=== PATIENT | female | born 1955 | race Two or more races ===

== ENCOUNTER 2020-07-12 11:08 | Outpatient (REF) | payer MEDICAID, SELFPAY ==
--- NOTE | 2020-07-12 11:12 | MM_ITS ---
EXAMINATION: MM SCREENING DIGITAL BREAST TOMOSYNTHESIS, BILATERAL CLINICAL INFORMATION: Screening. Asymptomatic. The lifetime risk of breast cancer based on the Tyrer-Cuzick Model is 3%. COMPARISON: Mammography: 02/14/2019, 06/29/2018, 05/25/2018 TECHNIQUE: Digital breast tomosynthesis is performed in both the craniocaudal and mediolateral oblique views along with computer-aided detection (CAD). Synthesized 2D images are generated from the tomosynthesis. FINDINGS: There are scattered areas of fibroglandular density (ACR BI-RADS breast composition Category b). There are no significant masses, abnormal calcifications, or other abnormalities. Parenchymal pattern is similar to prior studies. There is no developing density. There are scattered bilateral round and vascular calcifications again seen. No significant changes. MM/MM tomosynthesis screening BI IMPRESSION: No mammographic evidence of malignancy. ASSESSMENT: BI-RADS 2: Benign RECOMMENDATION: Routine annual mammography screening. This patient's information was entered into a reminder system with a target due date for their next mammogram.
== END 2020-07-12 11:09 | disposition home or self-care (01) ==
LOC: HO.MAMMO 11:08
PROVIDERS: PCP Internal Medicine Geriatric Medicine; Visit Provider Internal Medicine Geriatric Medicine
DX: Z12.31 Encounter for screening mammogram for malignant neoplasm of breast (principal)
CPT/HCPCS: 77063; 77067

== ENCOUNTER → 2020-09-30 12:59 | Outpatient (BNVA) | payer MEDICAID, SELFPAY | PROVIDERS: PCP Internal Medicine Geriatric Medicine; Visit Provider Internal Medicine Cardiovascular Disease | DX: G47.30 Sleep apnea, unspecified (principal); R06.01 Orthopnea; R06.00 Dyspnea, unspecified; I10 Essential (primary) hypertension | CPT/HCPCS: 99212 ==

== ENCOUNTER → 2020-10-21 14:11 | Outpatient (REF) | payer MEDICAID, SELFPAY | LOC: HO.SL 14:11 | PROVIDERS: PCP Internal Medicine Geriatric Medicine; Visit Provider Internal Medicine Cardiovascular Disease | DX: Z13.89 Encounter for screening for other disorder (principal) ==

== ENCOUNTER → 2020-10-23 13:35 | Outpatient (BNVA) | payer MEDICAID, SELFPAY | PROVIDERS: PCP Internal Medicine Geriatric Medicine; Visit Provider Internal Medicine Cardiovascular Disease | DX: I10 Essential (primary) hypertension (principal); R06.01 Orthopnea | CPT/HCPCS: 99212 ==

== ENCOUNTER → 2020-11-19 10:42 | Outpatient (BNVA) | payer MEDICAID, SELFPAY | PROVIDERS: PCP Internal Medicine Geriatric Medicine; Visit Provider Psychiatry & Neurology Neurology ==

== ENCOUNTER → 2021-02-03 12:55 | Outpatient (BNVA) | payer MEDICAID, SELFPAY | PROVIDERS: PCP Internal Medicine Geriatric Medicine; Referring Provider Internal Medicine Geriatric Medicine; Visit Provider Internal Medicine Cardiovascular Disease | DX: I10 Essential (primary) hypertension (principal); R60.9 Edema, unspecified | CPT/HCPCS: 93005; 99212 ==

== ENCOUNTER → 2021-03-25 13:02 | Outpatient (BNVA) | payer MEDICAID, SELFPAY | PROVIDERS: PCP Internal Medicine Geriatric Medicine; Referring Provider Internal Medicine Geriatric Medicine; Visit Provider Internal Medicine Gastroenterology | DX: R63.4 Abnormal weight loss (principal); F41.9 Anxiety disorder, unspecified | CPT/HCPCS: 99212 ==

== ENCOUNTER 2021-04-07 11:42 | Outpatient (REF) | payer MEDICAID, SELFPAY ==
--- NOTE | ~2021-04-07 | CT_ITS ---
EXAMINATION: CT ABDOMEN AND PELVIS WITH CONTRAST CLINICAL INFORMATION: Abnormal weight loss COMPARISON: Abdominal ultrasound March 2019 TECHNIQUE: Multidetector volumetric images were obtained from the superior aspect of the liver through the pubic symphysis following administration 85 mL of Omnipaque 350 intravenous contrast. Sagittal and coronal reformatted images were obtained on the technologist's workstation. Oral contrast: Yes This CT examination was performed using dose optimization techniques as appropriate, variously including the following: *Automated exposure control *Adjustment of mA and/or kV according to patient size (this includes techniques or standardized protocols for targeted exams where dose is matched to indication/reason for exam; i.e. extremities or head) *Use of iterative reconstruction technique DLP: 386 mGy-cm FINDINGS: LUNG BASES: There is a 4 mm calcified peripheral left lower lobe nodule. The lung bases are otherwise clear. LIVER, GALLBLADDER, AND BILIARY TREE: The liver is slightly low in attenuation questionable for mild fatty infiltration. The liver is otherwise unremarkable. The gallbladder is unremarkable with no evidence of radiopaque gallstones, gallbladder wall thickening, or obvious pericholecystic inflammatory changes. PANCREAS: Unremarkable. SPLEEN: Unremarkable. ADRENAL GLANDS: Unremarkable. KIDNEYS AND URETERS: There is a small 6 mm cyst exophytic to the upper pole of the right kidney. Kidneys are otherwise unremarkable. BLADDER: Unremarkable. GASTROINTESTINAL TRACT: The small and large bowel are unremarkable. The appendix is unremarkable. ABDOMINAL WALL: No significant hernia is appreciated. LYMPH NODES: Normal. VASCULAR: There is evidence of atherosclerotic disease. No aneurysm is seen. PELVIC VISCERA: The uterus appears to have been removed. No pelvic mass is seen. OSSEOUS STRUCTURES: There are degenerative changes of the spine. CT/CT abdomen pelvis w con IMPRESSION: Small 4 mm calcified left lower lobe pulmonary nodule probably representing a calcified granuloma. Question mild fatty infiltration of the liver. Small right renal cyst. Otherwise unremarkable exam.
[2021-04-07 12:54] LABS: MANUAL DIFF FLAG NO
[2021-04-07 13:02] LABS: Basophils Percent Auto 0.6 % (0-2); Eosinophils Absolute Auto 0.1 X10*3/uL (0.0-0.4); Eosinophils Percent Auto 0.8 % (0-4); Hematocrit 43.7 % (37-47); Hemoglobin 14.3 g/dl (12.0-16.0); Imm Gran Abs Auto 0.02 X10*3/uL (0.00-0.03); Imm Gran Pct Auto 0.3 % (0.0-0.4); Lymphocytes Absolute Auto 1.1 X10*3/uL (1.2-4.9); Lymphocytes Percent Auto 16.2 % (20-40); Mean Corpuscular HGB Conc 32.7 g/dl (31.0-35.0); Mean Corpuscular Hemoglobin 28.8 pg (27.0-33.0); Mean Corpuscular Volume 87.9 fL (80-98); Mean Platelet Volume 10.7 fL (9.4-12.3); Monocytes Absolute Auto 0.4 X10*3/uL (0.1-1.2); Monocytes Percent Auto 5.9 % (2-11); Neutrophils Percent Auto 76.2 % (45-73); Platelet Count 359 X10*3/uL (160-400); Red Blood Count 4.97 X10*6/uL (4.20-5.50); Red Cell Distribution Width 11.9 % (11.0-16.0); White Blood Count 6.6 X10*3/uL (4.8-10.8)
[2021-04-07 13:17] LABS: Alanine Aminotransferase 18 U/L (0-31); Albumin Level 4.6 g/dL (3.5-5.0); Alkaline Phosphatase 90 U/L (39-117); Anion Gap 16 (12-20); Aspartate Amino Transferase 13 U/L (5-31); Bilirubin Total 0.3 mg/dL (0.0-1.0); Blood Urea Nitrogen 17 mg/dL (9-16); Calcium 10.4 mg/dL (8.4-10.2); Carbon Dioxide 32 mmol/L (22-29); Chloride 99 mmol/L (96-108); Estimated Glomerular Filt Rate > 60; Glucose Random 287 mg/dL (60-115); Potassium 5.7 mmol/L (3.3-5.1); Sodium 141 mmol/L (135-145); Total Protein 7.3 g/dL (6.5-8.0)
[2021-04-07 13:40] LABS: Ferritin 122 ng/mL (10-250); TSH reflex Free T4 0.87 uIU/mL (0.32-4.0); Vitamin D 25-OH Total 14.4 ng/mL (>30)
[2021-04-07 13:53] LABS: Erythrocyte Sedimentation Rate 18 MM/HR (0-20)
[2021-04-07 14:39] LABS: Glucose Urine UA >=1000 MG/DL (NEG); Leukocyte Esterase Urine NEG (NEG); Nitrite Urine NEG (NEG); PH 6.5 (5.0-8.0); Urine Blood NEG (NEG); Urine Ketones 5 MG/DL (NEG); Urine Protein NEG (NEG-TRACE)
[2021-04-07 14:47] LABS: Appearance Urine CLEAR; Color Urine YELLOW
[2021-04-07] MEDS: iohexoL 350 MG/ML 100 ML INFUS..BTL 85 ML IV (15:22)
[2021-04-07 15:33] LABS: RBC Urine 0-2 /HPF (0); Squamous Epithelial Cell Urine 3+ /LPF; WBC Urine 0-2 /HPF (0-4)
[2021-04-10 06:21] LABS: Zinc 71 mcg/dL (60-130)
== END 2021-04-07 11:43 | disposition home or self-care (01) ==
LOC: HO.CT 11:42
PROVIDERS: PCP Internal Medicine Geriatric Medicine; Visit Provider Internal Medicine Gastroenterology
DX: R63.4 Abnormal weight loss (principal)
CPT/HCPCS: 36415; 74177; 80053; 81001; 81003; 82306; 82728; 84443; 84630; 85025; 85652; 86003; 86140; Q9967

== ENCOUNTER → 2021-05-29 14:54 | Outpatient (BNVA) | payer MEDICAID, SELFPAY | PROVIDERS: PCP Internal Medicine Geriatric Medicine; Referring Provider Internal Medicine Geriatric Medicine; Visit Provider Internal Medicine Cardiovascular Disease | DX: I10 Essential (primary) hypertension (principal) | CPT/HCPCS: 99212 ==

== ENCOUNTER 2021-07-01 13:22 | Outpatient (REF) | payer MEDICARE, MEDICAID, SELFPAY ==
--- NOTE | ~2021-07-01 | MM_ITS ---
EXAMINATION: MM DIAGNOSTIC DIGITAL BREAST TOMOSYNTHESIS, BILATERAL US DIAGNOSTIC ULTRASOUND BREAST, RIGHT CLINICAL INFORMATION: Diffuse right breast pain. No mass or discharge. Due for yearly. The lifetime risk of breast cancer based on the Tyrer-Cuzick Model is 3%. COMPARISON: Mammography: 07/12/2020, 02/14/2019, 05/25/2018, 04/26/2017 TECHNIQUE: Digital breast tomosynthesis is performed in both the craniocaudal and mediolateral oblique views along with computer-aided detection (CAD). Synthesized 2D images are generated from the tomosynthesis. Ultrasound right breast is performed with imaging of the 4 quadrants and retroareolar region. Grayscale imaging and color Doppler are performed without and with harmonics. FINDINGS: There are scattered areas of fibroglandular density (ACR BI-RADS breast composition Category b). Parenchymal pattern is similar to prior studies. There is no developing density or interval mass or architectural abnormality. There are scattered bilateral vascular and round calcifications again seen. The axilla and skin contours are unremarkable. There is no skin thickening or coarsening of the Hima's ligaments. No significant changes. Ultrasound right breast demonstrates no cystic or solid mass, architectural abnormality, or focal duct ectasia. There is no skin thickening or edema tracking in soft tissue planes. Results are discussed with the patient at time of visit, using an educational sign language interpreter. MM/MM tomosynthesis diagnostic BI IMPRESSION: No mammographic evidence of malignancy or inflammatory changes. Unremarkable right breast ultrasound. ASSESSMENT: BI-RADS 1: Negative RECOMMENDATION: 1. Patient's diffuse right breast pain should be managed based on the clinical impression. 2. Otherwise, routine annual screening mammography. This patient's information was entered into a reminder system with a target due date for their next mammogram.
== END 2021-07-01 13:23 | disposition home or self-care (01) ==
LOC: HO.MAMMO 13:22
PROVIDERS: PCP Internal Medicine Geriatric Medicine; Visit Provider Internal Medicine
DX: N64.4 Mastodynia (principal)
CPT/HCPCS: 76642; 77062; 77066

== ENCOUNTER 2021-07-18 17:09 | Emergency (ER) | payer MEDICARE, MEDICAID, SELFPAY ==
--- NOTE | ~2021-07-18 | CT_ITS ---
EXAMINATION: CT HEAD WITHOUT CONTRAST CLINICAL INFORMATION: Facial droop. COMPARISON: CT brain dated from 08/22/2018. TECHNIQUE: Contiguous axial imaging was performed from the skull base to vertex without intravenous administration of contrast. This CT examination was performed using dose optimization techniques as appropriate, variously including the following: *Automated exposure control *Adjustment of mA and/or kV according to patient size (this includes techniques or standardized protocols for targeted exams where dose is matched to indication/reason for exam; i.e. extremities or head) *Use of iterative reconstruction technique DLP: 649 mGy-cm FINDINGS: There is no evidence of acute intracranial hemorrhage or edematous territorial infarction. There is no abnormal attenuation within the brain parenchyma. Curry-white matter differentiation is preserved. The ventricles are normal in size and configuration. There is mild prominence of the extra-axial CSF spaces along the bifrontal convexities, similar to prior. No evidence for obstructive hydrocephalus. No abnormal mass effect or midline shift. No extra-axial fluid collections. Mild soft tissue thickening and scarring in the frontal scalp/forehead, unchanged. No acute osseous or soft tissue abnormalities. Mild mucosal thickening of the paranasal sinuses. The mastoids are clear. CT/CT head/brain wo con IMPRESSION: No evidence of acute intracranial hemorrhage or edematous territorial infarction.
--- NOTE | ~2021-07-18 | MR_ITS ---
EXAMINATION: MR BRAIN WITHOUT CONTRAST CLINICAL INFORMATION: Right facial droop. COMPARISON: Head CT 07/18/2021. TECHNIQUE: Multiplanar, multisequence imaging of the brain was performed without intravenous contrast. FINDINGS: There is no acute infarction, mass, hemorrhage, or extra-axial collection. The ventricles, sulci, and basilar cisterns are normal in size and configuration. The flow voids of the major intracranial arteries appear intact. The bones and extracranial soft tissues are unremarkable. MR/MR head/brain wo con IMPRESSION: No acute infarct, mass lesion, intracranial hemorrhage, or evidence of hydrocephalus.
[2021-07-18 17:16] VITALS: BP 126/52; PULSE 63; RESP 18; TEMP 36.9; O2SAT 100; BMI 29.8
[2021-07-18 17:53] VITALS: BP 157/64; PULSE 90; RESP 18; TEMP 36.7; O2SAT 98
--- NOTE | 2021-07-18 18:01 | ECG_ITS ---
Test Reason : NEURO Blood Pressure : / mmHG Vent. Rate : 088 BPM Atrial Rate : 088 BPM P-R Int : 134 ms QRS Dur : 082 ms QT Int : 354 ms P-R-T Axes : 037 011 066 degrees QTc Int : 428 ms Normal sinus rhythm Nonspecific T wave abnormality Abnormal ECG No significant changes seen Referred By: Nigel Rinaldi Electronically Signed By:ADINA MORALES MD
[2021-07-18 18:07] VITALS: BP 157/74; PULSE 89; RESP 18; O2SAT 98
--- NOTE | 2021-07-18 18:09 | PC.NURSE ---
describing three weeks of right ear pain radiating into right side of face and chin. since yesteray has had left mouth weakness. right facial droop noted. able to close both eyes. no palmar drift. no weakness noted. clear speech.
--- NOTE | 2021-07-18 18:10 | ED_ITS ---
HPI - Neuro Symptoms/Deficit General Chief Complaint: Neuro Symptoms/Deficit Stated Complaint: facial drooping,neck and ear pain Time Seen by Provider: 07/18/21 18:00 Source: patient, family (Daughter) and facility manager histology Mode of arrival: ambulatory Limitations: no limitations History of Present Illness HPI Narrative: 66-year-old female came in for evaluation of a right facial droop started since yesterday. Patient has been complaining of right ear pain and right-sided neck pain for the past 2 weeks, patient started to notice weakness in right facial with drooping since yesterday, patient declined any weakness or numbness in her body. Related Data Home Medications Medication Instructions Recorded Confirmed aspirin 81 mg tablet,delayed 81 mg PO DAILY 09/30/20 05/29/21 release insulin detemir U-100 100 unit/mL 10 unit SUBCUT BEDTIME 09/30/20 05/29/21 (3 mL) subcutaneous pen (Levemir FlexTouch U-100 Insulin) insulin lispro 100 unit/mL 1 sliding scale dose SUBCUT 09/30/20 05/29/21 subcutaneous cartridge (Humalog USEASDIRECTD U-100 Insulin) pravastatin 10 mg tablet 10 mg PO DAILY 09/30/20 05/29/21 hydrochlorothiazide 25 mg tablet 25 mg PO BID 05/29/21 05/29/21 Previous Rx's Medication Instructions Recorded lansoprazole 30 mg capsule,delayed 30 mg PO BID #60 cap 03/25/21 release linaclotide 290 mcg capsule 290 mcg PO DAILY #30 cap 03/25/21 losartan 25 mg tablet 25 mg PO DAILY #30 tab 05/29/21 prednisone 20 mg tablet 20 mg PO BID #10 tab 07/18/21 Allergies Allergy/AdvReac Type Severity Reaction Status Date / Time insulin glargine Allergy Mild RASH Verified 05/29/21 15:09 [From LANTUS] Amitryptiline Allergy Mild unknown Uncoded 03/25/21 13:07 Lantus Allergy Mild unknown Uncoded 03/25/21 13:07 Review of Systems Review of Systems: All other systems are reviewed and are negative Constitutional: Reports as per HPI and Reports no additional constitutional complaints Eyes: Reports as per HPI and Reports no additional eye complaints Reports system reviewed and no additional complaints, except as documented Cardiovascular: Reports as per HPI and Reports no additional cardiovascular complaints Respiratory: Reports as per HPI and Reports no additional respiratory complaints Gastrointestinal: Reports as per HPI and Reports no additional gastrointestinal complaints Genitourinary: Reports no additional female genitourinary complaints Musculoskeletal: Reports no additional musculoskeletal complaints Skin/Breast: Reports system reviewed and no additional complaints, except as docu Psychiatric: Reports no additional psychiatric complaints Endocrine: Reports no additional endocrine complaints Hematologic/Lymphatic: Reports no additional hematologic/lymphatic complaints Allergic/Immunologic: Reports no additional allergic/immunologic complaints Reports system reviewed and no additional complaints, except as documented and R eports Abnormal speech present [facility] Past Medical History Surgical History H/O colonoscopy History of esophagogastroduodenoscopy (EGD) S/P removal of left ovary S/P removal of right ovary Family History Family History Mother Diabetes Father Liver cancer Social History Social History Alcohol intake: never Patient Tobacco Use Status: Never used Tobacco Use of substances other than those prescribed or required for medical reasons: No Advance Directives: No Advance Directives Information Provided: Yes Physical Exam Vital Signs: Vital Signs: Last Vital Signs Temp 98.1 F 07/18/21 17:53 Pulse 89 07/18/21 18:07 Resp 18 07/18/21 18:07 BP 157/74 H 07/18/21 18:07 Pulse Ox 98 07/18/21 18:07 Body Mass Index 29.8 Vital signs have been reviewed as appeared to be correct. Blood pressure normal. Heart rate normal. Respiration rate normal. Temperature normal. Oxygen saturation normal. Appearance: Alert. Oriented X3. No acute distress. Head: Normal external exam. Normocephalic. Atraumatic. No Galvan signs noted. No raccoon eyes noted Eyes: PERRLA. EOMI. Conjunctiva and sclera normal. Eyelids normal. ENT: TM's Normal. Pharynx normal. Uvula midline. Moist mucous membranes. No trismus noted. No drooling noted. No muffled voice noted. Neck: Normal inspection. Neck supple. FROM. No adenopathy. Thyroid Normal. No meningeal signs. No neck mass noted. CVS: Normal heart rate and rhythm. Heart sound normal. No murmurs noted. Pulses normal throughout. Respiratory: No respiratory distress. Painless inspiration. Breath sounds normal. No wheezes/rales/rhonchi noted. Chest nontender. No accessory muscle usage noted or decreased air movement noted. Abdomen: Soft and nontender. Bowel sounds normal in all 4 quadrants. No distention noted. No organomegaly noted. No visible injury noted. Back: No CVA tenderness. Full range of motion noted. Skin: Skin warm and dry. Normal skin color. Normal skin turgor. No rashes/lesions/lacerations noted. Extremities: No lower extremity edema. Extremities exhibit normal range of motion. Extremities nontender. Neuro: Oriented X 3. Cranial nerve exam: Right facial droop with paralysis of the forehead muscle. No motor deficit. No sensory deficit. Reflexes normal. Course Course Course Narrative: Assessment and plan. Right facial Johnson's palsy, otherwise unremarkable neuro exam, CT head/MRI head showing no acute stroke. Patient was reassured and was given the option for steroid because patient is known history of hypertension and diabetes. Will discharge to follow up with Neuro/PCP. MDM - Neuro Symptoms/Deficit Medical Records Attestation: I reviewed the patient's medical records. Lab Data Attestation: I reviewed the patient's lab results. Result diagrams: 07/18/21 18:31 07/18/21 18:31 Labs: Lab Results 07/18/21 07/18/21 07/18/21 Range/Units 18:31 18:31 18:31 WBC 5.0 (4.8-10.8) X10*3/uL RBC 4.45 (4.20-5.50) X10*6/uL Hgb 13.0 (12.0-16.0) g/dl Hct 39.3 (37.0-47.0) % MCV 88.3 (80.0-98.0) fL MCH 29.2 (27.0-33.0) pg MCHC 33.1 (31.0-35.0) g/dl RDW 12.0 (11.0-16.0) % Plt Count 343 (160-400) X10*3/uL MPV 9.7 (9.4-12.3) fL Immature Gran % (Auto) 0.2 (0.0-0.4) % Neut % (Auto) 64.1 (45-73) % Lymph % (Auto) 24.5 (20-40) % [place] % (Auto) 9.4 (2-11) % Eos % (Auto) 1.2 (0-4) % Baso % (Auto) 0.6 (0-2) % Lymph # (Auto) 1.2 (1.2-4.9) X10*3/uL [place] # (Auto) 0.5 (0.1-1.2) X10*3/uL Eos # (Auto) 0.1 (0.0-0.4) X10*3/uL Baso # (Auto) 0.0 (0.0-0.2) X10*3/uL Abs Immat Gran (auto) 0.01 (0.00-0.03) X10*3/uL Absolute Neuts (auto) 3.2 (2.0-8.3) x10*3/uL Absolute Nucleated RBC 0.000 (0.0-0.012) X10*3/uL Nucleated RBC % (auto) 0.0 (0.0-0.2) /100WBC Sodium 142 (135-145) mmol/L Potassium 3.9 D (3.3-5.1) mmol/L Chloride 102 (96-108) mmol/L Carbon Dioxide 34 H (22-29) mmol/L Anion Gap 10 L (12-20) BUN 15 (9-16) mg/dL Creatinine 0.79 (0.5-1.4) mg/dL Estim Creat Clear Calc 66.8 Estimated GFR > 60 Random Glucose 156 H (60-115) mg/dL Calcium 9.1 D (8.4-10.2) mg/dL Total Bilirubin 0.2 (0.0-1.0) mg/dL Direct Bilirubin < 0.2 (0.0-0.5) mg/dL AST 13 (5-31) U/L ALT 17 (0-31) U/L Alkaline Phosphatase 73 (39-117) U/L Troponin I High Sens < 3.5 (<3.5-17.0) ng/L Total Protein 6.5 (6.5-8.0) g/dL Albumin 4.2 (3.5-5.0) g/dL Lipase 9 (8-78) U/L Urine Color Urine Appearance Urine pH (5.0-8.0) Ur Specific [place] (1.005-1.025) Urine Protein (NEG-TRACE) MG/DL Urine Glucose (UA) (NEG) MG/DL Urine Ketones (NEG) MG/DL Urine Blood (NEG) Urine Nitrite (NEG) Ur Leukocyte Esterase (NEG) Urine RBC (0) /HPF Urine WBC (0-4) /HPF Ur Squamous Epith Cells /LPF Urine Bacteria /LPF 07/18/21 Range/Units 18:31 WBC (4.8-10.8) X10*3/uL RBC (4.20-5.50) X10*6/uL Hgb (12.0-16.0) g/dl Hct (37.0-47.0) % MCV (80.0-98.0) fL MCH (27.0-33.0) pg MCHC (31.0-35.0) g/dl RDW (11.0-16.0) % Plt Count (160-400) X10*3/uL MPV (9.4-12.3) fL Immature Gran % (Auto) (0.0-0.4) % Neut % (Auto) (45-73) % Lymph % (Auto) (20-40) % [place] % (Auto) (2-11) % Eos % (Auto) (0-4) % Baso % (Auto) (0-2) % Lymph # (Auto) (1.2-4.9) X10*3/uL [place] # (Auto) (0.1-1.2) X10*3/uL Eos # (Auto) (0.0-0.4) X10*3/uL Baso # (Auto) (0.0-0.2) X10*3/uL Abs Immat Gran (auto) (0.00-0.03) X10*3/uL Absolute Neuts (auto) (2.0-8.3) x10*3/uL Absolute Nucleated RBC (0.0-0.012) X10*3/uL Nucleated RBC % (auto) (0.0-0.2) /100WBC Sodium (135-145) mmol/L Potassium (3.3-5.1) mmol/L Chloride (96-108) mmol/L Carbon Dioxide (22-29) mmol/L Anion Gap (12-20) BUN (9-16) mg/dL Creatinine (0.5-1.4) mg/dL Estim Creat Clear Calc Estimated GFR Random Glucose (60-115) mg/dL Calcium (8.4-10.2) mg/dL Total Bilirubin (0.0-1.0) mg/dL Direct Bilirubin (0.0-0.5) mg/dL AST (5-31) U/L ALT (0-31) U/L Alkaline Phosphatase (39-117) U/L Troponin I High Sens (<3.5-17.0) ng/L Total Protein (6.5-8.0) g/dL Albumin (3.5-5.0) g/dL Lipase (8-78) U/L Urine Color YELLOW Urine Appearance CLEAR Urine pH 6.0 (5.0-8.0) Ur Specific [place] 1.015 (1.005-1.025) Urine Protein NEG (NEG-TRACE) MG/DL Urine Glucose (UA) >=1000 H (NEG) MG/DL Urine Ketones NEG (NEG) MG/DL Urine Blood NEG (NEG) Urine Nitrite NEG (NEG) Ur Leukocyte Esterase NEG (NEG) Urine RBC 0 (0) /HPF Urine WBC 1-4 (0-4) /HPF Ur Squamous Epith Cells 1+ /LPF Urine Bacteria NONE /LPF Imaging Data Brain MRI: Radiologist's impression: No acute infarct, mass lesion, intracranial hemorrhage, or evidence of hydrocephalus. ? CT scan - head: Radiologist's impression: No evidence of acute intracranial hemorrhage or edematous territorial infarction. NIH Stroke Scale Level of Consciousness: Alert Level of Consciousness Questions: Answers both questions correctly Level of Consciousness Commands: Performs both tasks correctly Best Gaze: Normal Visual: No visual loss Facial Palsy: Partial paralysis Motor Arm (Right): No drift Motor Arm (Left): No drift Motor Leg (Right): No drift Motor Leg (Left): No drift Limb Ataxia: Absent Sensory: Normal Best Language: No aphasia Dysarthia: Normal Extinction and Inattention: No abnormality Score: 2 Discharge Plan Discharge Clinical Impression: Facial paralysis/Grubbs palsy Patient Disposition: Home, Self-Care Instructions: Johnson Palsy (ED) Prescriptions: New prednisone 20 mg tablet 20 mg PO BID Qty: 10 RF: 0 No Action lansoprazole 30 mg capsule,delayed release(DR/EC) 30 mg PO BID Qty: 60 RF: 3 linaclotide 290 mcg capsule 290 mcg PO DAILY Qty: 30 RF: 3 hydrochlorothiazide 25 mg tablet 25 mg PO BID RF: 0 losartan 25 mg tablet 25 mg PO DAILY Qty: 30 RF: 3 Humalog U-100 Insulin 100 unit/mL cartridge 1 sliding scale dose subcut USEASDIRECTD RF: 0 aspirin 81 mg tablet,delayed release (DR/EC) 81 mg PO DAILY RF: 0 Levemir FlexTouch U-100 Insuln 100 unit/mL (3 mL) insulin pen 10 unit subcut BEDTIME RF: 0 pravastatin 10 mg tablet 10 mg PO DAILY RF: 0 Referrals: Aamir Pierce MD [Primary Care Provider] - 2 days Preeti Campbell MD [Physician] - 2 days
[2021-07-18 18:39] LABS: MANUAL DIFF FLAG NO
[2021-07-18 18:40] LABS: Basophils Percent Auto 0.6 % (0-2); Eosinophils Absolute Auto 0.1 X10*3/uL (0.0-0.4); Eosinophils Percent Auto 1.2 % (0-4); Hematocrit 39.3 % (37.0-47.0); Imm Gran Abs Auto 0.01 X10*3/uL (0.00-0.03); Imm Gran Pct Auto 0.2 % (0.0-0.4); Lymphocytes Absolute Auto 1.2 X10*3/uL (1.2-4.9); Lymphocytes Percent Auto 24.5 % (20-40); Mean Corpuscular HGB Conc 33.1 g/dl (31.0-35.0); Mean Corpuscular Hemoglobin 29.2 pg (27.0-33.0); Mean Corpuscular Volume 88.3 fL (80.0-98.0); Mean Platelet Volume 9.7 fL (9.4-12.3); Monocytes Absolute Auto 0.5 X10*3/uL (0.1-1.2); Monocytes Percent Auto 9.4 % (2-11); Neutrophils Absolute Auto 3.2 x10*3/uL (2.0-8.3); Neutrophils Percent Auto 64.1 % (45-73); Platelet Count 343 X10*3/uL (160-400); Red Blood Count 4.45 X10*6/uL (4.20-5.50)
[2021-07-18 18:47] LABS: Appearance Urine CLEAR; Color Urine YELLOW; Glucose Urine UA >=1000 MG/DL (NEG); Leukocyte Esterase Urine NEG (NEG); Nitrite Urine NEG (NEG); Specific Gravity - Urine 1.015 (1.005-1.025); Urine Blood NEG (NEG); Urine Ketones NEG (NEG); Urine Protein NEG (NEG-TRACE)
[2021-07-18 18:56] LABS: Alanine Aminotransferase 17 U/L (0-31); Albumin Level 4.2 g/dL (3.5-5.0); Alkaline Phosphatase 73 U/L (39-117); Anion Gap 10 (12-20); Aspartate Amino Transferase 13 U/L (5-31); Bilirubin Direct < 0.2 mg/dL (0.0-0.5); Bilirubin Total 0.2 mg/dL (0.0-1.0); Blood Urea Nitrogen 15 mg/dL (9-16); Calcium 9.1 mg/dL (8.4-10.2); Carbon Dioxide 34 mmol/L (22-29); Chloride 102 mmol/L (96-108); Creatinine Clr Calc Pharmacy 66.8; Estimated Glomerular Filt Rate > 60; Glucose Random 156 mg/dL (60-115); Lipase 9 U/L (8-78); Potassium 3.9 mmol/L (3.3-5.1); Sodium 142 mmol/L (135-145); Total Protein 6.5 g/dL (6.5-8.0)
[2021-07-18 18:59] LABS: Troponin-I High Sensitivity < 3.5 ng/L (<3.5-17.0)
[2021-07-18 19:07] LABS: RBC Urine 0 /HPF (0); Squamous Epithelial Cell Urine 1+ /LPF
--- NOTE | 2021-07-18 19:11 | PC.NURSE ---
pt is going directly to MRI from Ct.
== END 2021-07-18 22:28 | disposition home or self-care (01) ==
PROVIDERS: Emergency Provider Emergency Medicine; PCP Internal Medicine Geriatric Medicine
DX: G51.0 Bell's palsy (principal)
CPT/HCPCS: 36415; 70450; 70551; 80048; 80076; 81001; 83690; 84484; 85025; 93005; 99284; 99285

== ENCOUNTER → 2021-08-01 08:40 | Outpatient (BNVA) | payer MEDICARE, MEDICAID, SELFPAY | PROVIDERS: PCP Internal Medicine Geriatric Medicine; Referring Provider Internal Medicine Geriatric Medicine; Visit Provider Internal Medicine Gastroenterology | DX: R10.13 Epigastric pain (principal); F41.9 Anxiety disorder, unspecified; R63.4 Abnormal weight loss | CPT/HCPCS: 99212 ==

== ENCOUNTER → 2021-10-31 08:44 | Outpatient (BNVA) | payer MEDICARE, SELFPAY | PROVIDERS: PCP Internal Medicine Geriatric Medicine; Referring Provider Internal Medicine Geriatric Medicine; Visit Provider Internal Medicine Gastroenterology | DX: K29.60 Other gastritis without bleeding (principal); K59.00 Constipation, unspecified | CPT/HCPCS: 99212 ==

== ENCOUNTER 2021-12-03 07:59 | Day surgery (SDC) | payer MEDICARE, SELFPAY ==
--- NOTE | 2021-12-02 08:22 | P.CONAN_ITS ---
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 [facility] Active Problems Active Problems: All Active Problems (Updated 11/28/21 @ 11:57 by Raquel Farias, JESENIA) Hypertension (Acute) GRIGSBY (dyspnea on exertion) (Acute) Orthopnea (Acute) Sleep disorder breathing (Acute) Snoring (Acute) Insomnia (Acute) Nocturnal leg movements (Acute) Excessive daytime sleepiness (Acute) Peripheral edema (Acute) Weight loss, abnormal (Acute) Epigastric abdominal pain (Acute) Anxiety (Acute) Past Medical History Medical History (Updated 12/03/21 @ 08:12 by Deb Owens RN) Anxiety Diabetes GERD (gastroesophageal reflux disease) HTN (hypertension) Sleep apnea Family History Family History Mother Diabetes Father Liver cancer Surgical History Surgical History H/O colonoscopy History of esophagogastroduodenoscopy (EGD) S/P removal of left ovary S/P removal of right ovary Social History Social History Alcohol intake: never Patient Tobacco Use Status: Never used Tobacco Use of substances other than those prescribed or required for medical reasons: No Are you DNR?: No Advance Directives: No Advance Directives Information Provided: Yes Meds Allergies Allergy/AdvReac Type Severity Reaction Status Date / Time insulin glargine Allergy Mild RASH Verified 11/28/21 11:59 [From LANTUS] Amitryptiline Allergy Mild unknown Uncoded 11/28/21 11:59 Home Medications Medication Instructions Recorded Confirmed Last Taken Type aspirin 81 mg tablet,delayed 81 mg PO DAILY 09/30/20 11/28/21 Unknown History release insulin detemir U-100 100 unit/mL 10 unit SUBCUT BEDTIME 09/30/20 11/28/21 Unknown History (3 mL) subcutaneous pen (Levemir FlexTouch U-100 Insulin) insulin lispro 100 unit/mL 1 sliding scale dose SUBCUT 09/30/20 11/28/21 Unknown History subcutaneous cartridge (Humalog USEASDIRECTD U-100 Insulin) pravastatin 10 mg tablet 10 mg PO DAILY 09/30/20 11/28/21 Unknown History hydrochlorothiazide 25 mg tablet 25 mg PO DAILY 05/29/21 11/28/21 Unknown History empagliflozin 10 mg tablet 10 mg PO QAM 08/01/21 11/28/21 Unknown History (Jardiance) fluticasone propionate 50 2 spray INTRANASAL DAILY 08/01/21 11/28/21 Unknown History mcg/actuation nasal spray,suspension loratadine 10 mg tablet 10 mg PO DAILY 08/01/21 11/28/21 Unknown History losartan 25 mg tablet 50 mg PO DAILY tab 08/01/21 11/28/21 Unknown History Exam Exam Date and Time: December 02, [id number] Pertinent Lab Results Pertinent Lab Results: Laboratory Tests 07/18/21 07/18/21 18:31 18:31 WBC 5.0 Hgb 13.0 Hct 39.3 Plt Count 343 Sodium 142 Potassium 3.9 D Chloride 102 Carbon Dioxide 34 H BUN 15 Creatinine 0.79 Narrative Narrative: EKG 07/2021 Vent. Rate : 088 BPM ? ? Atrial Rate : 088 BPM ?? P-R Int : 134 ms? QRS Dur : 082 ms ? ? QT Int : 354 ms ? ? ? P-R-T Axes : 037 011 066 degrees ?? QTc Int : 428 ms ? Normal sinus rhythm Nonspecific T wave abnormality Abnormal ECG ? No significant changes seen Assessment and Plan Assessment Anesthesia Assessment: Chart Reviewed Documented by User: Dana Maradiaga MD 12/03/21 08:37 [facility] Past Medical History Medical History (Updated 12/03/21 @ 08:12 by Deb Owens RN) Anxiety Diabetes GERD (gastroesophageal reflux disease) HTN (hypertension) Sleep apnea Family History Family History Mother Diabetes Father Liver cancer Family history of problems with anesthesia: No Surgical History Surgical History H/O colonoscopy History of esophagogastroduodenoscopy (EGD) S/P removal of left ovary S/P removal of right ovary History of Problems with Anesthesia: No Social History Social History Alcohol intake: never Patient Tobacco Use Status: Never used Tobacco Use of substances other than those prescribed or required for medical reasons: No Are you DNR?: No Advance Directives: No Advance Directives Information Provided: Yes Meds Allergies Allergy/AdvReac Type Severity Reaction Status Date / Time insulin glargine Allergy Mild RASH Verified 11/28/21 11:59 [From LANTUS] Amitryptiline Allergy Mild unknown Uncoded 11/28/21 11:59 Home Medications Medication Instructions Recorded Confirmed Last Taken Type aspirin 81 mg tablet,delayed 81 mg PO DAILY 09/30/20 11/28/21 Unknown History release insulin detemir U-100 100 unit/mL 10 unit SUBCUT BEDTIME 09/30/20 11/28/21 Unknown History (3 mL) subcutaneous pen (Levemir FlexTouch U-100 Insulin) insulin lispro 100 unit/mL 1 sliding scale dose SUBCUT 09/30/20 11/28/21 Unknown History subcutaneous cartridge (Humalog USEASDIRECTD U-100 Insulin) pravastatin 10 mg tablet 10 mg PO DAILY 09/30/20 11/28/21 Unknown History hydrochlorothiazide 25 mg tablet 25 mg PO DAILY 05/29/21 11/28/21 Unknown History empagliflozin 10 mg tablet 10 mg PO QAM 08/01/21 11/28/21 Unknown History (Jardiance) fluticasone propionate 50 2 spray INTRANASAL DAILY 08/01/21 11/28/21 Unknown History mcg/actuation nasal spray,suspension loratadine 10 mg tablet 10 mg PO DAILY 08/01/21 11/28/21 Unknown History losartan 25 mg tablet 50 mg PO DAILY tab 08/01/21 11/28/21 Unknown History Exam Airway Mallampati Class: III TM Dist: >3cm Neck ROM: Full Denture: Upper and Lower Heart: rrr Lungs: cta Assessment and Plan Assessment Anesthesia Assessment: Anesthesia Plan Discussed and Chart Reviewed Final Anesthetic Review Family History of Problems with Anesthesia: No History of Problems with Anesthesia: No NPO: Yes (BS 217) ASA Class: II Final Preanesthetic Review: No Changes in Pt Med Stat, Meds/Allgs Chart Reviewed and Consent Obtained/Reviewed Patient Risk: Intermediate Procedure Risk: Intermediate Anesthetic Plan Anesthetic Plan: MAC: Disposition: Standard PACU
[2021-12-03 08:07] VITALS: BMI 33.2
[2021-12-03 08:29] VITALS: BP 181/67; PULSE 90; RESP 16; TEMP 36.7; O2SAT 97
[2021-12-03 08:38] LABS: Glucose, Whole Blood 217 mg/dL (60-115)
[2021-12-03] MEDS: Lactated Ringers 1,000 ML 100 ML IVCONT (08:46)
--- NOTE | 2021-12-03 09:08 | MHC.SHP ---
Pre-Procedural Eval Section A Date of Service: 12/03/21 Section B Chief Complaint: Change in Bowel Habits, Epigastric abd pain Relevant Family History (Specify if Yes): No Relevant Social History: None Present Medications: see Short Stay Collaborative assessment Medical History: Significant History (Anxiety Diabetes GERD (gastroesophageal reflux disease) HTN (hypertension) Sleep apnea) History of Previous Operations: Relevant previous surgery/procedure and date(s) (H/O colonoscopy History of esophagogastroduodenoscopy (EGD) S/P removal of left ovary S/P removal of right ovary) Allergies: Allergies Allergy/AdvReac Type Severity Reaction Status Date / Time insulin glargine Allergy Mild RASH Verified 11/28/21 11:59 [From LANTUS] Amitryptiline Allergy Mild unknown Uncoded 11/28/21 11:59 Review of Systems Sugical H&P ROS: Negative: Constitution, Cardiovascular, Respiratory, Neurological, Psychiatric, Hem-Onc, Allergic/Immunologic, Gastrointestinal, Genitourinary, Musculoskeletal, Integumentary, Endocrine and Eyes/Ears/Nose/Throat Exam Surgical H&P Exam: Normal: HEENT, Normal: Heart, Normal: Lungs, Normal: Extremities, Normal: Abdomen, Normal: Skin and Normal: Neurological Plan Diagnosis/Plan: Unchanged I have reviewed the history and physical and performed a pertinent physical examination on my patient. No changes have occurred unless specified.
--- NOTE | 2021-12-03 09:33 | P.BOP_ITS ---
Brief Operative Note Date of Service: 12/03/21 Pre-op diagnosis: GERD, altered bowel habit Post-op diagnosis: same Procedure: see op note Surgeon: Roxanne Stock MD Anesthesia: MAC Was an [employer] Gin used for this Procedure?: No Estimated blood loss (mL): 0 Condition: stable Disposition: PACU
--- NOTE | 2021-12-03 09:34 | W.PM.OPN ---
Operative Note Operative Note Date of Service: 12/03/21 Narrative: Operative Information Procedure Description: EGD, Colonoscopy FLEXIBLE TRANSORAL UPPER GASTROINTESTINAL ENDOSCOPY AND COLONOSCOPY PROCEDURE NOTE UPPER ENDOSCOPY Consent: Indications for the procedure and potential complications of bleeding, perforation, reaction to medications and missed diagnosis were discussed with the patient and informed consent was obtained. Instrument: Olympus GIF H 190 J mid size upper endoscope Monitoring: Vital signs and clinical assessment, continuous EKG monitoring, Pulse oximetry, Carbon Dioxide monitoring and blood pressure monitoring were done throughout the procedure. Procedure: The patient was placed in the left lateral decubitis position and pre-procedure medications were administered and a bite block was placed. The endoscope was inserted into the mouth and advanced under direct vision to the third part of duodenum. A careful inspection was made as the upper endoscope was withdrawn including a retroflexed examination of the proximal stomach; Findings and interventions are described below. Findings: Larynx:normal Esophagus: GE junction at 38 cm, diaphragm hiatus at 38 cm, normal mucosa, 10 mm esophageal inlet patch seen which is a benign finding, random esophageal bx taken Stomach: Normal mucosa. Biopsies were obtained. Grade 2 flap valve on retroflexed examination of the cardia. Duodenum: Normal bulb and descending duodenum, bx taken Intervention: Biopsies as noted above COLONOSCOPY Instrument: Olympus variable stiffness pediatric scope 190L Colonoscopy Monitoring: Vital signs and clinical assessment, continuous EKG monitoring, Pulse oximetry, Carbon Dioxide monitoring and blood pressure monitoring were done throughout the procedure. Colon withdrawal time was 15 minutes. Procedure: The patient was placed in the left lateral decubitis position and pre-procedure medications were administered. After a digital rectal examination of the ano-rectum, the video colonoscope was inserted into the rectum and advanced through the colon to the cecum/TI. The colonoscope was slowly withdrawn in a retrograde panoramic fashion and the colon mucosa was carefully examined including a retroflexed view of the rectum. Findings and interventions are described below. Procedure Difficulty: easy Findings: Terminal Ileum-normal, bx taken random colon bx taken Cecum:normal Ascending Colon: normal Transverse Colon -normal Descending Colon:normal Sigmoid Colon: normal Rectum: Retroflexion with small internal hemorrhoids, grade I Anorectum - normal Colon preparation: [place] Bowel Preparation Scale Right colon; 1 Transverse colon: 2 Left colon; 1 (0 = Unprepared colon segment with mucosa not seen due to solid stool that cannot be cleared. 1 = Portion of mucosa of the colon segment seen, but other areas of the colon segment not well seen due to staining, residual stool and/or opaque liquid. 2 = Minor amount of residual staining, small fragments of stool and/or opaque liquid, but mucosa of colon segment seen well. 3 = Entire mucosa of colon segment seen well with no residual staining, small fragments of stool or opaque liquid) Impression and Post Procedure Diagnosis: Endoscopy Findings: esophageal inlet patch Colonoscopy Findings: internal hemorrhoids Plan: Await Pathology results, if bx neg then can consider further w/u with capsule endoscopy etc Repeat Colonoscopy in 1-2 years or earlier if clinically indicated High fiber diet leaflet avoid straining at stool, epsom salts and sitz bath, anusol supps or cream Above findings were reviewed with the patient and relevant handouts were provided if indicated.
[2021-12-03 10:12] VITALS: BP 114/52; PULSE 86; RESP 18; TEMP 36.2; O2SAT 99
[2021-12-03 10:16] LABS: Glucose, Whole Blood 226 mg/dL (60-115)
[2021-12-03 10:27] VITALS: BP 158/62; PULSE 84; RESP 18; TEMP 36.4; O2SAT 97
== END 2021-12-03 11:18 | disposition home or self-care (01) ==
PROVIDERS: PCP Internal Medicine; Visit Provider Internal Medicine Gastroenterology
PROC: (CPT 45380; principal; 2021-12-03 09:20)
DX: R19.4 Change in bowel habit (principal); K64.0 First degree hemorrhoids; K59.00 Constipation, unspecified; R10.13 Epigastric pain; K44.9 Diaphragmatic hernia without obstruction or gangrene; Q39.8 Other congenital malformations of esophagus; K21.9 Gastro-esophageal reflux disease without esophagitis; I10 Essential (primary) hypertension; E11.9 Type 2 diabetes mellitus without complications; Z88.8 Allergy status to other drugs, medicaments and biological substances; Z79.899 Other long term (current) drug therapy; Z79.4 Long term (current) use of insulin
CPT/HCPCS: 45380; 43239; 82947; 88305; 88342

== ENCOUNTER → 2022-04-03 11:44 | Outpatient (BNVA) | payer OTHER, SELFPAY | PROVIDERS: PCP Internal Medicine Geriatric Medicine; Visit Provider Internal Medicine Gastroenterology | DX: R68.81 Early satiety (principal); K59.00 Constipation, unspecified; K31.84 Gastroparesis; K29.60 Other gastritis without bleeding | CPT/HCPCS: 99212 ==

== ENCOUNTER 2022-07-09 13:12 | Outpatient (REF) | payer OTHER, SELFPAY ==
--- NOTE | ~2022-07-09 | MM_ITS ---
EXAMINATION: MM SCREENING DIGITAL BREAST TOMOSYNTHESIS, BILATERAL CLINICAL INFORMATION: Screening. Asymptomatic. The lifetime risk of breast cancer based on the Tyrer-Cuzick Model is 5%. COMPARISON: Mammography: July 01, 2021 and studies dating back to January 10, 2016 TECHNIQUE: Digital breast tomosynthesis is performed in both the craniocaudal and mediolateral oblique views along with computer-aided detection (CAD). Synthesized 2D images are generated from the tomosynthesis. FINDINGS: The breasts are heterogeneously dense, which may obscure small masses (ACR BI-RADS breast composition Category c). There are no significant masses, abnormal calcifications, or other abnormalities. MM/MM tomosynthesis screening BI IMPRESSION: No significant changes ASSESSMENT: BI-RADS 1: Negative RECOMMENDATION: Routine annual mammography screening. This patient's information was entered into a reminder system with a target due date for their next mammogram.
== END 2022-07-09 13:13 | disposition home or self-care (01) ==
LOC: HO.MAMMO 13:12
PROVIDERS: PCP Internal Medicine Geriatric Medicine; Visit Provider Internal Medicine Geriatric Medicine
DX: Z12.31 Encounter for screening mammogram for malignant neoplasm of breast (principal)
CPT/HCPCS: 77063; 77067

== ENCOUNTER → 2022-07-30 08:00 | Outpatient (REF) | payer OTHER, SELFPAY ==
--- NOTE | ~2022-07-30 | NM_ITS ---
EXAMINATION: NM RADIONUCLIDE SOLID FOOD GASTRIC EMPTYING 4-HOUR STUDY CLINICAL INFORMATION: Early satiety. COMPARISON: No previous gastric emptying study is available for comparison. EXAMINATION: TECHNIQUE: A standard meal consisting of 4 oz of Egg Beaters brand tagged with 1 mCi Tc-99m Sulfur Colloid, 8 oz water and 2 slices of toast with jelly was administered orally to the patient. Images were obtained using a dual head gamma camera in the anterior and posterior projections over of the stomach immediately post ingestion and at hourly intervals up to 3 hours post ingestion. Images were not obtained at 4 hours due to the minimal retention at 3 hours. The anterior and posterior counts at each time interval were averaged using the geometric mean and expressed as percentage of the immediate post ingestion counts. FINDINGS: There is good visualization of activity in the stomach immediately post ingestion. As the study progresses, there is good clearance of activity from the stomach and visualization of progressively increasing small bowel activity. By the end of the study, there is almost no retention noted in the stomach. Retention in the stomach at each time interval was: 1 hour 57% (normal 37%-90%) 2 hours 7% (normal 30%-60%) 3 hours 2% 4 hours (Not Obtained) (normal 0%-10%) NM/NM gastric emptying study IMPRESSION: Normal solid food gastric emptying study.
== END ==
LOC: HO.NUCMED 08:00
PROVIDERS: PCP Internal Medicine Geriatric Medicine; Visit Provider Internal Medicine Gastroenterology
DX: R68.81 Early satiety (principal)
CPT/HCPCS: 78264; A9541

== ENCOUNTER → 2022-08-17 09:51 | Outpatient (BNVA) | payer OTHER, SELFPAY | PROVIDERS: PCP Internal Medicine Geriatric Medicine; Visit Provider Internal Medicine Gastroenterology | DX: K29.60 Other gastritis without bleeding (principal); K59.00 Constipation, unspecified | CPT/HCPCS: 99212 ==

== ENCOUNTER → 2022-12-21 09:03 | Outpatient (BNVA) | payer OTHER, SELFPAY | PROVIDERS: PCP Internal Medicine Geriatric Medicine; Referring Provider Internal Medicine Geriatric Medicine; Visit Provider Internal Medicine Gastroenterology | DX: R10.9 Unspecified abdominal pain (principal); K59.00 Constipation, unspecified | CPT/HCPCS: 99212 ==

== ENCOUNTER 2023-03-24 14:46 | Outpatient (REF) | payer OTHER, SELFPAY ==
[2023-03-24 16:36] LABS: Estimated Average Glucose 232 mg/dL; Hemoglobin A1c % 9.7 %
== END 2023-03-24 14:47 | disposition home or self-care (01) ==
LOC: HO.HHCL 14:46
PROVIDERS: Visit Provider Internal Medicine Geriatric Medicine
DX: E11.9 Type 2 diabetes mellitus without complications (principal); Z79.4 Long term (current) use of insulin
CPT/HCPCS: 36415; 83036

== ENCOUNTER 2023-05-10 14:47 | Inpatient (IN) | payer OTHER, SELFPAY ==
--- NOTE | 2023-05-10 | ECG_ITS ---
Test Reason : CHEST PAIN Blood Pressure : / mmHG Vent. Rate : 048 BPM Atrial Rate : 048 BPM P-R Int : 186 ms QRS Dur : 088 ms QT Int : 462 ms P-R-T Axes : 069 036 066 degrees QTc Int : 412 ms Normal sinus rhythm with 2nd degree SA block (Mobitz II) Nonspecific ST and T wave abnormality Abnormal ECG When compared with ECG of 10-MAY-2023 14:58, Nonspecific T wave abnormality now evident in Lateral leads Referred By: Tommy Andrade Electronically Signed By:HECTOR PERRY
--- NOTE | ~2023-05-10 | XR_ITS ---
EXAMINATION: XR CHEST CLINICAL INFORMATION: Pacemaker COMPARISON: Previous chest x-ray from yesterday TECHNIQUE: 2 views of the chest were obtained. FINDINGS: There is a new left subclavian dual chamber pacemaker in satisfactory position. The cardiac silhouette is enlarged but stable. There may be pulmonary venous redistribution. The lungs are otherwise clear. No pleural effusion or pneumothorax. Degenerative changes of the spine and right shoulder. XR/XR chest 2V IMPRESSION: Satisfactory position of left subclavian dual chamber pacemaker. No pneumothorax.
--- NOTE | ~2023-05-10 | FL_ITS ---
EXAMINATION: XR FLUOROSCOPY WITH IMAGES CLINICAL INFORMATION: Pacemaker insertion. COMPARISON: Previous chest x-ray from yesterday TECHNIQUE: Fluoroscopy Supervised By: Kar Anaya MD. FT: 9.3 min. Images: 1 Dose: 74.2 mGy DAP: 20.2 Gy/cm2. FINDINGS: Single fluoroscopic image demonstrates left-sided pacemaker leads with tips projecting over the right atrium and right ventricle. FL/FL guidance in OR IMPRESSION: Fluoroscopy guidance for pacemaker.
--- NOTE | ~2023-05-10 | XR_ITS ---
EXAMINATION: XR CHEST CLINICAL INFORMATION: Chest pain. COMPARISON: 03/05/2020 chest radiograph. TECHNIQUE: Frontal view of the chest was obtained. FINDINGS: No significant abnormality is noted involving the heart, lungs, mediastinum, bony thorax or soft tissues. XR/XR chest 1V IMPRESSION: No acute cardiopulmonary process.
--- NOTE | 2023-05-10 14:51 | ECG_ITS ---
Test Reason : chest pain Blood Pressure : / mmHG Vent. Rate : 044 BPM Atrial Rate : 044 BPM P-R Int : 150 ms QRS Dur : 082 ms QT Int : 528 ms P-R-T Axes : 066 030 072 degrees QTc Int : 451 ms Normal sinus rhythm with 2nd degree SA block (Mobitz II) Possible Left atrial enlargement Abnormal ECG When compared with ECG of 18-JUL-2021 18:10, Vent. rate has decreased BY 44 BPM Normal sinus rhythm with 2nd degree SA block (Mobitz II) is now Present Referred By: Milton Forte Electronically Signed By:HECTOR PERRY
--- NOTE | 2023-05-10 15:07 | ED_ITS ---
HPI - General Adult General Stated complaint: chest pain/ dizziness/ HBP Related Data Home Medications Medication Instructions Recorded Confirmed aspirin 81 mg tablet,delayed 81 mg PO DAILY 09/30/20 11/28/21 release insulin detemir U-100 100 unit/mL 10 unit subcut BEDTIME 09/30/20 11/28/21 (3 mL) subcutaneous pen (Levemir FlexTouch U-100 Insulin) pravastatin 10 mg tablet 10 mg PO DAILY 09/30/20 11/28/21 hydrochlorothiazide 25 mg tablet 25 mg PO DAILY 05/29/21 11/28/21 fluticasone propionate 50 2 spray intranasal DAILY 08/01/21 11/28/21 mcg/actuation nasal spray,suspension loratadine 10 mg tablet 10 mg PO DAILY 08/01/21 11/28/21 amlodipine 10 mg tablet 10 mg PO DAILY 04/03/22 blood sugar diagnostic (OneTouch #10 ea 04/03/22 Ultra Test strips) diclofenac sodium 1 % topical gel g topical BID 04/03/22 gabapentin 100 mg capsule 100 mg PO DAILY 04/03/22 lancets 33 gauge (OneTouch Delica #100 ea 04/03/22 Plus Lancet) losartan 50 mg tablet 50 mg PO 04/03/22 pen needle, diabetic 32 gauge x #50 ea 08/17/22 (BD Ultra-Fine Becca Pen Needle) chlorthalidone 25 mg tablet 25 mg PO DAILY 12/21/22 insulin aspart U-100 100 unit/mL subcut 12/21/22 (3 mL) subcutaneous pen (Novolog FlexPen U-100 Insulin aspart) ipratropium bromide 42 mcg (0.06 1 spray intranasal TID 12/21/22 %) nasal spray metformin 1,000 mg tablet 1,000 mg PO BID 12/21/22 pantoprazole 40 mg tablet,delayed 40 mg PO BID 12/21/22 release valsartan 320 mg tablet 320 mg PO DAILY 12/21/22 Previous Rx's Medication Instructions Recorded ondansetron 4 mg disintegrating 4 mg PO Q6H #10 tabs 10/31/21 tablet furosemide 20 mg tablet 20 mg PO QAM #90 tabs 06/18/22 plecanatide 3 mg tablet (Trulance) 3 mg PO DAILY #90 tabs 12/21/22 trazodone 50 mg tablet 50 mg PO BEDTIME #30 tabs 04/01/23 Allergies Allergy/AdvReac Type Severity Reaction Status Date / Time insulin glargine Allergy Mild RASH Verified 12/21/22 09:15 [From LANTUS] Amitryptiline Allergy Mild unknown Uncoded 12/21/22 09:15 [facility] Past Medical History Medical History Anxiety Diabetes GERD (gastroesophageal reflux disease) HTN (hypertension) Sleep apnea Surgical History H/O colonoscopy History of esophagogastroduodenoscopy (EGD) S/P removal of left ovary S/P removal of right ovary Family History Family History Mother Diabetes Father Liver cancer Social History Social History Alcohol intake: never Patient Tobacco Use Status: Never used Tobacco Advance Directives: No Advance Directives Information Provided: Yes Course Course Course Narrative: This is an RME: Additional HPI, ROS, PE not included below will be deferred to primary provider. 67-year-old female history of hypertension, dyspnea on exertion, anxiety presents with high blood pressures at, palpitations, shortness of breath, substernal chest discomfort and lightheadedness all going on for the past few days, decided to come in today because symptoms were worsening. Noted to be in a third-degree heart block prior to being triaged, in the EKG HR patient be sent brought straight back placed on hospital monitor, Zol, pads Discharge Plan Discharge Prescriptions: No Action furosemide 20 mg tablet 20 mg PO QAM Qty: 90 1RF Rx Instructions: NEED TO SCHEDULE FOLLOW UP W DR. MERCADO @ [phone] FOR FUTURE REFILLS trazodone 50 mg tablet 50 mg PO BEDTIME Qty: 30 1RF loratadine 10 mg tablet 10 mg PO DAILY fluticasone propionate 50 mcg/actuation spray,suspension 2 spray intranasal DAILY hydrochlorothiazide 25 mg tablet 25 mg PO DAILY aspirin 81 mg tablet,delayed release (DR/EC) 81 mg PO DAILY Levemir FlexTouch U100 Insulin 100 unit/mL (3 mL) insulin pen 10 unit subcut BEDTIME pravastatin 10 mg tablet 10 mg PO DAILY insulin aspart U-100 [Novolog FlexPen U-100 Insulin] 100 unit/mL (3 mL) insulin pen subcut valsartan 320 mg tablet 320 mg PO DAILY metformin 1,000 mg tablet 1,000 mg PO BID chlorthalidone 25 mg tablet 25 mg PO DAILY ipratropium bromide 42 mcg (0.06 %) spray,non-aerosol 1 spray intranasal TID pantoprazole 40 mg tablet,delayed release (DR/EC) 40 mg PO BID Trulance 3 mg tablet 3 mg PO DAILY Qty: 90 1RF ondansetron 4 mg tablet,disintegrating 4 mg PO Q6H Qty: 10 0RF diclofenac sodium 1 % gel topical BID gabapentin 100 mg capsule 100 mg PO DAILY (DME) lancets [OneTouch Delica Plus Lancet] 33 gauge misc See Rx Instructions topical .MEDSUPPLY Qty: 100 Rx Instructions: As directed amlodipine 10 mg tablet 10 mg PO DAILY (DME) OneTouch Ultra Test Strip See Rx Instructions .ROUTE .MEDSUPPLY Qty: 10 Rx Instructions: As directed losartan 50 mg tablet 50 mg PO (DME) pen needle, diabetic [BD Ultra-Fine Becca Pen Needle] 32 gauge x 5/32 needle See Rx Instructions .ROUTE .MEDSUPPLY Qty: 50 Rx Instructions: As directed
[2023-05-10 15:12] LABS: MANUAL DIFF FLAG NO
[2023-05-10 15:16] LABS: Basophils Percent Auto 0.5 % (0-2); Eosinophils Absolute Auto 0.1 X10*3/uL (0.0-0.4); Hematocrit 38.2 % (37.0-47.0); Hemoglobin 12.7 g/dl (12.0-16.0); Imm Gran Abs Auto 0.02 X10*3/uL (0.00-0.03); Imm Gran Pct Auto 0.2 % (0.0-0.4); Lymphocytes Absolute Auto 1.7 X10*3/uL (1.2-4.9); Lymphocytes Percent Auto 20.6 % (20-40); Mean Corpuscular HGB Conc 33.2 g/dl (31.0-35.0); Mean Corpuscular Hemoglobin 29.1 pg (27.0-33.0); Mean Corpuscular Volume 87.6 fL (80.0-98.0); Mean Platelet Volume 10.1 fL (9.4-12.3); Monocytes Absolute Auto 0.8 X10*3/uL (0.1-1.2); Neutrophils Absolute Auto 5.8 x10*3/uL (2.0-8.3); Neutrophils Percent Auto 68.7 % (45-73); Platelet Count 363 X10*3/uL (160-400); Red Blood Count 4.36 X10*6/uL (4.20-5.50); Red Cell Distribution Width 12.1 % (11.0-16.0); White Blood Count 8.4 X10*3/uL (4.8-10.8)
--- NOTE | 2023-05-10 15:20 | ED_ITS ---
HPI - Dizziness General Chief Complaint: Chest Pain Stated Complaint: chest pain/ dizziness/ HBP Time Seen by Provider: 05/10/23 15:09 Source: patient Mode of arrival: ambulatory Limitations: no limitations History of Present Illness HPI Narrative: This is a 67 years old female with history of hypertension diabetes presented to the emergency department with 3 days history of dizziness lightheadedness and chest pain. Denies any fever any chills. He states that she gets so lightheaded the she almost passed out MD elicited complaint: dizziness Onset (ago): day(s) (3) Timing: gradual onset Severity: mild History of similar symptoms: No Exacerbating factors: nothing Relieving factors: nothing Associated symptoms: denies other symptoms Related Data Home Medications Medication Instructions Recorded Confirmed aspirin 81 mg tablet,delayed 81 mg PO DAILY 09/30/20 11/28/21 release insulin detemir U-100 100 unit/mL 10 unit subcut BEDTIME 09/30/20 11/28/21 (3 mL) subcutaneous pen (Levemir FlexTouch U-100 Insulin) pravastatin 10 mg tablet 10 mg PO DAILY 09/30/20 11/28/21 hydrochlorothiazide 25 mg tablet 25 mg PO DAILY 05/29/21 11/28/21 fluticasone propionate 50 2 spray intranasal DAILY 08/01/21 11/28/21 mcg/actuation nasal spray,suspension loratadine 10 mg tablet 10 mg PO DAILY 08/01/21 11/28/21 amlodipine 10 mg tablet 10 mg PO DAILY 04/03/22 blood sugar diagnostic (OneTouch #10 ea 04/03/22 Ultra Test strips) diclofenac sodium 1 % topical gel g topical BID 04/03/22 gabapentin 100 mg capsule 100 mg PO DAILY 04/03/22 lancets 33 gauge (OneTouch Delica #100 ea 04/03/22 Plus Lancet) losartan 50 mg tablet 50 mg PO 04/03/22 pen needle, diabetic 32 gauge x #50 ea 08/17/22 (BD Ultra-Fine Becca Pen Needle) chlorthalidone 25 mg tablet 25 mg PO DAILY 12/21/22 insulin aspart U-100 100 unit/mL subcut 12/21/22 (3 mL) subcutaneous pen (Novolog FlexPen U-100 Insulin aspart) ipratropium bromide 42 mcg (0.06 1 spray intranasal TID 12/21/22 %) nasal spray metformin 1,000 mg tablet 1,000 mg PO BID 12/21/22 pantoprazole 40 mg tablet,delayed 40 mg PO BID 12/21/22 release valsartan 320 mg tablet 320 mg PO DAILY 12/21/22 Previous Rx's Medication Instructions Recorded ondansetron 4 mg disintegrating 4 mg PO Q6H #10 tabs 10/31/21 tablet furosemide 20 mg tablet 20 mg PO QAM #90 tabs 06/18/22 plecanatide 3 mg tablet (Trulance) 3 mg PO DAILY #90 tabs 12/21/22 trazodone 50 mg tablet 50 mg PO BEDTIME #30 tabs 04/01/23 Allergies Allergy/AdvReac Type Severity Reaction Status Date / Time insulin glargine Allergy Mild RASH Verified 12/21/22 09:15 [From LANTUS] Amitryptiline Allergy Mild unknown Uncoded 12/21/22 09:15 Review of Systems Constitutional: Constitutional: Reports no additional constitutional complaints ENT: Reports system reviewed and no additional complaints, except as documented PMFSH Past Medical History Medical History Anxiety Diabetes GERD (gastroesophageal reflux disease) HTN (hypertension) Sleep apnea Surgical History H/O colonoscopy History of esophagogastroduodenoscopy (EGD) S/P removal of left ovary S/P removal of right ovary Family History Family History Mother Diabetes Father Liver cancer Social History Social History Alcohol intake: never Patient Tobacco Use Status: Never used Tobacco Advance Directives: No Advance Directives Information Provided: Yes Physical Exam Vital Signs: Vital Signs: Last Vital Signs Temp 98.7 F 05/10/23 15:24 Pulse 44 L 05/10/23 15:24 Resp 16 05/10/23 15:24 BP 140/43 H 05/10/23 15:24 Pulse Ox 98 05/10/23 15:24 O2 Del Method Room Air 05/10/23 15:24 BMI result Body Mass Index 32.3 HEENT: Head: Yes normal to inspection General nose exam: Normal external nose present Face and sinus: Yes normal facial exam Mouth: Normal oral and palatal mucosa present Throat: Yes posterior oropharynx normal Neck: Neck: Yes normal visual inspection Chest: Chest palpation & inspection: normal inspection of the chest Resp: Effort & Inspection: normal respiratory effort Cardio: Jugular venous distension: no JVD Rate: regular rate Rhythm: regular rhythm GI: Inspection: Yes normal to inspection Palpation (GI): Soft to palpation Auscultation: normal bowel sounds Skin: General skin exam: no rashes or lesions noted Lesions: no lesions Rashes: no rashes Extrem: General: Yes normal to inspection and Yes full ROM Course Reevaluation(s) Reevaluation #1: Seen by Dr Marin customer support executive in ED,reccomed admission possible pacemaker Time: 15:48 Medical Decision Making Medical Decision Making [facility] Narrative: Patient presented to the emergency department with a chief complaint of chest pain formalin abnormal electrocardiogram which showed a bradycardia with 2-1 heart block. @15:45 seen by customer support executive Dr Marin will admit for possible pacemaker as advised by customer support executive Differential Diagnosis Differential Diagnoses: The differential diagnosis associated with the presentation includes Acute coronary syndrome/heart block Admission/Observation Consideration of admission/observation: Escalation of care including admission/observation considered Consult Healthcare Provider Management of the patient was discussed with: Retail Aide Lab Data [facility] Lab Attestation statement: I reviewed the patient's lab results. 05/10/23 15:04 05/10/23 15:04 Labs: Lab Results 05/10/23 05/10/23 05/10/23 Range/Units 15:04 15:04 15:04 WBC 8.4 (4.8-10.8) X10*3/uL RBC 4.36 (4.20-5.50) X10*6/uL Hgb 12.7 (12.0-16.0) g/dl Hct 38.2 (37.0-47.0) % MCV 87.6 (80.0-98.0) fL MCH 29.1 (27.0-33.0) pg MCHC 33.2 (31.0-35.0) g/dl RDW 12.1 (11.0-16.0) % Plt Count 363 (160-400) X10*3/uL MPV 10.1 (9.4-12.3) fL Immature Gran % (Auto) 0.2 (0.0-0.4) % Neut % (Auto) 68.7 (45-73) % Lymph % (Auto) 20.6 (20-40) % Cottle % (Auto) 9.0 (2-11) % Eos % (Auto) 1.0 (0-4) % Baso % (Auto) 0.5 (0-2) % Lymph # (Auto) 1.7 (1.2-4.9) X10*3/uL Cottle # (Auto) 0.8 (0.1-1.2) X10*3/uL Eos # (Auto) 0.1 (0.0-0.4) X10*3/uL Baso # (Auto) 0.0 (0.0-0.2) X10*3/uL Abs Immat Gran (auto) 0.02 (0.00-0.03) X10*3/uL Absolute Neuts (auto) 5.8 (2.0-8.3) x10*3/uL Absolute Nucleated RBC 0.000 (0.0-0.012) X10*3/uL Nucleated RBC % (auto) 0.0 (0.0-0.2) /100WBC Sodium 138 (135-145) mmol/L Potassium 4.3 (3.3-5.1) mmol/L Chloride 100 (96-108) mmol/L Carbon Dioxide 29 (22-29) mmol/L Anion Gap 13 (12-20) BUN 40 H (9-16) mg/dL Creatinine 1.38 (0.5-1.4) mg/dL Estim Creat Clear Calc 39.3 Estimated GFR 38 Random Glucose 314 H (60-115) mg/dL Calcium 10.5 H D (8.4-10.2) mg/dL Magnesium 2.3 (1.6-2.6) mg/dL Total Bilirubin 0.2 (0.0-1.0) mg/dL AST 37 H (5-31) U/L ALT 53 H (0-31) U/L Alkaline Phosphatase 70 (39-117) U/L Troponin I High Sens 3.5 (<3.5-17.0) ng/L Total Protein 6.9 (6.5-8.0) g/dL Albumin 4.1 (3.5-5.0) g/dL Independent Interpretation I performed an independent interpretation of an: EKG (bradycardia rate 40 2:1 block) Critical Care Time Critical Care Time Critical Care Time: Yes Total Critical Care Time: 60 Attestation: staking care of the pt,speaking to sales enablement consultant customer support executive and hospitalist Discharge Plan Discharge Clinical Impression: Bradycardia, Heart block atrioventricular Patient Disposition: Admitted As Inpatient
[2023-05-10 15:24] VITALS: BP 140/43; PULSE 44; RESP 16; TEMP 37.1; O2SAT 98; BMI 32.3
[2023-05-10 15:26] VITALS: PULSE 44
[2023-05-10 15:27] LABS: Alanine Aminotransferase 53 U/L (0-31); Albumin Level 4.1 g/dL (3.5-5.0); Alkaline Phosphatase 70 U/L (39-117); Anion Gap 13 (12-20); Aspartate Amino Transferase 37 U/L (5-31); Bilirubin Total 0.2 mg/dL (0.0-1.0); Blood Urea Nitrogen 40 mg/dL (9-16); Calcium 10.5 mg/dL (8.4-10.2); Carbon Dioxide 29 mmol/L (22-29); Chloride 100 mmol/L (96-108); Creatinine Clr Calc Pharmacy 39.3; Estimated Glomerular Filt Rate 38; Glucose Random 314 mg/dL (60-115); Magnesium 2.3 mg/dL (1.6-2.6); Potassium 4.3 mmol/L (3.3-5.1); Sodium 138 mmol/L (135-145); Total Protein 6.9 g/dL (6.5-8.0)
[2023-05-10 15:33] LABS: Troponin-I High Sensitivity 3.5 ng/L (<3.5-17.0)
--- NOTE | 2023-05-10 15:49 | P.CONCA_ITS ---
History of Present Illness History of Present Illness Date of Service: 05/10/23 Requesting physician: Dion Quiles Chief complaint: 2:1 block Narrative: 67-year-old female who is presenting from home with chest pain, shortness of breath and dizziness. She said she has been experiencing dizziness for the last 3 days. No syncope. She has sharp left-sided chest pain which lasts for few seconds. The chest pain is non anginal. She also gets some shortness of breath with activities. She has noticed to be in 2-1 av block. She has no active symptoms right now. Her blood pressure is 140/43. Labs are normal and she does not have hyperkalemia. Clinically not in heart failure. [facility] Past Medical History Medical History Anxiety Diabetes GERD (gastroesophageal reflux disease) HTN (hypertension) Sleep apnea Family History Family History Mother Diabetes Father Liver cancer Surgical History Surgical History H/O colonoscopy History of esophagogastroduodenoscopy (EGD) S/P removal of left ovary S/P removal of right ovary Social History Social History Alcohol intake: never Patient Tobacco Use Status: Never used Tobacco Advance Directives: No Advance Directives Information Provided: Yes Meds Allergies Allergy/AdvReac Type Severity Reaction Status Date / Time insulin glargine Allergy Mild RASH Verified 12/21/22 09:15 [From LANTUS] Amitryptiline Allergy Mild unknown Uncoded 12/21/22 09:15 Home Medications Medication Instructions Recorded Confirmed Last Taken Type aspirin 81 mg tablet,delayed 81 mg PO DAILY 09/30/20 11/28/21 Unknown History release insulin detemir U-100 100 unit/mL 10 unit subcut BEDTIME 09/30/20 11/28/21 U nknown History (3 mL) subcutaneous pen (Levemir FlexTouch U-100 Insulin) pravastatin 10 mg tablet 10 mg PO DAILY 09/30/20 11/28/21 Unknown History hydrochlorothiazide 25 mg tablet 25 mg PO DAILY 05/29/21 11/28/21 Unknown History fluticasone propionate 50 2 spray intranasal DAILY 08/01/21 11/28/21 Unknown History mcg/actuation nasal spray,suspension loratadine 10 mg tablet 10 mg PO DAILY 08/01/21 11/28/21 Unknown History amlodipine 10 mg tablet 10 mg PO DAILY 04/03/22 Unknown History blood sugar diagnostic (OneTouch #10 ea 04/03/22 Unknown History Ultra Test strips) diclofenac sodium 1 % topical gel g topical BID 04/03/22 Unknown History gabapentin 100 mg capsule 100 mg PO DAILY 04/03/22 Unknown History lancets 33 gauge (OneTouch Delica #100 ea 04/03/22 Unknown History Plus Lancet) losartan 50 mg tablet 50 mg PO 04/03/22 Unknown History pen needle, diabetic 32 gauge x #50 ea 08/17/22 Unknown History (BD Ultra-Fine Becca Pen Needle) chlorthalidone 25 mg tablet 25 mg PO DAILY 12/21/22 Unknown History insulin aspart U-100 100 unit/mL subcut 12/21/22 Unknown History (3 mL) subcutaneous pen (Novolog FlexPen U-100 Insulin aspart) ipratropium bromide 42 mcg (0.06 1 spray intranasal TID 12/21/22 Unknown History %) nasal spray metformin 1,000 mg tablet 1,000 mg PO BID 12/21/22 Unknown History pantoprazole 40 mg tablet,delayed 40 mg PO BID 12/21/22 Unknown History release valsartan 320 mg tablet 320 mg PO DAILY 12/21/22 Unknown History Physical Exam Vital Signs: Vital Signs: Last Vital Signs Temp 98.7 F 05/10/23 15:24 Pulse 44 L 05/10/23 15:24 Resp 16 05/10/23 15:24 BP 140/43 H 05/10/23 15:24 Pulse Ox 98 05/10/23 15:24 O2 Del Method Room Air 05/10/23 15:24 BMI result Body Mass Index 32.3 GENERAL APPEARANCE: in no acute distress, pleasant. NECK: no carotid bruit, no jugular venous distention. SKIN: no suspicious lesions, warm and dry. HEART: no murmurs, regular rate and rhythm. Bradycardic. LUNGS: clear to auscultation bilaterally. ABDOMEN: soft, nontender. EXTREMITIES: no edema. PERIPHERAL PULSES: equal. NEUROLOGIC: No gross deficits, AAO X 3 Objective Labs and Meds 05/10/23 15:04 05/10/23 15:04 Lab results: Laboratory Results - last 24 hr 05/10/23 05/10/23 05/10/23 15:04 15:04 15:04 WBC 8.4 RBC 4.36 Hgb 12.7 Hct 38.2 MCV 87.6 MCH 29.1 MCHC 33.2 RDW 12.1 Plt Count 363 MPV 10.1 Immature Gran % (Auto) 0.2 Neut % (Auto) 68.7 Lymph % (Auto) 20.6 Wilkinson % (Auto) 9.0 Eos % (Auto) 1.0 Baso % (Auto) 0.5 Lymph # (Auto) 1.7 Wilkinson # (Auto) 0.8 Eos # (Auto) 0.1 Baso # (Auto) 0.0 Abs Immat Gran (auto) 0.02 Absolute Neuts (auto) 5.8 Absolute Nucleated RBC 0.000 Nucleated RBC % (auto) 0.0 Sodium 138 Potassium 4.3 Chloride 100 Carbon Dioxide 29 Anion Gap 13 BUN 40 H Creatinine 1.38 Estim Creat Clear Calc 39.3 Estimated GFR 38 Random Glucose 314 H Calcium 10.5 H D Magnesium 2.3 Total Bilirubin 0.2 AST 37 H ALT 53 H Alkaline Phosphatase 70 Troponin I High Sens 3.5 Total Protein 6.9 Albumin 4.1 Assessment and Plan (1) AV block, 2nd degree: Status: Acute Plan 67-year-old female who is presenting with dizziness and 2-1 av block. She is not hypotensive. No obvious electrolyte issues are noted on blood workup. Hold antihypertensive therapy for now. Keep NPO after midnight for potential dual-chamber pacemaker placement. Keep pacer pads on her and keep atropine at bedside. I think she has a narrow complex rhythm and is fairly stable. I would avoid ambulation currently. Thank you for allowing me to participate in the care of your patient. Please feel free to contact me if you have any questions. Time Spent With Patient Time: Total time managing care of this patient today ____ minutes. Procedures Date of Service Date of Service: 05/10/23
--- NOTE | 2023-05-10 16:00 | CA_ITS ---
Transthoracic Echocardiogram Patient (Last, First, Middle): Jennifer Patel, Gender: Female Date of : 1955 Age: 67 Procedure Date: 05/10/2023 Procedure Type: Transthoracic Echocardiogram Location: [facility] Height: 157.48 cm Weight: 77.11 kg BSA: 1.78 m2 Heart Rate: bpm BP: 135 / 38 mmHg Radiology Transporter: Referring MD: Lamin Marin MD Symptoms: 2:1 AV block Study Quality: Fair w Contrast ECG Rhythm: Sinus Conclusions: - Normal left ventricular cavity size. There is severely increased left ventricular wall thickness. The left ventricular systolic function is hyperdynamic. The visually estimated ejection fraction is >70%. - Elevated filling pressures. - Normal right ventricular cavity size and systolic function. - There is mild aortic valve stenosis. - Moderately elevated right atrial pressure. There is no evidence of pulmonary hypertension. Findings Left Ventricle Normal left ventricular cavity size. There is severely increased left ventricular wall thickness. The left ventricular systolic function is hyperdynamic. The visually estimated ejection fraction is >70%. There is no evidence of regional wall motion abnormalities. Abnormal diastolic function is noted. Elevated filling pressures. Right Ventricle Normal right ventricular cavity size and systolic function. Atria The left atrium is mildly dilated. Aortic Valve There is a normal trileaflet aortic valve. There is mild calcification of the aortic valve. There is mild aortic valve stenosis. The peak aortic velocity is 1.97 m/s. The mean gradient is 9 mmHg. There is no aortic valve regurgitation. Mitral Valve The mitral valve appears normal. There is no mitral valve regurgitation. There is no mitral valve stenosis. Pulmonic Valve The pulmonic valve is likely normal. Tricuspid Valve Normal tricuspid valve structure. There is trace tricuspid valve regurgitation. Moderately elevated right atrial pressure. There is no evidence of pulmonary hypertension. Great Vessels All visible segments of the aorta are normal in size. Venous The inferior vena cava is normal in size and collapses less than 50% with inspiration. Pericardium/Pleural There is no evidence of pericardial effusion. Measurements 2D Linear Measurements IVSd: 1.39 0.6-0.9/0.6-1.0 cm LVIDd: 4.31 3.9-5.3/4.2-5.9 cm LVIDd Index: 2.42 2.4-3.2/2.2-3.1 cm/m2 LVIDs: 2.94 2.0-3.6 cm LVPWd: 1.34 0.7-1.1 cm Ao Root: 2.60 2.1-3.5 cm LA Diam: 3.30 2.7-3.8/3.0-4.0 cm LAIDs Index: 1.85 1.5-2.3 cm/m2 LV Mass: 279.60 67-162/88-224 g LV Mass Index: 157.08 43-95/49-115 g/m2 LVOT Diam: 1.90 3.0+(-)1.3 cm Mitral Valve MV VTI: 0.44 MV Pk Nixon: 1.65 MV Mn Nixon: 0.97 MV Pk Grad: 11.00 MV Mn Grad: 5.00 MV Pk E: 1.34 MV PK A: 1.47 MV Decel Time: 143.00 E/A: 0.90 E'Lateral: 4.57 E'Medial: 4.90 E/E' Med: 27.30 E/E' Lat: 29.30 PHT: 42.00 MVA PHT: 5.24 MVA Continuity: 1.62 Decel Barnes: 9.38 Aortic Valve AoV Pk Nixon: 1.97 AoV Mn Nixon: 1.31 AoV VTI: 0.48 AoV Pk Grad: 16.00 Aov Mn Grad: 9.00 MIKE Cont.VTI: 1.51 LVOT LVOT Pk Nixon: 1.13 LVOT Mn Nixon: 0.75 LVOT VTI: 0.25 LVOT Pk Grad: 5.00 LVOT Mn Grad: 3.00 LVOT Diam: 1.90 LVOT Area: 2.84 Diastolic Function MV Pk E: 1.34 MV Pk A: 1.47 E/A: 0.90 E'Medial: 4.90 E/E' Med: 27.30 E' Laterial: 4.57 E/E' Lat: 29.30 Right Ventricle TAPSE (mm): 31.00 Tricuspid Valve TR Pk Nixon: 1.79 TR Pk Grad: 13.00 RA Press: 3.00 RVSP: 16.00 Great Vessels Aorta Ao Root-2D: 2.60 2.0-3.7 cm Ao Asc: 2.80 2.1-3.4 cm Pulmonary Valve PV Pk Nixon: 1.11 Peak PV Grad: 5.00 Updated in Other Vendor System with Status of Final Lamin Marin MD electronically signed on 05/10/2023 8:46:40 PM with status of Final
--- NOTE | 2023-05-10 16:06 | PC.NURSE ---
upon arrival iv placed. pt placed on pacer pads per md request. awaiting cardio consult and admission.
[2023-05-10 16:15] LABS: INTERNATIONAL NORM RATIO 0.9 (0.9-1.1)
[2023-05-10 16:28] LABS: B Type Natriuretic Peptide 71 pg/mL (<100)
--- NOTE | 2023-05-10 17:24 | PHA.MEDREC ---
Pharmacy Consult ? Medication Reconciliation Pharmacy has completed the medication reconciliation. Patient reported she gets medication in a box. I received a list from [facility]. Patient was able to confirm insulin dose. Patient did not have insulin today but had the rest of her medications this morning. Susan Castorena, PharmD
--- NOTE | 2023-05-10 18:47 | PM.IMHP ---
History of Present Illness Date of Service: 05/10/23 Attending physician on admission: Alina Carroll Chief Complaint: dizziness 67 years old female with history of hypertension diabetes presented to the emergency department with 3 days history of dizziness lightheadedness and chest pain.? She says that she very dizzy and also complaining some shortness of breath .?No syncope.? She has sharp left-sided chest pain which lasts briefly.? The chest pain is non anginal, says burning type .? She also gets some shortness of breath with activities.? She has noticed to be in 2-1 av block.? vitals : bp seems fine ,hr is 44 Denies any new complaint of abdominal pain or fever or chills or nausea or vomiting or cough Denies any weakness or numbness. Lab imaging reviewed: cxr-neg ek:1 block. cbc seems fine ,bmp seems fine except mild lft's . Review of Systems Review of Systems: as above. [facility] Medical History Anxiety Diabetes GERD (gastroesophageal reflux disease) HTN (hypertension) Sleep apnea Family History Mother Diabetes Father Liver cancer Surgical History H/O colonoscopy History of esophagogastroduodenoscopy (EGD) S/P removal of left ovary S/P removal of right ovary Social History Alcohol intake: never Patient Tobacco Use Status: Never used Tobacco Advance Directives: No Advance Directives Information Provided: Yes Meds Allergies Allergy/AdvReac Type Severity Reaction Status Date / Time insulin glargine Allergy Mild RASH Verified 12/21/22 09:15 [From LANTUS] Amitryptiline Allergy Mild unknown Uncoded 12/21/22 09:15 Active Medications: Current Medications Sodium Chloride (0.9 % Sodium Chloride Flush 3 Ml Syringe) 3 ml IVFLUSH [facility] Home Medications Medication Instructions Recorded Confirmed Last Taken Type aspirin 81 mg tablet,delayed 81 mg PO DAILY 09/30/20 05/10/23 05/10/23 History release insulin detemir U-100 100 unit/mL 50 unit subcut BID 09/30/20 05/10/23 05/09/23 History (3 mL) subcutaneous pen (Levemir FlexTouch U-100 Insulin) pravastatin 10 mg tablet 10 mg PO Q48H 09/30/20 05/10/23 05/09/23 21:00 History fluticasone propionate 50 2 spray intranasal DAILY PRN 08/01/21 05/10/23 Unknown History mcg/actuation nasal Allergy Symptoms spray,suspension loratadine 10 mg tablet 10 mg PO DAILY 08/01/21 05/10/23 05/10/23 History amlodipine 10 mg tablet 10 mg PO DAILY 04/03/22 05/10/23 05/10/23 History blood sugar diagnostic (OneTouch #10 ea 04/03/22 Unknown History Ultra Test strips) gabapentin 100 mg capsule 100 mg PO BEDTIME 04/03/22 05/10/23 05/10/23 History lancets 33 gauge (OneTouch Delica #100 ea 04/03/22 Unknown History Plus Lancet) pen needle, diabetic 32 gauge x #50 ea 08/17/22 Unknown History (BD Ultra-Fine Becca Pen Needle) chlorthalidone 25 mg tablet 25 mg PO DAILY 12/21/22 05/10/23 05/10/23 History insulin aspart U-100 100 unit/mL 0 sliding scale dose subcut QIDACHS 12/21/22 05/10/23 05/09/23 History (3 mL) subcutaneous pen (Novolog FlexPen U-100 Insulin aspart) metformin 1,000 mg tablet 1,000 mg PO BIDWM 12/21/22 05/10/23 05/10/23 History pantoprazole 40 mg tablet,delayed 40 mg PO BID 12/21/22 05/10/23 05/10/23 History release buspirone 5 mg tablet 5 mg PO BID 05/10/23 05/10/23 05/10/23 History olmesartan 40 mg tablet 40 mg PO QAM 05/10/23 05/10/23 05/10/23 History semaglutide 0.25 mg or 0.5 mg (2 0.5 mg subcut WE 05/10/23 05/10/23 05/05/23 History mg/3 mL) subcutaneous pen injector (Ozempic) Physical Exam Vital Signs and Narrative: Vital Signs: Last Vital Signs Temp 98.7 F 05/10/23 15:24 Pulse 44 L 05/10/23 15:24 Resp 16 05/10/23 15:24 BP 140/43 H 05/10/23 15:24 Pulse Ox 98 05/10/23 15:24 O2 Del Method Room Air 05/10/23 15:24 BMI result Body Mass Index 32.3 Appearance: Alert.? Oriented X3.? not in distress.? cvs: bradycardia, [id number] . res: clear to auscultation ,no rhonchii or wheezing abd: no rebound or guarding ,nt, bs present. ext pulses present , no cyanosis . neuro: axo3 , nonfocal. Results Labs 05/10/23 15:04 05/10/23 15:04 Labs: Laboratory Results - last 24 hr 05/10/23 05/10/23 05/10/23 15:04 15:04 16:02 MCV 87.6 MCH 29.1 MCHC 33.2 RDW 12.1 Plt Count 363 MPV 10.1 Immature Gran % (Auto) 0.2 Neut % (Auto) 68.7 Lymph % (Auto) 20.6 [place] % (Auto) 9.0 Eos % (Auto) 1.0 Baso % (Auto) 0.5 Lymph # (Auto) 1.7 [place] # (Auto) 0.8 Eos # (Auto) 0.1 Baso # (Auto) 0.0 Abs Immat Gran (auto) 0.02 Absolute Neuts (auto) 5.8 Absolute Nucleated RBC 0.000 Nucleated RBC % (auto) 0.0 PT 11.0 L INR 0.9 Anion Gap 13 Estim Creat Clear Calc 39.3 Estimated GFR 38 Random Glucose 314 H Calcium 10.5 H D Magnesium 2.3 Total Bilirubin 0.2 AST 37 H ALT 53 H Alkaline Phosphatase 70 B-Natriuretic Peptide Total Protein 6.9 Albumin 4.1 05/10/23 16:02 MCV MCH MCHC RDW Plt Count MPV Immature Gran % (Auto) Neut % (Auto) Lymph % (Auto) [place] % (Auto) Eos % (Auto) Baso % (Auto) Lymph # (Auto) [place] # (Auto) Eos # (Auto) Baso # (Auto) Abs Immat Gran (auto) Absolute Neuts (auto) Absolute Nucleated RBC Nucleated RBC % (auto) PT INR Anion Gap Estim Creat Clear Calc Estimated GFR Random Glucose Calcium Magnesium Total Bilirubin AST ALT Alkaline Phosphatase B-Natriuretic Peptide 71 Total Protein Albumin Imaging Radiologist's Impressions: Impressions Chest X-Ray 05/10/23 15:31 IMPRESSION: No acute cardiopulmonary process. Assessment and Plan (1) AV block, 2nd degree: Status: Acute (2) Hypertension: Qualifiers: Hypertension type: essential hypertension Qualified Code(s): I10 - Essential (primary) hypertension Status: Acute Plan 1. Symptomatic bradycardia: EKG shows 2-1 block added tsh level Troponin x1 flat, repeat troponin hold bp meds: And rate control meds Monitor on tele Cardio evaluation noted-Keep NPO after midnight for potential dual-chamber pacemaker placement.? Keep pacer pads on her and keep atropine. 2.dm: dm diet npo past midnight fs with sliding scale coverage. 3.Htn-BP acceptable Hold BP medications as well and rate control medication due to symptomatic bradycardia. 4. gerd: continue ppi [facility] Ongoing need: Symptomatic bradycardia-need tele moniterin ,need pacemaker placement. Time Spent With Patient Time: Total time managing care of this patient today ____ minutes. Quality Stroke Does the patient have a stroke diagnosis?: No VTE Prior VTE?: No VTE Risk Level:: Medical - moderate - high VTE Device Contraindication: Patient Refused VTE Drug Contraindication: N/A - Med Ordered
[2023-05-10] MEDS: LORazepam 2 MG/ML VIAL 0.5 MG IVPUSH (19:15)
[2023-05-10 19:22] VITALS: BP 139/56; PULSE 44; RESP 18; TEMP 36.7; O2SAT 97
[2023-05-10 19:40] LABS: Troponin-I High Sensitivity 3.4 ng/L (<3.5-17.0)
--- NOTE | 2023-05-10 19:49 | HE.PHANOTE ---
Re: atropine iv order Spoke to Dr. Carroll over the phone and he states cardiology wants to keep atropine 1 mg at bedside in case of symptomatic bradycardia for this patient. I told him I could put in an order for prn use in case of bradycardia but that I was unable to leave a syringe at the patient bedside. Enter ordered per provider phone request.
[2023-05-10 19:54] LABS: Thyroid Stimulating Hormone 0.98 uIU/mL (0.32-4.0)
--- NOTE | 2023-05-10 20:07 | PC.NURSE ---
Assumed care of pt at 1900. Patient alert and oriented. Reports no pain or SOB. Medications administered as per NOV. Discussed plan of care with Hospitalist. Call izquierdo within reach.
[2023-05-10 21:30] LABS: Glucose, Whole Blood 352 mg/dL (60-115)
[2023-05-10] MEDS: Insulin Lispro 100 UNIT/ML 3 ML VIAL SUBCUT (21:47)
[2023-05-10] MEDS: traZODone HCL 50 MG TABLET PO (21:47)
[2023-05-10] MEDS: busPIRone HCl 5 MG TABLET PO (21:47)
[2023-05-10] MEDS: Pravastatin Sodium 10 MG TABLET PO (21:47)
--- NOTE | 2023-05-10 21:54 | PC.NURSE ---
POC 352, bp 140/39 and hr 44 notified provider. administered medications as per MAR
[2023-05-10 22:01] VITALS: BP 140/42; PULSE 47; RESP 20; TEMP 36.9; O2SAT 96
[2023-05-10] MEDS: Atropine Sulfate 1 MG/ML VIAL IVPUSH (22:37)
[2023-05-10 22:59] VITALS: BP 127/38; PULSE 54; RESP 20; O2SAT 95
[2023-05-10 23:14] LABS: Troponin-I High Sensitivity 5.6 ng/L (<3.5-17.0)
[2023-05-10 23:15] LABS: Glucose, Whole Blood 395 mg/dL (60-115)
--- NOTE | 2023-05-10 23:15 | PC.NURSE ---
Patient reporting shortness of breath, chest pain and dizziness.EKG, and repeat trop completed. EKG sinus mallory nonspecific ST and T wave abnormality MD made aware, PRN atropine administered. Repeat POC 395, provide made aware. No new orders at this time
[2023-05-11] VITALS (14 sets, daily range): BP systolic 109–214; BP diastolic 34–80; PULSE 43–84; RESP 10–20; TEMP 36.2–37.1; O2SAT 92–100
[2023-05-11] MEDS: 0.9 % Sodium Chloride Flush 3 ML SYRINGE IVFLUSH ×3 (00:57→21:49)
--- NOTE | 2023-05-11 06:41 | MHC.EDTECH ---
PT DID NOT VOID ALL NIGHT ,RN AWARE .
[2023-05-11] MEDS: Omeprazole 20 MG CAPSULE.DR PO ×2 (06:46→18:01)
--- NOTE | 2023-05-11 07:22 | PC.NURSE ---
pt resting in stretcher; mallory on monitor with 2nd degree heart block 42 bpm, respirations even and unlabored, vss. crash cart at bedside. npo last food 2100; last drink at midnight. call izquierdo within reach.
[2023-05-11 07:27] LABS: Glucose, Whole Blood 386 mg/dL (60-115)
--- NOTE | 2023-05-11 07:33 | PC.NURSE ---
poc 386; notified Dr. Cifuentes.
--- NOTE | 2023-05-11 07:35 | PC.NURSE ---
per Dr. Cifuentes to administer insulin per sliding scale order.
[2023-05-11] MEDS: Insulin Lispro 100 UNIT/ML 3 ML VIAL SUBCUT ×3 (07:44→21:56)
--- NOTE | 2023-05-11 09:33 | PC.NURSE ---
pt refused meds. pt sts she does not normally take the meds that were scheduled for her this morning. pt daughter at bedside and sts pt picks and chooses what meds she takes
--- NOTE | 2023-05-11 09:40 | HO.PM.IMPN ---
Subjective Subjective Date of Service: 05/11/23 Interval History: f/u heart block, bradycardia Physical Exam Vital Signs: Vital Signs: Last Vital Signs Temp 98.4 F 05/11/23 09:13 Pulse 43 L 05/11/23 09:13 Resp 10 L 05/11/23 09:13 BP 140/38 H 05/11/23 09:13 Pulse Ox 92 05/11/23 09:13 O2 Del Method Room Air 05/11/23 09:13 BMI result Body Mass Index 32.3 Const: Other: General: AO X 3, no acute distress Resp: CTA bilateral CVS: S1,S2,RRR GI: +BS, NT, no distention Skin: No rash Neuro: motor grossly intact Psych: appropriate affect Objective Data Active Medications Aspirin (Aspirin Enteric Coated 81 Mg Tablet.) 81 mg PO DAILY [facility] Last Admin: 05/11/23 09:32 Dose: Not Given Documented By: YESIKA Non-Admin Reason: Patient Refused Atropine Sulfate (Atropine Sulfate 1 Mg/Ml Vial) 1 mg IVPUSH Q5MX3 PRN PRN Reason: BRADYCARDIA Last Admin: 05/10/23 22:37 Dose: 1 mg Documented By: CHRIS Buspirone HCl (Buspirone Hcl 5 Mg Tablet) 5 mg PO BID [facility] Last Admin: 05/11/23 09:32 Dose: Not Given Documented By: YESIKA Non-Admin Reason: Patient Refused Dextrose (Dextrose 50 % 25 Gm/50 Ml Syringe) 25 gm IVPUSH Q15M PRN; Protocol PRN Reason: per Hypoglycemia Standing Ord. Fluticasone Propionate (Fluticasone Propionate Nasal 16 Gm [place]) 2 spray NOSTRIL-B DAILY PRN PRN Reason: Allergy Symptoms Gabapentin (Gabapentin 100 Mg Capsule) 100 mg PO BEDTIME [facility] Last Admin: 05/10/23 21:52 Dose: Not Given Documented By: CHRIS Non-Admin Reason: Patient Refused Glucose (Glucose Gel 15 Gm Gel..Gram.) 15 gm PO Q15M PRN; Protocol PRN Reason: per Hypoglycemia Standing Ord. Insulin Human Lispro (Insulin Lispro 100 Unit/Ml 3 Ml Vial) 0 unit SUBCUT QIDACHS [facility]; Protocol Last Admin: 05/11/23 07:44 Dose: 10 unit Documented By: [place] Loratadine (Loratadine 10 Mg Tablet) 10 mg PO DAILY [facility] Last Admin: 05/11/23 09:32 Dose: Not Given Documented By: YESIKA Non-Admin Reason: Patient Refused Omeprazole (Omeprazole 20 Mg Ralph.) 20 mg PO BID@0630,9660 [facility] Last Admin: 05/11/23 06:46 Dose: 20 mg Documented By: CHRIS Pravastatin Sodium (Pravastatin Sodium 10 Mg Tablet) 10 mg PO Q48H [facility] Last Admin: 05/10/23 21:47 Dose: 10 mg Documented By: CHRIS Sodium Chloride (0.9 % Sodium Chloride Flush 3 Ml Syringe) 3 ml IVFLUSH QSHIFT [facility] Last Admin: 05/11/23 08:19 Dose: Not Given Documented By: YESIKA Non-Admin Reason: Med Not Available Trazodone HCl (Trazodone Hcl 50 Mg Tablet) 50 mg PO BEDTIME [facility] Last Admin: 05/10/23 21:47 Dose: 50 mg Documented By: CHRIS Labs 05/10/23 15:04 05/10/23 15:04 Labs: Laboratory Results - last 24 hr 05/10/23 05/10/23 05/10/23 15:04 15:04 16:02 MCV 87.6 MCH 29.1 MCHC 33.2 RDW 12.1 Plt Count 363 MPV 10.1 Immature Gran % (Auto) 0.2 Neut % (Auto) 68.7 Lymph % (Auto) 20.6 [place] % (Auto) 9.0 Eos % (Auto) 1.0 Baso % (Auto) 0.5 Lymph # (Auto) 1.7 [place] # (Auto) 0.8 Eos # (Auto) 0.1 Baso # (Auto) 0.0 Abs Immat Gran (auto) 0.02 Absolute Neuts (auto) 5.8 Absolute Nucleated RBC 0.000 Nucleated RBC % (auto) 0.0 PT 11.0 L INR 0.9 Anion Gap 13 Estim Creat Clear Calc 39.3 Estimated GFR 38 POC Glucose Random Glucose 314 H Calcium 10.5 H D Magnesium 2.3 Total Bilirubin 0.2 AST 37 H ALT 53 H Alkaline Phosphatase 70 B-Natriuretic Peptide Total Protein 6.9 Albumin 4.1 TSH 05/10/23 05/10/23 05/10/23 16:02 19:13 21:17 MCV MCH MCHC RDW Plt Count MPV Immature Gran % (Auto) Neut % (Auto) Lymph % (Auto) [place] % (Auto) Eos % (Auto) Baso % (Auto) Lymph # (Auto) [place] # (Auto) Eos # (Auto) Baso # (Auto) Abs Immat Gran (auto) Absolute Neuts (auto) Absolute Nucleated RBC Nucleated RBC % (auto) PT INR Anion Gap Estim Creat Clear Calc Estimated GFR POC Glucose 352 H* Random Glucose Calcium Magnesium Total Bilirubin AST ALT Alkaline Phosphatase B-Natriuretic Peptide 71 Total Protein Albumin TSH 0.98 05/10/23 05/11/23 23:09 07:16 MCV MCH MCHC RDW Plt Count MPV Immature Gran % (Auto) Neut % (Auto) Lymph % (Auto) [place] % (Auto) Eos % (Auto) Baso % (Auto) Lymph # (Auto) [place] # (Auto) Eos # (Auto) Baso # (Auto) Abs Immat Gran (auto) Absolute Neuts (auto) Absolute Nucleated RBC Nucleated RBC % (auto) PT INR Anion Gap Estim Creat Clear Calc Estimated GFR POC Glucose 395 H* 386 H* Random Glucose Calcium Magnesium Total Bilirubin AST ALT Alkaline Phosphatase B-Natriuretic Peptide Total Protein Albumin TSH Assessment and Plan (1) AV block, 2nd degree: Status: Acute Plan 1. Symptomatic bradycardia d/t 2:1 heart block, negative work up. For pace maker today 2. Diabetes, SSI, ADA 3.HTN--hold meds until after pacemaker 4. GERD--PPI [facility] need for [facility]pt: symptomatic bradycardia d/t heart block and needs pace maker Time Spent With Patient Time: Total time managing care of this patient today ____ minutes. Quality Stroke Does the patient have a stroke diagnosis?: No VTE Prior VTE?: No VTE Risk Level:: Medical - moderate - high VTE Device Contraindication: Patient Refused VTE Drug Contraindication: N/A - Med Ordered
--- NOTE | 2023-05-11 09:55 | PC.NURSE ---
report given to JESENIA Gardiner in [facility]. pt to be picked up to OR around 1200
[2023-05-11 11:03] LABS: Appearance Urine Clear; Color Urine Yellow; Glucose Urine UA >=1000 mg/dL (Negative); Leukocyte Esterase Urine Small (1+) (Negative); Nitrite Urine Negative (Negative); PH 5.5 (5.0-9.0); Specific Gravity - Urine >= 1.030 (1.005-1.025); UMIC TRIGGER UACC YES; Urine Blood Negative (Negative); Urine Ketones Negative (Negative); Urine Protein Negative (Neg-Trace)
[2023-05-11 11:08] LABS: Bacteria Urine 1+ (None Seen); Hyaline Casts Urine 0-2 /LPF (0-2); RBC Urine 0-2 /HPF (0-2); UACC Culture Trigger YES; WBC Urine 21-50 /HPF (0-5)
--- NOTE | 2023-05-11 11:39 | PM.PNCARD ---
Subjective Subjective Date of Service: 05/11/23 Interval history: Seen and examined at bedside. Clinically stable. Denying any symptoms. She has for permanent pacemaker placement today. Physical Exam Vital Signs: Last Vital Signs Temp 98 F 05/11/23 10:48 Pulse 44 L 05/11/23 10:48 Resp 16 05/11/23 10:48 BP 109/37 L 05/11/23 10:48 Pulse Ox 96 05/11/23 10:48 O2 Del Method Room Air 05/11/23 10:48 BMI result Body Mass Index 32.3 GENERAL APPEARANCE: in no acute distress, pleasant. NECK: no carotid bruit, no jugular venous distention. SKIN: no suspicious lesions, warm and dry. HEART: no murmurs, regular rate and rhythm. Bradycardic. LUNGS: clear to auscultation bilaterally. ABDOMEN: soft, nontender. EXTREMITIES: no edema. PERIPHERAL PULSES: equal. NEUROLOGIC: No gross deficits, AAO X 3 Objective Labs and Meds 05/10/23 15:04 05/10/23 15:04 Lab results: Laboratory Results - last 24 hr 05/10/23 05/10/23 05/10/23 15:04 15:04 15:04 WBC 8.4 RBC 4.36 Hgb 12.7 Hct 38.2 MCV 87.6 MCH 29.1 MCHC 33.2 RDW 12.1 Plt Count 363 MPV 10.1 Immature Gran % (Auto) 0.2 Neut % (Auto) 68.7 Lymph % (Auto) 20.6 [place] % (Auto) 9.0 Eos % (Auto) 1.0 Baso % (Auto) 0.5 Lymph # (Auto) 1.7 [place] # (Auto) 0.8 Eos # (Auto) 0.1 Baso # (Auto) 0.0 Abs Immat Gran (auto) 0.02 Absolute Neuts (auto) 5.8 Absolute Nucleated RBC 0.000 Nucleated RBC % (auto) 0.0 PT INR Sodium 138 Potassium 4.3 Chloride 100 Carbon Dioxide 29 Anion Gap 13 BUN 40 H Creatinine 1.38 Estim Creat Clear Calc 39.3 Estimated GFR 38 POC Glucose Random Glucose 314 H Calcium 10.5 H D Magnesium 2.3 Total Bilirubin 0.2 AST 37 H ALT 53 H Alkaline Phosphatase 70 Troponin I High Sens 3.5 B-Natriuretic Peptide Total Protein 6.9 Albumin 4.1 TSH Urine Color Urine Appearance Urine pH Ur Specific [place] Urine Protein Urine Glucose (UA) Urine Ketones Urine Blood Urine Nitrite Ur Leukocyte Esterase Urine RBC Urine WBC Ur Squamous Epith Cells Urine Bacteria Hyaline Casts 05/10/23 05/10/23 05/10/23 16:02 16:02 19:13 WBC RBC Hgb Hct MCV MCH MCHC RDW Plt Count MPV Immature Gran % (Auto) Neut % (Auto) Lymph % (Auto) [place] % (Auto) Eos % (Auto) Baso % (Auto) Lymph # (Auto) [place] # (Auto) Eos # (Auto) Baso # (Auto) Abs Immat Gran (auto) Absolute Neuts (auto) Absolute Nucleated RBC Nucleated RBC % (auto) PT 11.0 L INR 0.9 Sodium Potassium Chloride Carbon Dioxide Anion Gap BUN Creatinine Estim Creat Clear Calc Estimated GFR POC Glucose Random Glucose Calcium Magnesium Total Bilirubin AST ALT Alkaline Phosphatase Troponin I High Sens 3.4 B-Natriuretic Peptide 71 Total Protein Albumin TSH Urine Color Urine Appearance Urine pH Ur Specific [place] Urine Protein Urine Glucose (UA) Urine Ketones Urine Blood Urine Nitrite Ur Leukocyte Esterase Urine RBC Urine WBC Ur Squamous Epith Cells Urine Bacteria Hyaline Casts 05/10/23 05/10/23 05/10/23 19:13 21:17 22:44 WBC RBC Hgb Hct MCV MCH MCHC RDW Plt Count MPV Immature Gran % (Auto) Neut % (Auto) Lymph % (Auto) [place] % (Auto) Eos % (Auto) Baso % (Auto) Lymph # (Auto) [place] # (Auto) Eos # (Auto) Baso # (Auto) Abs Immat Gran (auto) Absolute Neuts (auto) Absolute Nucleated RBC Nucleated RBC % (auto) PT INR Sodium Potassium Chloride Carbon Dioxide Anion Gap BUN Creatinine Estim Creat Clear Calc Estimated GFR POC Glucose 352 H* Random Glucose Calcium Magnesium Total Bilirubin AST ALT Alkaline Phosphatase Troponin I High Sens 5.6 D B-Natriuretic Peptide Total Protein Albumin TSH 0.98 Urine Color Urine Appearance Urine pH Ur Specific [place] Urine Protein Urine Glucose (UA) Urine Ketones Urine Blood Urine Nitrite Ur Leukocyte Esterase Urine RBC Urine WBC Ur Squamous Epith Cells Urine Bacteria Hyaline Casts 05/10/23 05/11/23 05/11/23 23:09 07:16 10:53 WBC RBC Hgb Hct MCV MCH MCHC RDW Plt Count MPV Immature Gran % (Auto) Neut % (Auto) Lymph % (Auto) [place] % (Auto) Eos % (Auto) Baso % (Auto) Lymph # (Auto) [place] # (Auto) Eos # (Auto) Baso # (Auto) Abs Immat Gran (auto) Absolute Neuts (auto) Absolute Nucleated RBC Nucleated RBC % (auto) PT INR Sodium Potassium Chloride Carbon Dioxide Anion Gap BUN Creatinine Estim Creat Clear Calc Estimated GFR POC Glucose 395 H* 386 H* Random Glucose Calcium Magnesium Total Bilirubin AST ALT Alkaline Phosphatase Troponin I High Sens B-Natriuretic Peptide Total Protein Albumin TSH Urine Color Yellow Urine Appearance Clear Urine pH 5.5 Ur Specific [place] >= 1.030 H Urine Protein Negative Urine Glucose (UA) >=1000 H Urine Ketones Negative Urine Blood Negative Urine Nitrite Negative Ur Leukocyte Esterase Small (1+) H Urine RBC 0-2 Urine WBC 21-50 H Ur Squamous Epith Cells 6-10 Urine Bacteria 1+ Hyaline Casts 0-2 Imaging Radiologist's impression: Impressions Chest X-Ray 05/10/23 15:31 IMPRESSION: No acute cardiopulmonary process. Progress Note: A&P Assessment and plan (1) AV block, 2nd degree: Status: Acute Plan Pleasant 67-year-old female with symptomatic 2-1 av block. Plan is permanent pacemaker placement. She has normal LVEF. No obvious reversible causes noted. We will put an MRI compatible device and will workup further for AV block at younger age. Thank you for allowing me to participate in the care of your patient. Please feel free to contact me if you have any questions. Time Spent With Patient Time: Total time managing care of this patient today ____ minutes. Progress Note: Quality Stroke Does the patient have a stroke diagnosis?: No Procedures Date of Service Date of Service: 05/11/23
--- NOTE | 2023-05-11 12:14 | P.CONAN_ITS ---
HPI - Anesthesia Eval Consult details Narrative: 2nd degree block [facility] Active Problems Active Problems: All Active Problems (Updated 05/10/23 @ 15:53 by Lamin Marin MD) AV block, 2nd degree (Acute) Hypertension (Acute) GRIGSBY (dyspnea on exertion) (Acute) Orthopnea (Acute) Sleep disorder breathing (Acute) Snoring (Acute) Insomnia (Acute) Nocturnal leg movements (Acute) Excessive daytime sleepiness (Acute) Peripheral edema (Acute) Weight loss, abnormal (Acute) Epigastric abdominal pain (Acute) Anxiety (Acute) Bradycardia (Acute) Heart block atrioventricular (Acute) Past Medical History Medical History Anxiety Diabetes GERD (gastroesophageal reflux disease) HTN (hypertension) Sleep apnea Family History Family History Mother Diabetes Father Liver cancer Family history of problems with anesthesia: No Surgical History Surgical History H/O colonoscopy History of esophagogastroduodenoscopy (EGD) S/P removal of left ovary S/P removal of right ovary History of Problems with Anesthesia: No Social History Social History Alcohol intake: never Patient Tobacco Use Status: Never used Tobacco Advance Directives: Yes Advance Directives on File: Yes Advance Directives Date on File: 05/11/23 Meds Allergies Allergy/AdvReac Type Severity Reaction Status Date / Time insulin glargine Allergy Mild RASH Verified 12/21/22 09:15 [From LANTUS] Amitryptiline Allergy Mild unknown Uncoded 12/21/22 09:15 Active Medications: Current Medications Aspirin (Aspirin Enteric Coated 81 Mg Tablet.) 81 mg PO DAILY [facility] Last Admin: 05/11/23 09:32 Dose: Not Given Atropine Sulfate (Atropine Sulfate 1 Mg/Ml Vial) 1 mg IVPUSH Q5MX3 PRN PRN Reason: BRADYCARDIA Last Admin: 05/10/23 22:37 Dose: 1 mg Buspirone HCl (Buspirone Hcl 5 Mg Tablet) 5 mg PO BID [facility] Last Admin: 05/11/23 09:32 Dose: Not Given Dextrose (Dextrose 50 % 25 Gm/50 Ml Syringe) 25 gm IVPUSH Q15M PRN; Protocol PRN Reason: per Hypoglycemia Standing Ord. Fluticasone Propionate (Fluticasone Propionate Nasal 16 Gm [place]) 2 spray NOSTRIL-B DAILY PRN PRN Reason: Allergy Symptoms Gabapentin (Gabapentin 100 Mg Capsule) 100 mg PO BEDTIME [facility] Last Admin: 05/10/23 21:52 Dose: Not Given Glucose (Glucose Gel 15 Gm Gel..Gram.) 15 gm PO Q15M PRN; Protocol PRN Reason: per Hypoglycemia Standing Ord. Insulin Human Lispro (Insulin Lispro 100 Unit/Ml 3 Ml Vial) 0 unit SUBCUT QIDACHS [facility]; Protocol Last Admin: 05/11/23 07:44 Dose: 10 unit Loratadine (Loratadine 10 Mg Tablet) 10 mg PO DAILY [facility] Last Admin: 05/11/23 09:32 Dose: Not Given Omeprazole (Omeprazole 20 Mg Capsule.Dr) 20 mg PO BID@0630,1630 [facility] Last Admin: 05/11/23 06:46 Dose: 20 mg Pravastatin Sodium (Pravastatin Sodium 10 Mg Tablet) 10 mg PO Q48H [facility] Last Admin: 05/10/23 21:47 Dose: 10 mg Sodium Chloride (0.9 % Sodium Chloride Flush 3 Ml Syringe) 3 ml IVFLUSH QSHIFT [facility] Last Admin: 05/11/23 08:19 Dose: Not Given Trazodone HCl (Trazodone Hcl 50 Mg Tablet) 50 mg PO BEDTIME [facility] Last Admin: 05/10/23 21:47 Dose: 50 mg Home Medications Medication Instructions Recorded Confirmed Last Taken Type aspirin 81 mg tablet,delayed 81 mg PO DAILY 09/30/20 05/10/23 05/10/23 History release insulin detemir U-100 100 unit/mL 50 unit subcut BID 09/30/20 05/10/23 05/09/23 History (3 mL) subcutaneous pen (Levemir FlexTouch U-100 Insulin) pravastatin 10 mg tablet 10 mg PO Q48H 09/30/20 05/10/23 05/09/23 21:00 History fluticasone propionate 50 2 spray intranasal DAILY PRN 08/01/21 05/10/23 Unknown History mcg/actuation nasal Allergy Symptoms spray,suspension loratadine 10 mg tablet 10 mg PO DAILY 1105/10/23 05/10/23 History amlodipine 10 mg tablet 10 mg PO DAILY 04/03/22 05/10/23 05/10/23 History blood sugar diagnostic (OneTouch #10 ea 04/03/22 Unknown History Ultra Test strips) gabapentin 100 mg capsule 100 mg PO BEDTIME 04/03/22 05/10/23 05/10/23 History lancets 33 gauge (OneTouch Delica #100 ea 04/03/22 Unknown History Plus Lancet) pen needle, diabetic 32 gauge x #50 ea 08/17/22 Unknown History (BD Ultra-Fine Becca Pen Needle) chlorthalidone 25 mg tablet 25 mg PO DAILY 12/21/22 05/10/23 05/10/23 History insulin aspart U-100 100 unit/mL 0 sliding scale dose subcut QIDACHS 12/21/22 05/10/23 05/09/23 History (3 mL) subcutaneous pen (Novolog FlexPen U-100 Insulin aspart) metformin 1,000 mg tablet 1,000 mg PO BIDWM 12/21/22 05/10/23 05/10/23 History pantoprazole 40 mg tablet,delayed 40 mg PO BID 12/21/22 05/10/23 05/10/23 Hist ory release buspirone 5 mg tablet 5 mg PO BID 05/10/23 05/10/23 05/10/23 History olmesartan 40 mg tablet 40 mg PO QAM 05/10/23 05/10/23 05/10/23 History semaglutide 0.25 mg or 0.5 mg (2 0.5 mg subcut WE 05/10/23 05/10/23 05/05/23 History mg/3 mL) subcutaneous pen injector (Ozempic) Exam Exam Date and Time: May 11, 2023 1214 Height,Weight and Vital Signs: Height 5 ft 2 in Weight 80 kg Last Vital Signs Temp 98 F 05/11/23 10:48 Pulse 44 L 05/11/23 10:48 Resp 16 05/11/23 10:48 BP 109/37 L 05/11/23 10:48 Pulse Ox 96 05/11/23 10:48 O2 Del Method Room Air 05/11/23 10:48 Pertinent Lab Results Pertinent Lab Results: Laboratory Tests 05/10/23 05/10/23 05/10/23 15:04 15:04 15:04 WBC 8.4 RBC 4.36 Hgb 12.7 Hct 38.2 MCV 87.6 MCH 29.1 MCHC 33.2 RDW 12.1 Plt Count 363 MPV 10.1 Immature Gran % (Auto) 0.2 Neut % (Auto) 68.7 Lymph % (Auto) 20.6 [place] % (Auto) 9.0 Eos % (Auto) 1.0 Baso % (Auto) 0.5 Lymph # (Auto) 1.7 [place] # (Auto) 0.8 Eos # (Auto) 0.1 Baso # (Auto) 0.0 Abs Immat Gran (auto) 0.02 Absolute Neuts (auto) 5.8 Absolute Nucleated RBC 0.000 Nucleated RBC % (auto) 0.0 PT INR Sodium 138 Potassium 4.3 Chloride 100 Carbon Dioxide 29 Anion Gap 13 BUN 40 H Creatinine 1.38 Estim Creat Clear Calc 39.3 Estimated GFR 38 POC Glucose Random Glucose 314 H Calcium 10.5 H D Magnesium 2.3 Total Bilirubin 0.2 AST 37 H ALT 53 H Alkaline Phosphatase 70 Troponin I High Sens 3.5 B-Natriuretic Peptide Total Protein 6.9 Albumin 4.1 TSH Urine Color Urine Appearance Urine pH Ur Specific [place] Urine Protein Urine Glucose (UA) Urine Ketones Urine Blood Urine Nitrite Ur Leukocyte Esterase Urine RBC Urine WBC Ur Squamous Epith Cells Urine Bacteria Hyaline Casts 05/10/23 05/10/23 05/10/23 16:02 16:02 19:13 WBC RBC Hgb Hct MCV MCH MCHC RDW Plt Count MPV Immature Gran % (Auto) Neut % (Auto) Lymph % (Auto) [place] % (Auto) Eos % (Auto) Baso % (Auto) Lymph # (Auto) [place] # (Auto) Eos # (Auto) Baso # (Auto) Abs Immat Gran (auto) Absolute Neuts (auto) Absolute Nucleated RBC Nucleated RBC % (auto) PT 11.0 L INR 0.9 Sodium Potassium Chloride Carbon Dioxide Anion Gap BUN Creatinine Estim Creat Clear Calc Estimated GFR POC Glucose Random Glucose Calcium Magnesium Total Bilirubin AST ALT Alkaline Phosphatase Troponin I High Sens 3.4 B-Natriuretic Peptide 71 Total Protein Albumin TSH Urine Color Urine Appearance Urine pH Ur Specific [place] Urine Protein Urine Glucose (UA) Urine Ketones Urine Blood Urine Nitrite Ur Leukocyte Esterase Urine RBC Urine WBC Ur Squamous Epith Cells Urine Bacteria Hyaline Casts 05/10/23 05/10/23 05/10/23 19:13 21:17 22:44 WBC RBC Hgb Hct MCV MCH MCHC RDW Plt Count MPV Immature Gran % (Auto) Neut % (Auto) Lymph % (Auto) [place] % (Auto) Eos % (Auto) Baso % (Auto) Lymph # (Auto) [place] # (Auto) Eos # (Auto) Baso # (Auto) Abs Immat Gran (auto) Absolute Neuts (auto) Absolute Nucleated RBC Nucleated RBC % (auto) PT INR Sodium Potassium Chloride Carbon Dioxide Anion Gap BUN Creatinine Estim Creat Clear Calc Estimated GFR POC Glucose 352 H* Random Glucose Calcium Magnesium Total Bilirubin AST ALT Alkaline Phosphatase Troponin I High Sens 5.6 D B-Natriuretic Peptide Total Protein Albumin TSH 0.98 Urine Color Urine Appearance Urine pH Ur Specific [place] Urine Protein Urine Glucose (UA) Urine Ketones Urine Blood Urine Nitrite Ur Leukocyte Esterase Urine RBC Urine WBC Ur Squamous Epith Cells Urine Bacteria Hyaline Casts 05/10/23 05/11/23 05/11/23 23:09 07:16 10:53 WBC RBC Hgb Hct MCV MCH MCHC RDW Plt Count MPV Immature Gran % (Auto) Neut % (Auto) Lymph % (Auto) [place] % (Auto) Eos % (Auto) Baso % (Auto) Lymph # (Auto) [place] # (Auto) Eos # (Auto) Baso # (Auto) Abs Immat Gran (auto) Absolute Neuts (auto) Absolute Nucleated RBC Nucleated RBC % (auto) PT INR Sodium Potassium Chloride Carbon Dioxide Anion Gap BUN Creatinine Estim Creat Clear Calc Estimated GFR POC Glucose 395 H* 386 H* Random Glucose Calcium Magnesium Total Bilirubin AST ALT Alkaline Phosphatase Troponin I High Sens B-Natriuretic Peptide Total Protein Albumin TSH Urine Color Yellow Urine Appearance Clear Urine pH 5.5 Ur Specific [place] >= 1.030 H Urine Protein Negative Urine Glucose (UA) >=1000 H Urine Ketones Negative Urine Blood Negative Urine Nitrite Negative Ur Leukocyte Esterase Small (1+) H Urine RBC 0-2 Urine WBC 21-50 H Ur Squamous Epith Cells 6-10 Urine Bacteria 1+ Hyaline Casts 0-2 Airway Mallampati Class: III TM Dist: >3cm Neck ROM: Limited Heart: rrr Lungs: cta Assessment and Plan Final Anesthetic Review Family History of Problems with Anesthesia: No History of Problems with Anesthesia: No NPO: Yes ASA Class: III Final Preanesthetic Review: No Changes in Pt Med Stat, Meds/Allgs Chart Reviewed, Consent Obtained/Reviewed and Anes Risks/Benef Reviewed Patient Risk: Intermediate Procedure Risk: Intermediate Anesthetic Plan Anesthetic Plan: MAC: and Agree w/ Assess. and Plan Disposition: Standard PACU
[2023-05-11 12:50] LABS: Glucose, Whole Blood 288 mg/dL (60-115)
--- NOTE | 2023-05-11 12:51 | PC.NURSE ---
Dr. Bustillo aware of POC in preop. no interventions at this time.
--- NOTE | 2023-05-11 13:30 | W.PM.OPN ---
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 Dr. Kar Anaya ? NAME OF PROCEDURE: ? 1.???Dual chamber pacemaker 2.???Left upper extremity venogram ? INDICATION FOR PROCEDURE:??High degree AV block ? SEDATION:??Monitored Anesthesia Control Description of Procedure:?Patient was identified brought to the electrophysiology laboratory in a postabsorptive state. Left upper extremity venogram was performed.??The left pectoral region was prepped and draped in usual sterile fashion. Incision was made over the left pectoral region and pectoral subcutaneous pocket was made. Afterwards left axillary venous access was obtained using fluoroscopic guidance, a 7-Thai sheath was placed. ??Right ventricular pacing lead was advanced and placed in the right ventricular septum above apex with good sensing and pacing thresholds.??The sheath was split and the lead was then anchored to the pectoral fascia with Ethibond suture.?? Afterwards left axillary venous access was obtained using fluoroscopic guidance, a 7-Thai sheath was placed. Right atrial pacing lead was advanced and placed in the base of the right atrial appendage with good sensing and pacing thresholds.??The sheath was split and the lead was then anchored to the pectoral fascia with silk suture.?? The subcutaneous pocket was made and the wound was irrigated with antibiotic solution.??The??leads were then connected to a?pacemaker?generator and placed in the pocket.??The wound was closed with 3 layers of absorbable sutures.?? Patient tolerated procedure well.??There were no complications. IMPLANTED HARDWARE:?? 1.? ??Pulse generator:??Cold Type Composing Machine Operator [employer]ob , model name is JAYATN XT model number is [id number], serial number is [id number].? ??Right atrial lead:??Cold Type Composing Machine Operator Medtronic model name is [id number], 52 cm, serial number is [id number].? ??Left Bundle lead:??Cold Type Composing Machine Operator Medtronic model name is 5076, 58 cm, serial number is [id number] ? Programmed Parameters:? DDD 60-130 BPM RA Lead Sensitivity: 0.3mV RA Lead Output: 3.5V at 0.4ms RV Lead Sensitivity: 0.9 mV RV Lead Output: 3.5 V at 0.4 *ms ? Device Measurements: RA Lead: P-wave: 2.4 mV RA Lead Threshold: 1V at 0.4ms RA Lead Impedance: 437 ohms Right Ventricular Lead: R-wave: 12.4 mV Right Ventricular LeadThreshold: 0.75V at 0.4ms Right Ventricular Lead Impedance: 1550 ohms ? IMPRESSION:?? Successful?implantation?of Dual chamber?pacemaker? ? ? PLAN: ? 1.?Routine postprocedure monitoring. 2.?CXR today? 3.?Post operative Abx? 4. ???EKG today? 5. ???Interrogation of device
--- NOTE | 2023-05-11 15:21 | ECG_ITS ---
Test Reason : PACEMAKER Blood Pressure : / mmHG Vent. Rate : 076 BPM Atrial Rate : 076 BPM P-R Int : 186 ms QRS Dur : 160 ms QT Int : 476 ms P-R-T Axes : 072 -63 097 degrees QTc Int : 535 ms Ventricular-paced rhythm Abnormal ECG When compared with ECG of 10-MAY-2023 22:36, Ventricular-paced rhythm is now Present Vent. rate has increased BY 28 BPM Referred By: Kar Anaya Electronically Signed By:HECTOR PERRY
[2023-05-11] MEDS: fentaNYL citrate/PF 100 MCG/2 ML VIAL 25 MCG IVPUSH ×2 (15:50→15:55)
[2023-05-11 16:46] LABS: Glucose, Whole Blood 288 mg/dL (60-115)
[2023-05-11 20:45] LABS: Glucose, Whole Blood 304 mg/dL (60-115)
[2023-05-11] MEDS: traMADoL HCL 50 MG TABLET PO (21:44)
[2023-05-11] MEDS: busPIRone HCl 5 MG TABLET PO (21:44)
[2023-05-11] MEDS: Labetalol HCL 100 MG/20 ML VIAL 10 MG IVPUSH (21:48)
[2023-05-11] MEDS: ceFAZolin Sodium/Dextrose,Iso 2 GM/50 ML PIGGYBACK IV (21:57)
[2023-05-12 03:02] VITALS: BP 168/73; PULSE 79; RESP 18; TEMP 36.6; O2SAT 96
[2023-05-12] MEDS: Omeprazole 20 MG CAPSULE.DR PO ×2 (06:32→16:50)
[2023-05-12] MEDS: ceFAZolin Sodium/Dextrose,Iso 2 GM/50 ML PIGGYBACK IV ×2 (06:32→15:11)
--- NOTE | 2023-05-12 07:23 | PM.DS ---
DS: Providers Provider Date of Service: 05/12/23 Date of admission: 05/10/23 17:16 Primary care physician: Aamir Pierce MD Consults: 05/10/23 15:32 Consult to Cardiology Stat Consulting Provider: Lamin Marin Reason for consultation: bradycardia Has provider been notified: Yes DS: Diagnosis Discharge Diagnosis (1) AV block, 2nd degree: Status: Acute DS: Summary Hospital Course Hospital Course: Chief Complaint: dizziness 67 years old female with history of hypertension diabetes presented to the emergency department with 3 days history of dizziness lightheadedness and chest pain.? She says that she very dizzy and also complaining some shortness of breath .?No syncope.? She has sharp left-sided chest pain which lasts briefly.? The chest pain is non anginal, says burning type .? She also gets some shortness of breath with activities.? She has noticed to be in 2-1 av block.? vitals : bp seems fine ,hr is 44 Denies any new complaint of abdominal pain or fever or chills or nausea or vomiting or? cough Denies any weakness or numbness. Lab imaging reviewed: cxr-neg ek:1 block. cbc seems fine ,bmp seems fine except mild lft's . Hospital course: Patient presented with dizziness and found to have bradycardia with 2:1 AV. She underwent permanent pace maker insertion the next day without complication. Time Spent with Patient Time attestation: Total time managing care of this patient today ____ minutes. Discharge coordination time: Greater than 30 minutes Quality: Safe Use of Opioids Does Pt have an Active Cancer Diagnosis on the Problem List?: No Quality: Stroke Does the patient have a stroke diagnosis?: No Physical Exam Vital Signs: Vital Signs: Last Vital Signs Temp 97.8 F 05/12/23 03:02 Pulse 79 05/12/23 03:02 Resp 18 05/12/23 03:02 BP 168/73 H 05/12/23 03:02 Pulse Ox 96 05/12/23 03:02 O2 Del Method Room Air 05/12/23 03:02 BMI result Body Mass Index 32.3 Const: Other: General: AO X 3, no acute distress Resp: CTA bilateral CVS: S1,S2,RRR GI: +BS, NT, no distention Skin: No rash Neuro: motor grossly intact Psych: appropriate affect DS: Data Data Completed and Pending Labs on day of discharge: Laboratory Results - last 24 hr 05/11/23 05/11/23 05/11/23 07:16 10:53 12:15 POC Glucose 386 H* 288 H Urine Color Yellow Urine Appearance Clear Urine pH 5.5 Ur Specific [place] >= 1.030 H Urine Protein Negative Urine Glucose (UA) >=1000 H Urine Ketones Negative Urine Blood Negative Urine Nitrite Negative Ur Leukocyte Esterase Small (1+) H Urine RBC 0-2 Urine WBC 21-50 H Ur Squamous Epith Cells 6-10 Urine Bacteria 1+ Hyaline Casts 0-2 05/11/23 05/11/23 16:41 20:39 POC Glucose 288 H 304 H Urine Color Urine Appearance Urine pH Ur Specific [place] Urine Protein Urine Glucose (UA) Urine Ketones Urine Blood Urine Nitrite Ur Leukocyte Esterase Urine RBC Urine WBC Ur Squamous Epith Cells Urine Bacteria Hyaline Casts Discharge Plan Discharge Anticipated Discharge Date/Time: 05/12/23 07:23 Patient Disposition: Home, Self-Care Discharge Diagnosis: Second degree AV block Referrals: Name,MD Aamir [Primary Care Provider] - 1 Week Discharge Medications: Continued trazodone 50 mg tablet 50 mg PO BEDTIME Qty: 30 1RF buspirone 5 mg tablet 5 mg PO BID olmesartan 40 mg tablet 40 mg PO QAM Ozempic 0.25 mg or 0.5 mg (2 mg/3 mL) pen injector 0.5 mg subcut WE loratadine 10 mg tablet 10 mg PO DAILY fluticasone propionate 50 mcg/actuation spray,suspension 2 spray intranasal DAILY PRN (Reason: Allergy Symptoms) aspirin 81 mg tablet,delayed release (DR/EC) 81 mg PO DAILY Levemir FlexTouch U100 Insulin 100 unit/mL (3 mL) insulin pen 50 unit subcut BID pravastatin 10 mg tablet 10 mg PO Q48H Rx Instructions: EVERY OTHER DAY IN THE EVENING insulin aspart U-100 [Novolog FlexPen U-100 Insulin] 100 unit/mL (3 mL) insulin pen 0 sliding scale dose subcut QIDACHS Protocol: Insulin Correction Scale Less than or equal to 110 ---- Give (units): 0 111 to 150 Give (units): 0 151 to 200 Give (units): 2 201 to 250 Give (units): 4 251 to 300 Give (units): 6 301 to 350 Give (units): 8 Greater than 350 Give (units): 10 Call MD if Blood Glucose > : 350 metformin 1,000 mg tablet 1,000 mg PO BIDWM chlorthalidone 25 mg tablet 25 mg PO DAILY pantoprazole 40 mg tablet,delayed release (DR/EC) 40 mg PO BID Trulance 3 mg tablet 3 mg PO DAILY Qty: 90 1RF gabapentin 100 mg capsule 100 mg PO BEDTIME (DME) lancets [OneTouch Delica Plus Lancet] 33 gauge misc See Rx Instructions topical .MEDSUPPLY Qty: 100 Rx Instructions: As directed amlodipine 10 mg tablet 10 mg PO DAILY (DME) OneTouch Ultra Test Strip See Rx Instructions .ROUTE .MEDSUPPLY Qty: 10 Rx Instructions: As directed (DME) pen needle, diabetic [BD Ultra-Fine Becca Pen Needle] 32 gauge x 5/32 needle See Rx Instructions .ROUTE .MEDSUPPLY Qty: 50 Rx Instructions: As directed Diet: Advance to usual diet Activity on Discharge: As tolerated Stand Alone Forms: Patient Portal Discharge page Care Plan Goals: recovery from heart block Health Concerns: heart block Plan of Treatment: you have a pacemaker to regulaate your heart rate because of heart block, follow instruction given to you Assessment: as above
[2023-05-12 08:00] VITALS: BP 150/67; PULSE 79; RESP 16; TEMP 36.4; O2SAT 95
--- NOTE | 2023-05-12 09:16 | MHC.CM.PN ---
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 PT VERIFIES PCP YUAN NAME AND HCP/SON KATT ON FILE ARE CORRECT, MODERNA X3 PER RECORDS.
[2023-05-12] MEDS: busPIRone HCl 5 MG TABLET PO (09:44)
[2023-05-12] MEDS: Aspirin Enteric Coated 81 MG TABLET.DR PO (09:44)
[2023-05-12] MEDS: Loratadine 10 MG TABLET PO (09:44)
[2023-05-12] MEDS: amLODIPine Besylate 10 MG TABLET PO (09:44)
[2023-05-12] MEDS: 0.9 % Sodium Chloride Flush 3 ML SYRINGE IVFLUSH ×2 (09:45→16:51)
[2023-05-12] MEDS: Valsartan 160 MG TABLET PO (09:46)
[2023-05-12] MEDS: hydroCHLOROthiazide 25 MG TABLET PO (09:46)
--- NOTE | 2023-05-12 10:27 | PM.PNCARD ---
Subjective Subjective Date of Service: 05/12/23 Interval history: Seen and examined at bedside. Status post pacemaker. Still complaining of dizziness and getting symptom even lying down in bed. Unable to explain whether this is vertigo or lightheadedness. Physical Exam Vital Signs: Last Vital Signs Temp 97.6 F 05/12/23 08:00 Pulse 79 05/12/23 08:00 Resp 16 05/12/23 08:00 BP 150/67 H 05/12/23 08:00 Pulse Ox 95 05/12/23 08:00 O2 Del Method Room Air 05/12/23 08:00 BMI result Body Mass Index 32.3 GENERAL APPEARANCE: in no acute distress, pleasant. NECK: no carotid bruit, no jugular venous distention. SKIN: no suspicious lesions, warm and dry. HEART: no murmurs, regular rate and rhythm. LUNGS: clear to auscultation bilaterally. ABDOMEN: soft, nontender. EXTREMITIES: no edema. PERIPHERAL PULSES: equal. NEUROLOGIC: No gross deficits, AAO X 3 Objective Labs and Meds 05/10/23 15:04 05/10/23 15:04 Lab results: Laboratory Results - last 24 hr 05/11/23 05/11/23 05/11/23 10:53 12:15 16:41 POC Glucose 288 H 288 H Urine Color Yellow Urine Appearance Clear Urine pH 5.5 Ur Specific [place] >= 1.030 H Urine Protein Negative Urine Glucose (UA) >=1000 H Urine Ketones Negative Urine Blood Negative Urine Nitrite Negative Ur Leukocyte Esterase Small (1+) H Urine RBC 0-2 Urine WBC 21-50 H Ur Squamous Epith Cells 6-10 Urine Bacteria 1+ Hyaline Casts 0-2 05/11/23 20:39 POC Glucose 304 H Urine Color Urine Appearance Urine pH Ur Specific [place] Urine Protein Urine Glucose (UA) Urine Ketones Urine Blood Urine Nitrite Ur Leukocyte Esterase Urine RBC Urine WBC Ur Squamous Epith Cells Urine Bacteria Hyaline Casts Imaging Radiologist's impression: Impressions Chest X-Ray 05/11/23 20:25 IMPRESSION: Satisfactory position of left subclavian dual chamber pacemaker. No pneumothorax. Progress Note: A&P Assessment and plan (1) AV block, 2nd degree: Status: Acute (2) Hypertension: Status: Acute Plan [age] year female who presented with symptomatic 2-1 av block. She is now status post pacemaker placement. She is complaining of some dizziness ongoing. She also has diplopia. I think we try some meclizine to see if this is related to her ears. Resume home medications. Pacemaker has been interrogated and is functioning fine. Thank you for allowing me to participate in the care of your patient. Please feel free to contact me if you have any questions. Time Spent With Patient Time: Total time managing care of this patient today ____ minutes. Progress Note: Quality Stroke Does the patient have a stroke diagnosis?: No Procedures Date of Service Date of Service: 05/12/23
[2023-05-12 11:37] LABS: Glucose, Whole Blood 368 mg/dL (60-115)
[2023-05-12] MEDS: Insulin Lispro 100 UNIT/ML 3 ML VIAL SUBCUT ×2 (11:52→16:50)
[2023-05-12] MEDS: Meclizine HCl 12.5 MG TABLET PO (11:52)
[2023-05-12 11:53] VITALS: BP 137/78; PULSE 96; RESP 18; TEMP 36.3; O2SAT 95
[2023-05-12 12:18] VITALS: O2SAT 96
--- NOTE | 2023-05-12 14:18 | HO.POSTANES ---
Post Anesthesia Evaluation Post Anesthesia Evaluation Date of Service: 05/12/23 Vital Signs: Vital Signs Temp Pulse Resp BP Pulse Ox O2 Del Method 05/12/23 12:18 96 Room Air 05/12/23 11:53 97.3 F 96 18 137/78 95 Room Air 05/12/23 08:00 97.6 F 79 16 150/67 H 95 Room Air 05/12/23 03:02 97.8 F 79 18 168/73 H 96 Room Air Anesthesia: Monitored Mental Status: Awake Pain Control: Satisfactory Nausea/Vomiting: None Hydration: Adequate Anesthesia-Related Issues: No Anes. Related Issues
[2023-05-12 15:33] VITALS: BP 146/66; PULSE 76; RESP 14; TEMP 36.4; O2SAT 96
--- NOTE | 2023-05-12 15:59 | MHC.CM.PN ---
PT MEDICALLY CLEARED FOR D/C HOME W/RESUMP OF [employer] OF [employer]OLOGY, NO NEW SERVICES ORDERED AND PT WILL CALL FAMILY FOR TRANSPORT.
[2023-05-12 16:38] LABS: Glucose, Whole Blood 302 mg/dL (60-115)
[2023-05-12] MEDS: metFORMIN HCl 1,000 MG TABLET 1000 MG PO (16:50)
[2023-05-13 00:53] LABS: Lyme Abs Screen <0.90 index
== END 2023-05-12 17:50 | disposition home or self-care (01) | DRG 244 ==
LOC: HO.ED 15:49 → HO.EDOVER 17:25 → HO.IMC 05-11 12:27
PROVIDERS: Internal Medicine Cardiovascular Disease; Physician Assistant; Student in an Organized Health Care Education/Training Program; Admitting Provider Internal Medicine; Emergency Provider Emergency Medicine; PCP Internal Medicine Geriatric Medicine; Visit Provider Internal Medicine
PROC: 0JH606Z Insertion of Pacemaker, Dual Chamber into Chest Subcutaneous Tissue and Fascia, Open Approach (ICD-10-PCS; principal; 2023-05-11 13:30)
DX: I44.1 Atrioventricular block, second degree (principal); K21.9 Gastro-esophageal reflux disease without esophagitis; F41.9 Anxiety disorder, unspecified; E11.9 Type 2 diabetes mellitus without complications; I10 Essential (primary) hypertension; Z79.4 Long term (current) use of insulin; Z79.51 Long term (current) use of inhaled steroids; Z79.84 Long term (current) use of oral hypoglycemic drugs; Z79.899 Other long term (current) drug therapy
CPT/HCPCS: 36415; 71045; 71046; 80053; 81001; 81003; 82947; 83735; 83880; 84443; 84484; 85025; 85610; 86617; 86618; 87086; 93005; 93306; 99285; C1785; C1892; C1898; J0131; J0461; J0690; J2060; J2250; J3010; J3370; Q9957; Q9967

== ENCOUNTER → 2023-05-10 15:02 | Outpatient (BNV) | payer OTHER, SELFPAY | PROVIDERS: Emergency Provider Emergency Medicine; PCP Internal Medicine Geriatric Medicine; Visit Provider Internal Medicine Cardiovascular Disease | DX: I44.1 Atrioventricular block, second degree (principal); I10 Essential (primary) hypertension | CPT/HCPCS: 93306; 99223; 99232 ==

== ENCOUNTER → 2023-05-10 17:16 | Outpatient (BNV) | payer OTHER, SELFPAY | PROVIDERS: Admitting Provider Internal Medicine; Emergency Provider Emergency Medicine; PCP Internal Medicine Geriatric Medicine; Visit Provider Internal Medicine | DX: I44.1 Atrioventricular block, second degree (principal) | CPT/HCPCS: 99222; 99232; 99239 ==

== ENCOUNTER 2023-06-10 14:05 | Outpatient (AMB) | payer OTHER, SELFPAY ==
[2023-06-10 14:34] VITALS: BP 140/64; PULSE 91; BMI 30.2
--- NOTE | 2023-06-10 14:34 | MHC.OFFVIS ---
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: Yes Steam Plant Operator Name: juan rubio [id number] Allergies insulin glargine [From LANTUS] Allergy (Mild, Verified 06/10/23 14:39) RASH Amitryptiline Allergy (Mild, Uncoded 12/21/22 09:15) unknown Medication List - Last Reconciled 06/10/23 by Trinity Mclean NP-C amlodipine 10 mg PO DAILY aspirin 81 mg PO DAILY blood sugar diagnostic (Bio[employer] [place] Ultra Test strips) As directed chlorthalidone 25 mg PO DAILY fluticasone propionate 50 mcg/actuation 2 sprays intranasal DAILY PRN insulin aspart U-100 (Novolog FlexPen U-100 Insulin aspart) 0 sliding scale doses See Protocol subcut QIDACHS insulin detemir U-100 (Levemir FlexTouch U-100 Insulin) 50 units subcut BID lancets ([employer] [place] Delica Plus Lancet) As directed loratadine 10 mg PO DAILY olmesartan 40 mg PO QAM pantoprazole 40 mg PO BID pen needle, diabetic (BD Ultra-Fine Becca Pen Needle) As directed pravastatin 10 mg PO Q48H semaglutide (Ozempic) 0.5 mg subcut WE HPI 2 wk f/u post new device me HPI Details Jennifer is a 67-year-old female with past medical history of obesity, hypertension, obstructive sleep apnea with CPAP use who recently presented to [facility] with lightheadedness and found to have high degree heart block. She underwent a Medtronic dual-chamber pacemaker placement and now presents for follow-up. Today she reports she has been doing generally well since her pacemaker surgery. She has no recurrent lightheadedness. She has some soreness at her pacemaker site. She has been doing only light activities, especially with her left arm. No palpitations, presyncope, syncope, falls. No PND, orthopnea or edema. She is taking her meds as directed. 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) Alcohol intake: never Patient Tobacco Use Status: Never used Tobacco Advance Directives Date on File: 05/11/23 service: No Review of Systems Const All systems reviewed & are unremarkable except as noted in HPI and below ENT Details: Lightheadedness resolved Denies dizziness Card Details: Soreness still at pacemaker site Reports chest pain, Denies chest pain at rest, Denies chest pain with activity, Denies rapid heart rate, Denies pedal edema, Denies edema, Denies leg edema, Denies lightheadedness, Denies palpitations, Denies dyspnea, Denies dyspnea on exertion and Denies orthopnea Resp Denies cough, Denies dyspnea and Denies dyspnea on exertion GI Denies hematochezia and Denies change in stool character Musc Denies abnormal gait, Reports limited range of motion, Reports muscle cramps, Denies muscle weakness, Denies numbness, Denies radiating pain into limb, Denies stiffness and Denies tingling Neuro Denies abnormal gait, Denies dizziness, Denies numbness and Denies tingling Endo Denies palpitations Physical Exam Vital Signs: Last Vital Signs Pulse 91 06/10/23 14:34 BP 140/64 H 06/10/23 14:34 BMI result Body Mass Index 30.2 Const General: cooperative, healthy appearing, comfortable and no acute distress Orientation/consciousness: patient oriented x3 Neck Neck: Yes normal visual inspection Chest Other: Pacemaker site left upper chest, incision fully intact, small scabbed area on the distal lateral edge, no signs of redness, infection, drainage, mild soreness reported with palpation around pocket. Resp Effort & Inspection: normal respiratory effort Auscultation: clear to auscultation bilaterally, no crackles, no rales, no rhonchi and no wheezes Cardio Jugular venous distension: no JVD Rate: regular rate Rhythm: regular rhythm Heart sounds: S1 normal heart sound present, S2 normal heart sound present, no murmurs and no rubs Neuro General: patient oriented x3 Extrem General: Yes normal to inspection, No no pedal edema and No calf tenderness Psych Appearance: grossly normal Mental Status: mental status grossly normal Speech and movement: Normal speech and movement present Assessment & Plan Assessment & Plan (1) AV block, 2nd degree: Code(s): I44.1 - Atrioventricular block, second degree Plan: Recently presented with symptom of lightheadedness and found to have high-degree heart block. She underwent a Medtronic dual-chamber pacemaker placement on 05/11/2023. Her lightheadedness has resolved. Today she reports some minor discomfort around the pacemaker pocket. The site is healing very well with no signs of concern or infection. Incision line is very well approximated. Small scab is noted at the lateral distal edge. Instructed to not pick at that site. Will arrange for device interrogation in 1 month in the office. She has remote monitoring in use. (2) Pacemaker: Code(s): Z95.0 - Presence of cardiac pacemaker Plan: As above, incision healing well (3) Lightheaded: Code(s): R42 - Dizziness and giddiness Plan: Resolved (4) HTN (hypertension): Code(s): I10 - Essential (primary) hypertension Qualifiers: Hypertension type: primary hypertension Qualified Code(s): I10 - Essential (primary) hypertension Plan: Initially elevated at 140/64, recheck done by me 122/50. Continue current meds which appear to be chlorthalidone, amlodipine, olmesartan. No med changes made Coding Level of Care Code Est Pt Level 3 (94945) Diagnoses AV block, 2nd degree I44.1 Pacemaker Z95.0 Lightheaded R42 Primary hypertension I10 Hypertension type: primary hypertension Time Spent (min) 26
== END 2023-06-10 15:10 | disposition home or self-care (01) ==
PROVIDERS: PCP Internal Medicine Geriatric Medicine; Visit Provider Nurse Practitioner Family
DX: I44.1 Atrioventricular block, second degree (principal); Z95.0 Presence of cardiac pacemaker; R42 Dizziness and giddiness; I10 Essential (primary) hypertension
CPT/HCPCS: 99213

== ENCOUNTER → 2023-06-10 14:05 | Outpatient (BNVA) | payer OTHER, SELFPAY | PROVIDERS: PCP Internal Medicine Geriatric Medicine; Visit Provider Nurse Practitioner Family | DX: I44.1 Atrioventricular block, second degree (principal); I10 Essential (primary) hypertension; Z79.899 Other long term (current) drug therapy; Z95.0 Presence of cardiac pacemaker | CPT/HCPCS: 99212 ==

== ENCOUNTER 2023-07-26 13:46 | Outpatient (AMB) | payer OTHER, SELFPAY ==
--- NOTE | 2023-07-27 07:43 | A.OFFVIS_ITS ---
Intake Intake Visit Reasons: device check Allergies insulin glargine [From LANTUS] Allergy (Mild, Verified 06/10/23 14:39) RASH Amitryptiline Allergy (Mild, Uncoded 12/21/22 09:15) unknown [facility] Medical History (Updated 06/10/23 @ 17:11 by Trinity Mclean, GARRET-C) GERD (gastroesophageal reflux disease) Diabetes Anxiety Sleep apnea HTN (hypertension) Hypertension Surgical History History of esophagogastroduodenoscopy (EGD) H/O colonoscopy S/P removal of right ovary S/P removal of left ovary Family History Mother Diabetes Father Liver cancer Social History Household Members: Family Housing: House Do you 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 [id number] Cardiac Device Check, pacemaker dual lead Procedure code (CPT) selection complete Coding Level of Care Code Procedure Only CPT Codes Cardiac Device Check - Cardiac Device 2: 39830-MW Cardiac Device Check, pacemaker dual lead ([id number])
== END 2023-07-26 14:09 | disposition home or self-care (01) ==
PROVIDERS: PCP Internal Medicine Geriatric Medicine; Visit Provider Nurse Practitioner Family
DX: I44.1 Atrioventricular block, second degree (principal); Z95.0 Presence of cardiac pacemaker
CPT/HCPCS: 93280

== ENCOUNTER → 2023-07-26 13:46 | Outpatient (BNVA) | payer OTHER, SELFPAY | PROVIDERS: PCP Internal Medicine Geriatric Medicine; Visit Provider Nurse Practitioner Family | DX: Z45.018 Encounter for adjustment and management of other part of cardiac pacemaker (principal) | CPT/HCPCS: 93280 ==

== ENCOUNTER 2023-08-24 14:37 | Outpatient (REF) | payer OTHER, SELFPAY ==
[2023-08-24 16:33] LABS: Anion Gap 14 (12-20); Blood Urea Nitrogen 18 mg/dL (9-16); Calcium 9.4 mg/dL (8.4-10.2); Carbon Dioxide 28 mmol/L (22-29); Chloride 100 mmol/L (96-108); Estimated Glomerular Filt Rate > 60; Glucose Random 343 mg/dL (60-115); Potassium 4.5 mmol/L (3.3-5.1); Sodium 137 mmol/L (135-145)
== END 2023-08-24 14:38 | disposition home or self-care (01) ==
LOC: HO.HHCL 14:37
PROVIDERS: Visit Provider Internal Medicine Geriatric Medicine
DX: E11.9 Type 2 diabetes mellitus without complications (principal); I10 Essential (primary) hypertension; M54.50 Low back pain, unspecified; Z95.0 Presence of cardiac pacemaker; Z79.4 Long term (current) use of insulin
CPT/HCPCS: 36415; 80048

== ENCOUNTER 2023-08-26 14:05 | Outpatient (REF) | payer OTHER, SELFPAY ==
--- NOTE | ~2023-08-26 | MM_ITS ---
EXAMINATION: MM SCREENING DIGITAL BREAST TOMOSYNTHESIS, BILATERAL CLINICAL INFORMATION: Screening. Asymptomatic. COMPARISON: Mammography: This study is compared with prior exams dating back to 2018. TECHNIQUE: Digital breast tomosynthesis is performed in both the craniocaudal and mediolateral oblique views along with computer-aided detection (CAD). Synthesized 2D images are generated from the tomosynthesis. FINDINGS: There are scattered areas of fibroglandular density (ACR BI-RADS breast composition Category b). There is a pacemaker in the superior most aspect of the left breast. There are no significant masses, abnormal calcifications, or other abnormalities. MM/MM tomosynthesis screening BI IMPRESSION: No mammographic evidence of malignancy. ASSESSMENT: BI-RADS BI-RADS 1 - Negative RECOMMENDATION: Routine annual mammography screening. 1 year F/U This examination should not preclude the clinical evaluation of a suspicious palpable abnormality. This patient's information was entered into a reminder system with a target due date for their next mammogram.
== END 2023-08-26 14:06 | disposition home or self-care (01) ==
LOC: HO.MAMMO 14:05
PROVIDERS: PCP Internal Medicine Geriatric Medicine; Visit Provider Internal Medicine Geriatric Medicine
DX: Z12.31 Encounter for screening mammogram for malignant neoplasm of breast (principal)
CPT/HCPCS: 77063; 77067

== ENCOUNTER → 2023-08-26 14:45 | Outpatient (BNV) | payer OTHER, SELFPAY | PROVIDERS: PCP Internal Medicine Geriatric Medicine; Visit Provider Radiology Diagnostic Radiology | DX: Z12.31 Encounter for screening mammogram for malignant neoplasm of breast (principal) | CPT/HCPCS: 77063; 77067 ==

== ENCOUNTER → 2023-09-27 23:59 | Outpatient (BNV) | payer OTHER, SELFPAY ==
--- NOTE | 2023-10-11 13:38 | A.OFFVIS_ITS ---
Intake Intake Visit Reasons: Remote Device Check- Medtronic Allergies insulin glargine [From LANTUS] Allergy (Mild, Verified 06/10/23 14:39) RASH Amitryptiline Allergy (Mild, Uncoded 12/21/22 09:15) unknown [facility] Medical History (Updated 06/10/23 @ 17:11 by Trinity Mclean, GARRET-C) GERD (gastroesophageal reflux disease) Diabetes Anxiety Sleep apnea HTN (hypertension) Hypertension Surgical History History of esophagogastroduodenoscopy (EGD) H/O colonoscopy S/P removal of right ovary S/P removal of left ovary Family History Mother Diabetes Father Liver cancer Social History Household Members: Family Housing: House 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 DDD mode Ventricular paced 100%. No new alerts. [id number] Cardiac Device Interrogation, pacemaker Procedure code (CPT) selection complete Assessment & Plan Assessment & Plan (1) Pacemaker: Code(s): Z95.0 - Presence of cardiac pacemaker Plan: Coding Level of Care Code Procedure Only Diagnoses Pacemaker Z95.0 CPT Codes Cardiac Device Check - Cardiac Device 12: [id number] Cardiac Device Interrogation, pacemaker ([id number])
== END ==
PROVIDERS: PCP Internal Medicine Geriatric Medicine; Visit Provider Internal Medicine Cardiovascular Disease
DX: I44.1 Atrioventricular block, second degree (principal); Z95.0 Presence of cardiac pacemaker
CPT/HCPCS: 93294

== ENCOUNTER 2023-10-05 09:52 | Outpatient (REF) | payer OTHER, SELFPAY ==
[2023-10-05 12:26] LABS: Alanine Aminotransferase 17 U/L (0-31); Albumin Level 4.1 g/dL (3.5-5.0); Alkaline Phosphatase 57 U/L (39-117); Aspartate Amino Transferase 14 U/L (5-31); Bilirubin Direct 0.1 mg/dL (0.0-0.5); Bilirubin Total 0.3 mg/dL (0.0-1.0); Cholesterol 250 mg/dL (<200); HDL Cholesterol 56 mg/dL (>40); LDL Cholesterol Calculated 153 mg/dL (<100); Total Protein 6.9 g/dL (6.5-8.0); Triglycerides 208 mg/dL (<150)
[2023-10-05 13:22] LABS: Creatinine Urine 87.49 mg/dL; Microalbum/Creatinine Ratio Ur 6.8 ug/mg cr (<30)
== END 2023-10-05 09:53 | disposition home or self-care (01) ==
LOC: HO.HHCL 09:52
PROVIDERS: Visit Provider Internal Medicine Geriatric Medicine
DX: E11.9 Type 2 diabetes mellitus without complications (principal); Z79.4 Long term (current) use of insulin
CPT/HCPCS: 36415; 80061; 80076; 82043; 82570

== ENCOUNTER 2023-10-15 12:15 | Outpatient (AMB) | payer OTHER, SELFPAY ==
--- NOTE | 2023-10-15 12:30 | MHC.OFFVIS ---
Intake Vital Signs 10/15/23 12:35 Height 5 ft 2 in Weight 172 lb BMI 31.5 BP 136/60 Blood Pressure Location Lt brachial Position Sitting Pulse 76 Intake Visit Reasons: 5 Month Follow Up Intake Note: Patient follow up abdominal pain. Patient cc: abdominal pain with bloating, constipation, acid reflex, and dysphagia. 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 She had used fiber, colace, dulcolax, senna, mirilax and colace. THe one that works best is casagada..... on naprosyn bid for back pain, 2 yrs. TESTS: colonsocopy 2017- no polyps tsh 2008--normal u/s 03/2019--hepatic steatotis, no gallstones CT 2014- severe spinal degen, diverticulosis EGD--08/2019--erosive gastritis bx reactive gastropathy At O/V 09/2019---she felt PPI was helping her sx, linaclotide was helping constipation felt 70% improved I did increase pantoprazole to 40 mg to see if helped her more, if not then plan was to get GES GES 03/2020--nml CT scan 03/2021: unremarkable, calcified granuloma lower lung, ?fatty infiltration liver i gave her mirtazepine in case of functional component to sx and the dose was increased as it was not working so well EGD/Colonoscopy 11/2021: Endoscopy Findings: esophageal inlet patch Colonoscopy Findings: internal hemorrhoids Path--no major findings GES 08/04-reordered due to ongoing sx of epigastric discomfort- fast at 2 hrs 7% left I changed mirtazepine to trazodone as it was not working and she felt this was better she was also changed to trulance INTERIM: she has ongoing constipation she is taking trulance and she feels it helps 10% she also has reflux and not taking pantoprazole as she was worried it might cause cancer she is taking trazodone and it helps her sleep and relaxes her she has been taking ozempic for 1 yr now, EXAM: GENERAL: The patient is well developed and nontoxic. VITAL SIGNS:see workflow HEENT: Nonicteric sclerae, PERRLA, EOMI. Oropharynx clear. Moist mucous membranes. Conjunctivae appear well perfused. No thyroid mass. CHEST: Chest wall is nontender. HEART: Regular rate and rhythm without murmurs. LUNGS: Clear to auscultation bilaterally. ABDOMEN: Soft, positive bowel sounds, non tender, rectus diastasis, no organomegaly.no flank tenderness SKIN: No rash, no excessive bruising, petechiae, or purpura. NEUROLOGIC: Cranial nerves II-XII intact without motor/sensory deficit. Psych--nml Assessments 1. Abdominal discomfort, constipation prob from combination of colonic inertia, DM and polypharmacy--incomplete response to linaclotide and trulance Plan: 1/ change to motegrity--try 1 mg 2/ cotn with trazodone for the moment, will see how her GERD does with motegrity [facility] Medical History (Updated 10/15/23 @ 12:41 by Roxanne Stock MD) GERD (gastroesophageal reflux disease) Diabetes Anxiety Sleep apnea HTN (hypertension) Hypertension Surgical History History of esophagogastroduodenoscopy (EGD) H/O colonoscopy S/P removal of right ovary S/P removal of left ovary Family History Mother Diabetes Father Liver cancer Social History Household Members: Family Housing: House Do you presently have visiting nurse 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 Abdominal discomfort, constipation prob from combination of colonic inertia, DM and polypharmacy--incomplete response to linaclotide Plan: 1/ change to motegrity--try 1 mg 2/ cotn with trazodone for the moment, will see how her GERD does with motegrity Medications: New prucalopride (Motegrity) 1 mg PO DAILY 30 tabs 2RF Coding Level of Care Code Est Pt Level 3 (70980) Diagnoses Colonic dysmotility K59.9
[2023-10-15 12:35] VITALS: BP 136/60; PULSE 76; BMI 31.5
== END 2023-10-15 12:42 | disposition home or self-care (01) ==
PROVIDERS: PCP Internal Medicine Geriatric Medicine; Visit Provider Internal Medicine Gastroenterology
DX: K59.9 Functional intestinal disorder, unspecified (principal)
CPT/HCPCS: 99213

== ENCOUNTER → 2023-10-15 12:15 | Outpatient (BNVA) | payer OTHER, SELFPAY | PROVIDERS: PCP Internal Medicine Geriatric Medicine; Visit Provider Internal Medicine Gastroenterology | DX: K59.9 Functional intestinal disorder, unspecified (principal) | CPT/HCPCS: 99212 ==

== ENCOUNTER → 2023-12-26 23:59 | Outpatient (BNV) | payer OTHER, SELFPAY ==
--- NOTE | 2024-01-17 11:01 | A.OFFVIS_ITS ---
Intake Visit Reasons: Remote Device check- Medtronic Allergies insulin glargine [From LANTUS] Allergy (Mild, Verified 10/15/23 12:28) RASH Amitryptiline Allergy (Mild, Uncoded 12/21/22 09:15) unknown [facility] Medical History (Updated 10/15/23 @ 12:41 by Roxanne Stock MD) GERD (gastroesophageal reflux disease) Diabetes Anxiety Sleep apnea HTN (hypertension) Hypertension Surgical History History of esophagogastroduodenoscopy (EGD) H/O colonoscopy S/P removal of right ovary S/P removal of left ovary Family History Mother Diabetes Father Liver cancer Social History Household Members: Family Housing: House Do you 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 V paced 100%. No new alerts. [id number] Cardiac Device Interrogation, pacemaker Procedure code (CPT) selection complete Assessment & Plan Assessment & Plan (1) Pacemaker: Code(s): Z95.0 - Presence of cardiac pacemaker Category: Medical Plan Coding Level of Care Code Procedure Only Diagnoses Pacemaker Z95.0 CPT Codes Cardiac Device Check - Cardiac Device 12: [id number] Cardiac Device Interrogation, pacemaker ([id number])
== END ==
PROVIDERS: PCP Internal Medicine Geriatric Medicine; Visit Provider Internal Medicine Cardiovascular Disease
DX: Z45.018 Encounter for adjustment and management of other part of cardiac pacemaker (principal)
CPT/HCPCS: 93294

== ENCOUNTER 2024-01-24 12:51 | Outpatient (AMB) | payer OTHER, SELFPAY ==
--- NOTE | 2024-01-24 13:23 | MHC.OFFVIS ---
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 Name: juan villa [id number] Allergies insulin glargine [From LANTUS] Allergy (Mild, Verified 01/24/24 13:27) RASH Amitryptiline Allergy (Mild, Uncoded 01/24/24 13:27) unknown Medication List - Last Reconciled 01/24/24 by RIK Valentin amlodipine 10 mg PO DAILY aspirin 81 mg PO DAILY blood sugar diagnostic (CemmerceTouch Ultra Test strips) As directed buspirone 5 mg PO BID chlorthalidone 25 mg PO DAILY fluticasone propionate 50 mcg/actuation 2 sprays intranasal DAILY PRN gabapentin 100 mg PO DAILY hydralazine 10 mg PO BID insulin aspart U-100 (Novolog FlexPen U-100 Insulin aspart) 0 sliding scale doses See Protocol subcut QIDACHS insulin degludec (Tresiba FlexTouch U-200 insulin) units subcut lancets (CemmerceTouch Delica Plus Lancet) As directed loratadine 10 mg PO DAILY nifedipine ER 60 mg PO DAILY olmesartan 40 mg PO QAM pen needle, diabetic (BD Ultra-Fine Becca Pen Needle) As directed prucalopride (Motegrity) 1 mg PO DAILY semaglutide (Ozempic) 0.5 mg subcut WE tramadol 50 mg PO TID PRN HPI HPI 6 mth w/ med ck: Details: Jennifer is a 68-year-old female with past medical history of obesity, hypertension, obstructive sleep apnea with CPAP use who presented to [facility] in April with lightheadedness and found to have high degree heart block. She underwent a Medtronic dual-chamber pacemaker placement. She now presents for device check and follow-up. Today she reports that she notices some mild discomfort at her pacemaker site. She also notices the area feels warm at times. She has not had any fevers at home. She has not noticed any redness, swelling over the site. She does experience chest discomfort at times. She is vague in describing this even with the use of a typing section chief. She feels it is a new symptom for her in the last few months. She also reports getting fatigued easily. No concerning shortness of breath, PND, orthopnea or edema. No lightheadedness, presyncope, syncope, falls. Taking meds as directed. 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 Other chest pains as well that happen during activities Reports chest pain, Denies chest pain at rest, Denies chest pain with activity, Denies rapid heart rate, Denies pedal edema, Denies edema, Denies leg edema, Denies lightheadedness, Denies palpitations, Reports dyspnea, Reports dyspnea on exertion and Denies orthopnea Resp Denies cough, Reports dyspnea and Reports dyspnea on exertion GI Denies hematochezia and Denies change in stool character Musc Denies abnormal gait, Denies limited range of motion, Denies muscle cramps, Denies muscle weakness, Denies numbness, Denies radiating pain into limb, Denies stiffness and Denies tingling Neuro Denies abnormal gait, Denies dizziness, Denies numbness and Denies tingling Endo Denies palpitations Physical Exam Vital Signs: Last Vital Signs Pulse 76 01/24/24 13:24 BP 114/42 L 01/24/24 13:24 BMI result Body Mass Index 33.7 Const General: cooperative, healthy appearing, comfortable and no acute distress Orientation/consciousness: patient oriented x3 Neck Neck: Yes normal visual inspection and Yes no JVD Carotids: normal carotid upstroke Chest Other: pacer site benign appearance. No redness, swelling, tenderness, or abnormal warmth to area Chest palpation & inspection: normal inspection of the chest Resp Effort & Inspection: normal respiratory effort Auscultation: clear to auscultation bilaterally, no crackles, no rales, no rhonchi and no wheezes Cardio Jugular venous distension: no JVD Rate: regular rate Rhythm: regular rhythm Heart sounds: S1 normal heart sound present, S2 normal heart sound present, no murmurs and no rubs Neuro General: patient oriented x3 Extrem General: Yes normal to inspection, No no pedal edema and No calf tenderness Psych Appearance: grossly normal Mental Status: mental status grossly normal Speech and movement: Normal speech and movement present Office Procedures Cardiac Device Check Cardiac Device Check Details: Medtronic dual-chamber pacemaker interrogation today, battery 13.1 years, right atrial threshold 0.75 volts at 0 point 4 milliseconds, RV threshold 0.5 volts at 0.4 milliseconds, DDD mode, low rate 60, no high V rates, no 80 or AF, V paced 100% [id number] Cardiac Device Check, pacemaker dual lead Procedure code (CPT) selection complete Assessment & Plan Assessment & Plan (1) Pacemaker: Code(s): Z95.0 - Presence of cardiac pacemaker Category: Medical Plan: In April 2023 she presented with symptom of lightheadedness and found to have high-degree heart block. She underwent a Medtronic dual-chamber pacemaker placement on 05/11/2023. Her lightheadedness has resolved. Today she reports some soreness at the site at times. She also reports that it feels warm at times. No fevers. No redness, swelling or drainage at the site. Visually it looks well healed with no obvious concerns. Will check labs today including a CBC. Device interrogation today shows it is functioning normally. Offered her reassurance. Remote monitoring in use. Cardiology follow-up with device check in 6 months, sooner if needed. (2) AV block, 2nd degree: Code(s): I44.1 - Atrioventricular block, second degree Category: Medical Plan: As above (3) HTN (hypertension): Code(s): I10 - Essential (primary) hypertension Category: Medical Qualifiers: Hypertension type: primary hypertension Qualified Code(s): I10 - Essential (primary) hypertension Plan: Normal range today. No med changes. Continue current meds which appear to be chlorthalidone, amlodipine, olmesartan. (4) Chest discomfort: Code(s): R07.89 - Other chest pain Category: Medical Plan: Report of discomfort in her chest when doing activities around the house. She feels this is a new symptom in the last 3 months. She is vague in actually describing what she feels. She does report fatigue with activity. In all she is mostly sedentary. She does have cardiac risk factors of hypertension and obesity. Echocardiogram was done 05/10/2023 showing EF greater than 70%, mild , mild increase in the right atrial pressure, no pulmonary hypertension. EKG will not be diagnostic for ischemia as she is V paced. At this time will check a pharmacological nuclear stress test to evaluate for any ischemia. Plan to call her with results. Will arrange for sooner follow-up appointment if needed. Plan Time spent on chart review, documentation, interview and assessment Orders: Orders Comprehensive Met. Panel Today R07.89 - Other chest pain CA lexiscan stress w roberto Today I10 - Essential (primary) hypertension, R06.00 - Dyspnea, unspecified, R07.89 - Other chest pain, Z95.0 - Presence of cardiac pacemaker Complete Blood Count Auto Diff Today R07.89 - Other chest pain Lipid Panel Today R07.89 - Other chest pain NM cardiolite stress test Today I10 - Essential (primary) hypertension, R07.89 - Other chest pain, Z95.0 - Presence of cardiac pacemaker Coding Level of Care Code Est Pt Level 4 (63283) Diagnoses Pacemaker Z95.0 AV block, 2nd degree I44.1 Primary hypertension I10 Hypertension type: primary hypertension Chest discomfort R07.89 CPT Codes Cardiac Device Check - Cardiac Device 2: [id number] Cardiac Device Check, pacemaker dual lead ([id number]) Time Spent (min) 28
[2024-01-24 13:24] VITALS: BP 114/42; PULSE 76; BMI 33.7
== END 2024-01-24 13:54 | disposition home or self-care (01) ==
PROVIDERS: PCP Internal Medicine Geriatric Medicine; Visit Provider Nurse Practitioner Family
DX: I44.1 Atrioventricular block, second degree (principal); Z95.0 Presence of cardiac pacemaker; I10 Essential (primary) hypertension; R07.89 Other chest pain
CPT/HCPCS: 93280; 99214

== ENCOUNTER → 2024-01-24 12:51 | Outpatient (BNVA) | payer OTHER, SELFPAY | PROVIDERS: PCP Internal Medicine Geriatric Medicine; Visit Provider Nurse Practitioner Family | DX: Z45.018 Encounter for adjustment and management of other part of cardiac pacemaker (principal); I44.1 Atrioventricular block, second degree; I10 Essential (primary) hypertension; R07.89 Other chest pain | CPT/HCPCS: 93280; 99212 ==

== ENCOUNTER 2024-02-12 09:06 | Outpatient (REF) | payer OTHER, SELFPAY ==
[2024-02-12 09:25] LABS: MANUAL DIFF FLAG NO
[2024-02-12 09:53] LABS: Basophils Absolute Auto 0.1 X10*3/uL (0.0-0.2); Basophils Percent Auto 0.7 % (0-2); Eosinophils Absolute Auto 0.2 X10*3/uL (0.0-0.4); Eosinophils Percent Auto 2.5 % (0-4); Hematocrit 38.3 % (37.0-47.0); Hemoglobin 12.6 g/dl (12.0-16.0); Imm Gran Abs Auto 0.02 X10*3/uL (0.00-0.03); Imm Gran Pct Auto 0.3 % (0.0-0.4); Lymphocytes Absolute Auto 1.4 X10*3/uL (1.2-4.9); Lymphocytes Percent Auto 20.6 % (20-40); Mean Corpuscular HGB Conc 32.9 g/dl (31.0-35.0); Mean Corpuscular Hemoglobin 28.6 pg (27.0-33.0); Mean Platelet Volume 9.7 fL (9.4-12.3); Monocytes Absolute Auto 0.5 X10*3/uL (0.1-1.2); Neutrophils Absolute Auto 4.6 x10*3/uL (2.0-8.3); Neutrophils Percent Auto 67.9 % (45-73); Platelet Count 300 X10*3/uL (160-400); Red Cell Distribution Width 11.9 % (11.0-16.0); White Blood Count 6.8 X10*3/uL (4.8-10.8)
[2024-02-12 10:28] LABS: Alanine Aminotransferase 23 U/L (0-31); Albumin Level 4.3 g/dL (3.5-5.0); Alkaline Phosphatase 73 U/L (39-117); Aspartate Amino Transferase 15 U/L (5-31); Bilirubin Direct 0.1 mg/dL (0.0-0.5); Bilirubin Total 0.3 mg/dL (0.0-1.0); Total Protein 7.5 g/dL (6.5-8.0)
[2024-02-12 10:32] LABS: Alanine Aminotransferase 22 U/L (0-31); Albumin Level 4.4 g/dL (3.5-5.0); Alkaline Phosphatase 73 U/L (39-117); Anion Gap 11 (12-20); Aspartate Amino Transferase 15 U/L (5-31); Bilirubin Total 0.3 mg/dL (0.0-1.0); Blood Urea Nitrogen 20 mg/dL (9-16); Calcium 9.7 mg/dL (8.4-10.2); Carbon Dioxide 28 mmol/L (22-29); Chloride 105 mmol/L (96-108); Cholesterol 205 mg/dL (<200); Estimated Glomerular Filt Rate > 60; Glucose Random 178 mg/dL (60-115); HDL Cholesterol 53 mg/dL (>40); LDL Cholesterol Calculated 131 mg/dL (<100); Potassium 4.4 mmol/L (3.3-5.1); Sodium 140 mmol/L (135-145); Total Protein 7.5 g/dL (6.5-8.0); Triglycerides 106 mg/dL (<150)
[2024-02-12 11:38] LABS: Creatinine Urine 99.43 mg/dL
== END 2024-02-12 09:07 | disposition home or self-care (01) ==
LOC: HO.LAB 09:06
PROVIDERS: Nurse Practitioner Family; PCP Internal Medicine Geriatric Medicine; Visit Provider Internal Medicine Geriatric Medicine
DX: E11.9 Type 2 diabetes mellitus without complications (principal); Z79.4 Long term (current) use of insulin
CPT/HCPCS: 36415; 80053; 80061; 80076; 82043; 82248; 82570; 85025

== ENCOUNTER → 2024-03-13 09:37 | Outpatient (REF) | payer OTHER, SELFPAY ==
--- NOTE | ~2024-03-13 | NM_ITS ---
Myocardial perfusion study Indication: Chest pain to evaluate for myocardial ischemia Technique: The patient was brought in for a Lexiscan perfusion study on 03/13/2024. Patient performed low-level exercise and was injected 0.4 mg of Lexiscan intravenously. Within a minute of injection, 30 mCi of sestamibi was given intravenously. Images were obtained using the SPECT gamma camera interlaced with the gating device. Images were obtained in supine position. Resting perfusion study was performed on 03/20/2024. Patient was administered 30 mCi of sestamibi intravenously at rest. Images were then obtained in supine position. Images obtained with and without CT attenuation. Total DLP 110 mGy-cm. Images were processed with the software and compared side to side in short axis, horizontal long axis and vertical long axis views. Findings: The stress perfusion study showed nondistended images show overall normal uptake of radiotracer in all segments of LV myocardium. Attenuation corrected images show some thinning at the apex of the LV myocardium. There is suggestion of left ventricle hypertrophy. The gated study shows normal LV systolic function with visually estimated LVEF of greater than 50%. LV cavity is normal in size. The gated study shows normal systolic wall thickening and contraction of segments. Resting study shows no change in perfusion pattern stress perfusion study. Gating at rest reveals normal systolic wall motion with ejection fraction at greater than 50%. The findings are consistent with normal myocardial perfusion. NM/NM cardiolite stress test Impression: 1. Myocardial perfusion imaging study shows normal myocardial perfusion 2. Gated LVEF is greater than 50% 3. Transient ischemic dilatation not present EKG is nondiagnostic for ischemia
--- NOTE | 2024-03-13 09:42 | CA_ITS ---
Acquisition Time: 2024-03-13 10:10:06 Total Exercise Time: 00:02:00 Test Indications: ROSANA/CPAP Medications: SEE H Protocol: LEXISCAN Max HR: 093 BPM 60% of Pred: 153 BPM Max BP: 126/060 mmHG Max Work Load: 1.0 METS Pharmacological stress test with Lexiscan injection while sitting and kicking her ;legs, without anginal symptoms, without arrhyhtmias, with normotensive response to injection, with nondiagnoisitic EKGs. Nuclear images pending. Test reviewed with Dr. Jackman. Referred By: Trinity Mclean Overread By: Lindsey Kay
== END ==
LOC: HO.CARD 09:37
PROVIDERS: PCP Internal Medicine Geriatric Medicine; Visit Provider Nurse Practitioner Family
DX: R07.89 Other chest pain (principal); Z95.0 Presence of cardiac pacemaker; I10 Essential (primary) hypertension; R06.00 Dyspnea, unspecified
CPT/HCPCS: 78452; 93017; A9500; J0280; J2785

== ENCOUNTER → 2024-03-13 09:42 | Outpatient (BNV) | payer OTHER, SELFPAY | PROVIDERS: PCP Internal Medicine Geriatric Medicine; Visit Provider Nurse Practitioner | DX: R07.9 Chest pain, unspecified (principal) | CPT/HCPCS: 78452; 93016; 93018 ==

== ENCOUNTER → 2024-03-26 23:59 | Outpatient (BNV) | payer OTHER, SELFPAY ==
--- NOTE | 2024-04-05 08:47 | A.OFFVIS_ITS ---
Intake Visit Reasons: Remote Device check- Medtronic Allergies insulin glargine [From LANTUS] Allergy (Mild, Verified 01/24/24 13:27) RASH Amitryptiline Allergy (Mild, Uncoded 01/24/24 13:27) unknown [facility] Medical History GERD (gastroesophageal reflux disease) Diabetes Anxiety Sleep apnea HTN (hypertension) Hypertension Surgical History History of esophagogastroduodenoscopy (EGD) H/O colonoscopy S/P removal of right ovary S/P removal of left ovary Family History Mother Diabetes Father Liver cancer Social History Household Members: Family Housing: House Do you presently have visiting nurse or 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 [id number] Cardiac Device Check, pacemaker dual lead Procedure code (CPT) selection complete Assessment & Plan Assessment & Plan (1) Pacemaker: Code(s): Z95.0 - Presence of cardiac pacemaker Category: Medical Plan Coding Level of Care Code Procedure Only Diagnoses Pacemaker Z95.0 CPT Codes Cardiac Device Check - Cardiac Device 2: [id number] Cardiac Device Check, pacemaker dual lead ([id number])
== END ==
PROVIDERS: PCP Internal Medicine Geriatric Medicine; Visit Provider Internal Medicine Cardiovascular Disease
DX: Z45.018 Encounter for adjustment and management of other part of cardiac pacemaker (principal)
CPT/HCPCS: 93294

== ENCOUNTER 2024-05-22 11:52 | Outpatient (AMB) | payer OTHER, SELFPAY ==
[2024-05-22 11:56] VITALS: BP 147/67; PULSE 84; O2SAT 97; BMI 32.6
--- NOTE | 2024-05-22 11:56 | A.OFFVIS_ITS ---
Vital Signs 05/22/24 11:56 Height 5 ft 2 in Weight 178 lb 2.136 oz BMI 32.6 BP 147/67 H Blood Pressure Location Rt brachial Position Sitting Pulse 84 Pulse Source Pulse Oximeter Pulse Oximetry (%) 97 Oxygen Delivery Method Room Air Intake Visit Reasons: colonic dysmotility Intake Note: Pt presents to the office today for colonic dysmotility. Pt denies N/V/D but states she is having stomach pain everyday. Allergies insulin glargine [From LANTUS] Allergy (Mild, Verified 05/22/24 11:56) RASH Amitryptiline Allergy (Mild, Uncoded 05/22/24 11:56) unknown HPI HPI colonic dysmotility: Details: 68 yr old f here for f/u RECAP: seen initially for colon screen, issues with constipation She had troubles with constipation, moving her bowels only every couple of weeks. She had used fiber, colace, dulcolax, senna, mirilax and colace. THe one that works best is casagada..... on naprosyn bid for back pain, 2 yrs. TESTS: colonsocopy 2017- no polyps tsh 2008--normal u/s 03/2019--hepatic steatotis, no gallstones CT 2014- severe spinal degen, diverticulosis EGD--08/2019--erosive gastritis bx reactive gastropathy At O/V 09/2019---she felt PPI was helping her sx, linaclotide was helping constipation felt 70% improved I did increase pantoprazole to 40 mg to see if helped her more, if not then plan was to get GES GES 03/2020--nml CT scan 03/2021: unremarkable, calcified granuloma lower lung, ?fatty infiltration liver i gave her mirtazepine in case of functional component to sx and the dose was increased as it was not working so well EGD/Colonoscopy 11/2021: Endoscopy Findings: esophageal inlet patch Colonoscopy Findings: internal hemorrhoids Path--no major findings GES 08/04-reordered due to ongoing sx of epigastric discomfort- fast at 2 hrs 7% left I changed mirtazepine to trazodone as it was not working and she felt this was better she was also changed to trulance INTERIM: she has epigastric pain with nausea she has poor appetite she is still taking ozempic she felt motegrity did not help her constipation was only taking 1 mg motegrity, she feels pantoprazole not helping her reflux she takes tramadol maybe once a day EXAM: GENERAL: The patient is well developed and nontoxic. VITAL SIGNS:see workflow HEENT: Nonicteric sclerae, PERRLA, EOMI. Oropharynx clear. Moist mucous membranes. Conjunctivae appear well perfused. No thyroid mass. CHEST: Chest wall is nontender. HEART: Regular rate and rhythm without murmurs. LUNGS: Clear to auscultation bilaterally. ABDOMEN: Soft, positive bowel sounds, non tender, rectus diastasis, no organomegaly.no flank tenderness SKIN: No rash, no excessive bruising, petechiae, or purpura. NEUROLOGIC: Cranial nerves II-XII intact without motor/sensory deficit. Psych--nml Assessments 1. 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) Alcohol intake: never Patient Tobacco Use Status: Never used Tobacco Advance Directives Date on File: 05/11/23 service: No Physical Exam Vital Signs: Last Vital Signs Pulse 84 05/22/24 11:56 BP 147/67 H 05/22/24 11:56 Pulse Ox 97 05/22/24 11:56 Oxygen Delivery Method Room Air 05/22/24 11:56 BMI result Body Mass Index 32.6 Assessment & Plan Assessment & Plan (1) Colonic dysmotility: Code(s): K59.9 - Functional intestinal disorder, unspecified Category: Medical Plan: see above Medications: New prucalopride (Motegrity) 2 mg PO DAILY 30 tabs 2RF famotidine 40 mg PO BEDTIME 90 tabs 3RF Discontinued prucalopride (Motegrity) Discontinued Reason: Doctor's Order 1 mg PO DAILY 30 tabs 2RF Coding Level of Care Code Est Pt Level 3 (03042) Diagnoses Colonic dysmotility K59.9
== END 2024-05-22 12:55 | disposition home or self-care (01) ==
PROVIDERS: PCP Internal Medicine Geriatric Medicine; Visit Provider Internal Medicine Gastroenterology
DX: K59.9 Functional intestinal disorder, unspecified (principal)
CPT/HCPCS: 99213

== ENCOUNTER → 2024-05-22 11:52 | Outpatient (BNVA) | payer OTHER, SELFPAY | PROVIDERS: PCP Internal Medicine Geriatric Medicine; Visit Provider Internal Medicine Gastroenterology | DX: K59.9 Functional intestinal disorder, unspecified (principal) | CPT/HCPCS: 99212 ==

== ENCOUNTER → 2024-06-24 23:59 | Outpatient (BNV) | payer OTHER, SELFPAY ==
--- NOTE | 2024-07-01 19:22 | MHC.OFFVIS ---
Intake Visit Reasons: Remote Device check- Medtronic Allergies insulin glargine [From LANTUS] Allergy (Mild, Verified 05/22/24 11:56) RASH Amitryptiline Allergy (Mild, Uncoded 05/22/24 11:56) unknown [facility] Medical History GERD (gastroesophageal reflux disease) Diabetes Anxiety Sleep apnea HTN (hypertension) Hypertension Surgical History History of esophagogastroduodenoscopy (EGD) H/O colonoscopy S/P removal of right ovary S/P removal of left ovary Family History Mother Diabetes Father Liver cancer Social History Household Members: Family Housing: House Do you presently have visiting nurse or 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 No new alerts. [id number] Cardiac Device Check, pacemaker dual lead Procedure code (CPT) selection complete Assessment & Plan Assessment & Plan (1) Heart block atrioventricular: Code(s): I44.30 - Unspecified atrioventricular block Category: Medical Plan: Orders: Orders AMB Cardiac Device Follow-up 06/24/24 I44.30 - Unspecified atrioventricular block Coding Level of Care Code Procedure Only Diagnoses Heart block atrioventricular I44.30 CPT Codes Cardiac Device Check - Cardiac Device 2: 60388-[id number] Cardiac Device Check, pacemaker dual lead ([id number])
== END ==
PROVIDERS: PCP Internal Medicine Geriatric Medicine; Visit Provider Internal Medicine Cardiovascular Disease
DX: I44.30 Unspecified atrioventricular block (principal); Z95.0 Presence of cardiac pacemaker
CPT/HCPCS: 93294

== ENCOUNTER 2024-07-24 12:52 | Outpatient (AMB) | payer OTHER, SELFPAY ==
[2024-07-24 13:24] VITALS: BP 114/42; PULSE 72; BMI 33.5
--- NOTE | 2024-07-24 13:24 | A.OFFVIS_ITS ---
Vital Signs 07/24/24 13:24 Height 5 ft 2 in Weight 182 lb 15.739 oz BMI 33.5 BP 114/42 L Blood Pressure Location Lt brachial Position Sitting Pulse 72 Pulse Source Monitor Intake Visit Reasons: 6m follow up/[facility] Foreign Broadcast Specialist Required: Yes Foreign Broadcast Specialist Language: Hot Braider Name: MARILUZ AG [id number] Allergies insulin glargine [From LANTUS] Allergy (Mild, Verified 07/24/24 13:25) RASH Amitryptiline Allergy (Mild, Uncoded 07/24/24 13:25) unknown Medication List - Last Reconciled 07/24/24 by RIK Valentin amlodipine 10 mg PO DAILY aspirin 81 mg PO DAILY blood sugar diagnostic (Evolve IPTouch Ultra Test strips) As directed buspirone 5 mg PO BID chlorthalidone 25 mg PO DAILY famotidine 40 mg PO BEDTIME fluticasone propionate 50 mcg/actuation 2 sprays intranasal DAILY PRN gabapentin 100 mg PO DAILY hydralazine 10 mg PO BID insulin aspart U-100 (Novolog FlexPen U-100 Insulin aspart) 0 sliding scale doses See Protocol subcut QIDACHS insulin degludec (Tresiba FlexTouch U-200 insulin) units subcut lancets (Evolve IPTouch Delica Plus Lancet) As directed loratadine 10 mg PO DAILY nifedipine ER 60 mg PO DAILY olmesartan 40 mg PO QAM pen needle, diabetic (BD Ultra-Fine Becca Pen Needle) As directed prucalopride (Motegrity) 2 mg PO DAILY semaglutide (Ozempic) 0.5 mg subcut WE tramadol 50 mg PO TID PRN HPI HPI 6m follow up/[facility]: Details: Jennifer is a 68-year-old female with past medical history of obesity, hypertension, obstructive sleep apnea with CPAP use who presented to [facility] in April with lightheadedness and found to have high degree heart block. She underwent a Medtronic dual-chamber pacemaker placement. She now presents for device check and follow-up. Today she reports that she still notices some mild discomfort at her pacemaker site. She has not noticed any redness, swelling over the site. She is not getting any other types of chest discomfort. She does report some lightheadedness at times. No concerning shortness of breath, PND, orthopnea or edema. No presyncope, syncope, falls. Taking all meds as directed. Certified client operations manager used. [facility] Medical History GERD (gastroesophageal reflux disease) Diabetes Anxiety Sleep apnea HTN (hypertension) Hypertension Surgical History History of esophagogastroduodenoscopy (EGD) H/O colonoscopy S/P removal of right ovary S/P removal of left ovary Family History Mother Diabetes Father Liver cancer Social History Household Members: Family Housing: House Do you presently have visiting nurse or other home services: Yes (CRYPTOGRAPHIC VULNERABILITY ANALYST) Alcohol intake: never Patient Tobacco Use Status: Never used Tobacco Advance Directives Date on File: 05/11/23 service: No Review of Systems Const All systems reviewed & are unremarkable except as noted in HPI and below ENT Reports dizziness Card Denies chest pain, Denies chest pain at rest, Denies chest pain with activity, Denies rapid heart rate, Denies pedal edema, Denies edema, Denies leg edema, D enies lightheadedness, Denies palpitations, Denies dyspnea, Denies dyspnea on exertion and Denies orthopnea Resp Denies cough, Denies dyspnea and Denies dyspnea on exertion GI Denies hematochezia and Denies change in stool character Musc Denies abnormal gait, Denies limited range of motion, Denies muscle cramps, Denies muscle weakness, Denies numbness, Denies radiating pain into limb, Denies stiffness and Denies tingling Neuro Denies abnormal gait, Reports dizziness, Denies numbness and Denies tingling Endo Denies palpitations Physical Exam Vital Signs: Last Vital Signs Pulse 72 07/24/24 13:24 BP 114/42 L 07/24/24 13:24 BMI result Body Mass Index 33.5 Const General: cooperative, healthy appearing, comfortable and no acute distress Orientation/consciousness: patient oriented x3 Neck Neck: Yes normal visual inspection Resp Effort & Inspection: normal respiratory effort Auscultation: clear to auscultation bilaterally, no crackles, no rales, no rhonchi and no wheezes Cardio Jugular venous distension: no JVD Rate: regular rate Rhythm: regular rhythm Heart sounds: S1 normal heart sound present, S2 normal heart sound present, no murmurs and no rubs Neuro General: patient oriented x3 Extrem General: Yes normal to inspection and No no pedal edema Psych Appearance: grossly normal Mental Status: mental status grossly normal Speech and movement: Normal speech and movement present Office Procedures Cardiac Device Check Cardiac Device Check Details: Medtronic dual-chamber pacemaker interrogation today, battery 12.6 years, DDD mode, low rate 60, right atrial threshold 0.5 volts at 0.4 milliseconds, RV threshold 0.5 volts at 0.4 milliseconds, V paced 100%, a paced 0%, no alerts [id number] Cardiac Device Check, pacemaker dual lead Procedure code (CPT) selection complete EKG Details: Today, read by me, atrial sensed, ventricular paced rhythm, rate 72 [id number], Complete Assessment & Plan Assessment & Plan (1) Pacemaker: Code(s): Z95.0 - Presence of cardiac pacemaker Category: Medical Plan: In April 2023 she presented with symptom of lightheadedness and found to have high-degree heart block. She underwent a Medtronic dual-chamber pacemaker placement on 05/11/2023. She still reports some discomfort at her pacemaker site at times with movement and palpation. On exam the site is benign. Device interrogation today shows it is functioning normally. Offered her reassurance. Remote monitoring in use. Cardiology follow-up with device check in 6 months, sooner if needed. (2) AV block, 2nd degree: Code(s): I44.1 - Atrioventricular block, second degree Category: Medical Plan: As above (3) HTN (hypertension): Code(s): I10 - Essential (primary) hypertension Category: Medical Qualifiers: Hypertension type: primary hypertension Qualified Code(s): I10 - Essential (primary) hypertension Plan: History of hypertension which is being managed by her PCP. She reports having some lightheadedness at times. Blood pressures checked by me today and she is not orthostatic. She is on several meds that affect blood pressure including amlodipine, chlorthalidone, nifedipine, olmesartan, hydralazine. If she continues to report symptoms then she may need a reduction in her anti hypertensive agents. Will forward this note to her PCP for review. (4) Chest discomfort: Code(s): R07.89 - Other chest pain Category: Medical Plan: Report of discomfort in her chest which she feels originates from the pacemaker site. Atypical for angina. She does have cardiac risk factors of hypertension and obesity. Echocardiogram was done 05/10/2023 showing EF greater than 70%, mild , mild increase in the right atrial pressure, no pulmonary hypertension. EKG is not diagnostic for ischemia as she is V paced. Nuclear stress test done on 03/20/2024 showed normal myocardial perfusion imaging. With her mild aortic stenosis will plan for recheck of echo prior to her next visit. (5) Aortic stenosis: Code(s): I35.0 - Nonrheumatic aortic (valve) stenosis Category: Medical Plan: Mild on echocardiogram 04/2023 Plan Time spent on chart review, documentation, interview and assessment Orders: Orders CA echo transthoracic complete 01/08/25 I35.0 - Nonrheumatic aortic (valve) stenosis Coding Level of Care Code Est Pt Level 4 (92399) Complex EM visit Add On G2211 Diagnoses Pacemaker Z95.0 AV block, 2nd degree I44.1 Primary hypertension I10 Hypertension type: primary hypertension Chest discomfort R07.89 Aortic stenosis I35.0 CPT Codes Cardiac Device Check - Cardiac Device 2: [id number] Cardiac Device Check, pacemaker dual lead ([id number]) EKG - CPT: 57992-[id number], Complete ([id number]) Time Spent (min) 32
== END 2024-07-24 14:03 | disposition home or self-care (01) ==
PROVIDERS: PCP Internal Medicine Geriatric Medicine; Visit Provider Nurse Practitioner Family
DX: I44.1 Atrioventricular block, second degree (principal); Z95.0 Presence of cardiac pacemaker; I10 Essential (primary) hypertension; I35.0 Nonrheumatic aortic (valve) stenosis; R07.89 Other chest pain
CPT/HCPCS: 93280; 99214; G2211

== ENCOUNTER → 2024-07-24 12:52 | Outpatient (BNVA) | payer OTHER, SELFPAY | PROVIDERS: PCP Internal Medicine Geriatric Medicine; Visit Provider Nurse Practitioner Family | DX: I10 Essential (primary) hypertension (principal); I44.1 Atrioventricular block, second degree; I35.0 Nonrheumatic aortic (valve) stenosis; E66.9 Obesity, unspecified; R07.89 Other chest pain; G47.33 Obstructive sleep apnea (adult) (pediatric); Z95.0 Presence of cardiac pacemaker; Z68.33 Body mass index [BMI] 33.0-33.9, adult; Z99.89 Dependence on other enabling machines and devices | CPT/HCPCS: 93280; 99212 ==

== ENCOUNTER 2024-08-31 14:32 | Outpatient (REF) | payer OTHER, SELFPAY ==
[2024-08-31 16:51] LABS: Erythrocyte Sedimentation Rate 38 MM/HR (0-20)
[2024-08-31 17:21] LABS: C Reactive Protein 1.43 mg/dL (< or = 0.50)
== END 2024-08-31 14:33 | disposition home or self-care (01) ==
LOC: HO.HHCL 14:32
PROVIDERS: Visit Provider Internal Medicine Geriatric Medicine
DX: M26.69 Other specified disorders of temporomandibular joint (principal); M25.511 Pain in right shoulder; M25.512 Pain in left shoulder; R51.9 Headache, unspecified
CPT/HCPCS: 36415; 85652; 86140

== ENCOUNTER 2024-09-11 14:42 | Outpatient (REF) | payer OTHER, SELFPAY | END 2024-09-11 14:43 | disposition home or self-care (01) | LOC: HO.MAMMO 14:42 | PROVIDERS: PCP Internal Medicine Geriatric Medicine; Visit Provider Internal Medicine Geriatric Medicine | DX: Z12.31 Encounter for screening mammogram for malignant neoplasm of breast (principal) | CPT/HCPCS: 77063; 77067 ==

== ENCOUNTER → 2024-09-11 15:15 | Outpatient (BNV) | payer OTHER, SELFPAY | PROVIDERS: PCP Internal Medicine Geriatric Medicine; Visit Provider Internal Medicine | DX: Z12.31 Encounter for screening mammogram for malignant neoplasm of breast (principal) | CPT/HCPCS: 77063; 77067 ==

== ENCOUNTER → 2024-12-21 23:59 | Outpatient (BNV) | payer OTHER, SELFPAY ==
--- NOTE | 2025-01-15 10:27 | MHC.OFFVIS ---
Intake Visit Reasons: Remote device check- Medtronic Allergies insulin glargine [From [facility]ANTUS] Allergy (Mild, Verified 07/24/24 13:25) RASH Amitryptiline Allergy (Mild, Uncoded 07/24/24 13:25) unknown [facility] Medical History GERD (gastroesophageal reflux disease) Diabetes Anxiety Sleep apnea HTN (hypertension) Hypertension Surgical History History of esophagogastroduodenoscopy (EGD) H/O colonoscopy S/P removal of right ovary S/P removal of left ovary Family History Mother Diabetes Father Liver cancer Social History Household Members: Family Housing: House Do you presently have visiting nurse or other home services: Yes (PHOTOGRAMMETRIC TECH) Alcohol intake: never Patient Tobacco Use Status: Never used Tobacco Advance Directives Date on File: 05/11/23 service: No Office Procedures Cardiac Device Check Cardiac Device Check Details: Medtronic pacemaker, dual-chamber. Battery life 12.2 years. V paced 100%. No new alerts. [id number] Cardiac Device Interrogation, pacemaker Procedure code (CPT) selection complete Assessment & Plan Assessment & Plan (1) Pacemaker: Code(s): Z95.0 - Presence of cardiac pacemaker Category: Medical Plan Coding Level of Care Code Procedure Only Diagnoses Pacemaker Z95.0 CPT Codes Cardiac Device Check - Cardiac Device 12: [id number] Cardiac Device Interrogation, pacemaker ([id number])
== END ==
PROVIDERS: PCP Internal Medicine Geriatric Medicine; Visit Provider Internal Medicine Cardiovascular Disease
DX: Z45.018 Encounter for adjustment and management of other part of cardiac pacemaker (principal)
CPT/HCPCS: 93294

== ENCOUNTER → 2025-01-08 09:41 | Outpatient (REF) | payer OTHER, SELFPAY ==
--- NOTE | 2025-01-08 09:44 | CA_ITS ---
Transthoracic Echocardiogram Patient (Last, First, Middle): Jennifer Patel, Gender: Female Date of : 1955 Age: 69 Procedure Date: 01/08/2025 Procedure Type: Transthoracic Echocardiogram Location: OP Height: 157.48 cm Weight: 82.56 kg BSA: 1.84 m2 Heart Rate: 76 bpm BP: 118 / 64 mmHg Steam Plant Records Clerk: SB Referring MD: Trinity Mclean TRAIN EXAMINER-C Symptoms: I35.0 - Nonrheumatic aortic (valve) stenosis Study Quality: Adequate ECG Rhythm: Sinus Conclusions: - The left ventricular systolic function is hyperdynamic. The visually estimated ejection fraction is >70%. - There is moderate calcification of the aortic valve. - There is moderate mitral annular calcification. Possible early calcific mitral stenosis. Findings Procedure Information Contrast agent, definity, is being given per protocol without apparent complications. Left Ventricle Normal left ventricular cavity size. The left ventricular systolic function is hyperdynamic. The visually estimated ejection fraction is >70%. Evidence suggests grade I (mild) diastolic dysfunction. There is severe septal asymmetric hypertrophy. Right Ventricle Normal right ventricular cavity size and systolic function. Atria Both atria are normal in size. Aortic Valve There is moderate calcification of the aortic valve. There is no aortic valve stenosis. There is no aortic valve regurgitation. Mitral Valve There is moderate mitral annular calcification. There is no mitral valve regurgitation. There is no mitral valve stenosis. Gradients across the mitral valve are increased, most likely related to increased stroke volume. Pulmonic Valve The pulmonic valve is likely normal. Tricuspid Valve There is trace tricuspid valve regurgitation. There is no evidence of pulmonary hypertension. Great Vessels The asc aorta is normal in size. Venous The inferior vena cava is normal in size and collapses greater than 50% with inspiration. Pericardium/Pleural There is no evidence of pericardial effusion. Prior Study Comparison No significant change compared to prior study dated: 05/10/2023. Measurements 2D Linear Measurements IVSd: 1.61 0.6-0.9/0.6-1.0 cm LVIDd: 4.54 3.9-5.3/4.2-5.9 cm LVIDd Index: 2.47 2.4-3.2/2.2-3.1 cm/m2 LVIDs: 3.01 2.0-3.6 cm LVPWd: 1.07 0.7-1.1 cm LA Diam: 3.90 2.7-3.8/3.0-4.0 cm LAIDs Index: 2.12 1.5-2.3 cm/m2 LV Mass: 294.10 67-162/88-224 g LV Mass Index: 159.84 43-95/49-115 g/m2 LVOT Diam: 2.10 3.0+(-)1.3 cm 2D Systolic Function EF 4C: 76.30 >55% EF 2C: 82.40 >55% EF BiP: 79.20 >55% Mitral Valve MV VTI: 0.46 MV Pk Nixon: 1.74 MV Mn Nixon: 1.24 MV Pk Grad: 12.00 MV Mn Grad: 7.00 MV Pk E: 1.42 MV PK A: 1.35 MV Decel Time: 210.00 E/A: 1.10 E'Lateral: 5.33 E'Medial: 3.48 E/E' Med: 40.80 E/E' Lat: 26.60 PHT: 61.00 MVA PHT: 3.61 MVA Continuity: 1.81 Decel [place]: 6.79 Aortic Valve AoV Pk Nixon: 1.91 AoV Mn Nixon: 1.28 AoV VTI: 0.35 AoV Pk Grad: 15.00 Aov Mn Grad: 8.00 MIKE Cont.VTI: 2.40 LVOT LVOT Pk Nixon: 1.07 LVOT Mn Nixon: 0.79 LVOT VTI: 0.24 LVOT Pk Grad: 5.00 LVOT Mn Grad: 3.00 LVOT Diam: 2.10 LVOT Area: 3.46 Diastolic Function MV Pk E: 1.42 MV Pk A: 1.35 E/A: 1.10 E'Medial: 3.48 E/E' Med: 40.80 E' Laterial: 5.33 E/E' Lat: 26.60 Right Ventricle TVS' Nixon: 12.90 Tricuspid Valve TR Pk Nixno: 2.42 TR Pk Grad: 23.00 RA Press: 3.00 RVSP: 26.00 Great Vessels Aorta Sinus of Valsalva: 2.70 2.0-3.5 cm Ao Asc: 2.70 2.1-3.4 cm Pulmonary Valve PV Pk Nioxn: 0.97 Peak PV Grad: 4.00 Updated in Other Vendor System with Status of Final Tobias Jackman MD electronically signed on 01/08/2025 12:34:08 PM with status of Final
--- OUTSIDE RECORDS SUMMARY | 2025-01-08 10:53 | XMS_ITS | Encounter Summary ---
Author Organization [employer] Address [address] [place] [address] Care Team Providers Care Fiberglass Laminator Name Role Phone Name, Aamir STANTON Primary Care Provider [phone] Elvia Pat PharmD Unavailable [phone] Reason for Visit * Reason Comments Med Refill Encounter Details Date Type Department Care Team ([facility] st Contact Info) Description 04/21/2024 Refill [facility] [address] [place], [place] [phone] Name, MD Aamir [address] [place] [address] Allergic rhinitis, unspecified seasonality, unspecified trigger Social History Tobacco Use Types Packs/Day Years Used Date Smoking Tobacco: Never Smokeless Tobacco: Never Alcohol Use Standard Drinks/Week Comments Never 0 (1 standard drink = 0.6 oz pur e alcohol) Depression Answer Date Recorded Patient Health Questionnaire-9 Score 0 01/31/2024 Patient Health Questionnaire-9 Score 0 01/31/2024 Last PHQ-9: Questionnaire Data Not on file 0 01/31/2024 Housing Stability Answer Date Recorded What is your housing situation today? I have etelvina sing 04/21/[address] you li ve. Do you have problems with any of the following? None of the above 04/21/2024 Food Insecurity Answer Date Recorded Within the past 12 months, y ou worried that your food would run out before you got money to buy more: Never True 04/21/2024 Within the past 12 months,th e food you bought just didn't last and you didn't have enough money to get more: Never True 05/2024 Transportation Answer Date Recorded In the past 12 months, has l ack of transportation kept you from medical appts, meetings, work or from getting things needed for daily living? No 04/21/2024 Utilities Answer Date Recorded In the past 12 months, has t he electric, gas, oil or water company threatened to shut off services in your home? No 04/21/2024 Depression Answer Date Recorded Patient Health Questionnaire-2 Score 0 01/31/2024 Comments Unknown Sex and Gender Information Value Date Recorded Sex Assigned at Female 07/13/2022 10:19 AM EDT Legal Sex Female 10:19 AM EDT Gender Identity Female 07/13/2022 10:19 AM EDT Sexual Orientation Straight 07/13/2022 10 :19 AM EDT documented as of this encounter Plan of Treatment Upcoming Encounters Date Type Department Care Team (Late st Contact Info) Description 01/08/2025 1:30 PM EDT Office Visit [facility] [address] [place] [phone] Name, MD Aamir [address] [place] [phone] 01/24/2025 2:00 PM EDT Medication Management [address] [address] PuiaMagalysa, PharmD [address] [place] [phone] documented as of this encounter Goals Goal Patient Goal Type Associated Problems Recent Progress Patient-Stated? Author Record your blood pressure once per day & bring log to all appointments Blood Pressure No Puia, Elvia, PharmD Blood Pressure < 140/90 Blood Pressure 110/50(2024 2:40 PM EDT) No Puia, Elvia, PharmD Record your blood sugar as directed Result Component No Puia, Elvia, PharmD Note: Use CGM, ensuring sensor is scanned at least once every 8 hours to capture 24H data. Check BG manually, as directed. Hemoglobin A1c < 7 Result Component 9.9(04/15/202 5 3:07 PM EDT) No Elvia Pat, PharmD documented as of this encounter Visit Diagnoses Diagnosis Allergic rhinitis, unspecified seasonality, unspecified trigger documented in this encounter Additional Health Concerns Assessment Noted Time PHQ-9 Depression Total Score: 0 01/31/20 24 1:41 PM EDT documented as of this encounter Care Teams Fiberglass Laminator Relationship Specialty Start Date End Date Name, MD Aamir [address] [place] [address] PCP - General Family Medicine 10/25/15 Elvia Pat, PharmD [address] [place] [address] Pharmacist Internal Medicine 09/29/23 documented as of this encounter
--- OUTSIDE RECORDS SUMMARY | 2025-01-08 10:53 | XMS_ITS | Encounter Summary ---
Author Organization [employer] [facility] Address [address] [place] [address] [address], [place] [address] Care Team Providers Care Handkerchief Presser Name Role Phone NameAamir MD Primary Care Provider [phone] Elvia Pat PharmD Unavailable Reason for Visit * Reason Comments Med Refill Encounter Details Date Type Department Care Team (Late Contact Info) Description 11/01/2022 Refill [facility] [address] [place] [address] [phone] Aamir Pierce MD [address] [place] [address] [phone] Allergic rhinitis, unspecified seasonality, unspecified trigger Social History Tobacco Use Types Packs/Day Years Used Date Smoking Tobacco: Never Assessed Comments Unknown Sex and Gender Information Value Date Recorded Sex Assigned at Female 07/13/2022 10:19 AM EDT Legal Sex Female 10:19 AM EDT Gender Identity Female 07/13/2022 10:19 AM EDT Sexual Orientation Straight 07/13/2022 10 :19 AM EDT COVID-19 Exposure Response Date Recorded In the last 10 days, have yo u been in contact with someone who was confirmed or suspected to have Coronavirus/COVID-19? No / Unsure 11/03/2022 3:11 PM EST documented as of this encounter Plan of Treatment Upcoming Encounters Date Type Department Care Team (Late st Contact Info) Description 01/08/2025 1:30 PM EDT Office Visit [facility] [address] [place] [address] [phone] Aamir Pierce MD [address] [place] [address] [place] [phone] 01/24/2025 2:00 PM EDT Medication Management [facility] [address] [place], [place] [phone] Elvia Pat PharmD [address] [place] [address] documented as of this encounter Visit Diagnoses Diagnosis Allergic rhinitis, unspecified seasonality, unspecified trigger documented in this encounter Care Teams Handkerchief Presser Relationship Specialty Start Date End Date Name, MD Aamir Iain [place], [place] [phone] PCP - General Family Medicine 10/25/15 Elvia Pat PharmD [address] [place] [address] [phone] Pharmacist Internal Medicine 09/29/23 documented as of this encounter
--- OUTSIDE RECORDS SUMMARY | 2025-01-08 10:53 | XMS_ITS | Encounter Summary ---
Author Organization [employer] Address [address] [facility] [address] [place] [address] Care Team Providers Care Grease Maker Name Role Phone Name, Aamir STANTON Primary Care Provider [phone] Elvia Pat PharmD Unavailable [phone] Reason for Visit * Reason Comments Med Refill Encounter Details Date Type Department Care Team ([facility] st Contact Info) Description 08/07/2023 Refill [facility] [address] [place], [place] [phone] Name, MD Aamir [address] [place] [address] Allergic rhinitis, unspecified seasonality, unspecified trigger Social History Tobacco Use Types Packs/Day Years Used Date Smoking Tobacco: Never Smokeless Tobacco: Never Alcohol Use Standard Drinks/Week Comments Never 0 (1 standard drink = 0.6 oz pur e alcohol) Depression Answer Date Recorded Patient Health Questionnaire-9 Score 9 03/22/2023 Housing Stability Answer Date Recorded What is your housing situation today? I have etelvina chapman 06/28/[address] you li ve. Do you have problems with any of the following? None of the above 06/28/2023 Food Insecurity Answer Date Recorded Within the past 12 months, y ou worried that your food would run out before you got money to buy more: Never True 06/28/2023 Within the past 12 months,th e food you bought just didn't last and you didn't have enough money to get more: Never True Transportation Answer Date Recorded In the past 12 months, has l ack of transportation kept you from medical appts, meetings, work or from getting things needed for daily living? No 06/28/2023 Utilities Answer Date Recorded In the past 12 months, has t he electric, gas, oil or water company threatened to shut off services in your home? No 06/28/2023 Depression Answer Date Recorded Patient Health Questionnaire-2 Score 2 03/22/2023 Comments Unknown Sex and Gender Information Value [...] Description 01/08/2025 1:30 PM EDT Office Visit [facility] [address] [place] [phone] NameAamir MD [address] [place] [phone] 01/24/2025 2:00 PM EDT Medication Management [facility] [address] [place] [phone] Elvia Pat PharmD [address] [place] [phone] documented as of this encounter Visit Diagnoses Diagnosis Allergic rhinitis, unspecified seasonality, unspecified trigger documented in this encounter Additional Health Concerns Assessment Noted Time PHQ-9 Depression Total Score: 9 03/22/20 23 2:40 PM EDT documented as of this encounter Care Teams Grease Maker Relationship Specialty Start Date End Date NameAamir MD [address] [place] [phone] PCP - General Family Medicine 10/25/15 Elvia Pat PharmD [address] [place] [phone] Pharmacist Internal Medicine 09/29/23 documented as of this encounter
--- OUTSIDE RECORDS SUMMARY | 2025-01-08 10:53 | XMS_ITS | Clinical Summary ---
Author Organization [employer] Address [address] [facility] [address] [place] [address] Care Team Providers Care Spool Cleaner Hand Name Role Phone Name, Aamir STANTON Primary Care Provider [phone] Elvia Pat PharmD Unavailable Allergies Active Allergy Reactions Criticality Noted Date Comments Amitriptyline Unknown Low 12/21/2022 Atorvastatin Muscle Pain Medium 08/31/2024 Muscle pain Insulin Glargine Rash Low 06/05/2016 Lisinopril Cough Medium 11/13/2021 Medications naloxone (Narcan) 4 mg/0.1 mL nasal spray Administer 1 spray (4 mg) into affected nostril(s) if needed for opioid reversal. May repeat every 2-3 minutes if needed, alternating nostrils, until medical assistance becomes available. 2 each 023 Active Blood Pressure Monitor kitIndications:B enign essential hypertension Use to check blood pressure daily 1 kit 024 Active busPIRone (Buspar) 5 MG tablet TAKE 1 TABLET BY MOUTH TWICE DAILY 60 tablet 11 024 Active NIFEdipine XL (Procardia XL) 60 MG 24 hr tablet TAKE 1 TABLET BY MOUTH EVERY MORNING DO NOT BREAK, CRUSH, DISSOLVE OR CHEW 30 tablet 11 024 Active Motegrity 2 MG tablet Take 1 tablet by mouth Once per day. 024 Active chlorthalidone (Hygroton) 25 MG tabletIndication s:Benign essential hypertension TAKE 1 TABLET BY MOUTH EVERY MORNING 90 tablet 1 024 Active aspirin (Aspirin Low Dose) 81 MG EC tabletIndication s:Type 2 diabetes mellitus with other specified complication, with long-term current use of insulin ([facility]) Take 1 tablet (81 mg) by mouth in the morning. 90 tablet 3 024 Active insulin degludec (Tresiba FlexTouch) 200 UNIT/ML injectionIndicat ions:Type 2 diabetes mellitus with other specified complication, with long-term current use of insulin ([facility]) INJECT 116 UNITS SUBCUTANEOUSLY ONCE DAILY DIRECTED 18 mL 5 024 Active ezetimibe (Zetia) 10 MG tablet Take 1 tablet (10 mg) by mouth Once per day. 30 tablet 11 024 2024 Active tiZANidine (Zanaflex) 2 MG tablet Take 1 tablet (2 mg) by mouth every 8 (eight) hours if needed for muscle spasms for up to 20 days. 60 tablet 024 Active Alcohol Swabs (Alcohol Prep) 70 % padsIndications: Type 2 diabetes mellitus without complications ([facility]) USE DIRECTED BEFORE INJECT INSULIN AND TEST BLOOD SUGAR 8 TIMES DAILY 200 each 024 Active Lancets (OneTouch Delica Plus [id number]) miscIndications: Diabetes mellitus type 2, insulin dependent ([facility]) Use to test blood sugar up to three times daily as directed 100 each 10 025 Active olmesartan (BENIcar) 40 MG tablet TAKE 1 TABLET BY MOUTH EVERY MORNING 90 tablet 3 025 Active loratadine (Claritin) 10 MG tablet TAKE 1 TABLET BY MOUTH ONCE DAILY 90 tablet 3 025 Active pantoprazole (ProtoNix) 40 MG EC tabletIndication s:Diabetes mellitus type 2, insulin dependent (CMS/HCC) TAKE 1 TABLET BY MOUTH TWICE DAILY IN THE MORNING AND IN THE EVENING 180 tablet 1 025 Active insulin pen needle (BD Pen Needle Becca U/F) 32G x 4 mm miscIndications: Diabetes mellitus type 2, insulin dependent ([facility]/HCC) USE FIVE TIMES DAILY 200 each 025 Active Tirzepatide (Mounjaro) 7.5 MG/0.5ML solution auto-injector Inject 7.5 mg under the skin 1 (one) time per week. 2 mL 025 Active Bempedoic Acid (Nexletol) 180 MG tablet Take 1 tablet by mouth Once per day. 30 tablet 025 Active insulin aspart (NovoLOG FLEXPEN) 100 UNIT/ML penIndications:T ype 2 diabetes mellitus with other specified complication, with long-term current use of insulin (CMS/HCC) Inject up to 30 units subQ three times daily before meals. 15 mL 2 025 Active Continuous Glucose Title I Paraprofessional (FreeStyle Billy 3 Phoenix) device 1 each Once per day. Use as directed for CGM 1 each 025 Active Continuous Glucose Sensor (FreeStyle Billy 3 Plus Sensor) misc Apply 1 every 15 days as directed for CGM 2 each 025 Active glucose blood (FreeStyle Precision Rudi Test) test stripIndications :Diabetes mellitus type 2, insulin dependent (CMS/HCC) Use to test blood sugar up to 3 times daily, as directed 100 each 025 Active gabapentin (Neurontin) 100 MG capsuleIndicatio ns:Allergic rhinitis, unspecified seasonality, unspecified trigger TAKE 1 CAPSULE BY MOUTH AT BEDTIME 30 capsule 2 025 Active Continuous Blood Gluc Title I Paraprofessional (FreeStyle Billy 2 Phoenix) device Use as directed 1 each 023 2024 Discontinued loratadine (Claritin) 10 MG tablet TAKE 1 TABLET BY MOUTH ONCE DAILY 90 tablet 3 024 2024 Discontinued insulin pen needle (BD Pen Needle Becca U/F) 32G x 4 mm miscIndications: Diabetes mellitus type 2, insulin dependent (CMS/HCC) USE FIVE TIMES DAILY TO INJECT INSULIN 200 each 024 2024 Discontinued pantoprazole (ProtoNix) 40 MG EC tabletIndication s:Diabetes mellitus type 2, insulin dependent (CMS/HCC) TAKE 1 TABLET BY MOUTH TWICE DAILY IN THE MORNING AND IN THE EVENING 180 tablet 1 024 2024 Discontinued Continuous Glucose Sensor (FreeStyle Billy 2 Sensor) miscIndications: Type 2 diabetes mellitus with other specified complication, with long-term current use of insulin (CMS/HCC) Use every 14 days as directed 2 each 024 2024 Discontinued insulin aspart (NovoLOG FLEXPEN) 100 UNIT/ML penIndications:T ype 2 diabetes mellitus with other specified complication, with long-term current use of insulin ([facility]) Inject up to 20 units subQ three times daily before meals. 10 mL 5 024 2024 Discontinued(R eorder (will not trigger notification to Pharmacy)) gabapentin (Neurontin) 100 MG capsuleIndicatio ns:Allergic rhinitis, unspecified seasonality, unspecified trigger TAKE 1 CAPSULE BY MOUTH AT BEDTIME 30 capsule 2 025 2024 Discontinued Tirzepatide (Mounjaro) 10 MG/0.5ML solution auto-injectorInd ications:Type 2 diabetes mellitus with other specified complication, with long-term current use of insulin (CMS/[facility]) Inject 10 mg under the skin 1 (one) time per week. 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 I explained I cannot clear until the stress test is complete Pre-op exam 02/11/2024 Assessment & Plan (04/24/2024 9:32 AM EDT): RCRI is 1 going for low risk procedure -02/12/2024 cr wnl, CBC wnl -04/2024 Hb1ac 9.1%<----8.4 ,CBG 172 -Nuclear stress test 03/13/2024 : Myocardial perfusion imaging study shows normal myocardial Perfusion.Gated LVEF is greater than 50% .Transient ischemic dilatation not present .EKG is nondiagnostic for ischemia ,The findings are consistent with normal myocardial perfusion. -last PM was checked in 04/05/2024 reported as normal -from cards records -Echocardiogram was done 05/10/2023 showing EF greater than 70%, mild , mild increase in the right atrial pressure, no pulmonary hypertension. There are no major contraindication at this time for this minor procedure ,I called her flight readiness technician office to discuss -was told today 04/24/2024 That pt can proceed for surgery with no contraindications -advised pt to avoid any NSAIDS at least 7 days before surgery , ok to continue ASA if ok w surgeon -advised pt to hold rapid insulin am of surgery given will be in fasting and to use half dose of her tresiba dose in am of procedure ,rest of meds is ok to take with a sip of water -this note to be faxed to surgeon and nuclear stress test result Mild nonproliferative diabet ic retinopathy of both eyes without macular edema associated with type 2 diabetes mellitus 12/16/2023 Anxiety 05/31/2023 AV block, 2nd degree 05/31/2023 Bradycardia 05/31/2023 Heart block atrioventricular 05/31/2023 Nocturnal leg movements 05/31/2023 Orthopnea 05/31/2023 Peripheral edema 05/31/2023 Sleep disorder breathing 05/31/2023 Epigastric abdominal pain 05/31/2023 Excessive daytime sleepiness 05/31/2023 Weight loss, abnormal 05/31/2023 Edema 09/10/2022 Trigeminal neuralgia 07/27/2018 Heart murmur 07/27/2018 Insomnia 05/03/2018 Status post ANGELIA-BSO 04/26/2017 Obesity 11/05/2015 Hypercholesterolemia 11/05/2015 Diabetic polyneuropathy 11/05/2015 Diabetes mellitus type 2, insulin dependent 10/15 Assessment & Plan (04/21/2024 6:09 PM EDT): -04/2024 Hb1ac 9.1%<----8.4 ,CBG 172 -pt is using Tresiba 104 u in am , novolog SS usually 20 u w meals ,ozempic 1 mg --not controlled CBGs w CBGs in 200s in fasting ,denies hypoglycemic events ,confirmed today w CDMT that pt has been in ozempic 1 mg for long time now -increase ozempic to 2 mg and keep rest of DM meds -has f up apt w CDMT in 05/11/2024 -apt w PCP already scheduled for 05/23/2024 Benign essential hypertension 11/05/2015 Encounters Date Type Department Care Team Description 01/05/2025 Telephone [facility] [address] [place] [address] Aamir Pierce MD CHART PREP 01/05/2025 Refill [facility] [address] [place] [address] Aamir Pierce MD Allergic rhinitis, unspecified seasonality, unspecified trigger 12/27/2024 Telephone [facility] [address] [place] [address] Elvia Pat, AneudyD Prior Authorization (CGM/) 12/26/2024 Travel 12/13/2024 Refill [facility] [address] [place], [place] [phone] NameAamir MD Diabetes mellitus type 2, insulin dependent ([facility]) 12/11/2024 Refill [facility] [address] [place] [address] Aamir Pierce MD Diabetes mellitus type 2, insulin dependent ([facility]) 11/14/2024 Telephone [facility] [address] [place] [phone] Aamir Pierce MD Home Care Delivered (Disposable liner, large disposable underpad, wipes) 11/14/2024 Refill [facility] [address] [place] [phone] Aamir Pierce MD 10/17/2024 Travel 10/12/2024 Refill [facility] [address] [place], [place] [phone] Aamir Pierce MD Allergic rhinitis, unspecified seasonality, unspecified trigger from Last 3 Months Immunizations Name Administration Dates Next Due Hep B, adult 12/26/2024,08/01/2024,06/05/2024 Influenza High-dose Quadriva lent Preservative Free 06/09/2023 Influenza injectable quadriv alent IIV4 with preservative 09/16/2022,07/27/2018,06/28/2017,06/05 Influenza injectable quadriv alent preservative free 09/04/2020,07/27/2019 Influenza, High Dose Seasona l, Preservative Free 05/23/2024 Influenza, IIV3, injectable 07/30/2014,0 05/24/2013,07/15/2012,06/02,09/23/2010 Influenza, Injectable, MDCK, preservative free 06/16/2015 Pneumococcal Conjugate PCV 13 01/19/2022 Pneumococcal Conjugate PCV 20 08/31/2024 Pneumococcal Polysaccharide PPSV23 06/16/2015, RSV Bivalent 02/04/2024 Tdap 08/23/2023,07/12/2013 Zoster, Recombinant 03/30/2022,01/19/2022 Zoster, live 09/24/2016 Social History Tobacco Use Types Packs/Day Years Used Date Smoking Tobacco: Never Smokeless Tobacco: Never Tobacco Cessation:Counseling Given: Not Answered Alcohol Use Standard Drinks/Week Comments Never 0 (1 standard drink = 0.6 oz pur e alcohol) Depression Answer Date Recorded Patient Health Questionnaire-9 Score 0 01/31/2024 Patient Health Questionnaire-9 Score 0 01/31/2024 Last PHQ-9: Questionnaire Data Not on file 0 01/31/2024 Housing Stability Answer Date Recorded What is your housing situation today? I have etelvina chapman 04/21/[address] you li [...] Recorded Patient Health Questionnaire-2 Score 0 01/31/2024 Internet Access Answer Date Recorded Internet Access Q1 No 05/15/2024 Internet Access Q2 Not on file 05/15/2024 Comments Unknown Sex and Gender Information Value Date Recorded Sex Assigned at Female 07/13/2022 10:19 AM EDT Legal Sex Female 10:19 AM EDT Gender Identity Female 07/13/2022 10:19 AM EDT Sexual Orientation Straight 07/13/2022 10 :19 AM EDT Last Filed Vital Signs Vital Sign Reading Time Taken Comments Blood Pressure 110/50 12/26/2024 2:40 PM EDT Pulse 73 08/31/2024 1:58 PM EST Temperature 35.9 ??C (96.6 ??F) 08/31/2024 1:58 PM ES T Respiratory Rate 21 08/31/2024 1:58 PM EST Oxygen Saturation 98% 08/31/2024 1:58 PM EST Inhaled Oxygen Concentration - - Weight 84.6 kg (186 lb 6.4 oz) 08/31/2024 1:58 P M EST Height 154.9 cm (5' 1 ) 08/31/2024 1:58 PM EST Body Mass Index 35.22 08/31/2024 1:58 PM EST Plan of Treatment Upcoming Encounters Date Type Department Care Team (Late st Contact Info) Description 01/08/2025 1:30 PM EDT Office Visit [facility] [address] [place] [phone] Name, MD Aamir [address] [place] [phone] 01/24/2025 2:00 PM EDT Medication Management [facility] [address] [place] [phone] Puia, Elvia, PharmD [address] [place] [phone] Health Maintenance Due Date Last Done Comments CT Colonography 1955 FIT DNA/Cologuard 1955 FIT 1955 FOBT 1955 Sigmoidoscopy 1955 Alcohol/Substance Use Screening 1968 Hepatitis C Screening 1974 Colonoscopy 12/04/2023 12/03/2021, 05/17/2018 Colorectal Cancer Screening 12/04/2023 COVID-19 Vaccine ( season) 2024 10/21/2021, 01/08/2021, 12/11/2020 Diabetes: Foot Exam 08/23/2024 08/23/2023, 08/23/2023, 08/23/2023, Additional history exists Eye Exam 12/13/2024 12/14/2023 Depression Screening 01/30/2025 01/31/2024, 01/31/20 Diabetes: Urine Protein Screening 02/11/2025 02/12/2024, 10/05/2023, 11/03/2022, Additional history exists Lipid Panel 02/11/2025 02/12/2024, 09/14, 01/15/2022, Additional history exists Diabetes: Hemoglobin A1C 03/27/2025 025, 08/01/2024, 04/21/2024, Additional history exists SDOH Screening 04/21/2025 04/21/2024 Tobacco Screening 08/31/2025 08/31/2024 Mammogram 09/11/2026 09/11/2024, 08/13, 07/09/2022, Additional history exists DTaP/Tdap/Td Vaccines (3 - Td or Tdap) 08/23/2033 08/23/2023, 07/12/2013 Zoster Vaccines Completed 03/30/2022, 05/0 05/2022, 09/24/2016 RSV Patients and Patients Aged 60 years or older Completed 02/04/2024 Influenza Vaccine Completed 05/23/2024, , 09/16/2022, Additional history exists Pneumococcal Vaccine: 50+ Years Completed 08/31/2024, 01/19/2022, 06/16/2015, Additional history exists Hepatitis B Vaccines Completed 12/26/2024, 08/01/2024, 06/05/2024 HIB Vaccines Aged Out No longer eligi ble based on patient's age to complete this topic HPV Vaccines Aged Out No longer eligi ble based on patient's age to complete this topic Hepatitis A Vaccines Aged Out No long er eligible based on patient's age to complete this topic IPV Vaccines Aged Out No longer eligi ble based on patient's age to complete this topic Meningococcal Vaccine Aged Out No paige mihir eligible based on patient's age to complete this topic RSV under 20 months Aged Out No longe r eligible based on patient's age to complete this topic Rotavirus Vaccines Aged Out No longer eligible based on patient's age to complete this topic Goals Goal Patient Goal Type Associated Problems Recent Progress Patient-Stated? Author Record your blood pressure once per day & bring log to all appointments Blood Pressure No Elvia Pat, PharmD Blood Pressure < 140/90 Blood Pressure 110/50(2024 2:40 PM EDT) No Adilia Elvia, PharmD Record your blood sugar as directed Result Component No Lobito Patyssa PharmD Note: Use CGM, ensuring sensor is scanned at least once every 8 hours to capture 24H data. Check BG manually, as directed. Hemoglobin A1c < 7 Result Component 9.9( 3:07 PM EDT) No Elvia Pat, PharmD Procedures Procedure Name Priority Date/Time Associated Diagnosis Comments POCT GLYCATED HEMOGLOBIN, TOTAL Routine 12/26/2024 3:07 PM EDT Type 2 diabetes mellitus with other specified complication, with long-term current use of insulin ([facility]) BI MAMMOGRAM SCREENING TOMOSYNTHESIS BILATERAL Routine 09/11/2024 2:48 PM EST ALBUMIN, RANDOM URINE W/CREATININE Routine 02/12/2024 9:25 AM EDT LIPID PANEL, STANDARD Routine 02/12/2024 9:24 AM EDT DIABETES EYE EXAM Routine 12/14/2023 COLONOSCOPY Routine 12/03/2021 from Last 3 Months or Most Recently Relevant to Health Maintenance Results * (ABNORMAL) POCT HGB A1C (12/26/2024 3:07 PM EDT) Hemoglobin A1C 9.9(A) 4.0 - 6.0 % Blood 12/26/2024 3:07 PM EDT us Aaimr Name MD POINT OF CARE TEST ENTER/EDIT OR DERABLES Final Result * BI Mammogram Screening Tomosynthesis Bilateral (09/11/2024 2:48 PM EST) Anatomical Region Laterality Modality Breast Bilateral Mammography 09/11/2024 2:48 PM EST Narrative 09/23/2024 4:09 PM EST ? [facility] [place] ? [address] ?[place], [place] [address] ? Mammography Report ? Signed with Addenda ? Patient: Jennifer Patel ?MR#: [id number] ? : 1955 ?Acct:[id number] ? Age/Sex: 69 / F ?ADM Date: 09/11/24 ? Loc: HO.MAMMO ? Attending Dr: Aamir Name MD ? Ordering Physician: Name,Aamir MD ?Results: 2Benign Fi ?? ndings ? Date of Service: 09/11/24 ?Follow Up: 1 Year From Orig ?? inal Mammogram ? Procedure(s): MM tomosynthesis screening BI ?? Accession Number(s): [id number] ? cc: Name,Aamir MD ?ADDENDUM ? ADDENDUM #1 ? ADDENDUM: ?? The current mammogram has been reviewed and remains BI-RADS as follows ? OVERALL ASSESSMENT: ?? BI-RADS 2 - Benign Findings ? RECOMMENDATION: ?? 1 year F/U ? Electronically signed by: ??Aide Means DO ??10/09/2024 03:14 PM EST ?? RP ? Addendum Dictated By: ?Aide Means, DO ? Addendum Signed By: ? <Electronically signed by Aide Means, DO in OV> ? 10/09/24 1514 ?? Addendum Cosigned By: ? DD/DT: 09/11 ? TD/TT: 09/11/24 ? EXAMINATION: ?? MM SCREENING DIGITAL BREAST TOMOSYNTHESIS, BILATERAL ? CLINICAL INFORMATION: ? Screening. Asymptomatic. ? COMPARISON: ?? Mammography: Comparison is made with available priors ? TECHNIQUE: ?? Digital breast mammography with tomosynthesis is performed in both the ?? craniocaudal and mediolateral oblique views along with computer-aided ?? detection (CAD). ? FINDINGS: ?? The breasts are heterogeneously dense, which may obscure small masses ?? (ACR BI-RADS breast composition Category c). ?? Pacemaker overlies and obscures the superior posterior left breast on ?? MLO view. ?? There are no significant masses, abnormal calcifications, or other ?? abnormalities. ? MM/MM tomosynthesis screening BI ?? IMPRESSION: ?? No mammographic evidence of malignancy. ? ASSESSMENT: ? BI-RADS BI-RADS 2 - Benign Findings ? RECOMMENDATION: ?? Routine annual mammography screening. ? 1 year F/U ? This examination should not preclude the clinical evaluation of a ?? suspicious palpable abnormality. ? This patient's information was entered into a reminder system with a ?? target due date for their next mammogram. ? Electronically signed by: ??Aide Means DO ??09/23/2024 04:06 PM EST ?? RP ? Dictated By: ?Aide Means DO ? Signed By: ?<Electronically signed by Aide Means, DO in OV> ? 09/23/24 1606 ? DD/ 1448 ? TD/TT: 09/11/24 1510 ? Vision Rehabilitation Therapist: ? Procedure Note Norma, Image - 10/09/[address] [place] [facility]'[address] [place] [address] Mammography Report Signed with Addenda Patient: Jennifer PatelMR#: [id number] : 6Acct:[id number] Age/Sex: 69 / FADM Date: 09/11/24 Loc: HO.MAMMO Attending Dr: Aamir Pierce MD Ordering Physician: Aamir Pierce MDResults: 2Benign Fi ndings Date of Service: 09/11/24Follow Up: 1 Year From Orig inal Mammogram Procedure(s): MM tomosynthesis screening BI Accession Number(s): [id number] cc: Name,Aamir STANTON ADDENDUM ADDENDUM #1 ADDENDUM: The current mammogram has been reviewed and remains BI-RADS as follows OVERALL ASSESSMENT: BI-RADS 2 - Benign Findings RECOMMENDATION: 1 year F/U Electronically signed by: Aide Means DO 10/09/2024 03:14 PM EST Addendum Dictated By: Aide Means DO Addendum Signed By: <Electronically signed by DO Jarett in OV> 10/09/24 1514 Addendum Cosigned By: DD/ TD/TT: 09/11/24 EXAMINATION: MM SCREENING DIGITAL BREAST TOMOSYNTHESIS, BILATERAL CLINICAL INFORMATION: Screening. Asymptomatic. COMPARISON: Mammography: Comparison is made with available priors TECHNIQUE: Digital breast mammography with tomosynthesis is performed in both the craniocaudal and mediolateral oblique views along with computer-aided detection (CAD). FINDINGS: The breasts are heterogeneously dense, which may obscure small masses (ACR BI-RADS breast composition Category c). Pacemaker overlies and obscures the superior posterior left breast on MLO view. There are no significant masses, abnormal calcifications, or other abnormalities. MM/MM tomosynthesis screening BI IMPRESSION: No mammographic evidence of malignancy. ASSESSMENT: BI-RADS BI-RADS 2 - Benign Findings RECOMMENDATION: Routine annual mammography screening. 1 year F/U This examination should not preclude the clinical evaluation of a suspicious palpable abnormality. This patient's information was entered into a reminder system with a target due date for their next mammogram. Electronically signed by: Aide Means DO 09/23/2024 04:06 PM [facility] Dictated By: Aide Means DO Signed By: <Electronically signed by Aide Means DO in OV> 09/23/24 1606 DD/ 1448 TD/TT: 09/11/24 1510 Vision Rehabilitation Therapist: us Rutledge Name IMG BI PROCEDURES Edited Result - Final * Albumin, Random Urine W/Creatinine (02/12/2024 9:25 AM EDT) Creatinine, Urine 99.43 mg/dL [facility] Microalbumin Urine 9.0 mg/L [facility] Microalbum Creatinine Ratio Ur 9.0 <30 ug/mg cr [facility] Comment:Albumin/Creatinine R atio Reference Ranges: Normal: < 30 ug/mg creatinine Microalbuminuria: 30 - 300 ug/mg creatinineClinical Albuminuria: > 300 ug/mg creatinine 02/12/2024 9:25 AM EDT 02/12/2024 10:50 AM EDT us Aamir Pierce MD LAB URINE ORDERABLES Final Resul t [facility] [address] [place] [phone] * (ABNORMAL) Lipid Panel, Standard (02/12/2024 9:24 AM EDT) Triglycerides 106 <150 mg/dL [facility] Comment:Desirable Triglyceri de: less than 150 mg/dLBorderline High Triglyceride 150-199 mg/dLHigh Triglyceride: 200-499 mg/dLVery High Triglyceride: greater than or equal to 5OO mg/dL Cholesterol 205(H) <200 mg/dL [facility] Comment:Desirable Cholestero l: less than 200 mg/dLBorderline High Cholesterol: 200-239 mg/dLHigh Cholesterol: greater than 239 mg/dL LDL Cholesterol Calculated 131(H) <100 mg/dL [facility] Comment:Desirable LDL: less than 100 mg/dLNear Optimal/Above Optimal LDL: 110- 129 mg/dLBorderline High LDL: 130-159 mg/dLHigh LDL: 160-189 mg/dLVery High LDL: greater than or equal to 190 mg/dL HDL Cholesterol 53 >40 mg/dL [facility] Comment:Desirable HDL: great er than 40 mg/dL Note: This HDL assay may give artificially low results in patients with liver disease. 02/12/2024 9:24 AM EDT 02/12/2024 9:24 AM EDT Generic External Data Provider LAB BLOOD ORDERAB LES Final Result [facility] [address] [place] [phone] * Diabetes Eye Exam (12/14/2023) Eye Exam Normal Normal, BIRADS 0 , BIRADS 1 , BIRADS 2, BIRADS 3 , BIRADS 4+ Aamir Name HEALTH MAINTENANCE Final Result * Colonoscopy (12/03/2021) Colonoscopy Normal Normal Narrative Nhi Ramos - 12/03/2021 Repeat colonoscopy in 1-2 years Historical Provider HEALTH MAINTENANCE Final Result from Last 3 Months or Most Recently Relevant to Health Maintenance [place] [address] [place] [address] STANDARD [facility] [employer] (HMO D-SNP) Care Teams Spool Cleaner Hand Relationship Specialty Start Date End Date Name, MD Aamir [address] [place] [address] PCP - General Family Medicine 10/25/15 Elvia Pat PharmD [address] [place] [phone] Pharmacist Internal Medicine 09/29/23
--- OUTSIDE RECORDS SUMMARY | 2025-01-08 10:53 | XMS_ITS | Encounter Summary ---
Author Organization [employer] Address [address] [place] [address] 7 [place] [address] Care Team Providers Care History Instructor Name Role Phone Name, Aamir STANTON Primary Care Provider Elvia Pat PharmD Unavailable Reason for Visit * Reason Onset Date Comments CHART PREP 01/05/2025 Encounter Details Date Type Department Care Team (Late st Contact Info) Description 01/05/2025 Telephone [facility] [address] [place], [place] [phone] Name, MD Aamir [address] [place], [place] [phone] CHART PREP Social History Tobacco Use Types Packs/Day Years [...] is your housing situation today? I have etelvinadelbert chapman 04/21/[address] you [...] AM EDT documented as of this encounter Miscellaneous Notes * Telephone Encounter - Rose Eller MA - 01/05/2025 11:22 AM EDT Chart Prep Labs: not done From 10/17/24 called pt for a reminder to do Labs no answer. Images: not applicable Referrals: not applicable Vaccines due: not applicable Screenings: eye exam and foot exam Overdue care gaps: A1c, Glucose, SBIRT, SDOH, PHQ-9, MICKI-7, Oral health screening, and Disability screen documented in this encounter Plan of Treatment Upcoming Encounters Date Type Department Care Team (Late st Contact Info) Description 01/08/2025 1:30 PM EDT Office Visit [facility] [address] [place] [phone] Name, MD Aamir [address] [place] [address] 01/24/2025 2:00 PM EDT Medication Management [facility] [address] [place] [address] Elvia Pat, PharmD [address] [place] [address] documented as of this encounter Goals Goal Patient Goal Type Associated Problems Recent Progress Patient-Stated? Author Record your blood pressure once per day & bring log to all appointments Blood Pressure No Elvia Pat, PharmD Blood Pressure < 140/90 Blood Pressure 110/50(2024 2:40 PM EDT) No Elvia Pat, PharmD Record your blood sugar as directed Result Component No Elvia Pat PharmD Note: Use CGM, ensuring sensor is scanned at least once every 8 hours to capture 24H data. Check BG manually, as directed. Hemoglobin A1c < 7 Result Component 9.9( 3:07 PM EDT) No Elvia Pat, PharmD documented as of this encounter Visit Diagnoses Not on filedocumented in this encounter Additional Health Concerns Assessment Noted Time PHQ-9 Depression Total Score: 0 01/31/20 24 1:41 PM EDT documented as of this encounter Care Teams History Instructor Relationship Specialty Start Date End Date Name, MD Aamir [address] [place] [address] PCP - General Family Medicine 10/25/15 Elvia Pat PharmD [address] [place] [address] Pharmacist Internal Medicine 09/29/23 documented as of this encounter
--- OUTSIDE RECORDS SUMMARY | 2025-01-08 10:53 | XMS_ITS | Encounter Summary ---
Author Organization [employer] Address [address] [place] [address] 7 [place] [address] Care Team Providers Care Computer Applications Developer Name Role Phone Name, Aamir STANTON Primary Care Provider [phone] Elvia Pat PharmD Unavailable [phone] Reason for Visit * Reason Onset Date Comments Pre-op Visit 04/03/2024 Encounter Details Date Type Department Care Team (Late st Contact Info) Description 04/03/2024 Telephone [facility] [address] [place], [place] [phone] Name, MD Aamir [address] [place], [place] [phone] Pre-op Visit Social History Tobacco Use Types Packs/Day Years [...] encounter Miscellaneous Notes * Telephone Encounter - Peter Demarco - 04/05/2024 2:56 PM EDT T[facility] from [facility] calling in regards to message prior. Coating Mixer informed on already scheduled Pre Op visit and also obtained fax number. [facility] fax: [phone]. * Telephone Encounter - Bart Guardado - 04/04/2024 9:25 AM EDT TC placed to pt's daughter Jazmin for scheduling of Pre-op visit . Agreed to 04/[address] Dequan Ewing . Date of Surgery: 05/04 Surgical procedure being done: Cataract (left) Type of anesthesia: General Lab needed: No EKG: No Surgeon's name: Dr Montgomery Facility name: [facility] Surgeon's office number: [phone] Surgeon's office fax number: Contact name: Jazmin (pt daughter) Last office note from surgeon requested: * Telephone Encounter - Susy Stanton - 04/03/2024 12:58 PM EDT Date of Surgery: 05/04 Surgical procedure being done: Cataract (left) Type of anesthesia: General Lab needed: No EKG: No Surgeon's name: Dr Montgomery Facility name: [facility] Surgeon's office number: [phone] Surgeon's office fax number: Contact name: Jazmin (pt daughter) Last office note from surgeon requested: documented in this encounter Plan of Treatment Upcoming Encounters Date Type Department Care Team (Late st Contact Info) Description 01/08/2025 1:30 PM EDT Office Visit [facility] [address] [place] [address] Name, MD Aamir [address] [place] [address] 01/24/2025 2:00 PM EDT Medication Management [address] [address] Puia, Elvia, PharmD [address] [place] [address] documented as of this encounter Goals Goal [...] Result Component 9.9( 3:07 PM EDT) No Puia, Elvia, PharmD documented as of this encounter Visit Diagnoses Not on filedocumented in this encounter Additional Health Concerns Assessment Noted Time PHQ-9 Depression Total Score: 0 01/31/20 24 1:41 PM EDT documented as of this encounter Care Teams Computer Applications Developer Relationship Specialty Start Date End Date Name, MD Aamir [address] [place] [address] PCP - General Family Medicine 10/25/15 Elvia Pat, Pat [address] [place] [address] [place] [address] Pharmacist Internal Medicine 09/29/23 documented as of this encounter
--- OUTSIDE RECORDS SUMMARY | 2025-01-08 10:53 | XMS_ITS | Encounter Summary ---
Author Organization [employer] Address [address] [facility] 7 [place] [address] Care Team Providers Care Orthopedic Shoe Fitter Name Role Phone Name, Aamir STANTON Primary Care Provider Elvia Pat PharmD Unavailable [phone] Reason for Visit * Reason Onset Date Comments Pre OP 01/13/2024 Encounter Details Date Type Department Care Team (Late st Contact Info) Description 01/13/2024 Telephone [facility] 230 [place], [place] [phone] Name, MD Aamir [address] [place], [place] [phone] Pre OP Social History Tobacco Use Types Packs/Day Years [...] encounter Miscellaneous Notes * Telephone Encounter - Stephanie Rodriguez RN - 01/13/2024 3:36 PM EDT T/C to Rosalind for below message, pt. Also have right eye cataract surgery on 03/09, pt. Schedule for apt. On 02/11/2024 for pre-op. Rosalind nuñez infirm pt. * Telephone Encounter - Luanne Fernandes - 01/13/2024 1:39 PM EDT Date of Surgery: 02/17/24 Surgical procedure being done: cataract surgery left eye Type of anesthesia: MAX Lab needed: no EKG: no Surgeon's name: Angel Montgomery Facility name: [facility] Surgeon's office number: [phone] ext [facility] Surgeon's office fax number: [phone] Contact name (person you spoke with): Rosalind Last office note from surgeon requested: no documented in this encounter Plan of Treatment Upcoming Encounters Date Type Department Care Team ([facility] st Contact Info) Description 01/08/2025 1:30 PM EDT Office Visit [facility] [address] [place] [address] Name, MD Aamir [address] [place], [place] [phone] 01/24/2025 2:00 PM EDT Medication Management [facility] [address] [place] [address] Elvia Pat PharmD [address] [place] [address] documented as of this encounter Goals Goal Patient Goal Type Associated Problems Recent Progress Patient-Stated? Author Record your blood pressure once per day & bring log to all appointments Blood Pressure No Elvia Pat, PharmD Blood Pressure < 140/90 Blood Pressure 110/50(2024 2:40 PM EDT) No Elvia Pat, PharmD Record your blood sugar as directed Result Component No Elvia Pat, PharmD Note: Use CGM, ensuring sensor is [...] documented as of this encounter Care Teams Orthopedic Shoe Fitter Relationship Specialty Start Date End Date Name, MD Aamir [address] [place] [address] PCP - General Family Medicine 10/25/15 Elvia Pat, PharmD [address] [place] [address] Pharmacist Internal Medicine 09/29/23 documented as of this encounter
--- OUTSIDE RECORDS SUMMARY | 2025-01-08 10:53 | XMS_ITS | Encounter Summary ---
Author Organization [email or web address] [facility] Address [address] [place] [address] 7 [place] [address] Care Team Providers Care Cloth Picker Name Role Phone NameAamir MD Primary Care Provider Elvia Pat PharmD Unavailable Encounter Details Date Type Department Care Team ([facility] Contact Info) Description 01/21/2023 Abstract [facility] [address] [place] [address] [phone] NameAamir MD [address] [place] [address] Social History Tobacco Use Types Packs/Day Years Used Date Smoking Tobacco: Never Smokeless Tobacco: Never Alcohol Use Standard Drinks/Week Comments Never 0 (1 standard drink = 0.6 oz pur e alcohol) Comments Unknown Sex and Gender Information Value [...] suspected to have Coronavirus/COVID-19? No / Unsure 12/23/2022 2:04 PM EDT documented as of this encounter Plan of Treatment Upcoming Encounters Date Type Department Care Team ([facility] Contact Info) Description 01/08/2025 1:30 PM EDT Office Visit [facility] [address] [place] [address] [phone] [place] [address] 01/24/2025 2:00 PM EDT Medication Management [facility] [place] [phone] [place] [address] documented as of this encounter Procedures Procedure Name Priority Date/Time Associated Diagnosis Comments COLONOSCOPY Routine 05/17/2018 documented in this encounter Results * Colonoscopy (05/17/2018) Colonoscopy Normal Normal 05/17/2018 Narrative Nhi Ramos - 05/17/2018 4:16 PM EDT Recommended 10 year [place] Historical Provider [facility] Final Result documented in this encounter Visit Diagnoses Not on filedocumented in this encounter Care Teams Cloth Picker Relationship Specialty Start Date End Date Name, MD Aamir Iain [place] [phone] PCP - General Family Medicine 10/25/15 Elvia Pat PharmD [place], [place] [phone] Pharmacist Internal Medicine 09/29/23 documented as of this encounter
--- OUTSIDE RECORDS SUMMARY | 2025-01-08 10:53 | XMS_ITS | Encounter Summary ---
Author Organization [employer] Address [address] [facility] 7t [place] [address] Care Team Providers Care Linux Unix System Administrator Name Role Phone Name, Aamir STANTON Primary Care Provider [phone] Elvia Pat PharmD Unavailable [phone] Encounter Details Date Type Department Care Team (Late st Contact Info) Description 07/30/[address] [facility] [address] [place] [address] Nhi Ramos Social History Tobacco Use Types Packs/Day Years [...] Description 01/08/2025 1:30 PM EDT Office Visit [facility] [address] [place] [phone] Name, MD Aamir [address] [place] [address] 01/24/2025 2:00 PM EDT Medication Management [address] [address] Elvia Pat PharmD [address] [place] [address] documented as of this encounter Procedures Procedure Name Priority Date/Time Associated Diagnosis Comments COLONOSCOPY Routine 12/03/2021 documented in this encounter Results * Colonoscopy (12/03/2021) Colonoscopy Normal Normal Narrative Nhi Ramos - 12/03/2021 Repeat colonoscopy in 1-2 years Historical Provider [facility] Final Result documented in this encounter Visit Diagnoses Not on filedocumented in this encounter Additional Health Concerns Assessment Noted Time PHQ-9 Depression Total Score: 9 03/22/20 2:40 PM EDT documented as of this encounter Care Teams Linux Unix System Administrator Relationship Specialty Start Date End Date Name, MD Aamir [address] [place] [address] PCP - General Family Medicine 10/25/15 Elvia Pat, PharmD [address] [place] [address] Pharmacist Internal Medicine 09/29/23 documented as of this encounter
--- OUTSIDE RECORDS SUMMARY | 2025-01-08 10:53 | XMS_ITS | Encounter Summary ---
Author Organization [employer] Address [address] [facility] 7 [place] [address] Care Team Providers Care Carpenter'S Assistant Name Role Phone Name, Aamir STANTON Primary Care Provider [phone] Elvia Pat PharmD Unavailable [phone] Reason for Visit * Reason Comments Med Refill Encounter Details Date Type Department Care Team ([facility] st Contact Info) Description 01/05/2025 Refill [facility] [address] [place], [place] [phone] Name, MD Aamir [address] [place] [address] Allergic rhinitis, unspecified seasonality, unspecified trigger Social [...] Description 01/08/2025 1:30 PM EDT Office Visit [address] [address] Name, MD Aamir [address] [place] [address] 01/24/2025 2:00 PM EDT Medication Management [address] [address] Puia, Elvia, PharmD [address] [place] [address] documented as of this encounter Goals Goal [...] Hemoglobin A1c < 7 Result Component 9.9( 5 3:07 PM EDT) No Elvia Pat, PharmD documented as of this encounter Visit Diagnoses Diagnosis Allergic rhinitis, unspecified seasonality, unspecified trigger documented in this encounter Additional Health Concerns Assessment Noted Time PHQ-9 Depression Total Score: 0 01/31/20 24 1:41 PM EDT documented as of this encounter Care Teams Carpenter'S Assistant Relationship Specialty Start Date End Date Name, MD Aamir [address] [place] [address] PCP - General Family Medicine 10/25/15 Elvia Pat, Pat [address] [place] [address] Pharmacist Internal Medicine 09/29/23 documented as of this encounter
--- OUTSIDE RECORDS SUMMARY | 2025-01-08 10:53 | XMS_ITS | Encounter Summary ---
Author Organization [facility] Address [address] [place] [address] [address] Care Team Providers Care Controls Technician Name Role Phone Name, Aamir STANTON Primary Care Provider [phone] Elvia Pat PharmD Unavailable Encounter Details Date Type Department Care Team (Late st Contact Info) Description 05/13/2023 Abstract [facility] [address] [place] [address] [phone] NameAamir MD [address] [place] [address] [phone] Social History Tobacco Use Types Packs/Day Years Used Date Smoking Tobacco: Never Smokeless Tobacco: Never Alcohol Use Standard Drinks/Week Comments Never 0 (1 standard drink = 0.6 oz pur e alcohol) Depression Answer Date Recorded Patient Health Questionnaire-9 Score 9 03/22/2023 Depression Answer Date Recorded Patient Health Questionnaire-2 [...] Description 01/08/2025 1:30 PM EDT Office Visit [facility] [address] [place] [address] Aamir Pierce MD [address] [place] [address] [phone] 01/24/2025 2:00 PM EDT Medication Management [facility] 230 [place] [address] Elvia Pat PharmD [address] [place] [address] documented as of this encounter Visit Diagnoses Not on filedocumented in this encounter Additional Health Concerns Assessment Noted Time PHQ-9 Depression Total Score: 9 03/22/20 23 2:40 PM EDT documented as of this encounter Care Teams Controls Technician Relationship Specialty Start Date End Date Name, MD Aamir [address] [place], [place] [phone] PCP - General Family Medicine 10/25/15 Elvia Pat PharmD [address] [place] [address] Pharmacist Internal Medicine 09/29/23 documented as of this encounter
== END ==
LOC: HO.CARD 09:41
PROVIDERS: PCP Internal Medicine Geriatric Medicine; Visit Provider Nurse Practitioner Family
DX: I35.0 Nonrheumatic aortic (valve) stenosis (principal)
CPT/HCPCS: 93306; Q9957

== ENCOUNTER → 2025-01-08 09:44 | Outpatient (BNV) | payer OTHER, SELFPAY | PROVIDERS: PCP Internal Medicine Geriatric Medicine; Visit Provider Internal Medicine | DX: I42.2 Other hypertrophic cardiomyopathy (principal); I35.8 Other nonrheumatic aortic valve disorders; I34.81 Nonrheumatic mitral (valve) annulus calcification | CPT/HCPCS: 93306 ==

== ENCOUNTER 2025-01-24 12:00 | Outpatient (REF) | payer OTHER, SELFPAY ==
--- NOTE | ~2025-01-24 | XR_ITS ---
EXAMINATION: XR TEMPOROMANDIBULAR JOINT, BILATERAL CLINICAL INFORMATION: Chronic TMJ pain COMPARISON: None available. TECHNIQUE: 2 views of the left temporomandibular joint and 2 views of the right temporomandibular joint were obtained. Examinations in the lateral projections were taken in both open and closed mouth projections. FINDINGS: Both mandibular condyles have normal morphology without significant degenerative spurring. Both glenoid fossae have a normal appearance. The temporal eminence have a normal appearance bilaterally. Normal alignment of both TM joints. Normal anterior translation of the occipital condyles from the closed mouth to the open-mouth views on both sides. XR/XR TMJ BI IMPRESSION: Normal open and close minimal TM joint examination bilaterally. No significant degenerative arthrosis or translational abnormality. MRI of the TM joints may be appropriate to assess for discal and soft tissue abnormalities. Electronically signed by: Kaiden Kay MD 01/25/2025 08:30 AM EDT
--- OUTSIDE RECORDS SUMMARY | 2025-01-24 12:43 | XMS_ITS | Clinical Summary ---
Author Organization [employer] Address [address] [facility] 7[address] [place] [address] Care Team Providers Care Engineering Technical Analyst Name Role Phone Name, Aamir STANTON Primary Care Provider [phone] Elvia Pat PharmD Unavailable [phone] Allergies Active Allergy Reactions Criticality Noted Date [...] by mouth Once per day. 024 Active aspirin (Aspirin Low Dose) 81 MG EC tabletIndication s:Type 2 diabetes mellitus with other specified complication, with long-term current use of insulin (CMS/HCC) Take 1 tablet (81 mg) by mouth in the morning. 90 tablet 3 024 Active insulin degludec (Tresiba FlexTouch) 200 UNIT/ML injectionIndicat ions:Type 2 diabetes mellitus with other specified complication, with long-term current use of insulin ([facility]) INJECT 116 UNITS SUBCUTANEOUSLY ONCE DAILY DIRECTED [...] padsIndications: Type 2 diabetes mellitus without complications ([facility]) USE DIRECTED BEFORE INJECT INSULIN AND TEST BLOOD SUGAR 8 TIMES DAILY 200 each 11 024 Active Lancets (OneTouch Delica Plus [id number]) miscIndications: Diabetes mellitus type 2, insulin dependent ([facility]) Use to test blood sugar up to three times daily as directed 100 each 10 025 Active olmesartan (BENIcar) 40 MG tablet TAKE 1 TABLET BY MOUTH EVERY MORNING 90 tablet 3 025 Active loratadine (Claritin) 10 MG tablet TAKE 1 TABLET BY MOUTH ONCE DAILY 90 tablet 3 025 Active pantoprazole (ProtoNix) 40 MG EC tabletIndication s:Diabetes mellitus type 2, insulin dependent ([facility]) TAKE 1 TABLET BY MOUTH TWICE DAILY IN THE MORNING AND IN THE EVENING 180 tablet 1 025 Active insulin pen needle (BD Pen Needle Becca U/F) 32G x 4 mm miscIndications: Diabetes mellitus type 2, insulin dependent ([facility]) USE FIVE TIMES DAILY 200 each 025 [...] complication, with long-term current use of insulin ([facility]) Inject up to 30 units subQ three times daily before meals. 15 mL 2 025 Active Continuous Glucose Polisher Dial (FreeStyle Billy 3 Clemons) device 1 each Once per day. Use as directed for CGM 1 each Active Continuous Glucose Sensor (FreeStyle Billy 3 Plus Sensor) misc Apply 1 every 15 days as directed for CGM 2 each Active glucose blood (FreeStyle Precision Rudi Test) test stripIndications :Diabetes mellitus type 2, insulin dependent ([facility]) Use to test blood sugar up to 3 times daily, as directed 100 each Active gabapentin (Neurontin) 100 MG capsuleIndicatio ns:Allergic rhinitis, unspecified seasonality, unspecified trigger TAKE 1 CAPSULE BY MOUTH AT BEDTIME 30 capsule 2 Active clotrimazole (Lotrimin) 1 % cream Apply topically 2 times daily for 28 days. 30 g 5 025 2024 Active chlorthalidone (Hygroton) 25 MG tabletIndication s:Benign essential hypertension TAKE 1 TABLET BY MOUTH EVERY MORNING 90 tablet 1 025 Active Continuous Blood Gluc Polisher Dial (FreeStyle Billy 2 Clemons) device Use as directed 1 each 023 2024 Discontinued chlorthalidone (Hygroton) 25 MG tabletIndication s:Benign essential hypertension TAKE 1 TABLET BY MOUTH EVERY MORNING 90 tablet 1 024 2024 Discontinued Continuous Glucose Sensor (FreeStyle Billy 2 Sensor) miscIndications: Type 2 diabetes mellitus with other specified complication, with long-term current use of insulin ([facility]) Use every 14 days as directed 2 each 024 2024 Discontinued insulin aspart (NovoLOG FLEXPEN) 100 UNIT/ML penIndications:T ype 2 diabetes mellitus with other specified complication, with long-term current use of insulin ([facility]) Inject up to 20 units subQ three [...] complication, with long-term current use of insulin ([facility]) Inject 10 mg under the skin 1 (one) time per week. 2 mL 025 2024 Discontinued(S irma effects) glucose blood (FreeStyle Precision Rudi Test) test stripIndications :Diabetes mellitus type 2, insulin dependent ([facility]) Use to test blood sugar up to 3 times daily, as directed 100 each 025 2024 Discontinued Active Problems Problem Noted [...] for this minor procedure ,I called her wood patternmaker office to discuss -was told today 04/24/2024 [...] Encounters Date Type Department Care Team Description 01/17/2025 Telephone [facility] [address] [place] [address] [phone] JesseniaKwame [place] march recalls 01/09/2025 Refill [facility] [address] [place] [address] [phone] Aamir Pierce MD Benign essential hypertension 01/08/2025 1:30 PM EDT Office Visit [facility] [address] [place] [address] [phone] Aamir Pierce MD Type 2 diabetes mellitus with other specified complication, with long-term current use of insulin ([facility]) (Primary Dx); TMJ pain dysfunction syndrome 01/08/2025 Travel 01/05/2025 Telephone [facility] [address] [place] [address] [phone] Aamir Pierce MD CHART PREP 01/05/2025 Refill [facility] [address] [place] [address] [phone] Aamir Pierce MD Allergic rhinitis, unspecified seasonality, unspecified trigger 12/27/2024 Telephone [facility] [address] [place] [address] 39597 Elvia Pat, PharmD Prior Authorization (CGM/) 12/26/2024 Travel 12/13/2024 Refill [facility] [address] [place] [address] Aamir Pierce MD Diabetes mellitus type 2, insulin dependent ([facility]) 12/11/2024 Refill [facility] [address] [place] [phone] Aamir Pierce MD Diabetes mellitus type 2, insulin dependent ([facility]) 11/14/2024 Telephone [facility] [address] [place] [address] [phone] Aamir Pierce MD Home Care Delivered (Disposable liner, large disposable underpad, wipes) 11/14/2024 Refill [facility] [address] [place] [address] [phone] Aamir Pierce MD from Last 3 Months Immunizations Immunization Administration Dates Next Due Hep B, adult [...] Sign Reading Time Taken Comments Blood Pressure 132/56 01/08/2025 1:24 PM EDT Pulse 82 01/08/2025 1:24 PM EDT Temperature 36.8 ??C (98.3 ??F) 01/08/2025 1:24 PM ED T Respiratory Rate 14 01/08/2025 1:24 PM EDT Oxygen Saturation 95% 01/08/2025 1:24 PM EDT Inhaled Oxygen Concentration - - Weight 82.5 kg (181 lb 12.8 oz) 01/08/2025 1:24 PM EDT Height 154.9 cm (5' 1 ) 01/08/2025 1:24 PM EDT Body Mass Index 34.35 01/08/2025 1:24 PM EDT Plan of Treatment Upcoming Encounters Date Type Department Care Team (Late st Contact Info) Description 01/24/2025 2:00 PM EDT Medication Management [facility] [address] [place] [address] Elvia Pat, PharmD [address] [place] [address] Health Maintenance Due Date Last Done Comments [...] 01/15/2022, Additional history exists Diabetes: Hemoglobin A1C 04/09/2025 025, 12/26/2024, 08/01/2024, Additional history exists SDOH Screening 04/21/2025 04/21/2024 Tobacco Screening 01/08/2026 01/08/2025 Mammogram 09/11/2026 09/11/2024, 08/13, 07/09/2022, Additional history exists DTaP/Tdap/Td Vaccines (3 - Td or Tdap) 08/23/2033 08/23/2023, 07/12/2013 Zoster Vaccines Completed 03/30/2022, 0505/2022, 09/24/2016 RSV Patients and Patients Aged 60 [...] patient's age to complete this topic Meningococcal B Vaccine Aged Out No l onger eligible based on patient's age to complete [...] PharmD Blood Pressure < 140/90 Blood Pressure 132/56(2024 1:24 PM EDT) No Adilia Elvia, PharmD Record your blood sugar as directed Result Component No Elvia Pat PharmD Note: Use CGM, ensuring sensor is scanned at least once every 8 hours to capture 24H data. Check BG manually, as directed. Hemoglobin A1c < 7 Result Component 9.5( 1:25 PM EDT) No Elvia Pat, PharmD Procedures Procedure Name Priority Date/Time Associated Diagnosis Comments POCT GLYCATED HEMOGLOBIN, TOTAL Routine 01/08/2025 1:25 PM EDT Type 2 diabetes mellitus with other specified complication, with long-term current use of insulin ([facility]) POCT GLUCOSE Routine 01/08/2025 1:25 PM EDT Type 2 diabetes mellitus with other specified complication, with long-term current use of insulin ([facility]) POCT GLYCATED HEMOGLOBIN, TOTAL Routine 12/26/2024 3:07 PM EDT Type 2 diabetes mellitus with other specified complication, with long-term current use of insulin ([facility]) BI MAMMOGRAM SCREENING TOMOSYNTHESIS BILATERAL Routine 09/11/2024 2:48 PM EST ALBUMIN, RANDOM URINE W/CREATININE Routine 02/12/2024 9:25 AM EDT LIPID PANEL, STANDARD Routine 02/12/2024 9:24 AM EDT HM DIABETES EYE EXAM Routine 12/14/2023 HM COLONOSCOPY Routine 12/03/2021 from Last 3 Months or Most Recently Relevant to Health Maintenance Results * (ABNORMAL) POCT HGB A1C (01/08/2025 1:25 PM EDT) Only the most recent of2 resultswithin the time period is included. Hemoglobin A1C 9.5(A) 4.0 - 6.0 % QC Media Lot # [id number] Lot# Expiration Date [id number] Blood 01/08/2025 1:25 PM EDT Aamir Pierce MD POINT OF CARE TEST ENTER/EDIT OR DERABLES Final Result * (ABNORMAL) POCT Glucose (01/08/2025 1:25 PM EDT) Glucose Blood, POC 286(A) 60 - 200 mg/dL QC Media Lot # [id number] Lot# Expiration Date [id number] Blood Capillary blood specimen / Unknown 01/08/2025 1:25 PM EDT Aamir Pierce MD POINT OF CARE TEST ENTER/EDIT OR DERABLES Final Result * BI Mammogram Screening Tomosynthesis Bilateral (09/11/2024 2:48 PM EST) Anatomical Region Laterality Modality Breast Bilateral Mammography 09/11/2024 2:48 PM EST Narrative 09/23/2024 4:09 PM EST ? [facility] [place] ? [address] ?[place] [address] ? Mammography Report ? Signed with Addenda ? Patient: Marte Sánchez,Iris ?MR#: [id number] ?? [id number] ? : 1955 ?Acct:[id number] ? Age/Sex: 69 / F ?ADM Date: 12/30/24 ? Loc: HO.MAMMO ? Attending Dr: Aamir Pierce MD ? Ordering Physician: Name,Aamir STANTON ?Results: 2Benign Fi ?? ndings ? Date of Service: 09/11/24 ?Follow Up: 1 Year From Orig ?? inal Mammogram ? Procedure(s): MM tomosynthesis screening BI ?? Accession Number(s): [id number] ? cc: Name,Aamir ?ADDENDUM ? ADDENDUM #1 ? ADDENDUM: ?? [...] by Aide Means, DO in OV> ? 10/09/ 1514 ?? Addendum Cosigned By: ? DD/DT: 12/ ? TD/TT: 12/ ? EXAMINATION: ?? MM SCREENING DIGITAL BREAST [...] ??Aide Means DO ??09/23/2024 04:06 PM EST ? Dictated By: ?Aide Means DO ? Signed By: ?<Electronically signed by Aide Means, DO in OV> ? 09/23/24 1606 ? DD/ 1448 ? TD/TT: 09/11/24 1510 ? License Inspector: ? Procedure Note Norma, Image - 10/09/2024 [facility] [address] [place], [place] [address] Mammography Report Signed with Teo Patient: Jennifer PatelMR#: [id number] : 1955cct:[id number] Age/Sex: 69 / FADM Date: 09/11/24 Loc: DANI[facility] Attending Dr: Aamir Pierce MD Ordering Physician: Aamir Pierce MDResults: [facility] Date of Service: 09/11/24Follow Up: 1 Year From Orig inal Mammogram Procedure(s): MM tomosynthesis screening BI Accession Number(s): [id number] cc: Aamir Pierce MD ADDENDUM ADDENDUM #1 ADDENDUM: The current mammogram [...] by: Aide Means DO 09/23/2024 04:06 PM [facility] Dictated By: Aide Means DO Signed By: <Electronically signed by Aide Means DO in OV> 09/23/24 1606 DD/ 47 TD/TT: 09/11/241509 License Inspector: us Aamir Name MD [place] BI PROCEDURES Edited Result - Final * Albumin, Random Urine W/Creatinine (02/12/2024 9:25 AM EDT) Creatinine, Urine 99.43 mg/dL [facility] Microalbumin Urine 9.0 mg/L [facility] Microalbum Creatinine Ratio Ur 9.0 <30 ug/mg cr [facility] Comment:Albumin/Creatinine R atio Reference Ranges: Normal: < 30 ug/mg creatinine Microalbuminuria: 30 - 300 ug/mg creatinineClinical Albuminuria: > 300 ug/mg creatinine 02/12/2024 9:25 AM EDT 02/12/2024 10:50 AM EDT Aamir Pierce MD LAB URINE ORDERABLES Final Resul t Performing Organization Address [facility] Co de Phone Number [facility] [address] [place] [address] [phone] * (ABNORMAL) Lipid Panel, Standard (02/12/2024 9:24 AM EDT) Triglycerides 106 <150 mg/dL [facility] Comment:Desirable Triglyceri de: less than 150 mg/dLBorderline High Triglyceride 150-199 mg/dLHigh Triglyceride: 200-499 mg/dLVery High Triglyceride: greater than or equal to 5OO mg/dL Cholesterol 205(H) <200 mg/dL [facility] Comment:Desirable Cholestero l: less than 200 mg/dLBorderline High Cholesterol: 200-239 mg/dLHigh Cholesterol: greater than 239 mg/dL LDL Cholesterol Calculated 131(H) <100 mg/dL [facility] Comment:Desirable LDL: less than 100 mg/dLNear Optimal/Above Optimal LDL: 110- 129 mg/dLBorderline High LDL: 130-159 mg/dLHigh LDL: 160-189 mg/dLVery High LDL: greater than or equal to 190 mg/dL HDL Cholesterol 53 >40 mg/dL [facility] Comment:Desirable HDL: great er than 40 mg/dL Note: This HDL assay may give artificially low results in patients with liver disease. 02/12/2024 9:24 AM EDT 02/12/2024 9:24 AM EDT us Generic External Data Provider LAB BLOOD ORDERAB LES Final Result Performing Organization Address [facility] Co de Phone Number [facility] [address] [place] [address] [phone] * Hm Diabetes Eye Exam (12/14/2023) Eye Exam Normal Normal, BIRADS 0 , BIRADS 1 , BIRADS 2, BIRADS 3 , BIRADS 4+ us Aamir Name HEALTH MAINTENANCE Final Result * Colonoscopy (12/03/2021) Colonoscopy Normal Normal Narrative Nhi Ramos - 12/03/2021 Repeat colonoscopy in 1-2 years Historical Provider HEALTH MAINTENANCE Final Result from Last 3 Months or Most Recently Relevant to Health Maintenance Insurance [facility] STANDARD [facility] [employer] OPTIONS (O D-SNP) Care Teams Engineering Technical Analyst Relationship Specialty Start Date End Date Name, MD Aamir [address] [place] [address] PCP - General Family Medicine 10/25/15 Elvia Pat, AneudyD [address] [place] [address] Pharmacist Internal Medicine 09/29/23
--- OUTSIDE RECORDS SUMMARY | 2025-01-24 12:43 | XMS_ITS | Encounter Summary ---
Author Organization [employer] Address [address] [facility] [address] [place] [address] Care Team Providers Care Business Test Analyst Name Role Phone Name, Aamir STANTON Primary Care Provider [phone] Elvia Pat PharmD Unavailable [phone] Reason for Visit * Reason Onset Date Comments Pre-op Visit 04/03/2024 Encounter Details Date Type Department Care Team (Late st Contact Info) Description 04/03/2024 Telephone [facility] [address] [place], [place] [phone] Name, MD Aamir [address] [place], [place] [phone] Pre-op Visit Social History Tobacco Use Types [...] housing situation today? I have etelvinadelbert chapman 06/28/[address] [...] Lasik calling in regards to message prior. Patch Finisher informed on already scheduled Pre Op visit and also obtained fax number. [facility] fax: [phone]. * Telephone Encounter - Bart Guardado - 04/04/2024 9:25 AM EDT TC placed to pt's daughter Jazmin for scheduling of Pre-op visit . Agreed to 04/[address] Dequan Ewing . Date of Surgery: 05/04 Surgical procedure being done: Cataract (left) Type of anesthesia: General Lab needed: No EKG: No Surgeon's name: Dr Montgomery Facility name: [facility] Surgeon's office number: [phone] Surgeon's office fax number: Contact name: Jazmin (pt daughter) Last office note from surgeon requested: * Telephone Encounter - Susy Stanton - 04/03/2024 12:58 PM EDT Date of Surgery: 05/04 Surgical procedure being done: Cataract (left) Type of anesthesia: General Lab needed: No EKG: No Surgeon's name: Dr Montgomery Facility name: [facility] Surgeon's office number: [phone] Surgeon's office fax number: Contact name: Jazmin (pt daughter) Last office note from surgeon requested: documented in this encounter Plan of Treatment Upcoming Encounters Date Type Department Care Team (Late st Contact Info) Description 01/24/2025 2:00 PM EDT Medication Management [facility] [address] [place], [place] [phone] Puia, Elvia, PharmD [address] [place], [place] [phone] documented as of this encounter Goals Goal Patient Goal Type Associated Problems Recent Progress Patient-Stated? Author Record your blood pressure once per day & bring log to all appointments Blood Pressure No Puia, Elvia, PharmD Blood Pressure < 140/90 Blood Pressure 132/56(2024 1:24 PM EDT) No Puia, Elvia, PharmD Record your blood sugar as directed Result Component No Puia, Elvia, PharmD Note: Use CGM, ensuring sensor is scanned at least once every 8 hours to capture 24H data. Check BG manually, as directed. Hemoglobin A1c < 7 Result Component 9.5( 1:25 PM EDT) No Puia, Elvia, PharmD documented as of this encounter Visit Diagnoses Not on filedocumented in this encounter Additional Health Concerns Assessment Noted Time PHQ-9 Depression Total Score: 0 01/31/20 24 1:41 PM EDT documented as of this encounter Care Teams Business Test Analyst Relationship Specialty Start Date End Date Name, MD Aamir [address] [place] [address] [phone] PCP - General Family Medicine 10/25/15 Puia, Elvia, PharmD [address] [place], [place] [phone] Pharmacist Internal Medicine 09/29/23 documented as of this encounter
--- OUTSIDE RECORDS SUMMARY | 2025-01-24 12:43 | XMS_ITS | Encounter Summary ---
Author Organization [employer] Address [address] [address], [place] [address] Care Team Providers Care Electronic Repair Troubleshooter Name Role Phone Name, Aamir STANTON Primary Care Provider [phone] Elvia Pat PharmD Unavailable [phone] Reason for Visit * Reason Onset Date Comments Pre OP 01/13/2024 Encounter Details Date Type Department Care Team (Late st Contact Info) Description 01/13/2024 Telephone [facility] [address] [place], [place] [phone] Name, MD Aamir [address] [place], [place] [phone] Pre OP Social History Tobacco Use Types [...] Angel Montgomery Facility name: [facility] Surgeon's office number: [phone] ext [facility] Surgeon's office fax number: [phone] Contact name (person you spoke with): Rosalind Last office note from surgeon requested: no documented in this encounter Plan of Treatment Upcoming Encounters Date Type Department Care Team (Late st Contact Info) Description 01/24/2025 2:00 PM EDT Medication Management [facility] [address] [place] [address] Elvia Pat, PharmD [address] [place], [place] [phone] documented as of this encounter Goals Goal Patient Goal Type Associated Problems Recent Progress Patient-Stated? Author Record your blood pressure once per day & bring log to all appointments Blood Pressure No Elvia Pat, PharmD Blood Pressure < 140/90 Blood Pressure 132/56(2024 1:24 PM EDT) No PuLobito medranoyssa, PharmD Record your blood sugar as directed Result Component No Elvia Pat, PharmD Note: Use CGM, ensuring sensor is scanned at least once every 8 hours to capture 24H data. Check BG manually, as directed. Hemoglobin A1c < 7 Result Component 9.5( 1:25 PM EDT) No Elvia Pat, PharmD documented as of this encounter Visit Diagnoses Not on filedocumented in this encounter Additional Health Concerns Assessment Noted Time PHQ-9 Depression Total Score: 9 03/22/20 23 2:40 PM EDT documented as of this encounter Care Teams Electronic Repair Troubleshooter Relationship Specialty Start Date End Date Name, MD Aamir [address] [place] [address] PCP - General Family Medicine 10/25/15 Elvia Pat, AneudyD [address] [place] [address] Pharmacist Internal Medicine 09/29/23 documented as of this encounter
--- OUTSIDE RECORDS SUMMARY | 2025-01-24 12:43 | XMS_ITS | Encounter Summary ---
Author Organization [employer] Address [address] [facility] [address] [place] [address] Care Team Providers Care Regional Wildlife Agent Name Role Phone Name, Aamir STANTON Primary Care Provider [phone] Elvia Pat PharmD Unavailable [phone] Encounter Details Date Type Department Care Team ([facility] st Contact Info) Description 07/30/2023 Abstract [facility] [address] [place] [address] Nhi Ramos Social History Tobacco Use Types [...] Description 01/24/2025 2:00 PM EDT Medication Management [facility] [address] [place] [address] Elvia Pat PharmD [address] [place], [place] [phone] documented as of this encounter Procedures Procedure Name Priority Date/Time Associated Diagnosis Comments COLONOSCOPY Routine 12/03/2021 documented in this encounter Results * Colonoscopy (12/03/2021) Colonoscopy Normal Normal Narrative Nhi Ramos - 12/03/2021 Repeat colonoscopy in 1-2 years us Historical Provider HEALTH MAINTENANCE Final Result documented in this encounter Visit Diagnoses Not on filedocumented in this encounter Additional Health Concerns Assessment Noted Time PHQ-9 Depression Total Score: 9 03/22/20 23 2:40 PM EDT documented as of this encounter Care Teams Regional Wildlife Agent Relationship Specialty Start Date End Date Name, MD Aamir [address] [place] [phone] PCP - General Family Medicine 10/25/15 Elvia Pat PharmD [address] [place] [address] Pharmacist Internal Medicine 09/29/23 documented as of this encounter
--- OUTSIDE RECORDS SUMMARY | 2025-01-24 12:43 | XMS_ITS | Encounter Summary ---
Author Organization [employer] Address [address] [place] [address] [address] [address] Care Team Providers Care Facilities Operator Name Role Phone Name, Aamir STANTON Primary Care Provider [phone] Elvia Pat PharmD Unavailable [phone] Encounter Details Date Type Department Care Team ([facility] Contact Info) Description 01/21/[address] [facility] [address] [place] [address] [phone] Name, MD Aamir [address] [place] [phone] Social History Tobacco Use Types Packs/Day Years [...] Upcoming Encounters Date Type Department Care Team ([facility] Contact Info) Description 01/24/2025 2:00 PM EDT Medication Management [address] [phone] Elvia Pat, PharmD [address] [place] [address] documented as of this encounter Procedures Procedure Name Priority Date/Time Associated Diagnosis Comments COLONOSCOPY Routine 05/17/2018 documented in this encounter Results * Colonoscopy (05/17/2018) Colonoscopy Normal Normal 05/17/2018 Nhi Perez - 05/17/2018 4:16 PM EDT Recommended 10 year follow up ([facility]) Historical Provider HEALTH MAINTENANCE Final Result documented in this encounter Visit Diagnoses Not on filedocumented in this encounter Care Teams Facilities Operator Relationship Specialty Start Date End Date Name, MD Aamir [address] [place] [address] PCP - General Family Medicine 10/25/15 Elvia Pat, PharmD [address] [place] [address] Pharmacist Internal Medicine 09/29/23 documented as of this encounter
--- OUTSIDE RECORDS SUMMARY | 2025-01-24 12:43 | XMS_ITS | Encounter Summary ---
Author Organization [employer] Address [address] [facility] 7 [place] [address] Care Team Providers Care Mill Recorder Name Role Phone Aamir Pierce MD Primary Care Provider [phone] Elvia Pat PharmD Unavailable [phone] Reason for Visit * Reason Comments Med Refill Encounter Details Date Type Department Care Team ([facility] st Contact Info) Description 04/21/2024 Refill [facility] [address] [place], [place] [phone] Name, MD Aamir [address] [place] [address] Allergic rhinitis, unspecified seasonality, unspecified trigger Social [...] Description 01/24/2025 2:00 PM EDT Medication Management [facility] [address] [place] [address] Puia, Elvia, PharmD [address] [place] [address] documented as of this encounter Goals Goal [...] documented as of this encounter Care Teams Mill Recorder Relationship Specialty Start Date End Date Name, MD Aamir [address] [place] [address] PCP - General Family Medicine 10/25/15 Elvia Pat PharmD [address] [place] [address] Pharmacist Internal Medicine 09/29/23 documented as of this encounter
--- OUTSIDE RECORDS SUMMARY | 2025-01-24 12:43 | XMS_ITS | Encounter Summary ---
Author Organization [employer] Address 75 [facility] 7 [place] [address] Care Team Providers Care Baseball Glove Stuffer Name Role Phone NameAamir MD Primary Care Provider [phone] Elvia Pat PharmD Unavailable [phone] Reason for Visit * Reason Comments Med Refill Encounter Details Date Type Department Care Team ([facility] st Contact Info) Description 08/07/2023 Refill [facility] [address] [place], [place] [phone] Name, MD Aamir [address] [place] [address] Allergic rhinitis, unspecified seasonality, unspecified trigger Social [...] Description 01/24/2025 2:00 PM EDT Medication Management [facility] [address] [place] [address] Elvia Pat PharmD [address] [place] [address] documented as of this encounter Visit Diagnoses Diagnosis Allergic rhinitis, unspecified seasonality, unspecified trigger documented in this encounter Additional Health Concerns Assessment Noted Time PHQ-9 Depression Total Score: 9 03/22/20 23 2:40 PM EDT documented as of this encounter Care Teams Baseball Glove Stuffer Relationship Specialty Start Date End Date Name, MD Aamir [address] [place] [address] PCP - General Family Medicine 10/25/15 Elvia Pat PharmD [address] [place] [phone] Pharmacist Internal Medicine 09/29/23 documented as of this encounter
--- OUTSIDE RECORDS SUMMARY | 2025-01-24 12:43 | XMS_ITS | Encounter Summary ---
Author Organization [employer] Address [address] [place] [address] 7[place] [address] Care Team Providers Care Viscosity Worker Name Role Phone Name, Aamir STANTON Primary Care Provider [phone] Elvia Pat PharmD Unavailable [phone] Encounter Details Date Type Department Care Team (Late Contact Info) Description 05/13/2023 Abstract [facility] MED[facility]INE [address] [place] [address] [phone] Name, MD Aamir [address] [place] [phone] Social History Tobacco Use Types Packs/Day Years [...] Encounters Date Type Department Care Team (Late Contact Info) Description 01/24/2025 2:00 PM EDT Medication Management [facility] MED[facility]INE [address] [place] [address] [phone] Elvia Pat, PharmD [address] [place] [address] documented as of this encounter Visit Diagnoses Not on filedocumented in this encounter Additional Health Concerns Assessment Noted Time PHQ-9 Depression Total Score: 9 03/22/20 23 2:40 PM EDT documented as of this encounter Care Teams Viscosity Worker Relationship Specialty Start Date End Date Name, MD Aamir [address] [place] [address] PCP - General Family Medicine 10/25/15 Elvia Pat PharmD [address] [place] [address] Pharmacist Internal Medicine 09/29/23 documented as of this encounter
--- OUTSIDE RECORDS SUMMARY | 2025-01-24 12:43 | XMS_ITS | Encounter Summary ---
Author Organization [employer] Address [address] [place] [address] [address] [address] Care Team Providers Care Business Management Professor Name Role Phone Name, Aamir STANTON Primary Care Provider [phone] Elvia Pat PharmD Unavailable [phone] Reason for Visit * Reason Comments Med Refill Encounter Details Date Type Department Care Team ([facility] Contact Info) Description 11/01/2022 Refill [facility] [address] [place], [place] [phone] Name, MD Aamir 230 [place] [address] Allergic rhinitis, unspecified seasonality, unspecified trigger Social [...] Description 01/24/2025 2:00 PM EDT Medication Management [facility] [address] [place], [place] [phone] AlyssiaiaElvia, PharmD [address] [place] [address] documented as of this encounter Visit Diagnoses Diagnosis Allergic rhinitis, unspecified seasonality, unspecified trigger documented in this encounter Care Teams Business Management Professor Relationship Specialty Start Date End Date Name, MD Aamir [address] [place] [id number] PCP - General Family Medicine 10/25/15 Elvia Pat PharmD [address] [place] [phone] Pharmacist Internal Medicine 09/29/23 documented as of this encounter
--- OUTSIDE RECORDS SUMMARY | 2025-01-24 12:43 | XMS_ITS | Encounter Summary ---
Author Organization [employer] Address [address] [facility] 7 [place] [address] Care Team Providers Care Sawmill Manager Name Role Phone Stan, Aamir STANTON Primary Care Provider Elvia Pat PharmD Unavailable Reason for Visit * Reason Comments Diabetes Follow-up Encounter Details Date Type Department Care Team (Late st Contact Info) Description 01/08/2025 1:30 PM EDT Office Visit [facility] 230 [place], [place] [phone] Name, MD Aamir [address] [place], [place] [phone] Type 2 diabetes mellitus with other specified complication, with long-term current use of insulin ([facility]) (Primary Dx); TMJ pain dysfunction syndrome Social History Tobacco Use Types Packs/Day Years [...] AM EDT documented as of this encounter Last Filed Vital Signs Vital Sign Reading [...] Mass Index 34.35 01/08/2025 1:24 PM EDT documented in this encounter Progress Notes * Aamir Pierce MD - 01/08/2025 1:30 PM EDT Subjective Patient ID: Jennifer Sánchez is a 69 y.o. female who presents for Diabetes. Patient comes for a follow-up visit and we discussed several issues. She continues to have a liberal diet. She tells me she uses her DM meds as prescribed. She complains of several weeks to months of bilateral TMJ pain. She describes discomfort when she opens the mouth, difficulties eating due to the pain. She describes radiation of the pain to both ears. She sometimes described pain on the posterior neck. Review of Systems Constitutional: Negative for chills and fever. HENT: Negative for sore throat. Respiratory: Negative for cough, shortness of breath and wheezing. Cardiovascular: Negative for chest pain, palpitations and leg swelling. Gastrointestinal: Negative for abdominal pain. Musculoskeletal: She complains of several weeks to months of bilateral TMJ pain. She describes discomfort when she opens the mouth, difficulties eating due to the pain. She describes radiation of the pain to both ears. She sometimes described pain on the posterior neck. Visit Vitals BP 132/56 (BP Location: Left arm, Patient Position: Sitting, BP Cuff Size: Adult) Pulse 82 Temp 98.3 ??F (36.8 ??C) (Temporal) Resp 14 Ht 5' 1 (1.549 m) Wt 181 lb 12.8 oz (82.5 kg) SpO2 95% BMI 34.35 kg/m?? Smoking Status Never BSA 1.88 m?? Objective Physical Exam Constitutional: Appearance: Normal appearance. HENT: Mouth/Throat: Mouth: No oral lesions. Tongue: No lesions. Tongue does not deviate from midline. Comments: She had TMJ pain when she opens mouth She has full dentures in place Cardiovascular: Rate and Rhythm: Normal rate and regular rhythm. Heart sounds: No murmur heard. No gallop. Pulmonary: Effort: Pulmonary effort is normal. No respiratory distress. Breath sounds: Normal breath sounds. No wheezing. Musculoskeletal: Right lower leg: No edema. Left lower leg: No edema. Neurological: Mental Status: She is alert. Lab Results Component Value Date HGBA1C 9.5 (A) 01/08/2025 HGBA1C 9.9 (A) 12/26/2024 HGBA1C 8.2 (A) 08/01/2024 HGBA1C 9.1 (A) 04/21/2024 HGBA1C 8.4 (A) 01/20/2024 HGBA1C 10.4 (A) 08/23/2023 HGBA1C 9.7 03/24/2023 HGBA1C 9.9 (A) 12/23/2022 HGBA1C 10.4 (A) 09/16/2022 HGBA1C 9.8 (H) 01/15/2022 HGBA1C 10.3 (H) 09/04/2020 Assessment/Plan Diagnoses and all orders for this visit: Type 2 diabetes mellitus with other specified complication, with long-term current use of insulin ([facility]) Comments: No med changes recommended, she encouraged to use her meds, avoid sweets and keep appt with CDTM. She is reminded to go for fasting blood work Orders: - POCT Glucose - POCT HGB A1C - Comprehensive Metabolic Panel; Future - Albumin, Random Urine W/Creatinine; Future TMJ pain dysfunction syndrome Comments: I recommended PRN Acetaminophen and check TMJ X-rays Orders: - XR Temporomandiular Joint Open and Closed Bilateral; Future Other orders - clotrimazole (Lotrimin) 1 % cream; Apply topically 2 times daily for 28 days. documented in this encounter Plan of Treatment Upcoming Encounters Date Type Department Care Team (Late st Contact Info) Description 01/24/2025 2:00 PM EDT Medication Management [facility]INE [address] [place] [address] Elvia Pat, PharmD [address] [place] [address] Scheduled Orders Name Type Priority Associated Diagnoses Orde r Schedule XR Temporomandiular Joint Open and Closed Bilateral Imaging Routine TMJ pain dysfunction syndrome Expected: 01/08/2025, Expires: 01/08/2026 Comprehensive Metabolic Panel Lab Routine Type 2 diabetes mellitus with other specified complication, with long-term current use of insulin ([facility]) Expected: 01/08/2025 (Approximate), Expires: 01/08/2026 Albumin, Random Urine W/Creatinine Lab Routine Type 2 diabetes mellitus with other specified complication, with long-term current use of insulin (CMS/HCC) Expected: 01/08/2025 (Approximate), Expires: 01/08/2026 documented as of this encounter Goals Goal Patient Goal Type Associated Problems Recent Progress Patient-Stated? Author Record your blood pressure once per day & bring log to all appointments Blood Pressure No PuElvia medrano, PharmD Blood Pressure < 140/90 Blood Pressure 132/56(2024 1:24 PM EDT) No Puia, Elvia, PharmD Record your blood sugar as directed Result Component No Puia Elvia, PharmD Note: Use CGM, ensuring sensor is scanned at least once every 8 hours to capture 24H data. Check BG manually, as directed. Hemoglobin A1c < 7 Result Component 9.5( 1:25 PM EDT) No AlyssiaiaLobitoElvia, PharmD documented as of this encounter Procedures Procedure Name Priority Date/Time Associated Diagnosis Comments POCT GLYCATED HEMOGLOBIN, TOTAL Routine 01/08/2025 1:25 PM EDT Type 2 diabetes mellitus with other specified complication, with long-term current use of insulin ([facility]) POCT GLUCOSE Routine 01/08/2025 1:25 PM EDT Type 2 diabetes mellitus with other specified complication, with long-term current use of insulin ([facility]) documented in this encounter Results * (ABNORMAL) POCT HGB A1C (01/08/2025 1:25 PM EDT) Pathologist [facility] Hemoglobin A1C 9.5(A) 4.0 - 6.0 % QC Media Lot # [id number] Lot# Expiration Date [id number] Blood 01/08/2025 1:25 PM EDT us Aamir Name POINT OF CARE TEST ENTER/EDIT OR DERABLES Final Result * (ABNORMAL) POCT Glucose (01/08/2025 1:25 PM EDT) Pathologist [facility] Glucose Blood, POC 286(A) 60 - 200 mg/dL QC Media Lot # [id number] Lot# Expiration Date 82,625 Blood Capillary blood specimen / Unknown 01/08/2025 1:25 PM EDT Aamir Pierce MD POINT OF CARE TEST ENTER/EDIT OR DERABLES Final Result documented in this encounter Visit Diagnoses Diagnosis Type 2 diabetes mellitus with other specified complication, with long-term current use of insulin ([facility])- Primary TMJ pain dysfunction syndrome documented in this encounter Additional Health Concerns Assessment Noted Time PHQ-9 Depression Total Score: 0 01/31/20 1:41 PM EDT documented as of this encounter Care Teams Sawmill Manager Relationship Specialty Start Date End Date Name, MD Aamir [address] [place] [address] PCP - General Family Medicine 10/25/15 Elvia Pat PharmD [address] [place] [address] Pharmacist Internal Medicine 09/29/23 documented as of this encounter
== END 2025-01-24 12:01 | disposition home or self-care (01) ==
LOC: HO.XRAY 12:00
PROVIDERS: PCP Internal Medicine Geriatric Medicine; Visit Provider Internal Medicine Geriatric Medicine
DX: M26.622 Arthralgia of left temporomandibular joint (principal); M26.621 Arthralgia of right temporomandibular joint
CPT/HCPCS: 70330

== ENCOUNTER → 2025-01-24 12:02 | Outpatient (BNV) | payer OTHER, SELFPAY | PROVIDERS: PCP Internal Medicine Geriatric Medicine; Visit Provider Radiology Diagnostic Radiology | DX: M26.603 Bilateral temporomandibular joint disorder, unspecified (principal) | CPT/HCPCS: 70330 ==

== ENCOUNTER 2025-02-19 13:53 | Outpatient (AMB) | payer OTHER, SELFPAY ==
[2025-02-19 14:24] VITALS: BP 140/72; PULSE 68; BMI 32.4
--- NOTE | 2025-02-19 14:24 | MHC.OFFVIS ---
Vital Signs 02/19/25 14:24 Height 5 ft 2 in Weight 177 lb BMI 32.4 BP 140/72 H Blood Pressure Location Lt brachial Position Sitting Pulse 68 Pulse Source Pulse Oximeter Intake Visit Reasons: r/s 01/22/25 6 mos f/u w/medtronic check Radio Communications Mechanician Required: Yes Radio Communications Mechanician Name: voice sewell [id number] Allergies insulin glargine [From LANTUS] Allergy (Mild, Verified 02/19/25 14:25) RASH Amitryptiline Allergy (Mild, Uncoded 02/19/25 14:25) unknown Medication List - Last Reconciled 02/19/25 by RIK Valentin amlodipine 10 mg PO DAILY aspirin 81 mg PO DAILY blood sugar diagnostic (MediCardTouch Ultra Test strips) As directed buspirone 5 mg PO BID chlorthalidone 25 mg PO DAILY ezetimibe 10 mg PO DAILY famotidine 40 mg PO BEDTIME fluticasone propionate 50 mcg/actuation 2 sprays intranasal DAILY PRN gabapentin 100 mg PO DAILY hydralazine 10 mg PO BID insulin aspart U-100 (Novolog FlexPen U-100 Insulin aspart) 0 sliding scale doses See Protocol subcut QIDACHS insulin degludec (Tresiba FlexTouch U-200 insulin) units subcut lancets (MediCardTouch Delica Plus Lancet) As directed loratadine 10 mg PO DAILY nifedipine ER 60 mg PO DAILY olmesartan 40 mg PO QAM pen needle, diabetic (BD Ultra-Fine Becca Pen Needle) As directed prucalopride (Motegrity) 2 mg PO DAILY semaglutide (Ozempic) 0.5 mg subcut WE tramadol 50 mg PO TID PRN HPI HPI r/s 01/22/25 6 mos f/u w/medtronic check: Details: Jennifer is a 69-year-old female with past medical history of obesity, hypertension, obstructive sleep apnea with CPAP use who presented to [facility] in April 2023 with lightheadedness and found to have high degree heart block. She underwent a Medtronic dual-chamber pacemaker placement. She now presents for device check and follow-up. Today she reports that she still notices some mild discomfort at her pacemaker site. She has not noticed any redness, swelling over the site. She is not getting any other types of chest discomfort. No concerning shortness of breath, PND, orthopnea or edema. No presyncope, syncope, falls. Taking all meds as directed but did not take meds today prior to this appointment. Certified official court interpreter used. [facility] Medical History GERD (gastroesophageal reflux disease) Diabetes Anxiety Sleep apnea HTN (hypertension) Hypertension Surgical History History of esophagogastroduodenoscopy (EGD) H/O colonoscopy S/P removal of right ovary S/P removal of left ovary Family History Mother Diabetes Father Liver cancer Social History Household Members: Family Housing: House Do you presently have visiting nurse or other home services: Yes (ASSOCIATE PROFESSOR OF HISTORY) Alcohol intake: never Patient Tobacco Use Status: Never used Tobacco Advance Directives Date on File: 05/11/23 service: No Review of Systems Const All systems reviewed & are unremarkable except as noted in HPI and below Reports fatigue Card Details: soreness at pacemaker site Denies chest pain, Denies chest pain at rest, Denies chest pain with activity, Denies syncope, Denies rapid heart rate, Denies leg edema, Denies dyspnea, Reports dyspnea on exertion and Denies orthopnea Resp Denies dyspnea and Reports dyspnea on exertion GI Denies no additional complaints Musc Denies no additional complaints Neuro Denies syncope Endo Reports fatigue Physical Exam Vital Signs: Last Vital Signs Pulse 68 02/19/25 14:24 BP 140/72 H 02/19/25 14:24 BMI result Body Mass Index 32.4 Const General: cooperative, healthy appearing, comfortable and no acute distress Orientation/consciousness: patient oriented x3 Neck Neck: Yes normal visual inspection Resp Effort & Inspection: normal respiratory effort Auscultation: clear to auscultation bilaterally, no crackles, no rales, no rhonchi and no wheezes Cardio Jugular venous distension: no JVD Rate: regular rate Rhythm: regular rhythm Heart sounds: S1 normal heart sound present, S2 normal heart sound present, no murmurs and no rubs Neuro General: patient oriented x3 Extrem General: Yes normal to inspection and No no pedal edema Psych Appearance: grossly normal Mental Status: mental status grossly normal Speech and movement: Normal speech and movement present Office Procedures Cardiac Device Check Cardiac Device Check Details: Medtronic dual-chamber pacemaker interrogation today battery 12.1 years, atrial threshold 0.625 volts at 0.4 milliseconds, RV threshold 0.375 volts at 0.4 milliseconds, DDD mode, low rate 60, V paced 100%, a paced less than 1% [id number] Cardiac Device Check, pacemaker dual lead Procedure code (CPT) selection complete Assessment & Plan Assessment & Plan (1) Pacemaker: Code(s): Z95.0 - Presence of cardiac pacemaker Category: Medical Plan: Medtronic dual-chamber pacemaker in place. Interrogation today shows device is functioning normally. She reports ongoing discomfort at pacemaker site. Site is benign to appearance and palpation. Remote monitoring in use. Office interrogation due 6 months, sooner if needed. (2) AV block, 2nd degree: Code(s): I44.1 - Atrioventricular block, second degree Category: Medical Plan: As above (3) HTN (hypertension): Code(s): I10 - Essential (primary) hypertension Category: Medical Qualifiers: Hypertension type: primary hypertension Qualified Code(s): I10 - Essential (primary) hypertension Plan: Blood pressure goal less than 130/80. Blood pressure managed by her PCP. Mildly elevated today however she tells me she did not take her medications this morning. The importance of strict med compliance reviewed with her. Discussed low-salt diet. Continue current medications without change. Continue to follow with PCP routinely. (4) Aortic stenosis: Code(s): I35.0 - Nonrheumatic aortic (valve) stenosis Category: Medical Plan: Mild on echocardiogram 04/2023. Repeat echocardiogram 01/08/2025 shows EF greater than 70%, moderate calcification of aortic valve, no stenosis, moderate mitral annular calcification, possible early calcific mitral stenosis. Will plan a recheck of echo in 1 year to assess rate of change. (5) Mitral and aortic valve disease: Code(s): I08.0 - Rheumatic disorders of both mitral and aortic valves Category: Medical Plan: As above Plan I discussed with the patient that her pacemaker is operating effectively, ensuring full cardiac pacing with a reliable battery lifespan of up to 12 years. Her chest pain related to the pacemaker site is expected to improve gradually without intervention. I emphasized the importance of consistent antihypertensive medication adherence to avoid elevated blood pressure episodes. We plan to monitor her cardiac valve status, particularly possible mitral stenosis, with subsequent echocardiograms in a year. The patient agreed to a continued follow-up schedule every 6 months, and was advised to report any increase in symptoms or complications immediately. Consent for current management and monitoring was obtained without concerns. Orders: Orders CA echo transthoracic complete 1 Year I08.0 - Rheumatic disorders of both mitral and aortic valves Patient Instructions: - Take all prescribed blood pressure medications daily to ensure effective control. - Monitor blood pressure regularly at home and report significantly high readings to the clinic. - Follow-up scheduled in 6 months; call to adjust if symptoms worsen. - Rest assured that pacemaker function is good, expect gradual improvement in soreness. - Maintain activity as tolerated; inform us of any significant changes in ability or symptoms. Patient was informed and verbally consented to the use of an ambient scribe for clinic note documentation during this visit. Visit time spent on chart review, interview, assessment, orders, documentation. Coding Level of Care Code Est Pt Level 4 (49366) Complex EM visit Add On G2211 Diagnoses Pacemaker Z95.0 AV block, 2nd degree I44.1 Primary hypertension I10 Hypertension type: primary hypertension Aortic stenosis I35.0 Mitral and aortic valve disease I08.0 CPT Codes Cardiac Device Check - Cardiac Device 2: 06583-[id number] Cardiac Device Check, pacemaker dual lead ([id number]) Time Spent (min) 28
--- OUTSIDE RECORDS SUMMARY | 2025-02-19 15:48 | XMS_ITS | Clinical Summary ---
Author Organization [employer] Address [address] [place] [address] 7 [place] [address] Care Team Providers Care Assembler Equipment Name Role Phone Name, Aamir STANTON Primary Care Provider [phone] Elvia Pat PharmD Unavailable [phone] Allergies Active Allergy Reactions Criticality Noted Date Comments Amitriptyline Unknown Low 12/21/2022 Atorvastatin Muscle Pain Medium 08/31/2024 Muscle pain Insulin Glargine Rash Low 06/05/2016 Lisinopril Cough Medium 11/13/2021 Metformin Swelling High 01/24/2025 Patient reports swelling of face, lips. Medications naloxone (Narcan) 4 mg/0.1 mL nasal [...] complication, with long-term current use of insulin ([facility]) Take 1 tablet (81 mg) by mouth in the morning. 90 tablet 3 024 Active insulin degludec (Tresiba FlexTouch) 200 UNIT/ML injectionIndicat ions:Type 2 diabetes mellitus with other specified complication, with long-term current use of insulin ([facility]) INJECT 116 UNITS SUBCUTANEOUSLY ONCE DAILY DIRECTED [...] padsIndications: Type 2 diabetes mellitus without complications ([facility]) USE DIRECTED BEFORE INJECT INSULIN AND TEST BLOOD SUGAR 8 TIMES DAILY 200 each 11 024 Active Lancets (OneTouch Delica Plus [id number]) miscIndications: Diabetes mellitus type 2, insulin dependent ([facility]) Use to test blood sugar up to three times daily as directed 100 each 10 025 Active olmesartan (BENIcar) 40 MG tablet TAKE 1 TABLET BY MOUTH EVERY MORNING 90 tablet 3 025 Active loratadine (Claritin) 10 MG tablet TAKE 1 TABLET BY MOUTH ONCE DAILY 90 tablet 3 025 Active pantoprazole (ProtoNix) 40 MG EC tabletIndication s:Diabetes mellitus type 2, insulin dependent ([facility]) TAKE 1 TABLET BY MOUTH TWICE DAILY IN THE MORNING AND IN THE EVENING 180 tablet 1 025 Active insulin pen needle (BD Pen Needle Becca U/F) 32G x 4 mm miscIndications: Diabetes mellitus type 2, insulin dependent ([facility]) USE FIVE TIMES DAILY 200 each 025 Active Tirzepatide (Mounjaro) 7.5 MG/0.5ML solution auto-injector Inject 7.5 mg under the skin 1 (one) time per week. 2 mL 025 Active Bempedoic Acid (Nexletol) 180 MG tablet Take 1 tablet by mouth Once per day. 30 tablet 11 Active Continuous Glucose Nursing Staff Development Coordinator (FreeStyle Billy 3 [place]) device 1 each Once per day. Use as directed for CGM 1 each Active Continuous Glucose Sensor (FreeStyle Billy 3 Plus Sensor) misc Apply 1 every 15 days as directed for CGM 2 each Active glucose blood (FreeStyle Precision Rudi Test) test stripIndications :Diabetes mellitus type 2, insulin dependent ([facility]) Use to test blood sugar up to 3 times daily, as directed 100 each 025 Active gabapentin (Neurontin) 100 MG capsuleIndicatio ns:Allergic rhinitis, unspecified seasonality, unspecified trigger TAKE 1 CAPSULE BY MOUTH AT BEDTIME 30 capsule Active chlorthalidone (Hygroton) 25 MG tabletIndication s:Benign essential hypertension TAKE 1 TABLET BY MOUTH EVERY MORNING 90 tablet 1 Active insulin aspart (NovoLOG FLEXPEN) 100 UNIT/ML penIndications:T ype 2 diabetes mellitus with other specified complication, with long-term current use of insulin ([facility]) INJECT 30 UNITS SUBCUTANEOUSLY THREE TIMES DAILY BEFORE MEALS 15 mL 2 025 Active insulin aspart (NovoLOG FLEXPEN) 100 UNIT/ML penIndications:T ype 2 diabetes mellitus with other specified complication, with long-term current use of insulin ([facility]) Inject up to 30 units subQ three times daily before meals. 15 mL 2 025 2024 Discontinued clotrimazole (Lotrimin) 1 % cream Apply topically 2 times daily for 28 days. 30 g 5 025 2024 Active Problems Problem Noted Date Diagnosed Date [...] for this minor procedure ,I called her quality assurance assessor office to discuss -was told today 04/24/2024 [...] Encounters Date Type Department Care Team Description 02/15/[address] [facility] [place] [address] Sandra Lawler MA Appointment Request 02/15/[address] [facility] [address] [place] [phone] Aamir Pierce MD Appointment Request 02/14/[address] [facility] [address] [place] [phone] Aamir Pierce MD Med Refill 02/14/[address] [facility] [address] [place] [phone] Elvia Pat, PharmD Prior Authorization (CGM, Billy 3) 02/13/[address] [facility] [address] [place] [phone] Aamir Pierce MD 02/02/[address] [facility] [address] [place] [phone] Elvia Pat, PharmD Type 2 diabetes mellitus with other specified complication, with long-term current use of insulin ([facility]) 01/26/[address] [facility] [place] [address] Elvia Pat, PharmD Prior Authorization (CGM Billy 3 ) 01/24/2025 Travel 01/17/[address] [facility] [address] Kwame Ruelas MA march recalls 01/09/[address] [facility] [address] [place] [address] NameAamir MD Benign essential hypertension 01/08/2025 1:30 PM EDT Office Visit [facility] [address] [place] [phone] NameAamir MD Type 2 diabetes mellitus with other specified complication, with long-term current use of insulin ([facility]) (Primary Dx); TMJ pain dysfunction syndrome 01/08/2025 Travel 01/05/[address] [facility] [address] [place] [phone] NameAamir MD CHART PREP 01/05/[address] [facility] [address] [place] [phone] Aamir Pierce MD Allergic rhinitis, unspecified seasonality, unspecified trigger 12/27/[address] [facility] [address] [place] [phone] Elvia Pat, AneudyD Prior Authorization (CGM/) 12/26/2024 Travel 12/13/[address] [facility] [address] [place], [place] [phone] NameAamir MD Diabetes mellitus type 2, insulin dependent ([facility]) 12/11/[address] [facility] [address] [place], [place] [phone] Aamir Pierce MD Diabetes mellitus type 2, insulin dependent ([facility]) from Last 3 Months Immunizations Immunization Administration [...] Care Team (Late st Contact Info) Description 02/28/2025 2:30 PM EDT Medication Management [facility] [address] [place] [phone] Elvia Pat, PharmD [address] [place] [address] 03/30/2025 9:00 AM EDT Office Visit [facility] [address] [place] [phone] Name, MD Aamir [address] [place] [address] Health Maintenance Due Date Last Done Comments [...] 08/23/2033 08/23/2023, 07/12/2013 Zoster Vaccines Completed 03/30/2022, 05/2022, 09/24/2016 RSV Patients and Patients Aged [...] to all appointments Blood Pressure No Elvia Pat PharmD Blood Pressure < 140/90 Blood Pressure 132/56(2024 1:24 PM EDT) No Elvia Pat PharmD Record your blood sugar as directed Result Component No Elvia Pat PharmD Note: Use CGM, ensuring sensor is scanned at least once every 8 hours to capture 24H data. Check BG manually, as directed. Hemoglobin A1c < 7 Result Component 9.5( 1:25 PM EDT) No Elvia Pat PharmD Procedures Procedure Name Priority Date/Time Associated Diagnosis Comments XR TEMPOROMANDIBULAR JOINT OPEN AND CLOSED BILATERAL Routine 01/24/2025 12:02 PM EDT TMJ pain dysfunction syndrome POCT GLYCATED HEMOGLOBIN, TOTAL Routine 01/08/2025 1:25 PM EDT Type 2 diabetes mellitus with other specified complication, with long-term current use of insulin ([facility]) POCT GLUCOSE Routine 01/08/2025 1:25 PM EDT Type 2 diabetes mellitus with other specified complication, with long-term current use of insulin ([facility]) POCT GLYCATED HEMOGLOBIN, TOTAL Routine 12/26/2024 3:07 PM EDT Type 2 diabetes mellitus with other specified complication, with long-term current use of insulin ([facility]) BI MAMMOGRAM SCREENING TOMOSYNTHESIS BILATERAL Routine 09/11/2024 2:48 PM EST ALBUMIN, RANDOM URINE W/CREATININE Routine 02/12/2024 9:25 AM EDT LIPID PANEL, STANDARD Routine 02/12/2024 9:24 AM EDT HM DIABETES EYE EXAM Routine 12/14/2023 HM COLONOSCOPY Routine 12/03/2021 from Last 3 Months or Most Recently Relevant to Health Maintenance Results * XR Temporomandiular Joint Open and Closed Bilateral (01/24/2025 12:02 PM EDT) Anatomical Region Laterality Modality Head, Neck, Temporomandibular joint Bilateral Radiographic Imaging 01/24/2025 12:0 2 PM EDT Narrative 01/25/2025 8:33 AM EDT ? [facility] ?[address] ?[place] [address] ?XRay Report ? Signed ? Patient: Jennifer Patel ?MR#: [id number] ?? [id number] ? : 1955 ?Acct:[id number] ? Age/Sex: 69 / F ?ADM Date: 01/24/25 ? Loc: HO.XRAY ? Attending Dr: Aamir Pierce MD ? Ordering Physician: Aamir Pierce MD ?? Date of Service: 01/24/25 ?? Procedure(s): XR TMJ BI ?? Accession Number(s): [id number] ? cc: Aamir Pierce MD ? EXAMINATION: ?? XR TEMPOROMANDIBULAR JOINT, BILATERAL ? CLINICAL INFORMATION: ?? Chronic TMJ pain ? COMPARISON: ?? None available. ? TECHNIQUE: ?? 2 views of the left temporomandibular joint and 2 views of the right ?? temporomandibular joint were obtained. ??Examinations in the lateral ?? projections were taken in both open and closed mouth projections. ? FINDINGS: ?? Both mandibular condyles have normal morphology without significant ?? degenerative spurring. ?? Both glenoid fossae have a normal appearance. The temporal eminence ?? have a normal appearance bilaterally. ?? Normal alignment of both TM joints. ?? Normal anterior translation of the occipital condyles from the closed ?? mouth to the open-mouth views on both sides. ? XR/XR TMJ BI ?? IMPRESSION: ?? Normal open and close minimal TM joint examination bilaterally. No ?? significant degenerative arthrosis or translational abnormality. ?? MRI of the TM joints may be appropriate to assess for discal and soft ?? tissue abnormalities. ? Electronically signed by: ??Kaiden Kay MD ??01/25/2025 08:30 AM EDT RP ? Dictated By: ?Kaiden Kay MD ? Signed By: ?<Electronically signed by Kaiden Kay MD in OV> ?01/25/25 0830 ? DD/ 1202 ? TD/TT: 01/24/25 1215 ? Medical Accounting Clerk: ? Procedure Note Doncarolynter, Image - 01/29/[address] [address] XRay Report Signed Patient: Lyudmila Patel#: [id number] : 1955cct:[id number] Age/Sex: 69 / FADM Date: 01/24/25 Loc: [facility] Attending Dr: Aamir Pierce MD Ordering Physician: Aamir Pierce MD Date of Service: 01/24/25 Procedure(s): XR TMJ BI Accession Number(s): [id number] cc: Aamir Pierce MD EXAMINATION: XR TEMPOROMANDIBULAR JOINT, BILATERAL CLINICAL INFORMATION: Chronic TMJ pain COMPARISON: None available. TECHNIQUE: 2 views of the left temporomandibular joint and 2 views of the right temporomandibular joint were obtained. Examinations in the lateral projections were taken in both open and closed mouth projections. FINDINGS: Both mandibular condyles have normal morphology without significant degenerative spurring. Both glenoid fossae have a normal appearance. The temporal eminence have a normal appearance bilaterally. Normal alignment of both TM joints. Normal anterior translation of the occipital condyles from the closed mouth to the open-mouth views on both sides. XR/XR TMJ BI IMPRESSION: Normal open and close minimal TM joint examination bilaterally. No significant degenerative arthrosis or translational abnormality. MRI of the TM joints may be appropriate to assess for discal and soft tissue abnormalities. Electronically signed by: Kaiden Kay MD 01/25/2025 08:30 AM EDT Dictated By: Kaiden Kay MD Signed By: <Electronically signed by Kaiden Kay MD in OV> 01/25/25 0830 DD/ 1202 TD/TT: 01/24/25 1215 Medical Accounting Clerk: Aamir Pierce MD IMG XR PROCEDURES Edited Result - Final * (ABNORMAL) POCT HGB A1C (01/08/2025 1:25 PM EDT) Only the most recent of2 resultswithin the time period is included. Hemoglobin A1C 9.5(A) 4.0 - 6.0 % QC Media Lot # [id number] Lot# Expiration Date 110,426 Blood 01/08/2025 1:25 PM EDT us Aamir Pierce MD POINT OF CARE TEST ENTER/EDIT OR DERABLES Final Result * (ABNORMAL) POCT Glucose (01/08/2025 1:25 PM EDT) Glucose Blood, POC 286(A) 60 - 200 mg/dL QC Media Lot # [id number] Lot# Expiration Date 82,625 Blood Capillary blood specimen / Unknown 01/08/2025 1:25 PM EDT Result Dillon Pierce MD POINT OF CARE TEST ENTER/EDIT OR DERABLES Final Result * BI Mammogram Screening Tomosynthesis Bilateral (09/11/2024 2:48 PM EST) Anatomical Region Laterality Modality Breast Bilateral Mammography 09/11/2024 2:48 PM EST Narrative 09/23/2024 4:09 PM EST ? [facility] ? [address] ?[place] [address] ? Mammography Report ? Signed with Addenda ? Patient: Marte Sánchez,Iris ?MR#: [id number] ?? [id number] ? : 1955 ?Acct:[id number] ? Age/Sex: 69 / F ?ADM Date: 12/30/24 ? Loc: HO.MAMMO ? Attending Dr: Aamir Pierce MD ? Ordering Physician: Name,Aamir STANTON ?Results: 2Benign Fi ?? ndings ? Date of Service: 09/11/24 ?Follow Up: 1 Year From Orig ?? inal Mammogram ? Procedure(s): MM tomosynthesis screening BI ?? Accession Number(s): [id number] ? cc: Name,Aamir ?ADDENDUM ? ADDENDUM #1 [...] Cosigned By: ? DD/DT: 09/11 ? TD/TT: 09/11 ? EXAMINATION: ?? MM SCREENING DIGITAL BREAST [...] DD/ 1448 ? TD/TT: 09/11/24 1510 ? Medical Accounting Clerk: ? Procedure Note Norma, Janes - 10/09/2024 [facility] [address] [place] [address] Mammography Report Signed with Teo Patient: Lyudmila Patel#: [id number] : 1955cct:[id number] Age/Sex: 69 / FADM Date: 09/11/24 Loc: .[facility] Attending Dr: Aamir Pierce MD Ordering Physician: Aamir Pierce MDResults: 2Benign [facility] Date of Service: 09/11/24Follow Up: 1 Year From Orig inal Mammogram Procedure(s): MM tomosynthesis screening BI Accession Number(s): [id number] cc: Aamir Pierce MD ADDENDUM ADDENDUM #1 ADDENDUM: The current mammogram has been reviewed and remains BI-RADS as follows OVERALL ASSESSMENT: BI-RADS 2 - Benign Findings RECOMMENDATION: 1 year F/U Electronically signed by: Aide Means DO 10/09/2024 03:14 PM EST RP Addendum Dictated By: Aide Means DO Addendum [...] by: Aide Means DO 09/23/2024 04:06 PM EST RP Dictated By: Aide Means DO Signed By: <Electronically signed by Aide Means DO in OV> 09/23/24 1606 DD/ 47 TD/TT: 09/11/24 151 Medical Accounting Clerk: us Aamir Name MD [place] BI PROCEDURES Edited Result - Final * Albumin, Random Urine W/Creatinine (02/12/2024 9:25 AM EDT) Creatinine, Urine 99.43 mg/dL [facility] Microalbumin Urine 9.0 mg/L [facility] Microalbum Creatinine Ratio Ur 9.0 <30 ug/mg cr [facility] Comment:Albumin/Creatinine R atio Reference Ranges: Normal: < 30 ug/mg creatinine Microalbuminuria: 30 - 300 ug/mg creatinineClinical Albuminuria: > 300 ug/mg creatinine 02/12/2024 9:25 AM EDT 02/12/2024 10:50 AM EDT us Aamir Pierce MD LAB URINE ORDERABLES Final Resul t Performing Organization Address [facility]/ZIP Co de Phone Number [facility] [address] [place] [phone] * (ABNORMAL) Lipid Panel, Standard (02/12/2024 9:24 AM EDT) Triglycerides 106 <150 mg/dL [facility] Comment:Desirable Triglyceri de: less than 150 mg/dLBorderline High Triglyceride 150-199 mg/dLHigh Triglyceride: 200-499 mg/dLVery High Triglyceride: greater than or equal to 5OO mg/dL Cholesterol 205(H) <200 mg/dL [facility] Comment:Desirable Cholestero l: less than 200 mg/dLBorderline High Cholesterol: 200-239 mg/dLHigh Cholesterol: greater than 239 mg/dL LDL Cholesterol Calculated 131(H) <100 mg/dL [facility] Comment:Desirable LDL: less than 100 mg/dLNear Optimal/Above Optimal LDL: 110- 129 mg/dLBorderline High LDL: 130-159 mg/dLHigh LDL: 160-189 mg/dLVery High LDL: greater than or equal to 190 mg/dL HDL Cholesterol 53 >40 mg/dL [facility] Comment:Desirable HDL: great er than 40 mg/dL Note: This HDL assay may give artificially low results in patients with liver disease. 02/12/2024 9:24 AM EDT 02/12/2024 9:24 AM EDT us Generic External Data Provider LAB BLOOD ORDERAB LES Final Result Performing Organization Address City/[facility]/ZIP Co de Phone Number [facility] [address] [place] [phone] * Diabetes Eye Exam (12/14/2023) Eye Exam Normal Normal, BIRADS 0 , BIRADS 1 , BIRADS 2, BIRADS 3 , BIRADS 4+ Aamir Pierce MD HEALTH MAINTENANCE Final Result * Colonoscopy (12/03/2021) Colonoscopy Normal Normal Narrative Nhi Ramos - 12/03/2021 Repeat colonoscopy in 1-2 years Historical Provider HEALTH MAINTENANCE Final Result from Last 3 Months or Most Recently Relevant to Health Maintenance [place] [address] [place] [address] STANDARD [facility] [employer] (O D-SNP) Care Teams Assembler Equipment Relationship Specialty Start Date End Date Name, MD Aamri [address] [place] [address] PCP - General Family Medicine 10/25/15 Elvia Pat, AneudyD [address] [place] [address] Pharmacist Internal Medicine 09/29/23
== END 2025-02-19 15:05 | disposition home or self-care (01) ==
LOC: HO.HCS 13:54
PROVIDERS: PCP Internal Medicine Geriatric Medicine; Visit Provider Nurse Practitioner Family
DX: I44.1 Atrioventricular block, second degree (principal); Z95.0 Presence of cardiac pacemaker; I10 Essential (primary) hypertension; I35.0 Nonrheumatic aortic (valve) stenosis; I08.0 Rheumatic disorders of both mitral and aortic valves
CPT/HCPCS: 93280; 99214; G2211

== ENCOUNTER → 2025-02-19 13:53 | Outpatient (BNVA) | payer OTHER, SELFPAY | PROVIDERS: PCP Internal Medicine Geriatric Medicine; Visit Provider Nurse Practitioner Family | DX: I44.1 Atrioventricular block, second degree (principal); I10 Essential (primary) hypertension; I35.0 Nonrheumatic aortic (valve) stenosis; I08.0 Rheumatic disorders of both mitral and aortic valves; Z45.018 Encounter for adjustment and management of other part of cardiac pacemaker | CPT/HCPCS: 93280; 99212 ==

== ENCOUNTER → 2025-02-19 23:59 | Outpatient (BNV) | payer OTHER, SELFPAY ==
--- NOTE | 2025-02-23 11:01 | A.OFFVIS_ITS ---
Intake Visit Reasons: Remote device check- [employer] Allergies insulin glargine [From LANTUS] Allergy (Mild, Verified 02/19/25 14:25) RASH Amitryptiline Allergy (Mild, Uncoded 02/19/25 14:25) unknown [facility] Medical History GERD (gastroesophageal reflux disease) Diabetes Anxiety Sleep apnea HTN (hypertension) Hypertension Surgical History History of esophagogastroduodenoscopy (EGD) H/O colonoscopy S/P removal of right ovary S/P removal of left ovary Family History Mother Diabetes Father Liver cancer Social History Household Members: Family Housing: House Do you presently have visiting nurse or other home services: Yes ([employer]) Alcohol intake: never Patient Tobacco Use Status: Never used Tobacco Advance Directives Date on File: 05/11/23 service: No Office Procedures Cardiac Device Check Cardiac Device Check Details: 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 [id number] Cardiac Device Interrogation, pacemaker Procedure code (CPT) selection complete Assessment & Plan Assessment & Plan (1) Pacemaker: Code(s): Z95.0 - Presence of cardiac pacemaker Category: Medical Plan Coding Level of Care Code Procedure Only Diagnoses Pacemaker Z95.0 CPT Codes Cardiac Device Check - Cardiac Device 12: [id number] Cardiac Device Interrogation, pacemaker ([id number])
== END ==
PROVIDERS: PCP Internal Medicine Geriatric Medicine; Visit Provider Internal Medicine Cardiovascular Disease
DX: Z45.018 Encounter for adjustment and management of other part of cardiac pacemaker (principal)
CPT/HCPCS: 93294

== ENCOUNTER 2025-03-22 08:35 | Outpatient (REF) | payer OTHER, SELFPAY ==
--- OUTSIDE RECORDS SUMMARY | 2025-03-22 08:46 | XMS_ITS | Clinical Summary ---
Author Organization [employer] Address [address] [place] [address] 7 [place] [address] Care Team Providers Care Hairspring Assembler Name Role Phone Name, Aamir STANTON Primary Care Provider [phone] Elvia Pat PharmD Unavailable [phone] Allergies Active Allergy Reactions Criticality Noted [...] complication, with long-term current use of insulin ([facility]) Take 1 tablet (81 mg) by mouth in the morning. 90 tablet 3 024 Active ezetimibe (Zetia) 10 MG tablet [...] padsIndications: Type 2 diabetes mellitus without complications ([facility]) USE DIRECTED BEFORE INJECT INSULIN AND TEST BLOOD SUGAR 8 TIMES DAILY 200 each 11 024 Active Lancets (OneTouch Delica Plus [id number]) miscIndications: Diabetes mellitus type 2, insulin dependent ([facility]) Use to test blood sugar up to three times daily as directed 100 each 10 025 Active olmesartan (BENIcar) 40 MG tablet TAKE 1 TABLET BY MOUTH EVERY MORNING 90 tablet 3 025 Active loratadine (Claritin) 10 MG tablet TAKE 1 TABLET BY MOUTH ONCE DAILY 90 tablet 3 025 Active pantoprazole (ProtoNix) 40 MG EC tabletIndication s:Diabetes mellitus type 2, insulin dependent ([facility]) TAKE 1 TABLET BY MOUTH TWICE DAILY IN THE MORNING AND IN THE EVENING 180 tablet 1 025 Active insulin pen needle (BD Pen Needle Becca U/F) 32G x 4 mm miscIndications: Diabetes mellitus type 2, insulin dependent ([facility]) USE FIVE TIMES DAILY 200 each 025 Active Tirzepatide (Mounjaro) 7.5 MG/0.5ML solution auto-injector Inject 7.5 mg under the skin 1 (one) time per week. 2 mL 025 Active Bempedoic Acid (Nexletol) 180 MG tablet Take 1 tablet by mouth Once per day. 30 tablet 025 Active Continuous Glucose Field Attendant (FreeStyle Billy 3 Stockwell) device 1 each Once per day. Use as directed for CGM 1 each 025 Active Continuous Glucose Sensor (FreeStyle Billy 3 Plus Sensor) misc Apply 1 every 15 days as directed for CGM 2 each 025 Active glucose blood (FreeStyle Precision Rudi Test) test stripIndications :Diabetes mellitus type 2, insulin dependent ([facility]) Use to test blood sugar up to 3 times daily, as directed 100 each 11 025 Active gabapentin (Neurontin) 100 MG capsuleIndicatio ns:Allergic rhinitis, unspecified seasonality, unspecified trigger TAKE 1 CAPSULE BY MOUTH AT BEDTIME 30 capsule 2 025 Active chlorthalidone (Hygroton) 25 MG tabletIndication s:Benign essential hypertension TAKE 1 TABLET BY MOUTH EVERY MORNING 90 tablet 1 025 Active insulin aspart (NovoLOG FLEXPEN) 100 UNIT/ML penIndications:T ype 2 diabetes mellitus with other specified complication, with long-term current use of insulin ([facility]) INJECT 30 UNITS SUBCUTANEOUSLY THREE TIMES DAILY BEFORE MEALS 15 mL 2 025 Active insulin degludec (Tresiba FlexTouch) 200 UNIT/ML injectionIndicat ions:Type 2 diabetes mellitus with other specified complication, with long-term current use of insulin ([facility]) INJECT 116 UNITS SUBCUTANEOUSLY ONCE DAILY DIRECTED 18 mL 1 025 Active traMADol (Ultram) 50 MG tabletIndication s:Chronic low back pain without sciatica, unspecified back pain laterality Take 1 tablet (50 mg) by mouth every 8 (eight) hours if needed for severe pain for up to 10 days. 30 tablet 025 2024 Active insulin degludec (Tresiba FlexTouch) 200 UNIT/ML injectionIndicat ions:Type 2 diabetes mellitus with other specified complication, with long-term current use of insulin ([facility]) INJECT 116 UNITS SUBCUTANEOUSLY ONCE DAILY DIRECTED 18 mL 5 024 2024 Discontinued Active Problems Problem Noted Date [...] for this minor procedure ,I called her prop attendant office to discuss -was told today 04/24/2024 [...] Encounters Date Type Department Care Team Description 03/21/2025 Refill [facility] [address] [place] [address] Aamir Pierce MD Chronic low back pain without sciatica, unspecified back pain laterality (Primary Dx) 03/20/2025 Telephone [facility] MED[facility]INE [address] [place] [phone] Aamir Pierce MD Lab Orders 03/03/2025 Refill [facility] [address] [place] [phone] Elvia Pat, PharmD Type 2 diabetes mellitus with other specified complication, with long-term current use of insulin ([facility]) 02/15/2025 Telephone [facility] [address] [place] [phone] Sandra Lawler [place] Appointment Request 02/15/2025 Telephone [facility] [address] [place] [phone] Aamir Pierce MD Appointment Request 02/14/2025 Telephone [facility] [address] [place] [phone] Aamir Pierce MD Med Refill 02/14/[address] [address] Elvia Pat PharmD Prior Authorization (CGM, Billy 3) 02/13/2025 Telephone [facility] MED[facility]INE [address] [place] [address] [place] [address] Aamir Pierce MD 02/02/2025 Refill [facility] [place] [address] Elvia Pat PharmD Type 2 diabetes mellitus with other specified complication, with long-term current use of insulin (CMS/HCC) 01/26/2025 Telephone [facility] [place] [address] Elvia Pat PharmD Prior Authorization (CG Billy 3 ) 01/24/2025 Travel 01/17/2025 Telephone [facility] [place] [address] Kwame Ruelas [place] march recalls 01/09/2025 Refill [facility] [place] [address] Aamir Pierce MD Benign essential hypertension 01/08/2025 1:30 PM EDT Office Visit [facility] [place] [address] Aamir Pierce MD Type 2 diabetes mellitus with other specified complication, with long-term current use of insulin ([facility]) (Primary Dx); TMJ pain dysfunction syndrome 01/08/2025 Travel 01/05/2025 Telephone [facility] [place] [address] Aamir Pierce MD CHART PREP 01/05/2025 Refill [facility] [place] [address] Aamir Pierce MD Allergic rhinitis, unspecified seasonality, unspecified trigger 12/27/2024 Telephone [facility] [place] [address] Elvia Pat PharmD Prior Authorization (CGM/) 12/26/2024 Travel from Last 3 Months Immunizations Immunization Administration [...] 82 01/08/2025 1:24 PM EDT Temperature 36.8 C (98.3 F) 01/08/2025 1:24 PM EDT Respiratory Rate 14 01/08/2025 1:24 PM EDT Oxygen Saturation 95% 01/08/2025 1:24 PM EDT Inhaled Oxygen Concentration - - Weight 82.5 kg (181 lb 12.8 oz) 01/08/2025 1:24 PM EDT Height 154.9 cm (5' 1 ) 01/08/2025 1:24 PM EDT Body Mass Index 34.35 01/08/2025 1:24 PM EDT Plan of Treatment Upcoming Encounters Date Type Department Care Team (Late st Contact Info) Description 03/30/2025 9:00 AM EDT Office Visit [facility] [address] [place] [phone] Name, MD Aamir [address] [place] [phone] 04/05/2025 1:00 PM EDT Medication Management [facility] [address] [place] [phone] Puia, Elvia, PharmD [address] [place] [phone] Health Maintenance Due Date Last Done Comments [...] Additional history exists SDOH Screening 04/21/2025 04/21/2024 Influenza Vaccine (#1) 2025 , 06/09/2023, 09/16/2022, Additional history exists Tobacco Screening 01/08/2026 01/08/2025 Mammogram 09/11/2026 09/11/2024, 08/13, 07/09/2022, Additional history exists DTaP/Tdap/Td Vaccines (3 - Td or Tdap) 08/23/2033 08/23/2023, 07/12/2013 Zoster Vaccines Completed 03/30/2022, 05/0 05/2022, 09/24/2016 RSV Patients and Patients Aged 60 years or older Completed 02/04/2024 Pneumococcal Vaccine: 50+ Years Completed 08/31/2024, 01/19/2022, [...] 1:25 PM EDT) No Puia, Elvia, PharmD Procedures Procedure Name Priority Date/Time Associated Diagnosis Comments XR TEMPOROMANDIBULAR JOINT OPEN AND CLOSED BILATERAL Routine 01/24/2025 12:02 PM EDT TMJ pain dysfunction syndrome POCT GLYCATED HEMOGLOBIN, TOTAL Routine 01/08/2025 1:25 PM EDT Type 2 diabetes mellitus with other specified complication, with long-term current use of insulin ([facility]) POCT GLUCOSE Routine 01/08/2025 1:25 PM EDT Type 2 diabetes mellitus with other specified complication, with long-term current use of insulin ([facility]) POCT GLYCATED HEMOGLOBIN, TOTAL Routine 12/26/2024 3:07 PM EDT Type 2 diabetes mellitus with other specified complication, with long-term current use of insulin ([facility]) BI MAMMOGRAM SCREENING TOMOSYNTHESIS BILATERAL Routine 09/11/2024 [...] PM EDT Narrative 01/25/2025 8:33 AM EDT [place] [address] XRay Report Signed Patient: Jennifer Patel MR#: [id number] : 1955 Acct:[id number] Age/Sex: 69 / F ADM Date: 01/24/25 Loc: [facility] Attending Dr: Aamir Pierce MD Ordering Physician: Aamir Pierce MD Date of Service: 01/24/25 Procedure(s): XR TMJ BI Accession Number(s): [id number] cc: Aamir Pierce MD EXAMINATION: XR TEMPOROMANDIBULAR [...] 01/25/25 0830 DD/ 1202 TD/TT: 01/24/25 1215 [employer] Text[employer] Supervisor: Procedure Note Donotuseinterpreter, Image - 01/29/[address] [address] XRay Report Signed Patient: Jennifer PatelMR#: [id number] : 6Acct:[id number] Age/Sex: 69 / FADM Date: 01/24/25 Loc: [facility] Attending Dr: Aamir Pierce MD Ordering Physician: Aamir Pierce MD Date of Service: 01/24/25 Procedure(s): XR TMJ BI Accession Number(s): [id number] cc: Aamir Pierce MD EXAMINATION: XR TEMPOROMANDIBULAR [...] 01/25/25 0830 DD/ 1202 TD/TT: 01/24/25 1215 [employer] Supervisor: us Aamir Pierce MD IMG XR PROCEDURES Edited [...] specimen / Unknown 01/08/2025 1:25 PM EDT us Aamir Pierce MD POINT OF CARE TEST ENTER/EDIT OR DERABLES Final Result * BI Mammogram Screening Tomosynthesis Bilateral (09/11/2024 2:48 PM EST) Anatomical Region Laterality Modality Breast Bilateral Mammography 09/11/2024 2:48 PM EST Narrative 09/23/2024 4:09 PM EST [facility] [address] [place] [address] Dr. Batres, YOLI [address] Mammography Report Signed with Teo Patient: Jennifer Patel MR#: [id number] : 1955 Acct:[id number] Age/Sex: 69 / F ADM Date: 09/11/24 Loc: HOArianMAMMO Attending Dr: Aamir Pierce MD Ordering Physician: Aamir Pierce MD Results: 2Benign Fi ndings Date of Service: 09/11/24 Follow Up: 1 Year From Orig ina Mammogram Procedure(s): MM tomosynthesis screening BI Accession Number(s): [id number] cc: Stan,Aamir STANTON ADDENDUM ADDENDUM #1 ADDENDUM: The current mammogram has been reviewed and remains BI-RADS as follows OVERALL ASSESSMENT: BI-RADS 2 - Benign Findings RECOMMENDATION: 1 year F/U Electronically signed by: Aide Means DO 10/09/2024 03:14 PM EST RP Addendum Dictated By: Aide Means DO Addendum Signed By: <Electronically signed by Aide Means DO in OV> 10/09/24 1514 Addendum Cosigned By: [...] 09/23/24 1606 DD/ 1448 TD/TT: 09/11/24 1510 [employer] Supervisor: Procedure Note Donotsophiepierreter, Image - 10/09/2024 [facility] [address] [place] [address] Dr. Batres, YOLI [address] Mammography Report Signed with Addenda Patient: Jennifer PatelMR#: [id number] : 1955cct:[id number] Age/Sex: 69 / FADM Date: 09/11/24 Loc: HO.MAMMO Attending Dr: Aamir Pierce MD Ordering Physician: Aamir Pierceesults: [facility] Date of Service: 09/11/24Follow Up: 1 Year From Orig inal Mammogram Procedure(s): MM tomosynthesis screening BI Accession Number(s): [id number] cc: Aamir Pierce MD ADDENDUM ADDENDUM #1 [...] by: Aide Means DO 09/23/2024 04:06 PM [facility] Dictated By: Aide Means DO Signed By: <Electronically signed by Aide Means DO in OV> 09/23/24 1606 DD/ 1448 TD/TT: 09/11/24 1510 [employer] Supervisor: Aamir Pierce MD IMG BI PROCEDURES Edited Result - Final * Albumin, Random Urine W/Creatinine (02/12/2024 9:25 AM EDT) Creatinine, Urine 99.43 mg/dL [facility] Microalbumin Urine 9.0 mg/L [facility] Microalbum Creatinine Ratio Ur 9.0 <30 ug/mg cr [facility] Comment:Albumin/Creatinine R atio Reference Ranges: Normal: < 30 ug/mg creatinine Microalbuminuria: 30 - 300 ug/mg creatinineClinical Albuminuria: > 300 ug/mg creatinine 02/12/2024 9:25 AM EDT 02/12/2024 10:50 AM EDT us Aamir Pierce MD LAB URINE ORDERABLES Final Resul t [facility] [address] [place] [address] [phone] * (ABNORMAL) Lipid Panel, Standard (02/12/2024 9:24 AM EDT) Triglycerides 106 <150 mg/dL [facility] Comment:Desirable Triglyceri de: less than 150 mg/dLBorderline High Triglyceride 150-199 mg/dLHigh Triglyceride: 200-499 mg/dLVery High Triglyceride: greater than or equal to 5OO mg/dL Cholesterol 205(H) <200 mg/dL [facility] Comment:Desirable Cholestero l: less than 200 mg/dLBorderline High Cholesterol: 200-239 mg/dLHigh Cholesterol: greater than 239 mg/dL LDL Cholesterol Calculated 131(H) <100 mg/dL [facility] Comment:Desirable LDL: less than 100 mg/dLNear Optimal/Above Optimal LDL: 110- 129 mg/dLBorderline High LDL: 130-159 mg/dLHigh LDL: 160-189 mg/dLVery High LDL: greater than or equal to 190 mg/dL HDL Cholesterol 53 >40 mg/dL [facility] Comment:Desirable HDL: great er than 40 mg/dL Note: This HDL assay may give artificially low results in patients with liver disease. 02/12/2024 9:24 AM EDT 02/12/2024 9:24 AM EDT Generic External Data Provider LAB BLOOD ORDERAB LES Final Result [facility] [address] [place] [address] [phone] * Diabetes Eye Exam (12/14/2023) Eye [...] Most Recently Relevant to Health Maintenance [place] [address] [facility] [employer] (HMO D-SNP) Care Teams Hairspring Assembler Relationship Specialty Start Date End Date Name, MD Aamir [address] [place] [phone] PCP - General Family Medicine 10/25/15 Elvia Pat PharmD [address] [place] [address] Pharmacist Internal Medicine 09/29/23
[2025-03-22 12:54] LABS: Microalbum/Creatinine Ratio Ur 14.9 ug/mg cr (<30)
[2025-03-22 13:00] LABS: Alanine Aminotransferase 19 U/L (0-31); Albumin Level 4.2 g/dL (3.5-5.0); Alkaline Phosphatase 70 U/L (39-117); Anion Gap 13 (12-20); Aspartate Amino Transferase 15 U/L (5-31); Blood Urea Nitrogen 20 mg/dL (9-16); Calcium 8.8 mg/dL (8.4-10.2); Carbon Dioxide 29 mmol/L (22-29); Chloride 101 mmol/L (96-108); Cholesterol 243 mg/dL (<200); Estimated Glomerular Filt Rate > 60; HDL Cholesterol 47 mg/dL (>40); Potassium 4.6 mmol/L (3.3-5.1); Sodium 138 mmol/L (135-145); Total Protein 6.9 g/dL (6.5-8.0); Triglycerides 193 mg/dL (<150)
== END 2025-03-22 08:36 | disposition home or self-care (01) ==
LOC: HO.HHCL 08:35
PROVIDERS: PCP Internal Medicine Geriatric Medicine; Visit Provider Internal Medicine Geriatric Medicine
DX: E11.69 Type 2 diabetes mellitus with other specified complication (principal); Z79.4 Long term (current) use of insulin; I10 Essential (primary) hypertension
CPT/HCPCS: 36415; 80053; 80061; 82043; 82248; 82570

== ENCOUNTER → 2025-06-21 23:59 | Outpatient (BNV) | payer OTHER, SELFPAY ==
--- NOTE | 2025-07-09 21:59 | MHC.OFFVIS ---
Intake Visit Reasons: Remote device check- [employer] Allergies insulin glargine (From [facility]) Allergy (Mild, Verified 02/19/25 14:25) RASH Amitryptiline Allergy (Mild, Uncoded 02/19/25 14:25) unknown [facility] Medical History GERD (gastroesophageal reflux disease) Diabetes Anxiety Sleep apnea HTN (hypertension) Hypertension Surgical History History of esophagogastroduodenoscopy (EGD) H/O colonoscopy S/P removal of right ovary S/P removal of left ovary Family History Mother Diabetes Father Liver cancer Social History Household Members: Family Housing: House Do you presently have visiting nurse or other home services: Yes (TIME STUDY CLERK) Alcohol intake: never Patient Tobacco Use Status: Never used Tobacco Advance Directives Date on File: 05/11/23 service: No Office Procedures Cardiac Device Check Cardiac Device Check Details: PPM Good battery life PERPETUAL INVENTORY CLERK 100% [id number] Cardiac Device Interrogation, pacemaker Procedure code (CPT) selection complete Assessment & Plan Assessment & Plan (1) Pacemaker: Code(s): Z95.0 - Presence of cardiac pacemaker Category: Medical Plan Coding Level of Care Code Procedure Only Diagnoses Pacemaker Z95.0 CPT Codes Cardiac Device Check - Cardiac Device 12: [id number] Cardiac Device Interrogation, pacemaker ([id number])
== END ==
PROVIDERS: PCP Internal Medicine Geriatric Medicine; Visit Provider Internal Medicine Cardiovascular Disease
DX: Z45.018 Encounter for adjustment and management of other part of cardiac pacemaker (principal)
CPT/HCPCS: 93294

== ENCOUNTER 2025-07-19 11:54 | Outpatient (REF) | payer OTHER, SELFPAY ==
[2025-07-19 13:35] LABS: Anion Gap 13 (12-20); Blood Urea Nitrogen 18 mg/dL (9-16); Calcium 9.6 mg/dL (8.4-10.2); Carbon Dioxide 33 mmol/L (22-29); Chloride 101 mmol/L (96-108); Estimated Glomerular Filt Rate > 60; Potassium 4.5 mmol/L (3.3-5.1); Sodium 142 mmol/L (135-145)
--- OUTSIDE RECORDS SUMMARY | 2025-07-19 14:52 | XMS_ITS | Clinical Summary ---
Author Organization [employer] Address [address] [place] [address] Care Team Providers Care Financial Institution Treasurer Name Role Phone Name, Aamir STANTON Primary Care Provider [phone] Elvia Pat PharmD Unavailable [phone] Allergies Active Allergy Reactions Criticality Noted Date Comments Amitriptyline Unknown Low 12/21/2022 Atorvastatin Muscle Pain Medium 08/31/2024 Muscle pain Insulin Glargine Rash Low 06/05/2016 Lisinopril Cough Medium 11/13/2021 Metformin Swelling High 01/24/2025 Patient reports swelling of face, lips. Medications * This document contains information received from the source organization and may not represent a complete record from that organization. naloxone (Narcan) 4 mg/0.1 mL nasal spray Administer 1 spray (4 mg) into affected nostril(s) if needed for opioid reversal. May repeat every 2-3 minutes if needed, alternating nostrils, until medical assistance becomes available. 2 each 023 Active Blood Pressure Monitor kitIndications:B enign essential hypertension Use to check blood pressure daily 1 kit 024 Active Motegrity 2 MG tablet Take 1 tablet by mouth Once per day. 024 Active aspirin (Aspirin Low Dose) 81 MG EC tabletIndication s:Type 2 diabetes mellitus with other specified complication, with long-term current use of insulin (HCC) Take 1 tablet (81 mg) by mouth in the morning. 90 tablet 3 024 Active tiZANidine (Zanaflex) 2 MG tablet Take 1 tablet (2 mg) by mouth every 8 (eight) hours if needed for muscle spasms for up to 20 days. 60 tablet 024 Active Alcohol Swabs (Alcohol Prep) 70 % padsIndications: Type 2 diabetes mellitus without complications ([facility]) USE DIRECTED BEFORE INJECT INSULIN AND TEST BLOOD SUGAR 8 TIMES DAILY 200 each 024 Active Lancets (OneTouch Delica Plus [id number]) miscIndications: Diabetes mellitus type 2, insulin dependent ([facility]) Use to test blood sugar up to three times daily as directed 100 each 025 Active olmesartan (BENIcar) 40 MG tablet TAKE 1 TABLET BY MOUTH EVERY MORNING 90 tablet 3 025 Active loratadine (Claritin) 10 MG tablet TAKE 1 TABLET BY MOUTH ONCE DAILY 90 tablet 3 025 Active insulin pen needle (BD Pen Needle Becca U/F) 32G x 4 mm miscIndications: Diabetes mellitus type 2, insulin dependent ([facility]) USE FIVE TIMES DAILY 200 each 025 Active Tirzepatide (Mounjaro) 7.5 MG/0.5ML solution auto-injector Inject 7.5 mg under the skin 1 (one) time per week. 2 mL 025 Active glucose blood (FreeStyle Precision Rudi Test) test stripIndications :Diabetes mellitus type 2, insulin dependent ([facility]) Use to test blood sugar up to 3 times daily, as directed 100 each 025 Active busPIRone (Buspar) 5 MG tablet TAKE 1 TABLET BY MOUTH TWICE DAILY 60 tablet 025 Active NIFEdipine XL (Procardia XL) 60 MG 24 hr tablet TAKE 1 TABLET BY MOUTH EVERY MORNING DO NOT BREAK, CRUSH, DISSOLVE OR CHEW. 30 tablet 025 Active evolocumab (Repatha SureClick) 140 MG/ML injectionIndicat ions:Type 2 diabetes mellitus with other specified complication, with long-term current use of insulin ([facility]),Hyperchole sterolemia Inject 1 mL (140 mg) under the skin every 14 (fourteen) days. 2 mL 025 Active insulin aspart (NovoLOG FLEXPEN) 100 UNIT/ML penIndications:T ype 2 diabetes mellitus with other specified complication, with long-term current use of insulin ([facility]) INJECT UP TO 30 UNITS SUBCUTANEOUSLY THREE TIMES DAILY BEFORE MEALS 15 mL 2 025 Active Additional Information Patient not taking.Reason: started on Omnipod 07/19/25; should still have access to this RX in case of pod failure. Patient & pharmacy aware, Reported on 07/19/2025 Tresiba FlexTouch 200 UNIT/ML injectionIndicat ions:Type 2 diabetes mellitus with other specified complication, with long-term current use of insulin (HCC) INJECT 116 UNITS SUBCUTANEOUSLY ONCE DAILY DIRECTED 18 mL 2 025 Active Additional Information Patient not taking.Reason: started on Omnipod 07/19/25; should still have access to this RX in case of pod failure. Patient & pharmacy aware, Reported on 07/19/2025 Continuous Glucose Sensor (FreeStyle Billy 2 Plus Sensor) miscIndications: Type 2 diabetes mellitus with other specified complication, with long-term current use of insulin (HCC) 1 Device every 15 days. Apply 1 sensor as directed every 15 days for CGM 2 each Active Insulin Disposable Pump (Omnipod 5 Libre2 G6 Intro G5) kitIndications:T ype 2 diabetes mellitus with other specified complication, with long-term current use of insulin (HCC) 1 Device Once per day. Use as directed for insulin administration. One kit = 30 day supply. 1 kit Active Insulin Disposable Pump (Omnipod 5 Libre2 Plus G6 Pods) miscIndications: Type 2 diabetes mellitus with other specified complication, with long-term current use of insulin (HCC) 1 Device every other day. Wear daily for insulin administration. Apply a new pod every 48 hours as directed.) 10 each Active pantoprazole (ProtoNix) 40 MG EC tabletIndication s:Diabetes mellitus type 2, insulin dependent (HCC) TAKE 1 TABLET BY MOUTH TWICE DAILY IN THE MORNING AND IN THE EVENING 180 tablet 1 Active Insulin Aspart (NovoLOG) 100 UNIT/ML solutionIndicati ons:Type 2 diabetes mellitus with other specified complication, with long-term current use of insulin (HCC) Inject 2 mL (200 Units) as directed every other day. Use 200 mL to fill Omnipod every 2 days, as directed. 30 mL = 30d supply. 30 mL 11 Active chlorthalidone (Hygroton) 25 MG tabletIndication s:Benign essential hypertension TAKE 1 TABLET BY MOUTH EVERY MORNING 90 tablet 1 Active gabapentin (Neurontin) 100 MG capsuleIndicatio ns:Trigeminal neuralgia TAKE 1 CAPSULE BY MOUTH THREE TIMES DAILY IN THE MORNING, AT NOON, AND AT BEDTIME 90 capsule 2 Active Continuous Glucose Sample Dye Mixer (FreeStyle Billy 3 Carbon) device 1 each Once per day. Use as directed for CGM 1 each 025 2024 Discontinued(T herapy completed) chlorthalidone (Hygroton) 25 MG tabletIndication s:Benign essential hypertension TAKE 1 TABLET BY MOUTH EVERY MORNING 90 tablet 1 025 2024 Discontinued gabapentin (Neurontin) 100 MG capsuleIndicatio ns:Trigeminal neuralgia TAKE 1 CAPSULE BY MOUTH THREE TIMES DAILY IN THE MORNING, AT NOON, AND AT BEDTIME 30 capsule 2 025 2024 Discontinued gabapentin (Neurontin) 100 MG capsuleIndicatio ns:Trigeminal neuralgia TAKE 1 CAPSULE BY MOUTH THREE TIMES DAILY IN THE MORNING, AT NOON, AND AT BEDTIME 30 capsule 2 025 2024 Discontinued Active Problems Problem Noted [...] for this minor procedure ,I called her clinical programmer office to discuss -was told today 04/24/2024 [...] Encounters Date Type Department Care Team Description 07/19/2025 Travel 07/19/2025 Refill [facility] [address] [place] [address] Aamir Pierce MD Trigeminal neuralgia 07/17/2025 Refill [facility] [address] [place] [address] Aamir Pierce MD Benign essential hypertension 07/06/2025 Telephone [facility] MEDICINE [address] [place] [address] Aamir Pierce MD Lab Orders 07/05/2025 Travel 06/26/2025 Refill [facility] [address] [place] [address] Aamir Pierce MD Trigeminal neuralgia 06/20/2025 Telephone [facility] MEDICINE [address] [place] [address] Aamir Pierce MD [facility] received fax 06/17/2025 Refill [facility]INE [address] [place] [address] Aamir Pierce MD Trigeminal neuralgia 06/13/2025 Telephone [facility] MEDICINE [address] [place] [address] Kwame Ruelas [place] Referral 06/13/2025 Travel 06/13/2025 Refill [facility] [address] [place] [address] Aamir Pierce MD Diabetes mellitus type 2, insulin dependent ([facility]) 06/11/2025 Telephone [facility] MEDICINE [address] [place] [address] Elvia Pat PharmFlynn 06/11/2025 Travel 06/04/2025 Refill [facility]INE [address] [place] [address] Elvia Pat PharmFlynn Type 2 diabetes mellitus with other specified complication, with long-term current use of insulin ([facility]/HCC) 05/25/2025 Refill [facility] [address] [place] [address] Name, MD Aamir Trigeminal neuralgia 05/04/2025 Telephone [facility] MEDICINE [address] [place], [place] [phone] Elvia Pat, AneudyD Prior Authorization (Repatha (to replace Praluent, see addendum to last CDTM note)) from Last 3 Months Immunizations Immunization Administration Dates Next Due Hep B, adult 12/26/2024,08/01/2024,06/05/2024 Influenza High-dose Quadriva lent Preservative Free 06/09/2023 Influenza injectable quadriv alent IIV4 with preservative 09/16/2022,07/27/2018,06/28/2017,06/05 Influenza injectable quadriv alent preservative free 09/04/2020,07/27/2019 Influenza, High Dose Seasona l, Preservative Free 07/05/2025,05/23/2024 Influenza, IIV3, injectable 07/30/2014,0 05/24/2013,07/15/2012,06/02,09/23/2010 Influenza, Injectable, [...] Answer Date Recorded Patient Health Questionnaire-9 Score 10 03/30/2025 Patient Health Questionnaire-9 Score 10 03/30/2025 Last PHQ-9: Questionnaire Data Not on file 0 03/30/2025 Housing Stability Answer Date Recorded What is [...] Date Recorded Patient Health Questionnaire-2 Score 2 03/30/2025 Internet Access Answer Date Recorded Internet Access [...] Sign Reading Time Taken Comments Blood Pressure 112/50 07/05/2025 12:22 PM EDT Pulse 79 03/30/2025 9:07 AM EDT Temperature 36.6 C (97.8 F) 03/30/2025 9:07 AM EDT Respiratory Rate 14 03/30/2025 9:07 AM EDT Oxygen Saturation 99% 03/30/2025 9:07 AM EDT Inhaled Oxygen Concentration - - Weight 80.9 kg (178 lb 6.4 oz) 03/30/2025 9:07 A M EDT Height 154.9 cm (5' 1 ) 01/08/2025 1:24 PM EDT Body Mass Index 33.71 01/08/2025 1:24 PM EDT Plan of Treatment Upcoming Encounters Date Type Department Care Team (Late st Contact Info) Description 07/23/2025 1:30 PM EST Telemedicine [facility] MEDICINE [address] [place], [place] [phone] Elvia Pat, AneudyD [address] [place] [address] Health Maintenance Due Date Last Done Comments CT Colonography 1955 FIT DNA/Cologuard 1955 FIT 1955 FOBT 1955 Sigmoidoscopy 1955 Hepatitis C Screening 1974 Colonoscopy 12/04/2023 12/03/2021, 05/17/2018 Colorectal Cancer Screening 12/04/2023 Diabetes: Foot Exam 08/23/2024 08/23/2023, 08/23/2023, 08/23/2023, Additional history exists Eye Exam 12/13/2024 12/14/2023 SDOH Screening 04/21/2025 04/21/2024 COVID-19 Vaccine ( season) 2025 10/21/2021, 01/08/2021, 12/11/2020 Depression Monitoring 09/30/2025 03/30/2025, 025 Diabetes: Hemoglobin A1C 10/05/2025 025, 04/05/2025, 03/30/2025, Additional history exists Diabetes: Urine Protein Screening 03/22/2026 03/22/2025, 02/12/2024, 10/05/2023, Additional history exists Lipid Panel 03/22/2026 03/22/2025, 09/2023, 10/05/2023, Additional history exists Alcohol/Substance Use Screening 03/30/2026 03/30/2025 Tobacco Screening 03/30/2026 03/30/2025 Mammogram 09/11/2026 09/11/2024, 08/13, 07/09/2022, Additional history exists DTaP/Tdap/Td Vaccines (3 - Td or Tdap) 08/23/2033 08/23/2023, 07/12/2013 Zoster Vaccines Completed 03/30/2022, 05/2022, 09/24/2016 RSV Patients and Patients Aged 60 years or older Completed 02/04/2024 Pneumococcal Vaccine: 50+ Years Completed 08/31/2024, 01/19/2022, 06/16/2015, Additional history exists Hepatitis B Vaccines Completed 12/26/2024, 08/01/2024, 06/05/2024 Influenza Vaccine Completed 07/05/2025, , 06/09/2023, Additional history exists HIB Vaccines Aged Out No longer eligi [...] all appointments Blood Pressure No Elvia Pat, PharmFlynn Blood Pressure < 140/90 Blood Pressure 112/50(2024 12:22 PM EDT) No Elvia Pat PharmD Record your blood sugar as directed Result Component No Elvia Pat PharmD Note: Use CGM, ensuring sensor is scanned at least once every 8 hours to capture 24H data. Check BG manually, as directed. Hemoglobin A1c < 7 Result Component 8.7( 2:39 PM EDT) No Elvia Pat PharmD Procedures Procedure Name Priority Date/Time Associated Diagnosis Comments BASIC METABOLIC PANEL Routine 07/19/2025 11:57 AM EST Trigeminal neuralgia POCT GLYCATED HEMOGLOBIN, TOTAL Routine 07/05/2025 2:39 PM EDT Type 2 diabetes mellitus with other specified complication, with long-term current use of insulin ([facility]) ALBUMIN, RANDOM URINE W/CREATININE Routine 03/22/2025 8:40 AM EDT Type 2 diabetes mellitus with other specified complication, with long-term current use of insulin ([facility]) LIPID PANEL, STANDARD Routine 03/22/2025 8:40 AM EDT BI MAMMOGRAM SCREENING TOMOSYNTHESIS BILATERAL Routine 09/11/2024 2:48 PM EST DIABETES EYE EXAM Routine 12/14/2023 COLONOSCOPY Routine 12/03/2021 from Last 3 Months or Most Recently Relevant to Health Maintenance Results * (ABNORMAL) Basic Metabolic Panel (07/19/2025 11:57 AM EST) Sodium 142 135 - 145 mmol/L [facility] Potassium 4.5 3.3 - 5.1 mmol/L [facility] Chloride 101 96 - 108 mmol/L [facility] Carbon Dioxide 33(H) 22 - 29 mmol/L [facility] Anion Gap 13 12 - 20 [facility] Urea Nitrogen (BUN) 18(H) 9 - 16 mg/dL [facility] Creatinine, Serum 0.65 0.5 - 1.4 mg/dL [facility] Estimated Glomerular Filt Rate >60 [facility] Comment:Chronic Kidney Disea se: Estimated GFR < 60 mL/min/1.89c3Dhpocj Kidney Disease: Estimated GFR < 15 mL/min/1.73m2 Glucose 129(H) 60 - 115 mg/dL [facility] Calcium 9.6 8.4 - 10.2 mg/dL [facility] Blood Venous blood specimen / Unknown 07/19/2025 11:57 AM EST 07/19/2025 1:05 PM EST us Aamir Pierce MD LAB BLOOD ORDERABLES Final Resul t [facility] [address] [place] [address] [phone] * (ABNORMAL) POCT Hgb A1c (07/05/2025 2:39 PM EDT) Hemoglobin A1C 8.7(A) 4.0 - 5.7 % Blood 07/05/2025 2:39 PM EDT us Aamir Pierce MD POINT OF CARE TEST ENTER/EDIT OR DERABLES Final Result * Albumin, Random Urine W/Creatinine (03/22/2025 8:40 AM EDT) Creatinine, Urine 67.05 mg/dL [facility] Microalbumin Urine 10.0 mg/L [facility] Microalbum Creatinine Ratio Ur 14.9 <30 ug/mg cr [facility] Comment:Albumin/Creatinine R at Reference Ranges: Normal: < 30 ug/mg creatinine Microalbuminuria: 30 - 300 ug/mg creatinineClinical Albuminuria: > 300 ug/mg creatinine Urine (Urine, Random) 03/22/2025 8:40 AM EDT 03/22/2025 11:31 AM EDT us Aamir Pierce MD LAB URINE ORDERABLES Final Resul t Performing Organization Address City/State/[facility] Co de Phone Number [facility] [address] [place] [phone] * (ABNORMAL) Lipid Panel, Standard (03/22/2025 8:40 AM EDT) Triglycerides 193(H) <150 mg/dL [facility] Comment:Desirable Triglyceri de: less than 150 mg/dLBorderline High Triglyceride 150-199 mg/dLHigh Triglyceride: 200-499 mg/dLVery High Triglyceride: greater than or equal to 5OO mg/dL Cholesterol 243(H) <200 mg/dL [facility] Comment:Desirable Cholestero l: less than 200 mg/dLBorderline High Cholesterol: 200-239 mg/dLHigh Cholesterol: greater than 239 mg/dL LDL Cholesterol Calculated 158(H) <100 mg/dL [facility] Comment:Desirable LDL: less than 100 mg/dLNear Optimal/Above Optimal LDL: 110- 129 mg/dLBorderline High LDL: 130-159 mg/dLHigh LDL: 160-189 mg/dLVery High LDL: greater than or equal to 190 mg/dL HDL Cholesterol 47 >40 mg/dL [facility] Comment:Desirable HDL: great er than 40 mg/dL Note: This HDL assay may give artificially low results in patients with liver disease. 03/22/2025 8:40 AM EDT 03/22/2025 12:29 PM EDT Aamir Pierce MD LAB BLOOD ORDERABLES Final Resul t [facility] [address] [place] [address] [phone] * BI Mammogram Screening Tomosynthesis Bilateral (09/11/2024 2:48 PM EST) Anatomical Region Laterality Modality Breast Bilateral Mammography 09/11/2024 2:48 PM EST Narrative 09/23/2024 4:09 PM EST [address] [place] [address] Mammography Report Signed with Addenda Patient: Jennifer Patel MR#: [id number] : 1955 Acct:[id number] Age/Sex: 69 / F ADM Date: 09/11/24 Loc: HO.MAMMO Attending Dr: Aamir Pierce MD Ordering Physician: Aamir Pierce MD Results: 2Benign ndings Date of Service: 09/11/24 Follow Up: 1 Year From Orig ina Mammogram Procedure(s): MM tomosynthesis screening BI Accession Number(s): [id number] cc: Aamir Pierce MD ADDENDUM ADDENDUM #1 [...] Aide Means DO 09/23/2024 04:06 PM EST Dictated By: Aide Means DO Signed By: <Electronically signed by Aide Means DO in OV> 09/23/24 1606 DD/ TD/TT: 09/11/24 1510 Screener And Blender: Procedure Note Donotuseinterpreter, Image - 10/09/2024 [facility] [address] [place], [place] [address] Mammography Report Signed with Addenda Patient: Jennifer PatelMR#: [id number] : 6Acct:[id number] Age/Sex: 69 / FADM Date: 09/11/24 Loc: HO.MAMMO Attending Dr: Aamir Pierce MD Ordering Physician: Aamir Pierce MDResults: 2Benign Fi ndings Date of Service: 09/11/24Follow Up: 1 Year From Orig ina Mammogram Procedure(s): MM tomosynthesis screening BI Accession Number(s): [id number] cc: Name,Aamir STANTON ADDENDUM ADDENDUM #1 ADDENDUM: [...] 09/23/24 1606 DD/ 1448 TD/TT: 09/11/24 1510 Screener And Blender: us Aamir Name IMG BI PROCEDURES Edited Result - Final * Diabetes Eye Exam (12/14/2023) Eye Exam Normal Normal, BIRADS 0 , BIRADS 1 , BIRADS 2, BIRADS 3 , BIRADS 4+ us Aamir Name HEALTH MAINTENANCE Final Result * Colonoscopy (12/03/2021) Colonoscopy Normal Normal Narrative Nhi Ramos - 12/03/2021 Repeat colonoscopy in 1-2 years Historical Provider HEALTH MAINTENANCE Final Result from Last 3 Months or Most Recently Relevant to Health Maintenance [place] [address] [place] [address] STANDARD [facility] CARE HOME OPTIONS (O D-SNP) Care Teams Financial Institution Treasurer Relationship Specialty Start Date End Date Name, MD Aamir [address] [place] [phone] PCP - General Family Medicine 10/25/15 Elvia Pat, AneudyD [address] [place] [phone] Pharmacist Internal Medicine 09/29/23
--- OUTSIDE RECORDS SUMMARY | 2025-07-19 14:52 | XMS_ITS | Encounter Summary ---
Author Organization [employer] [facility] Address [address] [place] [address] Care Team Providers Care Chief Minister Name Role Phone Name, Aamir STANTON Primary Care Provider [phone] Elvia Pat PharmD Unavailable Encounter Details Date Type Department Care Team (Late st Contact Info) Description 05/13/[address] [facility] MEDICINE [address] [place] [phone] Name, MD Aamir [address] [place] [address] Social History Tobacco Use Types Packs/Day Years [...] Info) Description 07/23/2025 1:30 PM EST Telemedicine [facility] [address] [place], [place] [phone] Elvia Pat, PharmD [address] [place], [place] [phone] documented as of this encounter Visit Diagnoses Not on filedocumented in this encounter Additional Health Concerns Assessment Noted Time PHQ-9 Depression Total Score: 9 03/22/20 23 2:40 PM EDT documented as of this encounter Care Teams Chief Minister Relationship Specialty Start Date End Date Name, MD Aamir [address] [place] [address] PCP - General Family Medicine 10/25/15 Elvia Pat, Pat [address] [place] [address] Pharmacist Internal Medicine 09/29/23 documented as of this encounter
--- OUTSIDE RECORDS SUMMARY | 2025-07-19 14:52 | XMS_ITS | Encounter Summary ---
Author Organization [facility] [facility] Address [address] [facility] [address]t [place] [address] Care Team Providers Care Casino Cage Manager Name Role Phone Name, Aamir STANTON Primary Care Provider Elvia Pat PharmD Unavailable [phone] Encounter Details Date Type Department Care Team ([facility] Contact Info) Description 01/21/2023 Abstract [facility] [address] [place], [place] [phone] Name, MD Aamir [address] [place], [place] [phone] Social History Tobacco Use Types Packs/Day Years [...] Upcoming Encounters Date Type Department Care Team ([facility] Contact Info) Description 07/23/2025 1:30 PM EST Telemedicine [facility] [address] [place], [place] [phone] Elvia aPt, PharmD [address] [place] [address] documented as of this encounter Procedures Procedure Name Priority Date/Time Associated Diagnosis Comments COLONOSCOPY Routine 05/17/2018 documented in this encounter Results * Colonoscopy (05/17/2018) Colonoscopy Normal Normal 05/17/2018 Narrative Nhi Ramos - 05/17/2018 4:16 PM EDT Recommended 10 year follow up ([facility]) us Historical Provider HEALTH MAINTENANCE Final Result documented in this encounter Visit Diagnoses Not on filedocumented in this encounter Care Teams Casino Cage Manager Relationship Specialty Start Date End Date Name, MD Aamir [address] [place] [address] PCP - General Family Medicine 10/25/15 Elvia Pat PharmD [address] [place] [address] Pharmacist Internal Medicine 09/29/23 documented as of this encounter
--- OUTSIDE RECORDS SUMMARY | 2025-07-19 14:53 | XMS_ITS | Encounter Summary ---
Author Organization [employer] [facility] Address [address] [place] [address] [address]t [place] [address] Care Team Providers Care Electric Spot Welder Name Role Phone Name, Aamir STANTON Primary Care Provider [phone] Elvia Pat PharmD Unavailable [phone] Reason for Visit * Reason Comments Med Refill Encounter Details Date Type Department Care Team (Late st Contact Info) Description 11/01/2022 Refill [facility] [address] [place] [address] [phone] Name, MD Aamir [address] [place] [phone] Allergic rhinitis, unspecified seasonality, unspecified trigger Social [...] PM EST Telemedicine [facility] [address] [place], [place] [phone] Puia Elvia, PharmD [address] [place] [address] documented as of this encounter Visit Diagnoses Diagnosis Allergic rhinitis, unspecified seasonality, unspecified trigger documented in this encounter Care Teams Electric Spot Welder Relationship Specialty Start Date End Date Name, MD Aamir [address] [place] [phone] PCP - General Family Medicine 10/25/15 Elvia Pat PharmD [address] [place] [phone] Pharmacist Internal Medicine 09/29/23 documented as of this encounter
--- OUTSIDE RECORDS SUMMARY | 2025-07-19 14:53 | XMS_ITS | Encounter Summary ---
Author Organization [employer] Address 75 [facility] 7t [place] [address] Care Team Providers Care Loop Puller Name Role Phone Name, Aamir STANTON Primary Care Provider [phone] Elvia Pat PharmD Unavailable [phone] Reason for Visit * Reason Onset Date Comments Pre OP 01/13/2024 Encounter Details Date Type Department Care Team ([facility] st Contact Info) Description 01/13/2024 Telephone [facility] MEDICINE [address] [place], [place] [phone] Name, MD Aamir [address] [place], [place] [phone] Pre OP Social History Tobacco Use Types [...] for apt. On 02/11/2024 for pre-op. Rosalind will [facility]. * Telephone Encounter - Luanne Fernandes - 01/13/2024 1:39 PM EDT Date of Surgery: 02/17/24 Surgical procedure being done: cataract surgery left eye Type of anesthesia: MAX Lab needed: no EKG: no Surgeon's name: Angel Montgomery Facility name: [facility] Surgeon's office number: [phone] ext [facility] Surgeon's office fax number: [phone] Contact name (person you spoke with): Rosalind Last office note from surgeon requested: no documented in this encounter Plan of Treatment Upcoming Encounters Date Type Department Care Team ([facility] st Contact Info) Description 07/23/2025 1:30 PM EST Telemedicine [facility] MEDICINE [address] [place], [place] [phone] Elvia Pat, AneudyD [address] [place], [place] [phone] documented as of this encounter Goals Goal Patient Goal Type Associated Problems Recent Progress Patient-Stated? Author Record your blood pressure once per day & bring log to all appointments Blood Pressure No Elvia Pat, PharmFlynn Blood Pressure < 140/90 Blood Pressure 112/50(2024 12:22 PM EDT) No Elvia Pat, PharmD Record your blood sugar as directed Result Component No Elvia Pat PharmD Note: Use CGM, ensuring sensor is scanned at least once every 8 hours to capture 24H data. Check BG manually, as directed. Hemoglobin A1c < 7 Result Component 8.7( 2:39 PM EDT) No Elvia Pat, PharmD documented as of this encounter Visit Diagnoses Not on filedocumented in this encounter Additional Health Concerns Assessment Noted Time PHQ-9 Depression Total Score: 9 03/22/20 23 2:40 PM EDT documented as of this encounter Care Teams Loop Puller Relationship Specialty Start Date End Date Name, MD Aamir 230 [place] [address] PCP - General Family Medicine 10/25/15 Elvia Pat PharmD 230 [place] [address] Pharmacist Internal Medicine 09/29/23 documented as of this encounter
--- OUTSIDE RECORDS SUMMARY | 2025-07-19 14:53 | XMS_ITS | Encounter Summary ---
Author Organization [employer] Address [address] [facility] [address] 7[address] [place] [address] Care Team Providers Care Shoe Cementer Name Role Phone Name, Aamir STANTON Primary Care Provider [phone] Elvia Pat PharmD Unavailable [phone] Encounter Details Date Type Department Care Team (Latest Contact Info) Description 07/19/2025 Travel Social History Tobacco Use Types Packs/Day Years [...] Info) Description 07/23/2025 1:30 PM EST Telemedicine [facility] MEDICINE 230 [place], [place] [phone] PuiaMagalysa, PharmD 230 [place], [place] [phone] documented as of this encounter Goals Goal Patient Goal Type Associated Problems Recent Progress Patient-Stated? Author Record your blood pressure once per day & bring log to all appointments Blood Pressure No Puia, Elvia, PharmD Blood Pressure < 140/90 Blood Pressure 112/50(2024 12:22 PM EDT) No Puia, Elvia, PharmD Record your blood sugar as directed Result Component No Puia, Elvia, PharmD Note: Use CGM, ensuring sensor is scanned at least once every 8 hours to capture 24H data. Check BG manually, as directed. Hemoglobin A1c < 7 Result Component 8.7( 2:39 PM EDT) No Puia, Elvia, PharmD documented as of this encounter Visit Diagnoses Not on filedocumented in this encounter Additional Health Concerns Assessment Noted Time PHQ-9 Depression Total Score: 10 025 9:10 AM EDT documented as of this encounter Care Teams Shoe Cementer Relationship Specialty Start Date End Date Name, MD Aamir 230 [place], [place] [phone] PCP - General Family Medicine 10/25/15 Puia, Elvia, PharmD [address] [place] [address] Pharmacist Internal Medicine 09/29/23 documented as of this encounter
--- OUTSIDE RECORDS SUMMARY | 2025-07-19 14:53 | XMS_ITS | Encounter Summary ---
Author Organization [employer] Address 75 [facility] 7t [place] [address] Care Team Providers Care Mobile Designer Name Role Phone Name, Aamir STANTON Primary Care Provider Elvia Pat PharmD Unavailable [phone] Reason for Visit * Reason Comments Med Refill Encounter Details Date Type Department Care Team ([facility] Contact Info) Description 08/07/2023 Refill [facility] MEDICINE 230 [place], [place] [phone] Name, MD Aamir 230 [place] [address] Allergic rhinitis, unspecified seasonality, unspecified trigger Social [...] Info) Description 07/23/2025 1:30 PM EST Telemedicine [facility] MEDICINE [address] [place] [address] Elvia Pat PharmD 230 [place] [address] documented as of this encounter Visit Diagnoses Diagnosis Allergic rhinitis, unspecified seasonality, unspecified trigger documented in this encounter Additional Health Concerns Assessment Noted Time PHQ-9 Depression Total Score: 9 03/22/20 23 2:40 PM EDT documented as of this encounter Care Teams Mobile Designer Relationship Specialty Start Date End Date Name, MD Aamir [address] [place] [address] PCP - General Family Medicine 10/25/15 Elvia Pat PharmD [address] [place] [address] Pharmacist Internal Medicine 09/29/23 documented as of this encounter
--- OUTSIDE RECORDS SUMMARY | 2025-07-19 14:53 | XMS_ITS | Encounter Summary ---
Author Organization [employer] Address 75 [facility] 7t [place] [address] Care Team Providers Care Noodle Catalyst Maker Name Role Phone Name, Aamir STANTON Primary Care Provider [phone] Elvia Pat PharmD Unavailable [phone] Reason for Visit * Reason Onset Date Comments Appointment Request 02/15/2025 Encounter Details Date Type Department Care Team ([facility] st Contact Info) Description 02/15/2025 Telephone [facility] MEDICINE 230 [place], [place] [phone] Name, MD Aamir 230 [place] [address] Appointment Request Social History Tobacco Use Types Packs/Day Years [...] encounter Miscellaneous Notes * Telephone Encounter - Cindy Barraza - 02/15/2025 9:41 AM EDT TC from patient requesting an appointment for follow-up care related to diabetes management. documented in this encounter Plan of Treatment Upcoming Encounters Date Type Department Care Team (Late st Contact Info) Description 07/23/2025 1:30 PM EST Telemedicine [facility] MEDICINE [address] [place] [address] AlyssiaiaLobitoElvia, PharmD 230 [place] [address] documented as of this encounter Goals Goal [...] Hemoglobin A1c < 7 Result Component 8.7( 5 2:39 PM EDT) No Elvia Pat, PharmD documented as of this encounter Visit Diagnoses Not on filedocumented in this encounter Additional Health Concerns Assessment Noted Time PHQ-9 Depression Total Score: 0 01/31/20 24 1:41 PM EDT documented as of this encounter Care Teams Noodle Catalyst Maker Relationship Specialty Start Date End Date Name, MD Aamir 230 [place] [address] PCP - General Family Medicine 10/25/15 Elvia Pat, PharmD 230 [place] [address] Pharmacist Internal Medicine 09/29/23 documented as of this encounter
--- OUTSIDE RECORDS SUMMARY | 2025-07-19 14:53 | XMS_ITS | Encounter Summary ---
Author Organization [employer] Address [address] [facility] [address] 7[address] [place] [address] Care Team Providers Care Applicator Sprayer Name Role Phone Name, Aamir STANTON Primary Care Provider [phone] Elvia Pat PharmD Unavailable [phone] Encounter Details Date Type Department Care Team ([facility] st Contact Info) Description 07/30/2023 Abstract [facility] MEDICINE [address] [place] [address] Nhi Ramos Social History Tobacco Use Types [...] Description 07/23/2025 1:30 PM EST Telemedicine [facility] MEDICINE [address] [place] [address] Elvia Pat PharmD 230 [place], [place] [phone] documented as of this encounter Procedures Procedure [...] documented as of this encounter Care Teams Applicator Sprayer Relationship Specialty Start Date End Date Name, [place] [address] PCP - General Family Medicine 10/25/15 Elvia Pat PharmD 230 [place], [place] [phone] Pharmacist Internal Medicine 09/29/23 documented as of this encounter
--- OUTSIDE RECORDS SUMMARY | 2025-07-19 14:53 | XMS_ITS | Encounter Summary ---
Author Organization [employer] Address 75 [facility] 7t [place] [address] Care Team Providers Care Dat Instructor Name Role Phone Name, Aamir STANTON Primary Care Provider [phone] Elvia Pat PharmD Unavailable [phone] Reason for Visit * Reason Comments Med Refill Encounter Details Date Type Department Care Team ([facility] Contact Info) Description 04/21/2024 Refill [facility] MEDICINE 230 [place], [place] [phone] Name, MD Aamir 230 [place] [address] Allergic rhinitis, unspecified seasonality, unspecified trigger Social [...] Info) Description 07/23/2025 1:30 PM EST Telemedicine [facility] MEDICINE 230 [place] [address] Puia, Elvia, PharmD 230 [place] [address] documented as of this encounter Goals Goal [...] documented as of this encounter Care Teams Dat Instructor Relationship Specialty Start Date End Date Name, MD Aamir 230 [place] [address] PCP - General Family Medicine 10/25/15 Elvia Pat, Pat 230 [place] [address] Pharmacist Internal Medicine 09/29/23 documented as of this encounter
--- OUTSIDE RECORDS SUMMARY | 2025-07-19 14:53 | XMS_ITS | Encounter Summary ---
Author Organization [employer] Address 75 [facility] 7t [place] [address] Care Team Providers Care Electronic Warfare Technician Name Role Phone Name, Aamir STANTON Primary Care Provider [phone] Elvia Pat PharmD Unavailable [phone] Reason for Visit * Reason Comments Med Refill Encounter Details Date Type Department Care Team ([facility] st Contact Info) Description 06/17/2025 Refill [facility] MEDICINE 230 [place], [place] [phone] Name, MD Aamir 230 [place] [address] Trigeminal neuralgia Social History Tobacco Use Types Packs/Day Years [...] Info) Description 07/23/2025 1:30 PM EST Telemedicine [facility] MEDICINE 230 [place] [address] Puia, Elvia, PharmD 230 [place] [address] documented as of this encounter Goals Goal [...] as of this encounter Visit Diagnoses Diagnosis Trigeminal neuralgia documented in this encounter Additional Health Concerns Assessment Noted Time PHQ-9 Depression Total Score: 10 03/30/2 025 9:10 AM EDT documented as of this encounter Care Teams Electronic Warfare Technician Relationship Specialty Start Date End Date Name, MD Aamir [address] [place] [address] PCP - General Family Medicine 10/25/15 Elvia Pat PharmD [address] [place] [address] Pharmacist Internal Medicine 09/29/23 documented as of this encounter
--- OUTSIDE RECORDS SUMMARY | 2025-07-19 14:53 | XMS_ITS | Encounter Summary ---
Author Organization [employer] Address 75 [facility] 7t [place] [address] Care Team Providers Care Bracer Name Role Phone Name, Aamir STANTON Primary Care Provider [phone] Elvia Pat PharmD Unavailable [phone] Reason for Visit * Reason Comments Med Refill Encounter Details Date Type Department Care Team ([facility] st Contact Info) Description 07/19/2025 Refill [facility] MEDICINE 230 [place], [place] [phone] Name, MD Aamir [address] [place] [address] Trigeminal neuralgia Social History Tobacco Use Types [...] Description 07/23/2025 1:30 PM EST Telemedicine [facility] MEDICINE 230 [place] [address] Puia, Elvia, PharmD 230 [place] [address] documented as of this encounter Goals Goal [...] documented as of this encounter Care Teams Bracer Relationship Specialty Start Date End Date Name, MD Aamir 230 [place] [address] PCP - General Family Medicine 10/25/15 Elvia Pat PharmD 230 [place] [address] Pharmacist Internal Medicine 09/29/23 documented as of this encounter
--- OUTSIDE RECORDS SUMMARY | 2025-07-19 14:53 | XMS_ITS | Encounter Summary ---
Author Organization [employer] Address 75 [facility] 7t [place] [address] Care Team Providers Care Crop Farm Workers Name Role Phone Name, Aamir STANTON Primary Care Provider [phone] Elvia Pat PharmD Unavailable [phone] Reason for Visit * Reason Onset Date Comments Lab Orders 07/06/2025 Encounter Details Date Type Department Care Team ([facility] st Contact Info) Description 07/06/2025 Telephone [facility] MEDICINE 230 [place], [place] [phone] Name, MD Aamir 230 [place] [address] Lab Orders Social History Tobacco Use Types Packs/Day Years [...] encounter Miscellaneous Notes * Telephone Encounter - Sarah Best RN - 07/19/2025 11:56 AM EST Noted. Letter removed from mailing bin as Elvia Olivia PharmD spoke with pt and advise pt to go to lab. Pt to follow up PRN. * Telephone Encounter - Elvia Pat PharmD - 07/19/2025 10:48 AM EST [facility] I saw patient in person today. I reviewed this message thread and informed her lab orders areplaced. She will go for BMP today as she is within the 30d window prior to her imagining apt. No further outreach needed from RN at this time. * Telephone Encounter - Sarah Best RN - 07/19/2025 9:28 AM EST TC x 2 placed to pt via S intepreter (ID#[id number]) to inform lab orders placed and remind pt of appointment on 08/08/25 at 3:00 PM. No answer, unable to LVM as mailbox is full. Unable to reach letter generated for pt to contact [facility] and placed in mailing bin to be sent to pt. * Telephone Encounter - Sarah Best RN - 07/18/2025 3:35 PM EST TC x 4 placed to pt via [employer] intepreter (ID#[id number]) to inform lab orders placed and remind pt of appointment on 08/08/25 at 3:00 PM. Call immediately goes to voicemail. Call attempted twice through wet pour mixer and twice by sign writer letterer or painter dialing out. Call immediately went to voicemail all 4 attempts. Unable to LVM as mailbox is full. RN to re-attempt on 07/19/25. * Addendum Note - Aamir Anthony MD - 07/18/2025 3:34 PM ESTAddended by: AAMIR ANTHONY on: 07/18/2025 03:34 PM Modules accepted: Orders * Telephone Encounter - Aamir Anthony MD - 07/18/2025 3:34 PM EST Orders are in * Telephone Encounter - Sarah Best RN - 07/18/2025 3:08 PM EST Per review of chart, pt does not have outstanding labs that need to be completed. RN spoke with 's medical supervisor Kwame Aragon, who states they will contact pt to reschedule visit to review results. Per review of chart, pt is scheduled for radiology appointment at [facility] on 08/08/2025 at 3:00 PM. Incoming TC. [employer] wet pour mixer (Rocael ID#[id number]) used for the call. Pt reports they were told by [facility] that before their CT on 08/08/25 they will need to have labs completed at least 30 days prior. Advised pt sign writer letterer or painter to contact [facility] to determine which labs are required and RN to return call to pt once lab orders placed. Confirmed with pt best number to reach is [phone]. TC placed to [facility] to determine labs needed. [facility] states the pt needs an EGFR, creatinine, and BUN completed prior to the CT. Message forwarded to PCP for review and team RN's to contact pt once lab orders sent. * Telephone Encounter - Sarah Best RN - 07/12/2025 10:08 AM EDT Per review of chart, pt does not have outstanding labs that need to be completed. RN spoke with 's medical supervisor Kwame Aragon, who states they will contact pt to reschedule visit to review results. Per review of chart, pt is scheduled for radiology appointment at [facility] on 08/08/2025 at 3:00 PM .TC placed to pt via [employer] wet pour mixer (Alex ID#[id number]). No answer, unable to LVM as voicemailbox is full. Letter mailed to pt to contact office. * Telephone Encounter - Sarah Best RN - 07/11/2025 9:40 AM EDT Per review of chart, pt does not have outstanding labs that need to be completed. RN spoke with 's medical supervisor Kwame Aragon, who states they will contact pt to reschedule visit to review results. Per review of chart, pt is scheduled for radiology appointment at [facility] on 08/08/2025 at 3:00 PM .TC placed to pt via [employer] wet pour mixer (Melania ID#[id number]). No answer, unable to LVM as voicemail box is full. Will task to re-attempt on 07/12/25. * Telephone Encounter - Aamir Landeros - 07/06/2025 11:54 AM EDT Tc from pt requesting a call back regarding some labs that PCP ordered for pt to do. Pt states thatshe was advised to do some lab work but wants to know why. Contact pt at [phone] (malaysian) FYI. Pt was ct scan was r/s for 08/08 and wanted to cancel the TV with PCP. Once sign writer letterer or painter canceled it, pt stated to keep apt to talk with PCP. Supervisor Channel Process advised apt was already canceled and a message willbe sent. documented in this encounter Plan of Treatment Upcoming Encounters Date Type Department Care Team (Late st Contact Info) Description 07/23/2025 1:30 PM EST Telemedicine [facility] MEDICINE [address] [place] [address] Puia, Elvia, PharmD 230 [place] [address] documented as of this encounter Goals Goal [...] Elvia, PharmD documented as of this encounter Procedures Procedure Name Priority Date/Time Associated Diagnosis Comments BASIC METABOLIC PANEL Routine 07/19/2025 11:57 AM EST Trigeminal neuralgia documented in this encounter Results * (ABNORMAL) Basic Metabolic Panel (07/19/2025 11:57 AM EST) Sodium 142 135 - 145 mmol/L [facility] Potassium 4.5 3.3 - 5.1 mmol/L [facility] Chloride 101 96 - 108 mmol/L [facility] Carbon Dioxide 33(H) 22 - 29 mmol/L [facility] Anion Gap 13 12 - 20 [facility] Urea Nitrogen (BUN) 18(H) 9 - 16 mg/dL [facility] Creatinine, Serum 0.65 0.5 - 1.4 mg/dL [facility] Estimated Glomerular Filt Rate >60 [facility] Comment:Chronic Kidney Disea se: Estimated GFR < 60 mL/min/1.58t3Xvemsp Kidney Disease: Estimated GFR < 15 mL/min/1.73m2 Glucose 129(H) 60 - 115 mg/dL [facility] Calcium 9.6 8.4 - 10.2 mg/dL [facility] Blood Venous blood specimen / Unknown 07/19/2025 11:57 AM EST 07/19/2025 1:05 PM EST us Aamir Anthony MD LAB BLOOD ORDERABLES Final Resul t [facility] [address] [place] [address] [phone] documented in this encounter Visit Diagnoses Diagnosis Trigeminal neuralgia- Primary documented in this encounter Additional Health Concerns Assessment Noted Time PHQ-9 Depression Total Score: 10 025 9:10 AM EDT documented as of this encounter Care Teams Crop Farm Workers Relationship Specialty Start Date End Date Name, MD Aamir [address] [place] [address] PCP - General Family Medicine 10/25/15 Elvia Pat PharmD [address] [place] [address] Pharmacist Internal Medicine 09/29/23 documented as of this encounter
--- OUTSIDE RECORDS SUMMARY | 2025-07-19 14:53 | XMS_ITS | Encounter Summary ---
Author Organization [employer] Address 75 [facility] 7t [place] [address] Care Team Providers Care Equity Structurer Name Role Phone Aamir Pierce MD Primary Care Provider [phone] Elvia Pat PharmD Unavailable [phone] Reason for Visit * Reason Onset Date Comments Pre-op Visit 04/03/2024 Encounter Details Date Type Department Care Team ([facility] st Contact Info) Description 04/03/[address] [facility] MEDICINE 230 [place], [place] [phone] Name, MD Aamir [address] [place] [address] Pre-op Visit Social History Tobacco Use Types [...] Lasik calling in regards to message prior. Deli/Bakery Associate informed on already scheduled Pre Op visit and also obtained fax number. [facility] fax: [phone]. * Telephone Encounter - Bart Guardado - 04/04/2024 9:25 AM EDT TC placed to pt's daughter Jazmin for scheduling of Pre-op visit . Agreed to 04/[address] Dequan Ewing . Date of Surgery: 05/04 Surgical procedure being done: Cataract (left) Type of anesthesia: General Lab needed: No EKG: No Surgeon's name: Dr Montgomery Facility name: [facility] Surgeon's office number: [phone] Surgeon's office fax number: Contact name: Jazmin (pt daughter) Last office note from surgeon requested: * Telephone Encounter - Susy Stanton - 04/03/2024 12:58 PM EDT Date of Surgery: 05/04 Surgical procedure being done: Cataract (left) Type of anesthesia: General Lab needed: No EKG: No Surgeon's name: Dr Montgomery Facility name: [facility] Surgeon's office number: [phone] Surgeon's office fax number: Contact name: Jazmin (pt daughter) Last office note from surgeon requested: documented in this encounter Plan of Treatment Upcoming Encounters Date Type Department Care Team (Late st Contact Info) Description 07/23/2025 1:30 PM EST Telemedicine [facility] MEDICINE [address] [place] [address] Puia, Elvia, PharmD [address] [place] [address] documented as of this encounter Goals Goal [...] documented as of this encounter Care Teams Equity Structurer Relationship Specialty Start Date End Date Name, MD Aamir [address] [place], [place] [phone] PCP - General Family Medicine 10/25/15 Puia, Elvia, PharmD [address] [place], [place] [phone] Pharmacist Internal Medicine 09/29/23 documented as of this encounter
--- OUTSIDE RECORDS SUMMARY | 2025-07-19 14:53 | XMS_ITS | Encounter Summary ---
Author Organization [employer] Address 75 [facility] 7t [place] [address] Care Team Providers Care Gynecologist Name Role Phone Name, Aamir STANTON Primary Care Provider [phone] Elvia Pat PharmD Unavailable [phone] Reason for Visit * Reason Comments Med Refill Encounter Details Date Type Department Care Team ([facility] st Contact Info) Description 07/17/2025 Refill [facility] MEDICINE 230 [place], [place] [phone] Name, MD Aamir [address] [place] [address] Benign essential hypertension Social History Tobacco Use Types Packs/Day Years [...] 07/23/2025 1:30 PM EST Telemedicine [facility] MEDICINE [address] [place] [address] Puia, Elvia, PharmD [address] [place] [address] documented as of this encounter Goals Goal [...] as of this encounter Visit Diagnoses Diagnosis Benign essential hypertension Essential hypertension, benign documented in this encounter Additional Health Concerns Assessment Noted Time PHQ-9 Depression Total Score: 10 025 9:10 AM EDT documented as of this encounter Care Teams Gynecologist Relationship Specialty Start Date End Date Name, MD Aamir [address] [place] [address] PCP - General Family Medicine 10/25/15 Elvia Pat PharmD [address] [place] [address] Pharmacist Internal Medicine 09/29/23 documented as of this encounter
--- OUTSIDE RECORDS SUMMARY | 2025-07-19 14:53 | XMS_ITS | Encounter Summary ---
Author Organization [employer] Address [address] [facility] [address] [place] [address] Care Team Providers Care Specialist Physicians Name Role Phone Aamir Pierce MD Primary Care Provider [phone] Elvia Pat PharmD Unavailable [phone] Reason for Visit * Reason Onset Date Comments Med Refill 02/14/2025 Encounter Details Date Type Department Care Team ([facility] st Contact Info) Description 02/14/2025 Telephone [facility] MED[facility]INE [address] [place], [place] [phone] Name, MD Aamir [address] [place] [address] Med Refill Social History Tobacco Use Types Packs/Day Years [...] encounter Miscellaneous Notes * Telephone Encounter - nAat Bynum LPN - 02/14/2025 2:21 PM EDT Please review previous message regarding PA denial of Billy 3 * Telephone Encounter - Marli Pascual - 02/14/2025 2:14 PM EDT TC from pt requesting medication refill. Medications needing refill : Continuous Glucose Sensor (FreeStyle Billy 2 Sensor) misc To be sent to: [facility] documented in this encounter Plan of Treatment Upcoming Encounters Date Type Department Care Team (Late st Contact Info) Description 07/23/2025 1:30 PM EST Telemedicine [facility] MED[facility]INE [address] [place], [place] [phone] Elvia Pat, PharmD [address] [place] [address] documented as of this encounter Goals Goal Patient Goal Type Associated Problems Recent Progress Patient-Stated? Author Record your blood pressure once per day & bring log to all appointments Blood Pressure No Elvia Pat, PharmD Blood Pressure < 140/90 Blood Pressure 112/50(2024 12:22 PM EDT) No PuiaLobitoElvia, PharmD Record your blood sugar as directed [...] documented as of this encounter Care Teams Specialist Physicians Relationship Specialty Start Date End Date Name, MD Aamir [address] [place] [address] PCP - General Family Medicine 10/25/15 Elvia Pat, PharmD [address] [place] [address] Pharmacist Internal Medicine 09/29/23 documented as of this encounter
== END 2025-07-19 11:55 | disposition home or self-care (01) ==
LOC: HO.HHCL 11:54
PROVIDERS: PCP Internal Medicine Geriatric Medicine; Visit Provider Internal Medicine Geriatric Medicine
DX: G50.0 Trigeminal neuralgia (principal)
CPT/HCPCS: 36415; 80048

== ENCOUNTER 2025-08-08 14:45 | Outpatient (REF) | payer OTHER, SELFPAY ==
--- NOTE | ~2025-08-08 | CT_ITS ---
EXAMINATION: CT HEAD WITHOUT THEN WITH IV CONTRAST CLINICAL INFORMATION: Left sinded mandibular trigeminal neuralgia COMPARISON: Head CT on July 18, 2021. Brain MRI on July 18, 2021. TECHNIQUE: Contiguous axial imaging was performed from the skull base to vertex before and after the administration of 85 ml of Omnipaque [address] examination was performed using dose optimization techniques as appropriate, variously including the following: *Automated exposure control *Adjustment of mA and/or kV according to patient size (this includes techniques or standardized protocols for targeted exams where dose is matched to indication/reason for exam; i.e. extremities or head) *Use of iterative reconstruction technique FINDINGS: Brain parenchyma: No shift of midline structures, mass effect, evidence of acute territorial infarct or parenchymal hemorrhage. No abnormal parenchymal enhancement following administration of intravenous contrast. Note that the trigeminal nerves are not well seen on CT exam. Ventricles/extra-axial spaces: No masses at prepontine or cerebellopontine angle cisterns. Prominence of the extra-axial CSF spaces along the bifrontal lobes is similar to prior studies. No hydrocephalus. No extra-axial fluid collections. Extracranial structures/skull: Unchanged skin thickening in the frontal scalp. No depressed skull fracture. Paranasal sinuses and mastoid air cells are clear. CT/CT head/brain wo/w IV con IMPRESSION: 1. No acute intracranial pathology. 2. No abnormal parenchymal enhancement. 3. No mass in the prepontine/cerebellopontine angle cisterns. 4. Limited evaluation of the trigeminal nerves. Trigeminal nerves are better evaluated with MR examination. Electronically signed by: Linda Santoro MD 08/08/2025 05:22 PM [facility]
[2025-08-08] MEDS: iohexoL 350 MG/ML 100 ML INFUS..BTL IV (16:22)
--- OUTSIDE RECORDS SUMMARY | 2025-08-08 17:27 | XMS_ITS | Encounter Summary ---
Author Organization [employer] Address [address] [place] [address] Care Team Providers Care Regional Economist Name Role Phone Name, Aamir STANTON Primary Care Provider [phone] Elvia Pat PharmD Unavailable [phone] Reason for Visit * Reason Onset Date Comments Appointment Request 02/15/2025 Encounter Details Date Type Department Care Team ([facility] st Contact Info) Description 02/15/2025 Telephone [facility] MED[facility]INE [address] [place], [place] [phone] Name, MD Aamir [address] [place] [address] Appointment Request Social History Tobacco Use Types [...] Care Team (Late st Contact Info) Description 08/16/2025 11:30 AM EST Telemedicine [facility]INE [address] [place] [phone] Name, MD Aamir [address] [place] [phone] 08/31/2025 11:30 AM EST Medication Management [facility] [address] [place] [phone] Elvia Pat, PharmD [address] [place] [phone] documented as of this encounter Goals Goal [...] Result Component 8.7( 2:39 PM EDT) No AlyssiaiaElvia, PharmD documented as of this encounter Visit Diagnoses Not on filedocumented in this encounter Additional Health Concerns Assessment Noted Time PHQ-9 Depression Total Score: 0 01/31/20 24 1:41 PM EDT documented as of this encounter Care Teams Regional Economist Relationship Specialty Start Date End Date Name, MD Aamir [address] [place] [address] PCP - General Family Medicine 10/25/15 Elvia Pat, PharmD [address] [place] [address] Pharmacist Internal Medicine 09/29/23 documented as of this encounter
--- OUTSIDE RECORDS SUMMARY | 2025-08-08 17:27 | XMS_ITS | Encounter Summary ---
Author Organization [employer] [facility] Address [address] [place] [address] 7[address] [place] [address] Care Team Providers Care Three Dimensional Map Modeler Name Role Phone NameAamir MD Primary Care Provider [phone] Elvia Pat PharmD Unavailable [phone] Reason for Visit * Reason Comments Med Refill Encounter Details Date Type Department Care Team (Late st Contact Info) Description 11/01/2022 Refill [facility] MEDICINE [address] [place] [address] [phone] Name, MD Aamir [address] [place] [phone] Allergic rhinitis, unspecified seasonality, unspecified trigger Social [...] Info) Description 08/16/2025 11:30 AM EST Telemedicine [facility] MEDICINE [address] [place] [address] [phone] Aamir Pierce MD [address] [place] [phone] 08/31/2025 11:30 AM EST Medication Management [facility] MED[facility]INE [address] [place], [place] [phone] Elvia Pat PharmD [address] [place] [address] documented as of this encounter Visit Diagnoses Diagnosis Allergic rhinitis, unspecified seasonality, unspecified trigger documented in this encounter Care Teams Three Dimensional Map Modeler Relationship Specialty Start Date End Date Name, MD Aamir [address] [place] [phone] PCP - General Family Medicine 10/25/15 Elvia Pat PharmD [address] [place] [phone] Pharmacist Internal Medicine 09/29/23 documented as of this encounter
--- OUTSIDE RECORDS SUMMARY | 2025-08-08 17:27 | XMS_ITS | Clinical Summary ---
Author Organization [employer] Address [address] [place] [address] Care Team Providers Care It Investment/Portfolio Manager Name Role Phone Name, Aamir STANTON Primary Care Provider [phone] Elvia Pat PharmD Unavailable [phone] Allergies Active Allergy Reactions Criticality Noted [...] padsIndications: Type 2 diabetes mellitus without complications (HCC) USE DIRECTED BEFORE INJECT INSULIN AND TEST BLOOD SUGAR 8 TIMES DAILY 200 each 08/01/20 25 5:42 PM EST 024 Active Lancets (OneTouch Delica Plus [id number]) miscIndications: Diabetes mellitus type 2, insulin dependent (HCC) Use to test blood sugar up to [...] miscIndications: Diabetes mellitus type 2, insulin dependent (HCC) USE FIVE TIMES DAILY 200 each 025 Active Tirzepatide (Mounjaro) 7.5 MG/0.5ML solution auto-injector Inject 7.5 mg under the skin 1 (one) time per week. 2 mL 025 Active glucose blood (FreeStyle Precision Rudi Test) test stripIndications :Diabetes mellitus type 2, insulin dependent (HCC) Use to test blood sugar up to 3 times daily, as directed 100 each 025 Active busPIRone (Buspar) 5 MG tablet TAKE 1 TABLET BY MOUTH TWICE DAILY 60 tablet 08/01/20 25 5:42 PM EST 025 Active NIFEdipine XL (Procardia XL) 60 MG 24 hr tablet TAKE 1 TABLET BY MOUTH EVERY MORNING DO NOT BREAK, CRUSH, DISSOLVE OR CHEW. 30 tablet 08/01/20 25 5:42 PM EST 025 Active evolocumab (Repatha SureClick) 140 MG/ML injectionIndicat ions:Type 2 diabetes mellitus with other specified complication, with long-term current use of insulin (HCC),Hyperchole sterolemia Inject 1 mL (140 mg) under the skin every 14 (fourteen) days. 2 mL 08/01/20 25 5:42 PM EST 025 Active insulin aspart (NovoLOG FLEXPEN) 100 UNIT/ML penIndications:T ype 2 diabetes mellitus with other specified complication, with long-term current use of insulin ([facility]) INJECT UP TO 30 UNITS SUBCUTANEOUSLY THREE TIMES DAILY BEFORE MEALS 15 mL 2 025 Active Additional Information Patient not taking.Reason: started on Omnipod 07/19/25; should still have access to this RX in case of pod failure. Patient & pharmacy aware, Reported on 07/23/2025 Tresiba FlexTouch 200 UNIT/ML injectionIndicat ions:Type 2 diabetes mellitus with other specified complication, with long-term current use of insulin ([facility]) INJECT 116 UNITS SUBCUTANEOUSLY ONCE DAILY DIRECTED 18 mL 2 08/01/20 5:42 PM EST 025 Active Additional Information Patient not taking.Reason: started on Omnipod 07/19/25; should still have access to this RX in case of pod failure. Patient & pharmacy aware, Reported on 07/23/2025 Continuous Glucose Sensor (FreeStyle Billy 2 Plus Sensor) miscIndications: Type 2 diabetes mellitus with other specified complication, with long-term current use of insulin ([facility]) 1 Device every 15 days. Apply 1 sensor as directed every 15 days for CGM 2 each 08/01/20 5:42 PM EST Active Insulin Disposable Pump (Omnipod 5 Libre2 G6 Intro G5) kitIndications:T ype 2 diabetes mellitus with other specified complication, with long-term current use of insulin (HCC) 1 Device Once per day. Use as directed for insulin administration. One kit = 30 day supply. 1 kit 025 Active Insulin Disposable Pump (Omnipod 5 Libre2 [...] mL = 30d supply. 30 mL 11 025 Active chlorthalidone (Hygroton) 25 MG tabletIndication s:Benign essential hypertension TAKE 1 TABLET BY MOUTH EVERY MORNING 90 tablet 1 08/01/20 25 5:42 PM EST 025 Active gabapentin (Neurontin) 100 MG capsuleIndicatio ns:Trigeminal neuralgia TAKE 1 CAPSULE BY MOUTH THREE TIMES DAILY IN THE MORNING, AT NOON, AND AT BEDTIME 90 capsule 2 08/01/20 25 5:42 PM EST 025 Active Continuous Glucose Chief Concierge (GripeOStyle Billy 3 Ronan) device 1 each Once per day. Use [...] for this minor procedure ,I called her electronic equipment trades worker office to discuss -was told today 04/24/2024 [...] Encounters Date Type Department Care Team Description 07/25/2025 Telephone [facility] [address] [place] [address] NameAamir MD 07/25/2025 Telephone [facility] [address] [place] [address] NameAamir MD Nurse Triage 07/23/2025 1:30 PM EST Telemedicine [facility] [address] [place] [address] Elvia Pat, PharmD Diabetes mellitus type 2, insulin dependent (HCC) (Primary Dx) 07/19/2025 Travel 07/19/2025 Refill [facility] [address] [place] [address] Aamir Pierce MD Trigeminal neuralgia 07/17/2025 Refill [facility] [address] [place] [address] Aamir Pierce MD Benign essential hypertension 07/06/2025 Telephone [facility] [address] [place] [address] Aamir Pierce MD Lab Orders 07/05/2025 Travel 06/26/2025 Refill [facility] [address] [place] [address] Aamir Pierce MD Trigeminal neuralgia 06/20/2025 Telephone [facility] [address] [place] [address] Aamir Pierce MD [facility] received fax 06/17/2025 Refill [facility] [address] [place] [address] Aamir Pierce MD Trigeminal neuralgia 06/13/2025 Telephone [facility] [address] [place] [address] Kwame Ruelas [place] Referral 06/13/2025 Travel 06/13/2025 Refill [facility] [address] [place] [address] Name, MD Aamir Diabetes mellitus type 2, insulin dependent ([facility]) 06/11/2025 Telephone [facility] [address] [place] [address] Elvia Pat PharmD 06/11/2025 Travel 06/04/2025 Refill [facility] [address] [place] [phone] Elvia Pat PharmFlynn Type 2 diabetes mellitus with other specified complication, with long-term current use of insulin ([facility]) 05/25/2025 Refill [facility] [address] [facility] [place] [address] Name, MD Aamir Trigeminal neuralgia from Last 3 Months Immunizations Immunization Administration [...] Info) Description 08/16/2025 11:30 AM EST Telemedicine [facility] [address] [place] [address] Name, MD Aamir [address] [place] [address] 08/31/2025 11:30 AM EST Medication Management [facility] [address] [place] [address] Elvia Pat, PharmD [address] [place] [address] Health Maintenance Due Date Last Done Comments [...] Additional history exists Lipid Panel 03/22/2026 03/22/2025, 06/0 09/2023, 10/05/2023, Additional history exists Alcohol/Substance Use [...] PharmD Blood Pressure < 140/90 Blood Pressure 112/50(07/05 12:22 PM EDT) No Puia, Elvia, PharmD Record your blood sugar as directed Result Component No Puia, Elvia, PharmD Note: Use CGM, ensuring sensor is scanned at least once every 8 hours to capture 24H data. Check BG manually, as directed. Hemoglobin A1c < 7 Result Component 8.7(07/05/20 25 2:39 PM EDT) No Elvia Pat, PharmD Help patients manage their type 2 diabetes Care Plan Help patients manage their type 2 diabetes No Colon Prince, Izabela Weekly blood pressure task Care Plan Weekly blood pressure task No Colon Prince, Izabela Help patients manage their type 2 diabetes Care Plan Help patients manage their type 2 diabetes No Colon Prince, Izabela Patient has diabetic eye disease Care Plan Patient has diabetic eye disease No Colon Prince, Izabela Help patients manage their type 2 diabetes Care Plan Help patients manage their type 2 diabetes No Colon Prince, Izabela Patient has chronic kidney disease Care Plan Patient has chronic kidney disease No Colon Prince, Izabela Help patients manage their type 2 diabetes Care Plan Help patients manage their type 2 diabetes No Colon Prince, Izabela Patient has diabetic neuropathy Care Plan Patient has diabetic neuropathy No Colon Prince, Izabela Weekly blood pressure task Care Plan Weekly blood pressure task No Colon Prince, Izabela Weekly blood pressure task Care Plan Weekly blood pressure task No Colon Prince, Izabela Weekly blood pressure task Care Plan Weekly blood pressure task No Colon Prince, Izabela Patient has diabetic eye disease Care Plan Patient has diabetic eye disease No Colon Prince, Izabela Patient has diabetic eye disease Care Plan Patient has diabetic eye disease No Colon Prince, Izabela Patient has diabetic eye disease Care Plan Patient has diabetic eye disease No Colon Prince, Izabela Patient has chronic kidney disease Care Plan Patient has chronic kidney disease No Colon Prince, Izabela Patient has chronic kidney disease Care Plan Patient has chronic kidney disease No Colon Prince, Izabela Patient has chronic kidney disease Care Plan Patient has chronic kidney disease No Colon Prince, Izabela Patient has diabetic neuropathy Care Plan Patient has diabetic neuropathy No Colon Prince, Izabela Patient has diabetic neuropathy Care Plan Patient has diabetic neuropathy No Colon Prince, Izabela Patient has diabetic neuropathy Care Plan Patient has diabetic neuropathy No Colon Prince, Izabela Weekly blood pressure task Care Plan Weekly blood pressure task No Colon Prince, Izabela Weekly blood pressure task Care Plan Weekly blood pressure task No Colon Prince, Izabela Weekly blood pressure task Care Plan Weekly blood pressure task No Colon Prince, Izabela Weekly blood pressure task Care Plan Weekly blood pressure task No Colon Prince, Izabela Patient has diabetic eye disease Care Plan Patient has diabetic eye disease No Colon Prince, Izabela Patient has diabetic eye disease Care Plan Patient has diabetic eye disease No Colon Prince, Izabela Patient has diabetic eye disease Care Plan Patient has diabetic eye disease No Colon Prince, Izabela Patient has diabetic eye disease Care Plan Patient has diabetic eye disease No Colon Prince, Izabela Patient has chronic kidney disease Care Plan Patient has chronic kidney disease No Colon Prince, Izabela Patient has chronic kidney disease Care Plan Patient has chronic kidney disease No Colon Prince, Izabela Patient has chronic kidney disease Care Plan Patient has chronic kidney disease No Colon Prince, Izabela Patient has chronic kidney disease Care Plan Patient has chronic kidney disease No Colon Prince, Izabela Patient has diabetic neuropathy Care Plan Patient has diabetic neuropathy No Colon Prince, Izabela Patient has diabetic neuropathy Care Plan Patient has diabetic neuropathy No Colon Prince, Izabela Patient has diabetic neuropathy Care Plan Patient has diabetic neuropathy No Colon Prince, Izabela Patient has diabetic neuropathy Care Plan Patient has diabetic neuropathy No Colon Prince, Izabela Procedures Procedure Name Priority Date/Time Associated Diagnosis Comments CT HEAD W AND WO CONTRAST Routine 08/08/2025 3:20 PM EST Trigeminal neuralgia BASIC METABOLIC PANEL Routine 07/19/2025 11:57 AM EST Trigeminal neuralgia POCT GLYCATED HEMOGLOBIN, TOTAL Routine 07/05/2025 2:39 PM EDT Type 2 diabetes mellitus with other specified complication, with long-term current use of insulin ([facility]) ALBUMIN, RANDOM URINE W/CREATININE Routine 03/22/2025 8:40 AM EDT Type 2 diabetes mellitus with other specified complication, with long-term current use of insulin ([facility]/HCC) LIPID PANEL, STANDARD Routine 03/22/2025 8:40 AM EDT BI MAMMOGRAM SCREENING TOMOSYNTHESIS BILATERAL Routine 09/11/2024 2:48 PM EST DIABETES EYE EXAM Routine 12/14/2023 COLONOSCOPY Routine 12/03/2021 from Last 3 Months or Most Recently Relevant to Health Maintenance Results * CT Head w/ and w/o Contrast (08/08/2025 3:20 PM EST) Anatomical Region Laterality Modality Head, Neck Computed Tomogra phy 08/08/2025 3:20 PM EST Narrative 08/08/2025 5:24 PM EST [place] [address] CT Scan Report Signed Patient: Jennifer Patel MR#: [id number] : 1955 Acct:[id number] Age/Sex: 70 / F ADM Date: 08/08/25 Loc: HO.CT Attending Dr: Aamir Pierce MD Ordering Physician: Aamir Pierce MD Date of Service: 08/08/25 Procedure(s): CT head/brain wo/w IV con Accession Number(s): [id number] cc: Aamir Pierce MD Report Number: [id number]: Total DLP = 1520.00 mGy-cm Reason for Exam: Left sinded mandibular trigeminal neuralgia EXAMINATION: CT HEAD WITHOUT THEN WITH IV CONTRAST CLINICAL INFORMATION: Left sinded mandibular trigeminal neuralgia COMPARISON: Head CT on July 18, 2021. Brain MRI on July 18, 2021. TECHNIQUE: Contiguous axial imaging was performed from the skull base to vertex before and after the administration of 85 ml of Omnipaque [address] examination was performed using dose optimization techniques as appropriate, variously including the following: *Automated exposure control *Adjustment of mA and/or kV according to patient size (this includes techniques or standardized protocols for targeted exams where dose is matched to indication/reason for exam; i.e. extremities or head) *Use of iterative reconstruction technique FINDINGS: Brain parenchyma: No shift of midline structures, mass effect, evidence of acute territorial infarct or parenchymal hemorrhage. No abnormal parenchymal enhancement following administration of intravenous contrast. Note that the trigeminal nerves are not well seen on CT exam. Ventricles/extra-axial spaces: No masses at prepontine or cerebellopontine angle cisterns. Prominence of the extra-axial CSF spaces along the bifrontal lobes is similar to prior studies. No hydrocephalus. No extra-axial fluid collections. Extracranial structures/skull: Unchanged skin thickening in the frontal scalp. No depressed skull fracture. Paranasal sinuses and mastoid air cells are clear. CT/CT head/brain wo/w IV con IMPRESSION: 1. No acute intracranial pathology. 2. No abnormal parenchymal enhancement. 3. No mass in the prepontine/cerebellopontine angle cisterns. 4. Limited evaluation of the trigeminal nerves. Trigeminal nerves are better evaluated with MR examination. Electronically signed by: Linda Santoro MD 08/08/2025 05:22 PM [facility] Dictated By: Linda Santoro MD Signed By: <Electronically signed by Linda Santoro MD in OV> 08/08/25 1722 DD/ 1520 TD/TT: 08/08/25 1620 Digital Content Specialist: Procedure Note Donotuseinterpreter, Image - 08/08/[address] [place] [address] [address] Scan Report Signed Patient: Jennifer Patel#: [id number] : 1955cct:[id number] Age/Sex: 70 / FADM Date: 08/08/25 Loc: HO.CT Attending Dr: Aamir Pierce MD Ordering Physician: Aamir Pierce MD Date of Service: 08/08/25 Procedure(s): CT head/brain wo/w IV con Accession Number(s): [id number] cc: Aamir Pierce MD Report Number: [id number]: Total DLP = 1520.00 mGy-cm Reason for Exam: Left sinded mandibular trigeminal neuralgia EXAMINATION: CT HEAD WITHOUT THEN WITH IV CONTRAST CLINICAL INFORMATION: Left sinded mandibular trigeminal neuralgia COMPARISON: Head CT on July 18, 2021. Brain MRI on July 18, 2021. TECHNIQUE: Contiguous axial imaging was performed from the skull base to vertex before and after the administration of 85 ml of Omnipaque [address] examination was performed using dose optimization techniques as appropriate, variously including the following: *Automated exposure control *Adjustment of mA and/or kV according to patient size (this includes techniques or standardized protocols for targeted exams where dose is matched to indication/reason for exam; i.e. extremities or head) *Use of iterative reconstruction technique FINDINGS: Brain parenchyma: No shift of midline structures, mass effect, evidence of acute territorial infarct or parenchymal hemorrhage. No abnormal parenchymal enhancement following administration of intravenous contrast. Note that the trigeminal nerves are not well seen on CT exam. Ventricles/extra-axial spaces: No masses at prepontine or cerebellopontine angle cisterns. Prominence of the extra-axial CSF spaces along the bifrontal lobes is similar to prior studies. No hydrocephalus. No extra-axial fluid collections. Extracranial structures/skull: Unchanged skin thickening in the frontal scalp. No depressed skull fracture. Paranasal sinuses and mastoid air cells are clear. CT/CT head/brain wo/w IV con IMPRESSION: 1. No acute intracranial pathology. 2. No abnormal parenchymal enhancement. 3. No mass in the prepontine/cerebellopontine angle cisterns. 4. Limited evaluation of the trigeminal nerves. Trigeminal nerves are better evaluated with MR examination. Electronically signed by: Linda Santoro MD 08/08/2025 05:22 PM EST Dictated By: Linda Santoro MD Signed By: <Electronically signed by Linda Santoro MD in OV> 08/08/25 1722 DD/ 1520 TD/TT: 08/08/25 1620 Digital Content Specialist: Aamir Pierce MD [facility] CT PROCEDURES Final Result * (ABNORMAL) Basic Metabolic Panel (07/19/2025 11:57 AM EST) Sodium 142 135 - 145 mmol/L [facility] Potassium 4.5 3.3 - 5.1 mmol/L [facility] Chloride 101 96 - 108 mmol/L [facility] Carbon Dioxide 33(H) 22 - 29 mmol/L [facility] Anion Gap 13 12 - 20 [facility] Urea Nitrogen (BUN) 18(H) 9 - 16 mg/dL [facility] Creatinine, Serum 0.65 0.5 - 1.4 mg/dL [facility] Estimated Glomerular Filt Rate >60 [facility] Comment:Chronic Kidney Disea se: Estimated GFR < 60 mL/min/1.88w0Tbaslh Kidney Disease: Estimated GFR < 15 mL/min/1.73m2 Glucose 129(H) 60 - 115 mg/dL [facility] Calcium 9.6 8.4 - 10.2 mg/dL [facility] Blood Venous blood specimen / Unknown 07/19/2025 11:57 AM EST 07/19/2025 1:05 PM EST us Aamir Pierce MD LAB BLOOD ORDERABLES Final Resul t [facility] [address] [place] [phone] * (ABNORMAL) POCT Hgb A1c (07/05/2025 2:39 PM EDT) Hemoglobin A1C 8.7(A) 4.0 - 5.7 % Blood 07/05/2025 2:39 PM EDT us Aamir Pierce MD POINT OF CARE TEST ENTER/EDIT OR DERABLES Final Result * Albumin, Random Urine W/Creatinine (03/22/2025 8:40 AM EDT) Creatinine, Urine 67.05 mg/dL [facility] Microalbumin Urine 10.0 mg/L [facility] Microalbum Creatinine Ratio Ur 14.9 <30 ug/mg cr [facility] Comment:Albumin/Creatinine R atio Reference Ranges: Normal: < 30 ug/mg creatinine Microalbuminuria: 30 - 300 ug/mg creatinineClinical Albuminuria: > 300 ug/mg creatinine Urine (Urine, Random) 03/22/2025 8:40 AM EDT 03/22/2025 11:31 AM EDT us Aamir Pierce MD LAB URINE ORDERABLES Final Resul t Performing Organization Address [facility] de Phone Number [facility] [address] [place] [phone] * (ABNORMAL) Lipid Panel, Standard (03/22/2025 8:40 AM EDT) Triglycerides 193(H) <150 mg/dL [facility] Comment:Desirable Triglyceri de: less than 150 mg/dLBorderline High Triglyceride 150-199 mg/dLHigh Triglyceride: 200-499 mg/dLVery High Triglyceride: greater than or equal to 5OO mg/dL Cholesterol 243(H) <200 mg/dL [facility] Comment:Desirable Cholestero l: less than 200 mg/dLBorderline High Cholesterol: 200-239 mg/dLHigh Cholesterol: greater than 239 mg/dL LDL Cholesterol Calculated 158(H) <100 mg/dL [facility] Comment:Desirable LDL: less than 100 mg/dLNear Optimal/Above Optimal LDL: 110- 129 mg/dLBorderline High LDL: 130-159 mg/dLHigh LDL: 160-189 mg/dLVery High LDL: greater than or equal to 190 mg/dL HDL Cholesterol 47 >40 mg/dL [facility] Comment:Desirable HDL: great er than 40 mg/dL Note: This HDL assay may give artificially low results in patients with liver disease. 03/22/2025 8:40 AM EDT 03/22/2025 12:29 PM EDT us Aamir Pierce MD LAB BLOOD ORDERABLES Final Resul t Performing Organization Address [facility] Co de Phone Number [facility] [address] [place] [phone] * BI Mammogram Screening Tomosynthesis Bilateral (09/11/2024 2:48 PM EST) Anatomical Region Laterality Modality Breast Bilateral Mammography 09/11/2024 2:48 PM EST Narrative 09/23/2024 4:09 PM EST [facility] [address] [place] [address] [place] [address] Mammography Report Signed with Addenda Patient: Jennifer Patel MR#: [id number] : 1955 Acct:[id number] Age/Sex: 69 / F ADM Date: 09/11/24 Loc: HO.MAMMO Attending Dr: Aamir Pierce MD Ordering Physician: Aamir Pierce MD Results: 2Benign Fi ndings Date of Service: 09/11/24 Follow Up: 1 Year From Orig inal Mammogram Procedure(s): MM tomosynthesis screening BI Accession Number(s): [id number] cc: Aamir Pierce MD ADDENDUM ADDENDUM #1 [...] 09/23/24 1606 DD/ 1448 TD/TT: 09/11/24 1510 Digital Content Specialist: Procedure Note Donotuseinterpreter, Image - 10/09/2024 [facility] [address] [place], [place] [address] Mammography Report Signed with Addenda Patient: Jennifer Patel#: [id number] : 1955cct:[id number] Age/Sex: 69 / FADM Date: 09/11/24 Loc: HO.MAMMO Attending Dr: Aamir Pierce MD Ordering Physician: Aamir Pierce MDResults: 2Benign Fi ndings Date of Service: 09/11/24Follow Up: 1 Year From Orig inal Mammogram Procedure(s): MM tomosynthesis screening BI Accession Number(s): [id number] cc: Aamir Pierce MD ADDENDUM ADDENDUM #1 [...] by: Aide Means DO 09/23/2024 04:06 PM [facility] Dictated By: Aide Means DO Signed By: <Electronically signed by Aide Means DO in OV> 09/23/24 1606 DD/ TD/TT: 09/11/24 1510 Digital Content Specialist: us Aamir Pierce MD IMG BI PROCEDURES Edited Result - Final * Diabetes Eye Exam (12/14/2023) Eye Exam Normal Normal, BIRADS 0 , BIRADS 1 , BIRADS 2, BIRADS 3 , BIRADS 4+ us Aamir Pierce MD HEALTH MAINTENANCE Final Result * Colonoscopy (12/03/2021) Colonoscopy Normal Normal Narrative Nhi Ramos - 12/03/2021 Repeat colonoscopy in 1-2 years us Historical Provider HEALTH MAINTENANCE Final Result from Last 3 Months or Most Recently Relevant to Health Maintenance Additional Health Concerns Active Problems Noted Date Diagnosed Date Help patients manage their type 2 diabetes 07/25 Weekly blood pressure task 07/25/2025 Help patients manage their type 2 diabetes 07/25 Patient has diabetic eye disease 07/25/2025 Help patients manage their type 2 diabetes 07/25 Patient has chronic kidney disease 07/25/2025 Help patients manage their type 2 diabetes 07/25 Patient has diabetic neuropathy 07/25/2025 Weekly blood pressure task 07/25/2025 Weekly blood pressure task 07/25/2025 Weekly blood pressure task 07/25/2025 Patient has diabetic eye disease 07/25/2025 Patient has diabetic eye disease 07/25/2025 Patient has diabetic eye disease 07/25/2025 Patient has chronic kidney disease 07/25/2025 Patient has chronic kidney disease 07/25/2025 Patient has chronic kidney disease 07/25/2025 Patient has diabetic neuropathy 07/25/2025 Patient has diabetic neuropathy 07/25/2025 Patient has diabetic neuropathy 07/25/2025 Weekly blood pressure task 07/25/2025 Weekly blood pressure task 07/25/2025 Weekly blood pressure task 07/25/2025 Weekly blood pressure task 07/25/2025 Patient has diabetic eye disease 07/25/2025 Patient has diabetic eye disease 07/25/2025 Patient has diabetic eye disease 07/25/2025 Patient has diabetic eye disease 07/25/2025 Patient has chronic kidney disease 07/25/2025 Patient has chronic kidney disease 07/25/2025 Patient has chronic kidney disease 07/25/2025 Patient has chronic kidney disease 07/25/2025 Patient has diabetic neuropathy 07/25/2025 Patient has diabetic neuropathy 07/25/2025 Patient has diabetic neuropathy 07/25/2025 Patient has diabetic neuropathy 07/25/2025 Insurance [facility] [employer] (O D-SNP) [place]OW[place] [id number] Care Teams It Investment/Portfolio Manager Relationship Specialty Start Date End Date Name, MD Aamir [address] [place] [address] PCP - General Family Medicine 10/25/15 Elvia Pat PharmD [address] [place] [address] Pharmacist Internal Medicine 09/29/23
--- OUTSIDE RECORDS SUMMARY | 2025-08-08 17:27 | XMS_ITS | Encounter Summary ---
Author Organization [employer] Address 75 [facility] 7t [place] [address] Care Team Providers Care Leaf Conditioner Helper Name Role Phone Aamir Pierce MD Primary Care Provider [phone] Elvia Pat PharmD Unavailable [phone] Reason for Visit * Reason Onset Date Comments Med Refill 02/14/2025 Encounter Details Date Type Department Care Team ([facility] st Contact Info) Description 02/14/2025 Telephone [facility] MEDICINE 230 [place], [place] [phone] Name, MD Aamir 230 [place] [address] Med Refill Social History Tobacco Use Types [...] encounter Miscellaneous Notes * Telephone Encounter - Anat Bynum LPN - 02/14/2025 2:21 PM EDT Please review previous message regarding PA denial of Billy 3 * Telephone Encounter - Marli Pascual - 02/14/2025 2:14 PM EDT TC from pt requesting medication refill. Medications needing refill : Continuous Glucose Sensor (FreeStyle Billy 2 Sensor) misc To be sent to: [facility] documented in this encounter Plan of Treatment Upcoming Encounters Date Type Department Care Team (Late st Contact Info) Description 08/16/2025 11:30 AM EST Telemedicine [address] [address] Name, MD Aamir [address] [place] [address] 08/31/2025 11:30 AM EST Medication Management [address] [address] Elvia Pat, PharmD 230 [place] [address] documented as of this encounter Goals Goal Patient Goal Type Associated Problems Recent Progress Patient-Stated? Author Record your blood pressure once per day & bring log to all appointments Blood Pressure No PuiaLobitoElvia, PharmD Blood Pressure < 140/90 Blood Pressure 112/50(2024 12:22 PM EDT) No PuLobito medranoyssa, PharmD Record your blood sugar as directed Result Component No PuLobito medranoyssa, PharmD Note: Use CGM, ensuring sensor is [...] documented as of this encounter Care Teams Leaf Conditioner Helper Relationship Specialty Start Date End Date Name, MD Aamir 230 [place] [address] PCP - General Family Medicine 10/25/15 Elvia Pat, PharmD 230 [place] [address] Pharmacist Internal Medicine 09/29/23 documented as of this encounter
--- OUTSIDE RECORDS SUMMARY | 2025-08-08 17:27 | XMS_ITS | Encounter Summary ---
Author Organization [employer] Address 75 [facility] 7t [place] [address] Care Team Providers Care Produce Department Manager Name Role Phone Name, Aamir STANTON Primary Care Provider [phone] Elvia Pat PharmD Unavailable Encounter Details Date Type Department Care Team (Late st Contact Info) Description 05/13/2023 Abstract [facility] MEDICINE [address] [place] [address] [phone] NameAamir MD [address] [place] [address] [phone] Social History Tobacco Use Types Packs/Day Years [...] Info) Description 08/16/2025 11:30 AM EST Telemedicine [facility] MEDICINE [address] [place] [address] [phone] Aamir Pierce MD [address] [place] [address] [phone] 08/31/2025 11:30 AM EST Medication Management [facility] MEDICINE 230 [place] [address] Elvia Pat PharmD 230 [place] [address] documented as of this encounter Visit Diagnoses Not on filedocumented in this encounter Additional Health Concerns Assessment Noted Time PHQ-9 Depression Total Score: 9 03/22/20 23 2:40 PM EDT documented as of this encounter Care Teams Produce Department Manager Relationship Specialty Start Date End Date Name, MD Aamir 230 [place] [address] PCP - General Family Medicine 10/25/15 Elvia Pat, Pat 230 [place], [place] [phone] Pharmacist Internal Medicine 09/29/23 documented as of this encounter
--- OUTSIDE RECORDS SUMMARY | 2025-08-08 17:27 | XMS_ITS | Encounter Summary ---
Author Organization [employer] Address 75 [facility] 7t [place] [address] Care Team Providers Care Preventive Maintenance Coordinator Name Role Phone Name, Aamir STANTON Primary Care Provider [phone] Elvia Pat PharmD Unavailable [phone] Reason for Visit * Reason Comments Med Refill Encounter Details Date Type Department Care Team ([facility] Contact Info) Description 08/07/2023 Refill [facility] MEDICINE 230 [place], [place] [phone] Name, MD Aamir 230 [place] [address] Allergic rhinitis, unspecified seasonality, unspecified trigger Social [...] Info) Description 08/16/2025 11:30 AM EST Telemedicine [address] [address] NameAamir MD [address] [place] [address] 08/31/2025 11:30 AM EST Medication Management [address] [address] Elvia Pat PharmD [address] [place] [address] documented as of this encounter Visit Diagnoses Diagnosis Allergic rhinitis, unspecified seasonality, unspecified trigger documented in this encounter Additional Health Concerns Assessment Noted Time PHQ-9 Depression Total Score: 9 03/22/20 23 2:40 PM EDT documented as of this encounter Care Teams Preventive Maintenance Coordinator Relationship Specialty Start Date End Date NameAamir MD [address] [place] [address] PCP - General Family Medicine 10/25/15 Elvia Pat PharmD [address] [place] [address] Pharmacist Internal Medicine 09/29/23 documented as of this encounter
--- OUTSIDE RECORDS SUMMARY | 2025-08-08 17:27 | XMS_ITS | Encounter Summary ---
Author Organization [employer] Address [address] [facility] [address] 7t [place] [address] Care Team Providers Care Hand Candy Dipper Name Role Phone Name, Aamir STANTON Primary Care Provider [phone] Elvia Pat PharmD Unavailable [phone] Encounter Details Date Type Department Care Team ([facility] st Contact Info) Description 07/30/2023 Abstract [facility] MEDICINE 230 [place] [address] Nhi Ramos Social History Tobacco Use Types [...] Info) Description 08/16/2025 11:30 AM EST Telemedicine [address] [address] Name, MD Aamir [address] [place] [address] 08/31/2025 11:30 AM EST Medication Management [address] [phone] Elvia Pat PharmD [address] [place] [address] documented as of this encounter Procedures Procedure [...] documented as of this encounter Care Teams Hand Candy Dipper Relationship Specialty Start Date End Date Name, MD Aamir [address] [place] [address] PCP - General Family Medicine 10/25/15 Elvia Pat, PharmD [address] [place] [address] [phone] Pharmacist Internal Medicine 09/29/23 documented as of this encounter
--- OUTSIDE RECORDS SUMMARY | 2025-08-08 17:27 | XMS_ITS | Encounter Summary ---
Author Organization [employer] Address 75 [facility] 7t [place] [address] Care Team Providers Care Video Editing Intern Name Role Phone Name, Aamir STANTON Primary Care Provider [phone] Elvia Pat PharmD Unavailable [phone] Reason for Visit * Reason Comments Med Refill Encounter Details Date Type Department Care Team ([facility] Contact Info) Description 04/21/2024 Refill [facility] MEDICINE 230 [place], [place] [phone] Name, MD Aamir 230 [place] [address] Allergic rhinitis, unspecified seasonality, unspecified trigger Social [...] Info) Description 08/16/2025 11:30 AM EST Telemedicine [address] [address] Name, MD Aamir [address] [place] [address] 08/31/2025 11:30 AM EST Medication Management [address] [address] PuiaLobitoElvia, PharmD [address] [place] [address] documented as of this encounter Goals Goal [...] documented as of this encounter Care Teams Video Editing Intern Relationship Specialty Start Date End Date Name, MD Aamir 230 [place] [address] PCP - General Family Medicine 10/25/15 Elvia Pat PharmD 230 [place] [address] Pharmacist Internal Medicine 09/29/23 documented as of this encounter
--- OUTSIDE RECORDS SUMMARY | 2025-08-08 17:27 | XMS_ITS | Encounter Summary ---
Author Organization [employer] Address 75 [facility] 7t [place] [address] Care Team Providers Care Analysis Specialist Name Role Phone Name, Aamir STANTON Primary Care Provider Elvia Pat PharmD Unavailable [phone] Reason for Visit * Reason Comments Med Refill Encounter Details Date Type Department Care Team ([facility] st Contact Info) Description 06/17/2025 Refill [facility] MEDICINE 230 [place], [place] [phone] Name, MD Aamir 230 [place] [address] Trigeminal neuralgia Social History Tobacco Use Types [...] Info) Description 08/16/2025 11:30 AM EST Telemedicine [address] [address] Name, MD Aamir [address] [place] [address] 08/31/2025 11:30 AM EST Medication Management [address] [address] Puia, Elvia, PharmD [address] [place] [address] documented as of this encounter Goals Goal [...] directed. Hemoglobin A1c < 7 Result Component 8.7(10/23/202 5 2:39 PM EDT) No Elvia Pat, PharmD documented as of this encounter Visit Diagnoses Diagnosis Trigeminal neuralgia documented in this encounter Additional Health Concerns Assessment Noted Time PHQ-9 Depression Total Score: 10 025 9:10 AM EDT documented as of this encounter Care Teams Analysis Specialist Relationship Specialty Start Date End Date Name, MD Aamir 230 [place] [address] PCP - General Family Medicine 10/25/15 Elvia Pat, PharmD 230 [place] [address] Pharmacist Internal Medicine 09/29/23 documented as of this encounter
--- OUTSIDE RECORDS SUMMARY | 2025-08-08 17:27 | XMS_ITS | Encounter Summary ---
Author Organization [employer] Address 75 [facility] 7t [place] [address] Care Team Providers Care Hat Marker Name Role Phone Name, Aamir STANTON Primary Care Provider [phone] Elvia Pat PharmD Unavailable [phone] Encounter Details Date Type Department Care Team ([facility] Contact Info) Description 01/21/[address] [phone] Name, MD Aamir [address] [place] [address] Social History Tobacco Use Types Packs/Day Years [...] Upcoming Encounters Date Type Department Care Team ([facility] Contact Info) Description 08/16/2025 11:30 AM EST Telemedicine [facility] MEDICINE [address] [place] [address] Name, MD Aamir [address] [place] [address] 08/31/2025 11:30 AM EST Medication Management [facility] MEDICINE 230 [place], [place] [phone] Elvia Pat, Pat 230 [place] [address] documented as of this encounter Procedures Procedure Name Priority Date/Time Associated Diagnosis Comments COLONOSCOPY Routine 05/17/2018 documented in this encounter Results * Colonoscopy (05/17/2018) Colonoscopy Normal Normal 05/17/2018 Nhi Perez - 05/17/2018 4:16 PM EDT Recommended 10 year follow up ([facility]) Historical Provider HEALTH MAINTENANCE Final Result documented in this encounter Visit Diagnoses Not on filedocumented in this encounter Care Teams Hat Marker Relationship Specialty Start Date End Date Name, MD Aamir [address] [place] [address] [phone] PCP - General Family Medicine 10/25/15 Elvia Pat, AneudyD [address] [place] [address] [phone] Pharmacist Internal Medicine 09/29/23 documented as of this encounter
--- OUTSIDE RECORDS SUMMARY | 2025-08-08 17:27 | XMS_ITS | Encounter Summary ---
Author Organization [employer] Address 75 [facility] 7t [place] [address] Care Team Providers Care Shale Miner Name Role Phone Name, Aamir STANTON Primary Care Provider Elvia Pat PharmD Unavailable [phone] Reason for Visit * Reason Onset Date Comments Nurse Triage 07/25/2025 Encounter Details Date Type Department Care Team ([facility] st Contact Info) Description 07/25/2025 Telephone [facility] MEDICINE 230 [place], [place] [phone] Name, MD Aaimr 230 [place] [address] Nurse Triage Social History Tobacco Use Types Packs/Day Years [...] encounter Miscellaneous Notes * Telephone Encounter - Izabela Prince - 07/25/2025 11:21 AM EST Symptom: High Blood Sugar - Caller Reports Outcome: Schedule an urgent appointment (within 1 hour) or talk to a nurse or provider soon Reason: Getting worse The caller accepted this outcome. 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 documented in this encounter Plan of Treatment Upcoming Encounters Date Type Department Care Team (Late st Contact Info) Description 08/16/2025 11:30 AM EST Telemedicine [facility] MEDICINE [address] [place] [address] Name, MD Aamir [address] [place] [address] 08/31/2025 11:30 AM EST Medication Management [facility] MEDICINE [address] [place] [address] Elvia Pat, PharmD [address] [place] [address] documented as of this encounter Goals Goal Patient Goal Type Associated Problems Recent Progress Patient-Stated? Author Record your blood pressure once per day & bring log to all appointments Blood Pressure No Elvia Pat, PharmD Blood Pressure < 140/90 Blood Pressure 112/50(07/05 12:22 PM EDT) No Elvia Pat, PharmD Record your blood sugar as directed Result Component No Elvia Pat PharmD Note: Use CGM, ensuring sensor is scanned at least once every 8 hours to capture 24H data. Check BG manually, as directed. Hemoglobin A1c < 7 Result Component 8.7(07/05/20 2:39 PM EDT) No Elvia Pat, PharmD Help patients manage their type 2 diabetes Care Plan Help patients manage their type 2 diabetes No Izabela Shore Weekly blood pressure task Care Plan Weekly blood pressure task No Colon Suresh Izabela Help patients manage their type 2 diabetes Care Plan Help patients manage their type 2 diabetes No Colon Suresh Izabela Patient has diabetic eye disease Care Plan Patient has diabetic eye disease No Colon Suresh Izabela Help patients manage their type 2 diabetes Care Plan Help patients manage their type 2 diabetes No Colon Suresh Izabela Patient has chronic kidney disease Care Plan Patient has chronic kidney disease No Colon Suresh Izabela Help patients manage their type 2 diabetes Care Plan Help patients manage their type 2 diabetes No Colon Suresh Izabela Patient has diabetic neuropathy Care Plan Patient has diabetic neuropathy No Colon Suresh Izabela Weekly blood pressure task Care Plan Weekly blood pressure task No Colon Suresh Izabela Weekly blood pressure task Care Plan Weekly blood pressure task No Colon Suresh Izabela Weekly blood pressure task Care Plan Weekly blood pressure task No Colon Suresh Izabela Patient has diabetic eye disease Care Plan Patient has diabetic eye disease No Colon Suresh Izabela Patient has diabetic eye disease Care Plan Patient has diabetic eye disease No Colon Suresh Izabela Patient has diabetic eye disease Care Plan Patient has diabetic eye disease No Colon Suresh Izabela Patient has chronic kidney disease Care Plan Patient has chronic kidney disease No Colon Suresh Izabela Patient has chronic kidney disease Care Plan Patient has chronic kidney disease No Colon Prince, Izabela Patient has chronic kidney disease Care Plan Patient has chronic kidney disease No Colon Prince, Izabela Patient has diabetic neuropathy Care Plan Patient has diabetic neuropathy No Colon Suresh, Izabela Patient has diabetic neuropathy Care Plan Patient has diabetic neuropathy No Colon Prince, Izabela Patient has diabetic neuropathy Care Plan Patient has diabetic neuropathy No Colon Suresh Izabela Weekly blood pressure task Care Plan Weekly blood pressure task No Colon Suresh Izabela Weekly blood pressure task Care Plan Weekly blood pressure task No Colon Suresh Izabela Weekly blood pressure task Care Plan Weekly blood pressure task No Colon Suresh Izabela Weekly blood pressure task Care Plan Weekly blood pressure task No Colon Suresh Izabela Patient has diabetic eye disease Care Plan Patient has diabetic eye disease No Colon Suresh, Izabela Patient has diabetic eye disease Care Plan Patient has diabetic eye disease No Colon Suresh Izabela Patient has diabetic eye disease Care Plan Patient has diabetic eye disease No Colon Ann Princela Patient has diabetic eye disease Care Plan Patient has diabetic eye disease No Colon Suresh Izabela Patient has chronic kidney disease Care Plan Patient has chronic kidney disease No Colon Suresh, Izabela Patient has chronic kidney disease Care Plan Patient has chronic kidney disease No Colon Suresh, Izabela Patient has chronic kidney disease Care Plan Patient has chronic kidney disease No Colon Suresh, Izabela Patient has chronic kidney disease Care Plan Patient has chronic kidney disease No Colon Suresh Izabela Patient has diabetic neuropathy Care Plan Patient has diabetic neuropathy No Colon Suresh Izabela Patient has diabetic neuropathy Care Plan Patient has diabetic neuropathy No Colon Suresh, Izabela Patient has diabetic neuropathy Care Plan Patient has diabetic neuropathy No Colon Suresh, Izabela Patient has diabetic neuropathy Care Plan Patient has diabetic neuropathy No Colon Ann Princela documented as of this encounter Visit Diagnoses Not on filedocumented in this encounter Additional Health Concerns Active Problems Noted Date [...] neuropathy 07/25/2025 Patient has diabetic neuropathy 07/25/2025 Assessment Noted Time PHQ-9 Depression Total Score: 10 025 9:10 AM EDT documented as of this encounter Care Teams Shale Miner Relationship Specialty Start Date End Date Name, MD Aamir 230 [place] [address] PCP - General Family Medicine 10/25/15 Elvia Pat PharmD 230 [place] [address] Pharmacist Internal Medicine 09/29/23 documented as of this encounter
--- OUTSIDE RECORDS SUMMARY | 2025-08-08 17:28 | XMS_ITS | Encounter Summary ---
Author Organization [employer] Address 75 [facility] 7t [place] [address] Care Team Providers Care Double Ending Machine Operator Name Role Phone Aamir Pierce MD Primary Care Provider Elvia Pat PharmD Unavailable Reason for Visit * Reason Onset Date Comments Pre-op Visit 04/03/2024 Encounter Details Date Type Department Care Team ([facility] st Contact Info) Description 04/03/2024 Telephone [facility] MEDICINE 230 [place], [place] [phone] Name, MD Aamir 230 [place] [address] Pre-op Visit Social History Tobacco Use Types [...] Lasik calling in regards to message prior. Sealing Machine Operator informed on already scheduled Pre Op visit and also obtained fax number. [facility] fax: [phone]. * Telephone Encounter - Bart Guardado - 04/04/2024 9:25 AM EDT TC placed to pt's daughter Jazmin for scheduling of Pre-op visit . Agreed to 04/[address] Dequan Ewing . Date of Surgery: 05/04 Surgical procedure being done: Cataract (left) Type of anesthesia: General Lab needed: No EKG: No Surgeon's name: Dr Montgomery Facility name: [facility] Surgeon's office number: [phone] Surgeon's office fax number: Contact name: Jazmin (pt daughter) Last office note from surgeon requested: * Telephone Encounter - Susy Stanton - 04/03/2024 12:58 PM EDT Date of Surgery: 05/04 Surgical procedure being done: Cataract (left) Type of anesthesia: General Lab needed: No EKG: No Surgeon's name: Dr Montgomery Facility name: [facility] Surgeon's office number: [phone] Surgeon's office fax number: Contact name: Jazmin (pt daughter) Last office note from surgeon requested: documented in this encounter Plan of Treatment Upcoming Encounters Date Type Department Care Team (Late st Contact Info) Description 08/16/2025 11:30 AM EST Telemedicine [address] [address] Name, MD Aamir [address] [place] [address] 08/31/2025 11:30 AM EST Medication Management [address] [address] Puia, Elvia, PharmD [address] [place] [address] documented as of this encounter Goals Goal [...] documented as of this encounter Care Teams Double Ending Machine Operator Relationship Specialty Start Date End Date Name, MD Aamir [address] [place] [address] PCP - General Family Medicine 10/25/15 Elvia Pat, Pat [address] [place] [address] Pharmacist Internal Medicine 09/29/23 documented as of this encounter
--- OUTSIDE RECORDS SUMMARY | 2025-08-08 17:28 | XMS_ITS | Encounter Summary ---
Author Organization [employer] Address 75 [facility] 7t [place] [address] Care Team Providers Care Wind Project Manager Name Role Phone Name, Aamir STANTON Primary Care Provider [phone] Elvia Pat PharmD Unavailable [phone] Reason for Visit * Reason Onset Date Comments Pre OP 01/13/2024 Encounter Details Date Type Department Care Team ([facility] st Contact Info) Description 01/13/2024 Telephone [facility] MEDICINE 230 [place], [place] [phone] Name, MD Aamir 230 [place], [place] [phone] Pre OP Social History Tobacco Use Types [...] Montgomery Facility name: [facility] Surgeon's office number: [phone] ext [facility] Surgeon's office fax number: [phone] Contact name (person you spoke with): Rosalind Last office note from surgeon requested: no documented in this encounter Plan of Treatment Upcoming Encounters Date Type Department Care Team ([facility] st Contact Info) Description 08/16/2025 11:30 AM EST Telemedicine [facility] MEDICINE [address] [place] [address] Name, MD Aamir 230 [place] [address] 08/31/2025 11:30 AM EST Medication Management [facility] MEDICINE 230 [place] [address] Elvia Pat PharmD 230 [place] [address] documented as of this encounter Goals Goal [...] documented as of this encounter Care Teams Wind Project Manager Relationship Specialty Start Date End Date Name, MD Aamir [address] [place] [address] PCP - General Family Medicine 10/25/15 Elvia Pat, PharmD [address] [place] [address] Pharmacist Internal Medicine 09/29/23 documented as of this encounter
== END 2025-08-08 14:46 | disposition home or self-care (01) ==
LOC: HO.CT 14:45
PROVIDERS: PCP Internal Medicine Geriatric Medicine; Visit Provider Internal Medicine Geriatric Medicine
DX: G50.0 Trigeminal neuralgia (principal)
CPT/HCPCS: 70470; Q9967

== ENCOUNTER → 2025-08-08 14:48 | Outpatient (BNV) | payer OTHER, SELFPAY | PROVIDERS: PCP Internal Medicine Geriatric Medicine; Visit Provider Radiology Body Imaging | DX: G50.0 Trigeminal neuralgia (principal) | CPT/HCPCS: 70470 ==

== ENCOUNTER 2025-08-20 13:23 | Outpatient (REF) | payer OTHER, SELFPAY ==
--- NOTE | ~2025-08-20 | XR_ITS ---
EXAMINATION: XR CERVICAL SPINE CLINICAL INFORMATION: Chronic neck pain and bilateral arm radicular pain COMPARISON: None available. TECHNIQUE: AP, oblique, lateral and atlantoodontoid views. Swimmer's projection. FINDINGS: Craniocervical junction is intact. Marginal osteophyte formation and endplate sclerosis and decreased intervertebral disc height C5-6. No acute cortical disruption or malalignment. No lytic or blastic lesions. Left neuroforamina narrowing at C3-4 and likely C5-6. Right neuroforamina narrowing C5-6 and C6-7. Upper airways patent. . XR/XR cervical spine 5V IMPRESSION: Multilevel cervical spondylosis pronounced at C5-6. Left neuroforamina narrowing on a degenerative basis at C3-4 and C5-6 levels and right C5-6 and C6-7 levels. Electronically signed by: Misael Machado MD 08/20/2025 03:22 PM [facility]
[2025-08-20 14:45] LABS: MANUAL DIFF FLAG NO
[2025-08-20 15:32] LABS: Hematocrit 39.7 % (37.0-47.0); Hemoglobin 12.9 g/dl (12.0-16.0); Imm Gran Abs Auto 0.02 X10*3/uL (0.00-0.03); Imm Gran Pct Auto 0.3 % (0.0-0.4); Lymphocytes Absolute Auto 1.4 X10*3/uL (1.2-4.9); Mean Corpuscular HGB Conc 32.5 g/dl (31.0-35.0); Mean Corpuscular Hemoglobin 29.1 pg (27.0-33.0); Mean Corpuscular Volume 89.4 fL (80.0-98.0); NRBC Abs Auto 0.000 X10*3/uL (0.0-0.012); NRBC Pct Auto 0.0 /100WBC (0.0-0.2); Platelet Count 336 X10*3/uL (160-400); Red Blood Count 4.44 X10*6/uL (4.20-5.50); White Blood Count 6.6 X10*3/uL (4.8-10.8)
[2025-08-20 16:23] LABS: NT Pro B Type Natriuretic Pept 96.6 pg/mL (<300)
[2025-08-20 16:50] LABS: Iron 71 mcg/dL (30-160); Percent Iron Saturation 27 % (15-50); Total Iron Binding Capacity 261 mcg/dL (228-428); Unsaturated Iron Binding 190 ug/dL
[2025-08-20 17:13] LABS: Ferritin 156 ng/mL (10-250)
== END 2025-08-20 13:24 | disposition home or self-care (01) ==
LOC: HO.XRAY 13:23
PROVIDERS: Absent Provider Internal Medicine Geriatric Medicine; PCP Internal Medicine Geriatric Medicine; Visit Provider Internal Medicine Cardiovascular Disease
DX: I10 Essential (primary) hypertension (principal); M54.2 Cervicalgia; M54.12 Radiculopathy, cervical region; I08.0 Rheumatic disorders of both mitral and aortic valves; R06.09 Other forms of dyspnea; Z95.0 Presence of cardiac pacemaker; Z13.0 Encounter for screening for diseases of the blood and blood-forming organs and certain disorders involving the immune mechanism
CPT/HCPCS: 36415; 72050; 82728; 83540; 83880; 85025; 93005; 93280; 99212

== ENCOUNTER 2025-08-20 13:23 | Outpatient (AMB) | payer OTHER, SELFPAY ==
--- OUTSIDE RECORDS SUMMARY | 2025-08-15 11:30 | XMS_ITS | Encounter Summary ---
Author Organization [employer] Address [address] [place] [address] 7t [place] [address] Care Team Providers Care Microelectronics Engineer Name Role Phone Aamir Pierce MD Primary Care Provider [phone] Elvia Pat PharmD Unavailable [phone] Reason for Referral * Neurology (Routine) - Authorized Specialty Diagnoses / Procedures Referred By Contac t Referred To Contact Diagnoses Cervical radiculopathy Procedures Nerve conduction test NameAamir MD [address] [place], [place] Phone: tel: fax: [address] [address] Phone: tel: fax: Referral ID Status Reason Start Date Expiration Date V isits Requested Visits Authorized [id number] Authorized 08/15/2025 08/15/2026 1 1 * Neurology (Routine) - Authorized Specialty Diagnoses / Procedures Referred By Contac t Referred To Contact Diagnoses Cervical radiculopathy Procedures EMG NameAamir MD [address] [place] [address] Phone: tel: fax: [address] [address] Phone: tel: fax: Referral ID Status Reason Start Date Expiration Date V isits Requested Visits Authorized [id number] Authorized 08/15/2025 08/15/2026 1 1 Reason for Visit * Reason Comments Follow-up Encounter Details Date Type Department Care Team (Latest Contact Info) Description 08/15/2025 11:30 AM EST Telemedicine [facility] [address] [facility] [place] [address] Name, MD Aamir [address] [place] [address] Neck pain, musculoskeletal (Primary Dx); Cervical radiculopathy Social History Tobacco Use Types Packs/Day Years [...] AM EDT documented as of this encounter Progress Notes * Aamir Pierce MD - 08/15/2025 11:30 AM EST Subjective Patient ID: Jennifer Sánchez is a 70 y.o. female who presents for Follow-up. I called the patient to go over the results of recent CT scan of the head done for workup of symptoms of trigeminal neuralgia. CT scan of the head is unremarkable. She denies significant jaw pain at the moment and she only used gabapentin I prescribed for her a couple of times because the medication made her dizzy. Today she has different complaints. She complains of several weeks of neck pain, she also described pain radiating to the arms associated with arm paresthesias and pain. She denies much arm weakness. Her blood sugar has been much better since she started using OmniPod and she is congratulated. Review of Systems Musculoskeletal: Positive for neck pain. Neurological: Negative for weakness. Objective Physical Exam Vitals reviewed: Televisit audio only. Assessment/Plan Diagnoses and all orders for this visit: Neck pain, musculoskeletal Comments: I suspect her symptoms are secondary to cervical spine DJD and cervical radiculopathy. Unfortunately she cannot have an MRI because she has a pacemaker in place. I recommended evaluation with cervical spine x-ray, nerve conduction studies, course of Celebrex and baclofen for pain, follow-up after nerve conduction studies are done. Cervical radiculopathy Other orders - celecoxib (CeleBREX) 200 MG capsule; Take 1 capsule (200 mg) by mouth 2 times daily for 10 days. - baclofen (Lioresal) 10 MG tablet; Take 0.5 tablets (5 mg) by mouth 2 times daily. documented in this encounter Plan of Treatment Upcoming Encounters Date Type Department Care Team (Late st Contact Info) Description 08/31/2025 11:30 AM EST Medication Management [facility] [address] [place] [phone] Elvia Pat, PharmD [address] [place] [address] Scheduled Orders Name Type Priority Associated Diagnoses Orde r Schedule EMG Neurology Routine Cervical radiculopathy Expected: 08/15/2025 (Approximate), Expires: 08/15/2026 Nerve conduction test Neurology Routine Cervical radiculopathy Expected: 08/15/2025 (Approximate), Expires: 08/15/2026 documented as of this encounter Goals Goal Patient Goal Type Associated Problems Recent Progress Patient-Stated? Author Record your blood pressure once per day & bring log to all appointments Blood Pressure No Magaly Patsa, PharmD Blood Pressure < 140/90 Blood Pressure 112/50(07/05 12:22 PM EDT) No Lobito Patyssa, PharmD Record your blood sugar as directed Result Component No Elvia Pat, PharmD Note: Use CGM, ensuring sensor is scanned at least once every 8 hours to capture 24H data. Check BG manually, as directed. Hemoglobin A1c < 7 Result Component 8.7(07/05/20 2:39 PM EDT) No AlyssiaiaMagalysa, PharmD Help patients manage their type 2 diabetes Care Plan Help patients manage their type 2 diabetes No Izabela Shore Weekly blood pressure task Care Plan Weekly blood pressure task No Izabela Shore Help patients manage their type 2 diabetes Care Plan Help patients manage their type 2 diabetes No Izabela Shore Patient has diabetic eye disease Care Plan [...] Care Plan Weekly blood pressure task No Izabela Shore Weekly blood pressure task [...] Care Plan Patient has diabetic neuropathy No Izabela Shore Patient has diabetic neuropathy Care Plan Patient has diabetic neuropathy No Izabela Shore Patient has diabetic neuropathy Care Plan Patient has diabetic neuropathy No Izabela Shore Weekly blood pressure task Care Plan Weekly blood pressure task No Jazmin Mooney [place] Weekly blood pressure task Care Plan Weekly blood pressure task No Jazmin Mooney [place] Weekly blood pressure task Care Plan Weekly blood pressure task No Jazmin Mooney [place] Weekly blood pressure task Care Plan Weekly blood pressure task No Jazmin Mooney [place] Patient has diabetic eye disease Care Plan Patient has diabetic eye disease No Jazmin Mooney [place] Patient has diabetic eye disease Care Plan Patient has diabetic eye disease No Jazmin Mooney [place] Patient has diabetic eye disease Care Plan Patient has diabetic eye disease No Jazmin Mooney [place] Patient has diabetic eye disease Care Plan Patient has diabetic eye disease No Jazmin Mooney [place] Patient has chronic kidney disease Care Plan Patient has chronic kidney disease No Jazmin Mooney [place] Patient has chronic kidney disease Care Plan Patient has chronic kidney disease No Jazmin Mooney [place] Patient has chronic kidney disease Care Plan Patient has chronic kidney disease No Jazmin Mooney [place] Patient has chronic kidney disease Care Plan Patient has chronic kidney disease No Jazmin Mooney [place] Patient has diabetic neuropathy Care Plan Patient has diabetic neuropathy No Jazmin Mooney [place] Patient has diabetic neuropathy Care Plan Patient has diabetic neuropathy No Jazmin Mooney [place] Patient has diabetic neuropathy Care Plan Patient has diabetic neuropathy No Jazmin Mooney [place] Patient has diabetic neuropathy Care Plan Patient has diabetic neuropathy No Jazmin Mooney [place] Weekly blood pressure task Care Plan Weekly blood pressure task No Kwame Ruelas [place] Weekly blood pressure task Care Plan Weekly blood pressure task No Kwame Ruelas [place] Weekly blood pressure task Care Plan Weekly blood pressure task No Kwame Ruelas [place] Weekly blood pressure task Care Plan Weekly blood pressure task No Kwame Ruelas [place] Patient has diabetic eye disease Care Plan Patient has diabetic eye disease No Kwame Ruelas [place] Patient has diabetic eye disease Care Plan Patient has diabetic eye disease No Kwame Ruelas [place] Patient has diabetic eye disease Care Plan Patient has diabetic eye disease No Kwame Ruelas [place] Patient has diabetic eye disease Care Plan Patient has diabetic eye disease No Kwame Ruelas [place] Patient has chronic kidney disease Care Plan Patient has chronic kidney disease No Kwame Ruelas [place] Patient has chronic kidney disease Care Plan Patient has chronic kidney disease No Kwame Ruelas [place] Patient has chronic kidney disease Care Plan Patient has chronic kidney disease No Kwame Ruelas [place] Patient has chronic kidney disease Care Plan Patient has chronic kidney disease No Kwame Ruelas [place] Patient has diabetic neuropathy Care Plan Patient has diabetic neuropathy No Kwame Ruelas [place] Patient has diabetic neuropathy Care Plan Patient has diabetic neuropathy No Kwame Ruelas [place] Patient has diabetic neuropathy Care Plan Patient has diabetic neuropathy No Kwame Ruelas [place] Patient has diabetic neuropathy Care Plan Patient has diabetic neuropathy No Kwame Ruelas [place] documented as of this encounter Procedures Procedure Name Priority Date/Time Associated Diagnosis Comments XR CERVICAL SPINE 5 VIEW Routine 08/20/2025 3:04 PM EST Neck pain, musculoskeletal Cervical radiculopathy documented in this encounter Results * XR Cervical Spine 5 View (08/20/2025 3:04 PM EST) Anatomical Region Laterality Modality Spine, C-spine Radiographic Areli ging 08/20/2025 3:04 PM EST Narrative 08/20/2025 3:25 PM EST [address] [address] XRay Report Signed Patient: Jennifer Patel MR#: [id number] : 1955 Acct:[id number] Age/Sex: 70 / F ADM Date: 08/20/25 Loc: HO.XRAY Attending Dr: Lamin Marin MD Ordering Physician: NameAamir MD Date of Service: 08/20/25 Procedure(s): XR cervical spine 5V Accession Number(s): [id number] cc: Name,Aamir STANTON Reason for Exam: Chronic neck pain and bilateral arm radicular pain EXAMINATION: XR CERVICAL SPINE CLINICAL INFORMATION: Chronic neck pain and bilateral arm radicular pain COMPARISON: None available. TECHNIQUE: AP, oblique, lateral and atlantoodontoid views. Swimmer's projection. FINDINGS: Craniocervical junction is intact. Marginal osteophyte formation and endplate sclerosis and decreased intervertebral disc height C5-6. No acute cortical disruption or malalignment. No lytic or blastic lesions. Left neuroforamina narrowing at C3-4 and likely C5-6. Right neuroforamina narrowing C5-6 and C6-7. Upper airways patent. . XR/XR cervical spine 5V IMPRESSION: Multilevel cervical spondylosis pronounced at C5-6. Left neuroforamina narrowing on a degenerative basis at C3-4 and C5-6 levels and right C5-6 and C6-7 levels. Electronically signed by: Misael Machado MD 08/20/2025 03:22 PM [facility] [place] [place] Dictated By: Misael Wood MD Signed By: <Electronically signed by Misael Marshall MD in OV> 08/20/25 1522 DD/ 1504 TD/TT: 08/20/25 1511 Process Control Programmer: Procedure Note Donotuseinterpreter, Image - 08/20/[address] [address] XRay Report Signed Patient: Jennifer PatelMR#: [id number] : 1955cct:[id number] Age/Sex: 70 / FADM Date: 08/20/25 Loc: HO.DOMINGO Attending Dr: Lamin Marin MD Ordering Physician: Aamir Pierce MD Date of Service: 08/20/25 Procedure(s): XR cervical spine 5V Accession Number(s): [id number] cc: Aamir Pierce MD Reason for Exam: Chronic neck pain and bilateral arm radicular pain EXAMINATION: XR CERVICAL SPINE CLINICAL INFORMATION: Chronic neck pain and bilateral arm radicular pain COMPARISON: None available. TECHNIQUE: AP, oblique, lateral and atlantoodontoid views. Swimmer's projection. FINDINGS: Craniocervical junction is intact. Marginal osteophyte formation and endplate sclerosis and decreased intervertebral disc height C5-6. No acute cortical disruption or malalignment. No lytic or blastic lesions. Left neuroforamina narrowing at C3-4 and likely C5-6. Right neuroforamina narrowing C5-6 and C6-7. Upper airways patent. . XR/XR cervical spine 5V IMPRESSION: Multilevel cervical spondylosis pronounced at C5-6. Left neuroforamina narrowing on a degenerative basis at C3-4 and C5-6 levels and right C5-6 and C6-7 levels. Electronically signed by: Misael Machado MD 08/20/2025 03:22 PM [facility] [place] [place] Dictated By: Misael Wood MD Signed By: <Electronically signed by Misael Marshall MDin OV> 08/20/25 1522 DD/ 1504 TD/TT: 08/20/25 1511 Process Control Programmer: Aamir Pierce MD IMG XR PROCEDURES Final Result documented in this encounter Visit Diagnoses Diagnosis Neck pain, musculoskeletal- Primary Cervical radiculopathy Brachial neuritis or radiculitis nos documented in this encounter Additional Health Concerns Active [...] diabetic neuropathy 07/25/2025 Weekly blood pressure task 08/14/2025 Weekly blood pressure task 08/14/2025 Weekly blood pressure task 08/14/2025 Weekly blood pressure task 08/14/2025 Patient has diabetic eye disease 08/14/2025 Patient has diabetic eye disease 08/14/2025 Patient has diabetic eye disease 08/14/2025 Patient has diabetic eye disease 08/14/2025 Patient has chronic kidney disease 08/14/2025 Patient has chronic kidney disease 08/14/2025 Patient has chronic kidney disease 08/14/2025 Patient has chronic kidney disease 08/14/2025 Patient has diabetic neuropathy 08/14/2025 Patient has diabetic neuropathy 08/14/2025 Patient has diabetic neuropathy 08/14/2025 Patient has diabetic neuropathy 08/14/2025 Weekly blood pressure task 08/15/2025 Weekly blood pressure task 08/15/2025 Weekly blood pressure task 08/15/2025 Weekly blood pressure task 08/15/2025 Patient has diabetic eye disease 08/15/2025 Patient has diabetic eye disease 08/15/2025 Patient has diabetic eye disease 08/15/2025 Patient has diabetic eye disease 08/15/2025 Patient has chronic kidney disease 08/15/2025 Patient has chronic kidney disease 08/15/2025 Patient has chronic kidney disease 08/15/2025 Patient has chronic kidney disease 08/15/2025 Patient has diabetic neuropathy 08/15/2025 Patient has diabetic neuropathy 08/15/2025 Patient has diabetic neuropathy 08/15/2025 Patient has diabetic neuropathy 08/15/2025 Assessment Noted Time PHQ-9 Depression Total Score: 10 025 9:10 AM EDT documented as of this encounter Care Teams Microelectronics Engineer Relationship Specialty Start Date End Date Name, MD Aamir [address] [place] [address] PCP - General Family Medicine 10/25/15 Elvia Pat PharmD [address] [place] [address] Pharmacist Internal Medicine 09/29/23 documented as of this encounter
--- NOTE | 2025-08-20 13:51 | A.OFFVIS_ITS ---
Vital Signs 08/20/25 13:54 Height 5 ft 2 in Weight 175 lb 7.807 oz BMI 32.1 BP 130/64 Blood Pressure Location Lt brachial Position Sitting Pulse 79 Pulse Source Monitor Intake Visit Reasons: 6 month device ck Intake Note: 6 mth f/up Prepress Supervisor Required: Yes Prepress Supervisor Language: Junior Brand Manager Name: vorosemarye/citizen of [place] Accompanied by: Self / Same As Patient Allergies insulin glargine (From LANTUS) Allergy (Mild, Verified 02/19/25 14:25) RASH Amitryptiline Allergy (Mild, Uncoded 02/19/25 14:25) unknown Medication List - Last Reconciled 08/20/25 by Lamin Marin MD amlodipine 10 mg PO DAILY aspirin 81 mg PO DAILY blood sugar diagnostic (OneTouch Ultra Test strips) As directed buspirone 5 mg PO BID chlorthalidone 25 mg PO DAILY ezetimibe 10 mg PO DAILY famotidine 40 mg PO BEDTIME fluticasone propionate 50 mcg/actuation 2 sprays intranasal DAILY PRN gabapentin 100 mg PO DAILY hydralazine 10 mg PO BID insulin aspart U-100 (Novolog FlexPen U-100 Insulin aspart) 0 sliding scale doses See Protocol subcut QIDACHS insulin degludec (Tresiba FlexTouch U-200 insulin) units subcut lancets (OneTouch Delica Plus Lancet) As directed loratadine 10 mg PO DAILY nifedipine ER 60 mg PO DAILY olmesartan 40 mg PO QAM pen needle, diabetic (BD Ultra-Fine Becca Pen Needle) As directed prucalopride (Motegrity) 2 mg PO DAILY semaglutide (Ozempic) 0.5 mg subcut WE tramadol 50 mg PO TID PRN HPI Comments Details: 70-year-old lady here for follow-up. She has background history of hypertension, diabetes and AV block requiring permanent pacemaker placement. She is complaining of dyspnea with activity especially when she goes upstairs. She is saying that this is a new symptom. She also gets off and on left-sided pleuritic chest pains. No exertional chest discomfort. Blood pressure is well controlled. She previously had stress testing in 2023 which was normal. This was a Lexiscan. No history of lung disease. Never been a smoker. [facility] Medical History GERD (gastroesophageal reflux disease) Diabetes Anxiety Sleep apnea HTN (hypertension) Hypertension Surgical History History of esophagogastroduodenoscopy (EGD) H/O colonoscopy S/P removal of right ovary S/P removal of left ovary Family History Mother Diabetes Father Liver cancer Social History Household Members: Family Housing: House Do you presently have visiting nurse or other home services: Yes (STOCK CONTROL SUPERVISOR) Alcohol intake: never Patient Tobacco Use Status: Never used Tobacco Advance Directives Date on File: 05/11/23 service: No Review of Systems Const Denies chills, Denies fatigue, Denies fever(s), Denies frequent falls, Denies weakness, Denies weight gain and Denies weight loss ENT Denies dizziness Card Denies chest pain, Denies leg edema, Denies lightheadedness, Denies palpitations, Denies dyspnea and Denies dyspnea on exertion Resp Denies cough, Denies dyspnea and Denies dyspnea on exertion GI Denies hematochezia Musc Denies abnormal gait, Denies muscle weakness, Denies numbness, Denies radiating pain into limb and Denies tingling Neuro Denies abnormal gait, Denies dizziness, Denies frequent falls, Denies numbness, Denies tingling and Denies weakness Endo Denies fatigue and Denies palpitations Physical Exam Vital Signs: Last Vital Signs Pulse 79 08/20/25 13:54 BP 130/64 08/20/25 13:54 BMI result Body Mass Index 32.1 GENERAL APPEARANCE: in no acute distress, pleasant. NECK: no carotid bruit, no jugular venous distention. SKIN: no suspicious lesions, warm and dry. HEART: no murmurs, regular rate and rhythm. LUNGS: clear to auscultation bilaterally. ABDOMEN: soft, nontender. EXTREMITIES: no edema. PERIPHERAL PULSES: equal. NEUROLOGIC: No gross deficits, AAO X 3 Office Procedures EKG Details: Sinus rhythm 79 beats per minute, left axis deviation, V paced rhythm, QTC 511, QRS 142 milliseconds. [address]-Enbbvezvnosgfesgz, Complete Assessment & Plan Assessment & Plan (1) HTN (hypertension): Code(s): I10 - Essential (primary) hypertension Category: Medical Qualifiers: Hypertension type: primary hypertension Qualified Code(s): I10 - Essential (primary) hypertension (2) Mitral and aortic valve disease: Code(s): I08.0 - Rheumatic disorders of both mitral and aortic valves Category: Medical (3) Pacemaker: Code(s): Z95.0 - Presence of cardiac pacemaker Category: Medical (4) GRIGSBY (dyspnea on exertion): Code(s): R06.00 - Dyspnea, unspecified Category: Medical Plan Pleasant 70 year lady who is here for follow-up. She has background history of hypertension and diabetes. She also has hyperlipidemia. She is saying that she is using an injectable medication for hyperlipidemia but she does not recall the name. She will call us and confirmed the name and dosage. She is complaining of shortness of breath. Clinically not in heart failure. She is 100% based on her pacemaker interrogation. Her echocardiography in December was normal. I will start with basic blood workup to rule out anemia, iron studies and NT pro BNP level. If these tests are normal then I think we should consider stress testing or coronary CTA to assess for any coronary artery disease. Blood pressure control is good. Her last LDL cholesterol was 158. Her target is less than 70 and ideally less than 55 being a diabetic. Thank you for allowing me to participate in the care of your patient. Please feel free to contact me if you have any questions. Orders: Orders Ferritin Today R06.00 - Dyspnea, unspecified Complete Blood Count Auto Diff Today R06.00 - Dyspnea, unspecified IRON PROFILE Today R06.00 - Dyspnea, unspecified NT Pro B Type Natriuretic Pept Today R06.00 - Dyspnea, unspecified Coding Level of Care Code Est Pt Level 4 (27612) Diagnoses Primary hypertension I10 Hypertension type: primary hypertension Mitral and aortic valve disease I08.0 Pacemaker Z95.0 GRIGSBY (dyspnea on exertion) R06.00 CPT Codes EKG - CPT: 00823-[id number], Complete ([id number])
[2025-08-20 13:54] VITALS: BP 130/64; PULSE 79; BMI 32.1
--- OUTSIDE RECORDS SUMMARY | 2025-08-20 22:05 | XMS_ITS | Encounter Summary ---
Author Organization [employer] Address [address] [place] [address] Care Team Providers Care Java Web User Interface Developer Name Role Phone Name, Aamir STANTON Primary Care Provider [phone] Elvia Pat PharmD Unavailable Reason for Visit * Reason Comments Med Refill Encounter Details Date Type Department Care Team ([facility] Contact Info) Description 04/21/2024 Refill [facility] [address] [place], [place] [phone] Name, MD Aamir [address] [place] [address] Allergic rhinitis, unspecified seasonality, unspecified trigger Social [...] Description 08/31/2025 11:30 AM EST Medication Management [facility] [address] [place] [address] Puia, Elvia, PharmD [address] [place] [address] documented as of this encounter Goals Goal [...] documented as of this encounter Care Teams Java Web User Interface Developer Relationship Specialty Start Date End Date Name, MD Aamir [address] [place] [address] PCP - General Family Medicine 10/25/15 Elvia Pat PharmD [address] [place] [address] Pharmacist Internal Medicine 09/29/23 documented as of this encounter
--- OUTSIDE RECORDS SUMMARY | 2025-08-20 22:05 | XMS_ITS | Encounter Summary ---
Author Organization [employer] Address [address] [place] [address] Care Team Providers Care Sand Caster Name Role Phone Name, Aamir STANTON Primary Care Provider [phone] Elvia Pat PharmD Unavailable [phone] Encounter Details Date Type Department Care Team ([facility] st Contact Info) Description 07/30/2023 Abstract [facility] [address] [place] [address] Nhi Ramos Social History Tobacco Use Types [...] Description 08/31/2025 11:30 AM EST Medication Management [facility] [address] [place] [address] Elvia Pat PharmD [address] [place], [place] [phone] documented as of this encounter Procedures Procedure Name Priority Date/Time Associated Diagnosis Comments COLONOSCOPY Routine 12/03/2021 documented in this encounter Results * Hm Colonoscopy (12/03/2021) Colonoscopy Normal Normal Narrative Nhi Ramos - 12/03/2021 Repeat colonoscopy in 1-2 years Historical Provider HEALTH MAINTENANCE Final Result documented in this encounter Visit Diagnoses Not on filedocumented in this encounter Additional Health Concerns Assessment Noted Time PHQ-9 Depression Total Score: 9 03/22/20 23 2:40 PM EDT documented as of this encounter Care Teams Sand Caster Relationship Specialty Start Date End Date Name, MD Aamir [address] [place] [address] PCP - General Family Medicine 10/25/15 Elvia Pat PharmD [address] [place], [place] [phone] Pharmacist Internal Medicine 09/29/23 documented as of this encounter
--- OUTSIDE RECORDS SUMMARY | 2025-08-20 22:05 | XMS_ITS | Encounter Summary ---
Author Organization [employer] Address [address] [facility] [address] [place] [address] Care Team Providers Care Grinding Machine Operator Automatic Name Role Phone Name, Aamir STANTON Primary Care Provider [phone] Elvia Pat PharmD Unavailable [phone] Reason for Visit * Reason Comments Med Refill Encounter Details Date Type Department Care Team ([facility] Contact Info) Description 08/07/[address] [facility] [address] [place], [place] [phone] Name, MD Aamir [address] [place] [address] Allergic rhinitis, unspecified seasonality, unspecified trigger Social [...] Description 08/31/2025 11:30 AM EST Medication Management [facility] [address] [place] [id number] Elvia Pat PharmD [address] [place] [phone] documented as of this encounter Visit Diagnoses Diagnosis Allergic rhinitis, unspecified seasonality, unspecified trigger documented in this encounter Additional Health Concerns Assessment Noted Time PHQ-9 Depression Total Score: 9 03/22/20 23 2:40 PM EDT documented as of this encounter Care Teams Grinding Machine Operator Automatic Relationship Specialty Start Date End Date Name, MD Aamir [address] [place] [address] PCP - General Family Medicine 10/25/15 Elvia Pat PharmD [address] [place] [phone] Pharmacist Internal Medicine 09/29/23 documented as of this encounter
--- OUTSIDE RECORDS SUMMARY | 2025-08-20 22:05 | XMS_ITS | Encounter Summary ---
Author Organization [employer] [facility] Address [address] [facility] [address] [place] [address] Care Team Providers Care Personal Vehicle Advisor Name Role Phone Name, Aamir STANTON Primary Care Provider [phone] Elvia Pat PharmD Unavailable [phone] Encounter Details Date Type Department Care Team ([facility] Contact Info) Description 01/21/2023 Abstract [facility] [address] [place] [address] [phone] Name, MD Aamir [address], [place] [phone] Social History Tobacco Use Types Packs/Day Years [...] Upcoming Encounters Date Type Department Care Team ([facility] Contact Info) Description 08/31/2025 11:30 AM EST Medication Management [facility] [address] [place] [address] [phone] Elvia Pat, PharmD [address] [place] [address] documented as of this encounter Procedures Procedure Name Priority Date/Time Associated Diagnosis Comments COLONOSCOPY Routine 05/17/2018 documented in this encounter Results * Colonoscopy (05/17/2018) Colonoscopy Normal Normal 05/17/2018 Narrative Nhi Ramos - 05/17/2018 4:16 PM EDT Recommended 10 year follow up ([facility]) us Historical Provider HEALTH MAINTENANCE Final Result documented in this encounter Visit Diagnoses Not on filedocumented in this encounter Care Teams Personal Vehicle Advisor Relationship Specialty Start Date End Date Name, MD Aamir [address] [place] [address] PCP - General Family Medicine 10/25/15 Elvia Pat PharmD [address] [place] [address] Pharmacist Internal Medicine 09/29/23 documented as of this encounter
--- OUTSIDE RECORDS SUMMARY | 2025-08-20 22:05 | XMS_ITS | Encounter Summary ---
Author Organization [employer] Address [address] [facility] [address] [place] [address] Care Team Providers Care Cushion Spring Assembler Name Role Phone Name, Aamir STANTON Primary Care Provider [phone] Elvia Pat PharmD Unavailable [phone] Reason for Visit * Reason Onset Date Comments Appointment Request 02/15/2025 Encounter Details Date Type Department Care Team ([facility] st Contact Info) Description 02/15/2025 Telephone [facility] [address] [place], [place] [phone] Name, MD Aamir [address] [place] [address] Appointment Request Social History Tobacco Use Types [...] Description 08/31/2025 11:30 AM EST Medication Management [facility] [address] [place] [address] Puia Elvia, PharmD [address] [place] [address] documented as of this encounter Goals Goal [...] documented as of this encounter Care Teams Cushion Spring Assembler Relationship Specialty Start Date End Date Name, MD Aamir [address] [place] [address] PCP - General Family Medicine 10/25/15 Elvia Pat, PharmD [address] [place] [address] Pharmacist Internal Medicine 09/29/23 documented as of this encounter
--- OUTSIDE RECORDS SUMMARY | 2025-08-20 22:05 | XMS_ITS | Encounter Summary ---
Author Organization [facility] Address [address] [facility] [address] [place] [address] Care Team Providers Care National Park Tour Guide Name Role Phone Name, Aamir STANTON Primary Care Provider [phone] Elvia Pat PharmD Unavailable Reason for Visit * Reason Comments Med Refill Encounter Details Date Type Department Care Team (Late st Contact Info) Description 11/01/[address] [facility] [address] [place] [address] [phone] Name, MD Aamir [address] [place] [address] Allergic rhinitis, unspecified seasonality, unspecified trigger Social [...] 08/31/2025 11:30 AM EST Medication Management [facility] [address] [place] [address] PuiaLobitoElvia, PharmD [address] [place] [address] documented as of this encounter Visit Diagnoses Diagnosis Allergic rhinitis, unspecified seasonality, unspecified trigger documented in this encounter Care Teams National Park Tour Guide Relationship Specialty Start Date End Date Name, MD Aamir [address] [place] [id number] PCP - General Family Medicine 10/25/15 Elvia Pat PharmD [address] [place] [phone] Pharmacist Internal Medicine 09/29/23 documented as of this encounter
--- OUTSIDE RECORDS SUMMARY | 2025-08-20 22:05 | XMS_ITS | Encounter Summary ---
Author Organization [employer] Address [address] [facility] 7t [place] [address] Care Team Providers Care Fine Arts Instructor Name Role Phone Name, Aamir STANTON Primary Care Provider [phone] Elvia Pat PharmD Unavailable [phone] Reason for Visit * Reason Comments Med Refill Encounter Details Date Type Department Care Team ([facility] st Contact Info) Description 06/17/2025 Refill [facility]INE [address] [place], [place] [phone] Name, MD Aamir [address] [place] [address] Trigeminal neuralgia Social History Tobacco Use Types [...] Description 08/31/2025 11:30 AM EST Medication Management [facility] [address] [place] [address] Puia, Elvia, PharmD [address] [place] [address] documented as of this encounter Goals Goal [...] Noted Time PHQ-9 Depression Total Score: 10 03/30/ 025 9:10 AM EDT documented as of this encounter Care Teams Fine Arts Instructor Relationship Specialty Start Date End Date Name, MD Aamir [address] [place] [address] PCP - General Family Medicine 10/25/15 Elvia Pat, AneudyD [address] [place] [address] Pharmacist Internal Medicine 09/29/23 documented as of this encounter
--- OUTSIDE RECORDS SUMMARY | 2025-08-20 22:05 | XMS_ITS | Clinical Summary ---
Author Organization [employer] Address [address] [place] [address] Care Team Providers Care Juvenile Justice Specialist Name Role Phone Name, Aamir STANTON Primary Care Provider [phone] Elvia Pat PharmD Unavailable [phone] Allergies Active Allergy Reactions Criticality Noted [...] until medical assistance becomes available. 2 each 08/23/20 23 Active Blood Pressure Monitor kitIndications:B enign essential hypertension Use to check blood pressure daily 1 kit 01/20/20 24 Active Motegrity 2 MG tablet Take 1 tablet by mouth Once per day. 05/31/20 24 Active aspirin (Aspirin Low Dose) 81 MG EC tabletIndication s:Type 2 diabetes mellitus with other specified complication, with long-term current use of insulin (HCC) Take 1 tablet (81 mg) by mouth in the morning. 90 tablet 3 08/25/20 24 Active tiZANidine (Zanaflex) 2 MG tablet Take 1 tablet (2 mg) by mouth every 8 (eight) hours if needed for muscle spasms for up to 20 days. 60 tablet 08/31/20 24 Active Alcohol Swabs (Alcohol Prep) 70 % padsIndications: Type 2 diabetes mellitus without complications (HCC) USE DIRECTED BEFORE INJECT INSULIN AND TEST BLOOD SUGAR 8 TIMES DAILY 200 each 5 5:42 PM EST 09/11/20 24 Active Lancets (OneTouch Delica Plus [id number]) miscIndications: Diabetes mellitus type 2, insulin dependent (HCC) Use to test blood sugar up to three times daily as directed 100 each 10 10/17/19 25 Active olmesartan (BENIcar) 40 MG tablet TAKE 1 TABLET BY MOUTH EVERY MORNING 90 tablet 3 11/15/19 25 Active loratadine (Claritin) 10 MG tablet TAKE 1 TABLET BY MOUTH ONCE DAILY 90 tablet 3 12/12/19 25 Active insulin pen needle (BD Pen Needle Becca U/F) 32G x 4 mm miscIndications: Diabetes mellitus type 2, insulin dependent (HCC) USE FIVE TIMES DAILY 200 each 5 2:54 PM EST 12/14/19 25 Active Tirzepatide (Mounjaro) 7.5 MG/0.5ML solution auto-injector Inject 7.5 mg under the skin 1 (one) time per week. 2 mL 12/27/19 25 Active glucose blood (FreeStyle Precision Rudi Test) test stripIndications :Diabetes mellitus type 2, insulin dependent (HCC) Use to test blood sugar up to 3 times daily, as directed 100 each 12/27/19 25 Active busPIRone (Buspar) 5 MG tablet TAKE 1 TABLET BY MOUTH TWICE DAILY 60 tablet 5 5:42 PM EST 03/22/20 25 Active NIFEdipine XL (Procardia XL) 60 MG 24 hr tablet TAKE 1 TABLET BY MOUTH EVERY MORNING DO NOT BREAK, CRUSH, DISSOLVE OR CHEW. 30 tablet 5 5:42 PM EST 04/17/20 25 Active evolocumab (Repatha SureClick) 140 MG/ML injectionIndicat ions:Type 2 diabetes mellitus with other specified complication, with long-term current use of insulin (HCC),Hyperchole sterolemia Inject 1 mL (140 mg) under the skin every 14 (fourteen) days. 2 mL 5 5:42 PM EST 05/04/20 25 Active insulin aspart (NovoLOG FLEXPEN) 100 UNIT/ML penIndications:T ype 2 diabetes mellitus with other specified complication, with long-term current use of insulin ([facility]) INJECT UP TO 30 UNITS SUBCUTANEOUSLY THREE TIMES DAILY BEFORE MEALS 15 mL 2 06/05/20 25 Active Tresiba FlexTouch 200 UNIT/ML injectionIndicat ions:Type 2 diabetes mellitus with other specified complication, with long-term current use of insulin ([facility]) INJECT 116 UNITS SUBCUTANEOUSLY ONCE DAILY DIRECTED 18 mL 2 5 5:42 PM EST 06/05/20 25 Active Continuous Glucose Sensor (FreeStyle Billy 2 Plus Sensor) miscIndications: Type 2 diabetes mellitus with other specified complication, with long-term current use of insulin ([facility]) 1 Device every 15 days. Apply 1 sensor as directed every 15 days for CGM 2 each 5 5:42 PM EST 06/11/20 25 Active Insulin Disposable Pump (Omnipod 5 Libre2 G6 Intro G5) kitIndications:T ype 2 diabetes mellitus with other specified complication, with long-term current use of insulin ([facility]) 1 Device Once per day. Use as directed for insulin administration. One kit = 30 day supply. 1 kit 06/11/20 25 Active Insulin Disposable Pump (Omnipod 5 Libre2 Plus G6 Pods) miscIndications: Type 2 diabetes mellitus with other specified complication, with long-term current use of insulin (HCC) 1 Device every other day. Wear daily for insulin administration. Apply a new pod every 48 hours as directed.) 10 each 5 2:54 PM EST 06/11/20 25 Active pantoprazole (ProtoNix) 40 MG EC tabletIndication s:Diabetes mellitus type 2, insulin dependent (HCC) TAKE 1 TABLET BY MOUTH TWICE DAILY IN THE MORNING AND IN THE EVENING 180 tablet 1 06/13/20 25 Active Insulin Aspart (NovoLOG) 100 UNIT/ML solutionIndicati ons:Type 2 diabetes mellitus with other specified complication, with long-term current use of insulin ([facility]) Inject 2 mL (200 Units) as directed every other day. Use 200 mL to fill Omnipod every 2 days, as directed. 30 mL = 30d supply. 30 mL 5 2:54 PM EST 07/05/20 25 Active chlorthalidone (Hygroton) 25 MG tabletIndication s:Benign essential hypertension TAKE 1 TABLET BY MOUTH EVERY MORNING 90 tablet 1 5 5:42 PM EST 07/18/20 25 Active celecoxib (CeleBREX) 200 MG capsule Take 1 capsule (200 mg) by mouth 2 times daily for 10 days. 20 capsule 5 2:54 PM EST 08/15/20 25 025 Active baclofen (Lioresal) 10 MG tablet Take 0.5 tablets (5 mg) by mouth 2 times daily. 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 08/31/2024 Pre-op exam 02/11/2024 Assessment & Plan (04/24/2024 [...] for this minor procedure ,I called her engagement executive office to discuss -was told today 04/24/2024 [...] 05/31/2023 Nocturnal leg movements 05/31/2023 Orthopnea 05/31/2023 Sleep disorder breathing 05/31/2023 Epigastric abdominal pain 05/31/2023 Excessive daytime sleepiness 05/31/2023 Weight loss, abnormal 05/31/2023 Trigeminal neuralgia 07/27/2018 Heart murmur 07/27/2018 Insomnia [...] scheduled for 05/23/2024 Benign essential hypertension 11/05/2015 Resolved Problems Problem Noted Date Diagnosed Date Resolved Date Angina of effort 02/24/2024 08/15/2025 Assessment & Plan (02/24/2024 3:32 PM EDT): Pt endorses angina and sob with minimal effort, in care with cardiology and has scheduled stress test. I explained I cannot clear until the stress test is complete Peripheral edema 05/31/2023 08/15/2025 Edema 09/10/2022 08/15/2025 Encounters Date Type Department Care Team Description 08/15/2025 11:30 AM EST Telemedicine [facility] [address] [facility] [place] [address] Aamir Pierce MD Neck pain, musculoskeletal (Primary Dx); Cervical radiculopathy 08/15/2025 Travel 08/14/2025 Telephone [facility] [address] [place] [address] NameAamir MD Chart Prep 07/25/2025 Telephone [facility] MEDICINE [address] [place] [address] NameAamir MD 07/25/2025 Telephone [facility] [address] [place] [address] Aamir Pierce MD Nurse Triage 07/23/2025 1:30 PM EST Telemedicine [facility] [address] [place] [address] Elvia Pat PharmD Diabetes mellitus type 2, insulin dependent (HCC) (Primary Dx) 07/19/2025 Travel 07/19/2025 Refill [facility] [address] [place] [address] Aamir Pierce MD Trigeminal neuralgia 07/17/2025 Refill [facility] [address] [place] [address] Aamir Pierce MD Benign essential hypertension 07/06/2025 Telephone [facility] [address] [place] [phone] Aamir Pierce MD Lab Orders 07/05/2025 Travel 06/26/2025 Refill [facility] [address] [place] [address] Aamir Pierce MD Trigeminal neuralgia 06/20/2025 Telephone [facility] [address] [place] [address] Aamir Pierce MD [facility] received fax 06/17/2025 Refill [facility] [address] [place] [address] Aamir Pierce MD Trigeminal neuralgia 06/13/2025 Telephone [facility] [address] [place], [place] [phone] Kwame Ruelas, YOLI Referral 06/13/2025 Travel 06/13/2025 Refill [facility] [address] [facility] [place] [address] Aamir Pierce MD Diabetes mellitus type 2, insulin dependent ([facility]) 06/11/2025 Telephone [facility] [address] [facility] [place] [address] Elvia Pat PharmD 06/11/2025 Travel 06/04/2025 Refill [facility] [address] [facility] [place] [address] Elvia Pat PharmFlynn Type 2 diabetes mellitus with other specified complication, with long-term current use of insulin ([facility]) 05/25/2025 Refill [facility] [address] [facility] [place] [address] Aamir Pierce MD Trigeminal neuralgia from Last 3 Months Immunizations [...] 11:30 AM EST Medication Management [facility] [address] [place] [address] Elvia Pat, PharmD [address] [place] [address] Health Maintenance Due Date Last Done Comments [...] 08/23/2033 08/23/2023, 07/12/2013 Zoster Vaccines Completed 03/30/2022, 050 05/2022, 09/24/2016 RSV Patients and Patients Aged [...] log to all appointments Blood Pressure No Pumarcela, Elvia, PharmD Blood Pressure < 140/90 Blood Pressure 112/50(07/05 12:22 PM EDT) No Puia, Elvia, PharmD Record your blood sugar as directed Result Component No Pumarcela, Elvia, PharmD Note: Use CGM, ensuring sensor is scanned at least once every 8 hours to capture 24H data. Check BG manually, as directed. Hemoglobin A1c < 7 Result Component 8.7(07/05/20 2:39 PM EDT) No Pumarcela, Elvia, PharmD Help patients manage their type 2 [...] Patient has diabetic neuropathy No Colon Prince, Izaebla Patient has diabetic neuropathy Care Plan Patient [...] Plan Weekly blood pressure task No Colon Ann Princela Patient has diabetic eye disease Care Plan Patient has diabetic eye disease No Izabela Shore Patient has diabetic eye disease Care Plan Patient has diabetic eye disease No Colon Izabela Prince Patient has diabetic eye disease Care Plan Patient has diabetic eye disease No Izabela Shore Patient has diabetic eye disease Care Plan Patient has diabetic eye disease No Colon Izabela Prince Patient has chronic kidney disease Care Plan Patient has chronic kidney disease No Colon Izabela Prince Patient has chronic kidney disease Care Plan Patient has chronic kidney disease No Colon Izabela Prince Patient has chronic kidney disease Care Plan Patient has chronic kidney disease No Colon Ann Princela Patient has chronic kidney disease Care Plan Patient has chronic kidney disease No Colon Izabela Prince Patient has diabetic neuropathy Care Plan Patient has diabetic neuropathy No Izabela Shore Patient has diabetic neuropathy Care Plan Patient has diabetic neuropathy No Colon Izabela Prince Patient has diabetic neuropathy Care Plan Patient has diabetic neuropathy No Ann Shorela Patient has diabetic neuropathy Care Plan Patient [...] Plan Patient has chronic kidney disease No Jazimn Mooney [place] Patient has chronic kidney disease [...] Care Plan Weekly blood pressure task No RuelasKwame amin [place] Weekly blood pressure task Care Plan Weekly blood pressure task No Kwame Ruelas [place] Weekly blood pressure task Care Plan Weekly blood pressure task No RuelasKwame amin [place] Patient has diabetic eye disease Care Plan Patient has diabetic eye disease No Kwame Ruelas [place] Patient has diabetic eye disease Care Plan Patient has diabetic eye disease No RuelasKwame amin [place] Patient has diabetic eye disease Care Plan Patient has diabetic eye disease No RuelasKwame amin [place] Patient has diabetic eye disease Care Plan Patient has diabetic eye disease No Kwame Ruelas [place] Patient has chronic kidney disease Care Plan Patient has chronic kidney disease No Kwame Ruelas [place] Patient has chronic kidney disease Care Plan Patient has chronic kidney disease No RuelasKwame amin [place] Patient has chronic kidney disease Care Plan Patient has chronic kidney disease No RuelasKwame amin [place] Patient has chronic kidney disease Care Plan Patient has chronic kidney disease No RuelasKwame amin [place] Patient has diabetic neuropathy Care Plan Patient has diabetic neuropathy No Kwame Ruelas [place] Patient has diabetic neuropathy Care Plan Patient has diabetic neuropathy No Kwame Ruelas [place] Patient has diabetic neuropathy Care Plan Patient has diabetic neuropathy No Kwame Ruelas [place] Patient has diabetic neuropathy Care Plan Patient has diabetic neuropathy Kwame Griffiths [place] Procedures Procedure Name Priority Date/Time Associated Diagnosis Comments XR CERVICAL SPINE 5 VIEW Routine 08/20/2025 3:04 PM EST Neck pain, musculoskeletal Cervical radiculopathy FERRITIN Routine 08/20/2025 2:45 PM EST IRON AND TOTAL IRON BINDING CAPACITY Routine 08/20/2025 2:45 PM EST NT-PROBNP Routine 08/20/2025 2:45 PM EST CBC WITH AUTO DIFFERENTIAL Routine 08/20/2025 2:[address] HEAD W AND WO CONTRAST Routine [...] complication, with long-term current use of insulin ([facility]/HCC) LIPID PANEL, STANDARD Routine 03/22/2025 8:40 AM EDT BI MAMMOGRAM SCREENING TOMOSYNTHESIS BILATERAL Routine 09/11/2024 2:48 PM EST HM DIABETES EYE EXAM Routine 12/14/2023 COLONOSCOPY Routine 12/03/2021 from Last 3 Months or Most Recently Relevant to Health Maintenance Results * XR Cervical Spine 5 View (08/20/2025 3:04 PM EST) Anatomical Region Laterality Modality Spine, C-spine Radiographic Areli ging 08/20/2025 3:04 PM EST Narrative 08/20/2025 3:25 PM EST [address] [address] XRay Report Signed Patient: Jennifer Patel MR#: [id number] : 1955 Acct:[id number] Age/Sex: 70 / F ADM Date: 08/20/25 Loc: [facility] Attending Dr: Lamin Marin MD Ordering Physician: Aamir Pierce MD Date of Service: 08/20/25 Procedure(s): XR cervical spine 5V Accession Number(s): [id number] cc: Aamir Pierce MD Reason for Exam: [...] by: Misael Machado MD 08/20/2025 03:22 PM EST Dictated By: Misael Wood MD Signed By: <Electronically signed by Misael Marshall MD in OV> 08/20/25 1522 DD/ 1504 TD/TT: 08/20/25 1511 [employer] Supervisor: Procedure Note Donotuseinterpreter, Image - 08/20/[address] [address] XRay Report Signed Patient: Jennifer PatelMR#: [id number] : 1955cct:[id number] Age/Sex: 70 / FADM Date: 08/20/25 Loc: [facility] Attending Dr: Lamin Marin MD Ordering Physician: Aamir Pierce MD Date of Service: 08/20/25 Procedure(s): XR cervical spine 5V Accession Number(s): [id number] cc: Aamir Pierce MD Reason for Exam: [...] by: Misael Machado MD 08/20/2025 03:22 PM EST Dictated By: Misael Wood MD Signed By: <Electronically signed by Misael Marshall MDin OV> 08/20/25 1522 DD/ 1504 TD/TT: 08/20/25 1511 [employer] Supervisor: Aamir Pierce MD IM XR PROCEDURES Final Result * NT-proBNP (08/20/2025 2:45 PM EST) NT-proBNP 96.6 <300 pg/mL [facility] Comment:Reference Range:Age Group (years) NT-proBNP (pg/ml) InterpretationAll <300 Negative: HF unlikelyFor patients presenting to the ED with clinical suspicion ofnew onset or worsening HF, see below:18 to <50 >299.9 to <450.0 Grayzone: [id number] to 75 >299.9 to <900.0 other causes of>75 >299.9 to <1800.0 NT-proBNP [id number] to <50 >449.9 Positive: HF [id number] >899.9>75 >1799.9Note: Elevated NT-proBNP levels should be interpreted inthe context of other clinical information. 08/20/2025 2:45 PM EST 08/20/2025 2:45 PM EST us Generic External Data Provider LAB BLOOD ORDERAB LES Final Result [facility] [address] [place], [place] [phone] * CBC auto differential (08/20/2025 2:45 PM EST) White Blood Count 6.6 4.8 - 10.8 X10*3/uL [facility] Red Blood Count 4.44 4.20 - 5.50 X10*6/uL [facility] Hemoglobin 12.9 12.0 - 16.0 g/dl [facility] Hematocrit 39.7 37.0 - 47.0 % [facility] Mean Corpuscular Volume 89.4 80.0 - 98.0 fL [facility] Mean Corpuscular Hemoglobin 29.1 27.0 - 33.0 pg [facility] Mean Corpuscular HGB Conc 32.5 31.0 - 35.0 g/dl [facility] Red Cell Distribution Width 12.3 11.0 - 16.0 % [facility] Platelet Count 336 160 - 400 X10*3/uL [facility] Mean Platelet Volume 10.3 9.4 - 12.3 fL [facility] Neutrophils Percent Auto 68.4 45 - 73 % [facility] Imm Gran Pct Auto 0.3 0.0 - 0.4 % [facility] Lymphocytes Percent Auto 20.9 20 - 40 % [facility] Monocytes Percent Auto 8.3 2 - 11 % [facility] Eosinophils Percent Auto 1.2 0 - 4 % [facility] Basophils Percent Auto 0.9 0 - 2 % [facility] NRBC Pct Auto 0.0 0.0 - 0.2 /100WBC [facility] Neutrophils Absolute Auto 4.5 2.0 - 8.3 x10*3/uL [facility] Imm Gran Abs Auto 0.02 0.00 - 0.03 X10*3/uL [facility] Lymphocytes Absolute Auto 1.4 1.2 - 4.9 X10*3/uL [facility] Monocytes Absolute Auto 0.6 0.1 - 1.2 X10*3/uL [facility] Eosinophils Absolute Auto 0.1 0.0 - 0.4 X10*3/uL [facility] Basophils Absolute Auto 0.1 0.0 - 0.2 X10*3/uL [facility] NRBC Abs Auto 0.000 0.0 - 0.012 X10*3/uL [facility] 08/20/2025 2:45 PM EST 08/20/2025 2:45 PM EST us Generic External Data Provider LAB BLOOD ORDERAB LES Final Result [facility] [address] [place] [phone] * Iron And Total Iron Binding Capacity (08/20/2025 2:45 PM EST) Iron 71 30 - 160 mcg/dL [facility] Total Iron Binding Capacity 261 228 - 428 mcg/dL [facility] Percent Iron Saturation 27 15 - 50 % [facility] Unsaturated Iron Binding 190 ug/dL [facility] 08/20/2025 2:45 PM EST 08/20/2025 2:45 PM EST us Generic External Data Provider LAB BLOOD ORDERAB LES Final Result Performing Organization Address City/[facility] Co de Phone Number [facility] [address] [place] [phone] * Ferritin (08/20/2025 2:45 PM EST) Ferritin 156 10 - 250 ng/mL [facility] 08/20/2025 2:45 PM EST 08/20/2025 2:45 PM EST Generic External Data Provider LAB BLOOD ORDERAB LES Final Result Performing Organization Address [facility] de Phone Number [facility] [address] [place] [phone] * CT Head w/ and w/o Contrast (08/08/2025 3:20 PM EST) Anatomical Region Laterality Modality Head, Neck Computed Tomogra phy 08/08/2025 3:20 PM EST Narrative 08/08/2025 5:24 PM EST [address] [address] [address] Scan Report Signed Patient: Jennifer Patel MR#: [id number] : 1955 Acct:[id number] Age/Sex: 70 / F ADM Date: 08/08/25 Loc: HO.CT Attending Dr: Aamir Pierce MD Ordering Physician: Aamir Pierce MD Date of Service: 08/08/25 Procedure(s): CT head/brain wo/w IV con Accession Number(s): [id number] cc: Aamir Pierce MD Report Number: [id number]: Total DLP = 1520.00 mGy-cm Reason for [...] by: Linda Santoro MD 08/08/2025 05:22 PM [facility] Dictated By: Linda Santoro MD Signed By: <Electronically signed by Linda Santoro MD in OV> 08/08/25 1722 DD/ 1520 TD/TT: 08/08/25 1620 [employer] Supervisor: Procedure Note Donotuseinterpreter, Image - 08/08/[address] [address] [address] Scan Report Signed Patient: Jennifer PatelMR#: [id number] : 6Acct:[id number] Age/Sex: 70 / FADM Date: 08/08/25 Loc: HO.CT Attending Dr: Aamir Pierce MD Ordering Physician: Aamir Pierce MD Date of Service: 08/08/25 Procedure(s): CT head/brain wo/w IV con Accession Number(s): [id number] cc: NameAamir Report Number: [id number]: Total DLP = 1520.00 mGy-cm Reason for [...] by: Linda Santoro MD 08/08/2025 05:22 PM [facility] Dictated By: Linda Santoro MD Signed By: <Electronically signed by Linda Santoro MD in OV> 08/08/25 1722 DD/ 1520 TD/TT: 08/08/25 1620 [employer] Supervisor: us Aamir Pierce MD IMG CT PROCEDURES Final Result * (ABNORMAL) Basic Metabolic Panel (07/19/2025 11:57 AM EST) Pathologist [facility] Sodium 142 135 - 145 mmol/L [facility] Potassium 4.5 3.3 - 5.1 mmol/L [facility] Chloride 101 96 - 108 mmol/L [facility] Carbon Dioxide 33(H) 22 - 29 mmol/L [facility] Anion Gap 13 12 - 20 [facility] Urea Nitrogen (BUN) 18(H) 9 - 16 mg/dL [facility] Creatinine, Serum 0.65 0.5 - 1.4 mg/dL [facility] Estimated Glomerular Filt Rate >60 [facility] Comment:Chronic Kidney Disea se: Estimated GFR < 60 mL/min/1.19x2Tiodzd Kidney Disease: Estimated GFR < 15 mL/min/1.73m2 Glucose 129(H) 60 - 115 mg/dL [facility] Calcium 9.6 8.4 - 10.2 mg/dL [facility] Blood Venous blood specimen / Unknown 07/19/2025 11:57 AM EST 07/19/2025 1:05 PM EST us Aamir Pierce MD LAB BLOOD ORDERABLES Final Resul t Performing Organization Address City/State/[facility] Co de Phone Number [facility] [address] [place] [phone] * (ABNORMAL) POCT Hgb A1c (07/05/2025 2:39 PM EDT) Hemoglobin A1C 8.7(A) 4.0 - 5.7 % Blood 07/05/2025 2:39 PM EDT us Aamir Pierce MD POINT OF CARE TEST ENTER/EDIT OR DERABLES Final Result * Albumin, Random Urine W/Creatinine (03/22/2025 8:40 AM EDT) Creatinine, Urine 67.05 mg/dL [facility] Microalbumin Urine 10.0 mg/L H [facility] Microalbum Creatinine Ratio Ur 14.9 <30 ug/mg cr [facility] Comment:Albumin/Creatinine R at Reference Ranges: Normal: < 30 ug/mg creatinine Microalbuminuria: 30 - 300 ug/mg creatinineClinical Albuminuria: > 300 ug/mg creatinine Urine (Urine, Random) 03/22/2025 8:40 AM EDT 03/22/2025 11:31 AM EDT us Aamir Name MD LAB URINE ORDERABLES Final Resul t [facility] [address] [place] [phone] * (ABNORMAL) Lipid Panel, Standard (03/22/2025 8:40 AM EDT) Triglycerides 193(H) <150 mg/dL [facility] Comment:Desirable Triglyceri de: less than 150 mg/dLBorderline High Triglyceride 150-199 mg/dLHigh Triglyceride: 200-499 mg/dLVery High Triglyceride: greater than or equal to 5OO mg/dL Cholesterol 243(H) <200 mg/dL [facility] Comment:Desirable Cholestero l: less than 200 mg/dLBorderline High Cholesterol: 200-239 mg/dLHigh Cholesterol: greater than 239 mg/dL LDL Cholesterol Calculated 158(H) <100 mg/dL [facility] Comment:Desirable LDL: less than 100 mg/dLNear Optimal/Above Optimal LDL: 110- 129 mg/dLBorderline High LDL: 130-159 mg/dLHigh LDL: 160-189 mg/dLVery High LDL: greater than or equal to 190 mg/dL HDL Cholesterol 47 >40 mg/dL [facility] Comment:Desirable HDL: great er than 40 mg/dL Note: This HDL assay may give artificially low results in patients with liver disease. 03/22/2025 8:40 AM EDT 03/22/2025 12:29 PM EDT us Aamir Pierce MD LAB BLOOD ORDERABLES Final Resul t [facility] [address] [place] [address] [phone] * BI Mammogram Screening Tomosynthesis Bilateral (09/11/2024 2:48 PM EST) Anatomical Region Laterality Modality Breast Bilateral Mammography 09/11/2024 2:48 PM EST Narrative 09/23/2024 4:09 PM EST [address] [place] [address] Mammography Report Signed with Addenda Patient: Jennifer Patel MR#: [id number] : 1955 Acct:[id number] Age/Sex: 69 / F ADM Date: 09/11/24 Loc: HO.MAMMO Attending Dr: Aamir Pierce MD Ordering Physician: Aamir Pierce MD Results: 2Benign Fi ndings Date of Service: 09/11/24 Follow Up: 1 Year From Orig ina Mammogram Procedure(s): MM tomosynthesis screening BI Accession Number(s): [id number] cc: Aamir Pierce MD ADDENDUM ADDENDUM #1 ADDENDUM: The current mammogram has been reviewed and remains BI-RADS as follows OVERALL ASSESSMENT: BI-RADS 2 - Benign Findings RECOMMENDATION: 1 year F/U Electronically signed by: Aide Means DO 10/09/2024 03:14 PM EST Addendum Dictated By: Aide Means DO Addendum Signed By: <Electronically signed by Aide Means DO in OV> 10/09/241513 Addendum Cosigned By: DD/ TD/TT: 09/11/24 EXAMINATION: [...] by: Aide Means DO 09/23/2024 04:06 PM [facility] Dictated By: Aide Means DO Signed By: <Electronically signed by Aide Means DO in OV> 09/23/24 1606 DD/ 1448 TD/TT: 09/11/24 1510 Steam Powerplant Supervisor: Procedure Note Donotuseinterpreter, Image - 10/09/2024 [facility] [address] [place], [place] [address] Mammography Report Signed with Teo Patient: Jennifer PatelMR#: [id number] : 1955cct:[id number] Age/Sex: 69 / FADM Date: 09/11/24 Loc: DANIEL Attending Dr: Aamir Pierce MD Ordering Physician: Aamir Pierce MDResults: 2Benign Fi ndings Date of Service: 09/11/24Follow Up: 1 Year From Orig inal Mammogram Procedure(s): MM tomosynthesis screening BI Accession Number(s): [id number] cc: Aamir Pierce MD ADDENDUM ADDENDUM #1 [...] 09/23/24 1606 DD/ 1448 TD/TT: 09/11/24 1510 Steam Powerplant Supervisor: us Aamir Pierce MD IMG BI PROCEDURES Edited Result - Final * Diabetes Eye Exam (12/14/2023) Eye Exam Normal Normal, BIRADS 0 , BIRADS 1 , BIRADS 2, BIRADS 3 , BIRADS 4+ us Aamir Pierce MD HEALTH MAINTENANCE Final Result * Colonoscopy (12/03/2021) Colonoscopy Normal Normal Narrative Nhi Ramos - 12/03/2021 Repeat colonoscopy in 1-2 years Historical Provider MD HEALTH MAINTENANCE Final Result from Last 3 [...] neuropathy 08/15/2025 Patient has diabetic neuropathy 08/15/2025 Insurance [id number] [employer] OPTIONS (O D-SNP) SASHA DOWNS [id number] Care Teams Juvenile Justice Specialist Relationship Specialty Start Date End Date Name, MD Aamir [address] [place] [address] PCP - General Family Medicine 10/25/15 Elvia Pat, AneudyD [address] [place] [address] Pharmacist Internal Medicine 09/29/23
--- OUTSIDE RECORDS SUMMARY | 2025-08-20 22:05 | XMS_ITS | Encounter Summary ---
Author Organization [employer] [facility] Address [address] 7t [place] [address] Care Team Providers Care Leather Heel Breaster Name Role Phone Name, Aamir STANTON Primary Care Provider [phone] Elvia Pat PharmD Unavailable [phone] Encounter Details Date Type Department Care Team (Late st Contact Info) Description 05/13/2023 Abstract [facility] [address] [place], [place] [phone] Name, MD Aamir [address] [place] [address] Social History Tobacco Use Types Packs/Day Years [...] Description 08/31/2025 11:30 AM EST Medication Management [facility] [address] [place], [place] [phone] PuiaMagalysa, PharmD [address] [place], [place] [phone] documented as of this encounter Visit Diagnoses Not on filedocumented in this encounter Additional Health Concerns Assessment Noted Time PHQ-9 Depression Total Score: 9 03/22/20 23 2:40 PM EDT documented as of this encounter Care Teams Leather Heel Breaster Relationship Specialty Start Date End Date Name, MD Aamir [address] [place] [address] PCP - General Family Medicine 10/25/15 Elvia Pat, Pat [address] [place] [address] Pharmacist Internal Medicine 09/29/23 documented as of this encounter
--- OUTSIDE RECORDS SUMMARY | 2025-08-20 22:05 | XMS_ITS | Encounter Summary ---
Author Organization [employer] Address [address] [facility] [address] [place] [address] Care Team Providers Care Spares Scheduler Name Role Phone Name, Aamir STANTON Primary Care Provider [phone] Elvia Pat PharmD Unavailable [phone] Reason for Visit * Reason Onset Date Comments Nurse Triage 07/25/2025 Encounter Details Date Type Department Care Team ([facility] st Contact Info) Description 07/25/2025 Telephone [facility] [address] [place], [place] [phone] Name, MD Aamir [address] [place] [address] Nurse Triage Social History Tobacco Use Types [...] caller accepted this outcome. Contact pt at [phone] Need store receiving specialist documented in this encounter Plan of Treatment Upcoming Encounters Date Type Department Care Team (Late st Contact Info) Description 08/31/2025 11:30 AM EST Medication Management [facility] [address] [place] [address] PuiaLobitoElvia, PharmD [address] [place] [address] documented as of this encounter Goals Goal [...] has diabetic neuropathy No Colon Ann Princela Weekly blood pressure task Care Plan Weekly blood pressure task No Colon Ann Princela Weekly blood pressure task Care Plan Weekly blood pressure task No Colon Ann Princela Weekly blood pressure task Care Plan Weekly [...] has diabetic neuropathy No Colon Izabela Prince documented as of this encounter Visit Diagnoses [...] documented as of this encounter Care Teams Spares Scheduler Relationship Specialty Start Date End Date Name, MD Aamir [address] [place] [address] PCP - General Family Medicine 10/25/15 Elvia Pat PharmD [address] [place] [address] Pharmacist Internal Medicine 09/29/23 documented as of this encounter
--- OUTSIDE RECORDS SUMMARY | 2025-08-20 22:05 | XMS_ITS | Encounter Summary ---
Author Organization [employer] Address [address] [facility] [address]t [place] [address] Care Team Providers Care Rolling Mill Operator Helper Name Role Phone Aamir Pierce MD Primary Care Provider [phone] Elvia Pat PharmD Unavailable [phone] Reason for Visit * Reason Onset Date Comments Med Refill 02/14/2025 Encounter Details Date Type Department Care Team ([facility] st Contact Info) Description 02/14/2025 Telephone [facility]INE [address] [place], [place] [phone] Name, MD Aamir [address] [place] [address] Med Refill Social History Tobacco Use Types [...] 2 Sensor) misc To be sent to: [facility] documented in this encounter Plan of Treatment Upcoming Encounters Date Type Department Care Team (Late st Contact Info) Description 08/31/2025 11:30 AM EST Medication Management [facility] [address] [place], [place] [phone] Elvia Pat, PharmD [address] [place], [place] [phone] documented as of this encounter Goals Goal [...] documented as of this encounter Care Teams Rolling Mill Operator Helper Relationship Specialty Start Date End Date Name, MD Aamir [address] [place] [address] PCP - General Family Medicine 10/25/15 Elvia Pat, PharmD [address] [place] [address] Pharmacist Internal Medicine 09/29/23 documented as of this encounter
--- OUTSIDE RECORDS SUMMARY | 2025-08-20 22:06 | XMS_ITS | Encounter Summary ---
Author Organization [employer] Address [address] [facility] 7t [place] [address] Care Team Providers Care Vegetable Scullion Name Role Phone Name, Aamir STANTON Primary Care Provider [phone] Elvia Pat PharmD Unavailable [phone] Reason for Visit * Reason Onset Date Comments Pre OP 01/13/2024 Encounter Details Date Type Department Care Team ([facility] st Contact Info) Description 01/13/2024 Telephone [facility] [address] [place], [place] [phone] Name, MD Aamir [address] [place], [place] [phone] Pre OP Social History Tobacco Use Types [...] [place] Facility name: [facility] Surgeon's office number: [phone] ext [facility] Surgeon's office fax number: [phone] Contact name (person you spoke with): Rosalind Last office note from surgeon requested: no documented in this encounter Plan of Treatment Upcoming Encounters Date Type Department Care Team ([facility] st Contact Info) Description 08/31/2025 11:30 AM EST Medication Management [facility] [address] [place], [place] [phone] Elvia Pat, PharmD [address] [place], [place] [phone] documented as of this encounter Goals Goal [...] documented as of this encounter Care Teams Vegetable Scullion Relationship Specialty Start Date End Date Name, MD Aamir [address] [place] [address] PCP - General Family Medicine 10/25/15 Elvia Pat PharmD [address] [place] [address] Pharmacist Internal Medicine 09/29/23 documented as of this encounter
--- OUTSIDE RECORDS SUMMARY | 2025-08-20 22:06 | XMS_ITS | Encounter Summary ---
Author Organization [employer] Address [address] 7[address] [place] [address] Care Team Providers Care Bottom Bleacher Name Role Phone Name, Aamir STANTON Primary Care Provider [phone] Elvia Pat PharmD Unavailable Encounter Details Date Type Department Care Team (Latest Contact Info) Description 08/15/2025 Travel Social History Tobacco Use Types Packs/Day [...] Description 08/31/2025 11:30 AM EST Medication Management [facility] [address] [place], [place] [phone] Elvia Pat PharmD [address] [place] [address] documented as of this encounter Goals Goal [...] Component 8.7(07/05/20 25 2:39 PM EDT) No AlyssiaiaLobitoElvia, PharmD Help patients manage their type 2 [...] has diabetic eye disease No Izabela Shore Help patients manage their type 2 diabetes Care Plan Help patients manage their type 2 diabetes No Izabela Shore Patient has chronic kidney disease Care Plan Patient has chronic kidney disease No Colon Prince, Izabela Help patients manage their type 2 diabetes Care Plan Help patients manage their type 2 diabetes No Colon Suresh Izabela Patient has diabetic neuropathy Care Plan Patient has diabetic neuropathy No Colon Prince, Izabela Weekly blood pressure task Care Plan Weekly blood pressure task No Colon Suresh Izaebla Weekly blood pressure task Care Plan Weekly [...] Care Plan Patient has diabetic neuropathy No Troy Jazmin Campa [place] Weekly blood pressure task Care Plan [...] Care Plan Patient has diabetic neuropathy No RuelasKwame amin [place] Patient has diabetic neuropathy Care Plan Patient has diabetic neuropathy No RuelasKwame amin [place] Patient has diabetic neuropathy Care Plan Patient has diabetic neuropathy No Kwame Ruelas [place] documented as of this encounter Visit Diagnoses [...] documented as of this encounter Care Teams Bottom Bleacher Relationship Specialty Start Date End Date Name, MD Aamir [address] [place] [address] PCP - General Family Medicine 10/25/15 Elvia Pat PharmD [address] [place] [address] Pharmacist Internal Medicine 09/29/23 documented as of this encounter
--- OUTSIDE RECORDS SUMMARY | 2025-08-20 22:06 | XMS_ITS | Encounter Summary ---
Author Organization [employer] Address [address] [facility] [address] [place] [address] Care Team Providers Care Supervisor Modern Languages Name Role Phone Aamir Pierce MD Primary Care Provider [phone] Elvia Pat PharmD Unavailable [phone] Reason for Visit * Reason Onset Date Comments Pre-op Visit 04/03/2024 Encounter Details Date Type Department Care Team ([facility] st Contact Info) Description 04/03/2024 Telephone [facility] [address] [place], [place] [phone] Name, MD Aamir [address] [place], [place] [phone] Pre-op Visit Social History Tobacco Use Types [...] Lasik calling in regards to message prior. Automation Machine Operator informed on already scheduled Pre Op visit and also obtained fax number. [facility] fax: [phone]. * Telephone Encounter - Bart Guardado - 04/04/2024 9:25 AM EDT TC placed to pt's daughter Jazmin for scheduling of Pre-op visit . Agreed to 04/[address] Dequan Ewing . Date of Surgery: 05/04 Surgical procedure being done: Cataract (left) Type of anesthesia: General Lab needed: No EKG: No Surgeon's name: Dr Montgomery Facility name: [facility] Surgeon's office number: [phone] Surgeon's office fax number: Contact name: Jazmin (pt daughter) Last office note from surgeon requested: * Telephone Encounter - Susy Stanton - 04/03/2024 12:58 PM EDT Date of Surgery: 05/04 Surgical procedure being done: Cataract (left) Type of anesthesia: General Lab needed: No EKG: No Surgeon's name: Dr Montgomery Facility name: [facility] Surgeon's office number: [phone] Surgeon's office fax number: Contact name: Jazmin (pt daughter) Last office note from surgeon requested: documented in this encounter Plan of Treatment Upcoming Encounters Date Type Department Care Team (Late st Contact Info) Description 08/31/2025 11:30 AM EST Medication Management [facility] [address] [place], [place] [phone] Puia, Elvia, PharmD [address] [place], [place] [phone] documented as of this encounter Goals Goal [...] documented as of this encounter Care Teams Supervisor Modern Languages Relationship Specialty Start Date End Date Name, MD Aamir [address] [place], [place] [phone] PCP - General Family Medicine 10/25/15 Puia, Elvia, PharmD [address] [place], [place] [phone] Pharmacist Internal Medicine 09/29/23 documented as of this encounter
== END 2025-08-20 14:24 | disposition home or self-care (01) ==
LOC: HO.HCS 13:24
PROVIDERS: PCP Internal Medicine Geriatric Medicine; Visit Provider Internal Medicine Cardiovascular Disease
DX: I10 Essential (primary) hypertension (principal); I08.0 Rheumatic disorders of both mitral and aortic valves; Z95.0 Presence of cardiac pacemaker; R06.00 Dyspnea, unspecified
CPT/HCPCS: 93010; 93280; 99214

== ENCOUNTER → 2025-08-20 14:47 | Outpatient (BNV) | payer OTHER, SELFPAY | PROVIDERS: Absent Provider Internal Medicine Geriatric Medicine; PCP Internal Medicine Geriatric Medicine; Visit Provider Radiology Diagnostic Radiology | DX: M47.812 Spondylosis without myelopathy or radiculopathy, cervical region (principal); M99.61 Osseous and subluxation stenosis of intervertebral foramina of cervical region | CPT/HCPCS: 72050 ==